=== PATIENT | female | born 1940 | race African-American/Black ===

== ENCOUNTER 2016-09-10 17:15 | Emergency (ER) | payer MEDICARE ==
[2016-06-09 09:53] VITALS: BMI 23.2
[~2016-09-10 17:15] MED LIST: BAYER CHEWABLE81 MG PO; BETAPACE 80 MG80 MG PO; GLUCOPHAGE500 MG PO; NORVASC2.5 MG PO; NORVASC5 MG PO; PLAVIX75 MG PO; PRAVACHOL40 MG PO
[2016-09-10 17:56] LABS: BASOPHILS 0.9 % (0.0-2.0); HEMATOCRIT 39.4 % (36.0-48.0); HEMOGLOBIN 12.8 g/dL (12-16); IMMATURE GRANULOCYTES 0.4 % (0-5); LYMPHOCYTES 38.3 % (15-50); MCH 27.5 pg (26.0-34.0); MCHC 32.5 g/dL (31.0-37.0); MCV 84.5 fL (80.0-100.0); NEUTROPHILS 45.4 % (40-80); PLATELET COUNT 195 10x3/uL (130-400); RBC 4.66 10x6/uL (4.00-5.40); RDW 15.6 % (11.5-14.5); WBC 5.4 10x3/uL (4.8-10.8)
[2016-09-10 18:17] LABS: ALBUMIN 3.5 g/dL (3.4-5.0); ANION GAP 9.2 mmol/L (8-16); BILIRUBIN - TOTAL 0.43 mg/dL (0.2-1.3); CALCIUM 9.7 mg/dL (8.5-10.1); CARBON DIOXIDE 28.4 mmol/L (21.0-32.0); CREATININE - SERUM 0.8 mg/dL (0.6-1.3); POTASSIUM - SERUM 3.6 mmol/L (3.5-5.1); PROTEIN - SERUM 7.1 g/dL (6.4-8.2)
== END 2016-09-10 19:27 | disposition home or self-care (01) ==
LOC: D.ER 17:15
PROVIDERS: Emergency Medicine
DX: R00.0 Tachycardia, unspecified (principal); R94.31 Abnormal electrocardiogram [ECG] [EKG]

== ENCOUNTER 2016-12-12 08:29 | Outpatient (CLI) | payer MEDICARE ==
[~2016-12-12] VITALS: Ht 162.6 cm; Wt 61.4 kg
--- NOTE | ~2016-12-12 | HEMODYNAMI ---
PATIENT:HALLE OBANDO MEDICAL RECORD: [id number] : 36 LOCATION:[facility] ADMISSION DATE: 12/12/16 Generatedon:12/12/201611:22 Patient name: HALLE OBANDO Patient #: [id number] SSN: Marina OB: 1940 Date of study: 12/12/2016 Page: Of Hemodynamic Procedure Report Patient Data Patient Demographics Procedure consent was obtained First Name: HALLE Gender: Female Last Name: GISELLA : 1940 Patient #: [id number] Age: 76 year(s) Race: Black Additional ID: [id number] Contact details Address: [address] [place] [address] State: [place] City: [place] Zip code: [address] Past Medical History Allergies Allergen Reaction Date Comments Reported Other allergy 06/13/2015 Codeine, PCN, Hydrocodone, Ultram Other allergy 05/30/2016 penicillin, codeine Codeine Other 06/09/2016 Penicillins Skin ->Redness 06/09/2016 Penicillins 12/12/2016 Codeine 12/12/2016 Other allergy 12/12/2016 ibuprofen Admission Admission Data Admission Date: 12/12/2016 Admission Time: 8:29 Height (in.): 64 BSA: 1.66 (m2) Height (cm.): 162.56 BMI: 23.17 (kg/m2) Weight (lbs.): 135 Weight (kg.): 61.23 Lab Results Lab Result Date: 12/12/2016 Lab Result Time: 0:00 Biochemistry Name Units Result Min Max BUN mg/dl 11 --(-*--)-- 7 18 Creatinine mg/dl 0.7 --(*---)-- 0.6 1.3 CBC Name Units Result Min Max Hemoglobin g/dl 11.8 *-(----)-- 13.5 17.5 Procedure Procedure Types Cath Procedure Diagnostic Procedure LHC LHC w/Coronaries PCI Procedure PTCA Initial Miscellaneous Procedures Moderate Sedation up to 30 minutes Procedure Description Procedure Date Procedure Date: 12/12/2016 Procedure Start Time: 10:51 Procedure End Time: 11:11 Procedure Staff Name Function Joaquin Ndiaye MD Performing Physician Aletha Keene RN Nurse Americo Davidson RT Monitor Dick Faulkner RT Scrub Procedure Data Cath Procedure Fluoroscopy Diagnostic fluoroscopy Total fluoroscopy Time: 7.1 time: 7.1 min min Diagnostic fluoroscopy Total fluoroscopy dose: 661 dose: 661 mGy mGy Contrast Material Contrast Material Type Amount (ml) Isovue 300 146 Entry Location Entry Primary Successful Side Size Upsize Upsize Entry Closure Succes sful Closure Location (Fr) 1 (Fr) 2 (Fr) Remarks Device Remarks Femoral Right 5 Fr 6 Fr Exoseal artery Short Diagnostic catheters Device Type Used For End Catheter Placement Cordis 5Fr Pigtail LV Angiography Catheter (MP) Cordis 5Fr JL 4.0 Left Coronary Catheter (MP) Angiography Diagnostic Infinity 5Fr Left Coronary JL 3.5 catheter Angiography Cordis 5Fr 3DRC Catheter Right Coronary (MP) Angiography Procedure Complications No complications Procedure Medications Medication Administration Route Dosage Oxygen NC 2 l/min Heparin Flush Bag added to field 2 bags (1000units/500ml NS) Lidocaine 2% added to field 20 Versed I.V. 1 mg Fentanyl I.V. 50 mcg Versed I.V. 1 mg Fentanyl I.V. 50 mcg Fentanyl I.V. 50 mcg Heparin Bolus I.V. 4000 units Hemodynamics Rest BSA: 1.66 (m2) HGB: 11.8 (g/dl) O2 Consumption: Estimated: 144.25 (ml/min) O2 Co nsumption indexed: Estimated:86.9 (ml/min/m) Heart Rate: 61 (bpm) Snapshots Pre Cath Intra NCS Post Cath Vital Signs Time Heart Resp SPO2 etCO2 [id number] NIBP (mmHg) Rhythm Pain Sedation Rate (ipm) (%) (mmHg) (mmHg) Status Level (bpm) 10:31:56 67 16 97 0 0 154/89(107) NSR 0 (11) 10(A) , No pain 10:36:12 65 16 98 0 0 138/86(117) NSR 0 (11) 10(A) , No pain 10:40:28 57 12 100 0 0 132/73(106) NSR 0 (11) 10(A) , No pain 10:44:32 63 16 100 0 0 132/83(114) NSR 0 (11) 10(A) , No pain 10:48:48 54 16 100 0 0 115/66(76) NSR 0 (11) 10(A) , No pain 10:52:58 60 16 95 0 0 91/64(74) NSR 0 (11) 9(A) , No pain 10:57:00 76 16 96 0 0 106/63(78) NSR 0 (11) 9(A) , No pain 11:00:59 76 16 96 0 0 127/86(112) NSR 0 (11) 9(A) , No pain 11:05:11 68 16 99 0 0 115/73(83) NSR 0 (11) 9(A) , No pain 11:09:58 83 17 100 0 0 138/93(114) NSR 0 (11) 10(A) , No pain Medications Time Medication Route Dose Verified Delivered Reason Notes Effectiveness by by 10:33:07 Oxygen NC 2 Joaquin Aletha Per physician l/min Senthil Keene RN 10:33:14 Heparin Flush added 2 Joaquin Joaquin used for Bag to bags Senthil Ndiaye MD procedure (1000units/500ml field NS) 10:33:22 Lidocaine 2% added 20ml Joaquin Joaquin used for to vial Senthil Ndiaye MD procedure field 10:44:08 Versed I.V. 1 mg Joaquin Aletha for sedation Senthil Keene RN 10:44:38 Fentanyl I.V. 50 Joaquin Aletha for sedation mcg Senthil Keene RN 10:46:48 Versed I.V. 1 mg Joaquin Aletha for sedation Senthil Keene RN 10:46:51 Fentanyl I.V. 50 Joaquin Aletha for sedation mcg Senthil Keene RN 10:51:28 Fentanyl I.V. 50 Joaquin Aletha for sedation mcg Senthil Keene RN 11:00:55 Heparin Bolus I.V. 4000 Joaquin Aletha for dose units Senthil Keene RN anticoagulation verified with dr ndiaye Procedure Log Time Note 10:10:05 Americo Davidson RT(R) sent for patient. Start room use. 10:23:37 Time tracking: Regular hours 10:23:43 Plan of Care:Hemodynamics will remain stable., Cardiac rhythm will remain stable., Comfort level will be maintained., Respiratory function will remain adequate., Patient/ family verbilizes understanding of procedure., Procedure tolerated without complication., Recovers from procedure without complications.. 10:23:50 Patient received from Pre/Post Procedure Room to CCL 1 Alert and oriented. Tansferred to table in Supine position. 10:23:52 Warm blankets applied, and milagro hugger turned on for patient comfort. 10:23:53 Correct patient and procedure confirmed by team. 10:23:54 Signed procedure consent form obtained from patient. 10:23:54 ECG and BP/O2 sat monitors applied to patient. 10:30:51 Vital chart was started 10:33:07 Oxygen 2 l/min NC was administered by Aletha Keene RN; Per physician; 10:33:14 Heparin Flush Bag (1000units/500ml NS) 2 bags added to field was administered by Joaquin Ndiaye MD; used for procedure; 10:33:22 Lidocaine 2% 20ml vial added to field was administered by Joaquin Ndiaye MD; used for procedure; 10:37:17 Baseline sample Acquired. 10:37:20 Rhythm: sinus rhythm 10:37:21 Full Disclosure recording started 10:37:32 H&P Date Dictated: 11/28/2016 Within 30 days and on chart., H&P Addendum completed by physician on day of procedure. (MUST COMPLETE FOR ALL OUTPATIENTS). 10:37:33 Pre-procedure instructions explained to patient. 10:37:34 Pre-op teaching completed and patient verbalized understanding. 10:37:39 Family unavailable. 10:37:40 Patient NPO since Midnight. 10:37:46 Patient allergic to Penicillins 10:37:52 Patient allergic to Codeine 10:38:05 Patient allergic to Other allergyibuprofen 10:38:08 Is the patient allergic to Iodine/contrast media? No. 10:38:11 Was the patient premedicated? No 10:38:13 Is patient on blood thinner?Yes 10:38:17 ACC The patient was administered the following blood thiners within the last 24 hours: ACCPlavix 10:38:20 Patient diabetic? Yes. 10:38:22 If diabetic: On Metformin? Yes 10:38:25 If on Metformin: Last Dose? 12/10/2016 10:38:26 ----Pre-sedation anethsthesia assessment.---- 10:38:29 Previous problem with sedation/anesthesia? No ? 10:38:30 Snore? Yes 10:38:32 Sleep apnea? No 10:38:33 Deviated septum? No 10:38:36 Opens mouth fully? Yes 10:38:38 Sticks out tongue? Yes 10:38:40 Airway obstruction? No ? 10:38:53 Dentures? Yes in tight 10:38:57 Pre procedure: right dorsailis pedis pulse 1+ Palpable, but thready & weak; easily obliterated 10:39:00 Patient pain scale 0/10 ?. 10:39:06 IV patent on arrival in left forearm with 0.9% NaCl at 10ml/hr. 10:39:26 Lab Result : Creatinine 0.7 mg/dl 10:39:26 Lab Result : BUN 11 mg/dl 10:39:26 Lab Result : Hemoglobin 11.8 g/dl 10:39:29 Lab results completed and on chart. 10:39:35 Right groin area was prepped with chlora-prep and draped in sterile fashion 10:39:37 Alarms reviewed by R. N. 10:39:37 Sharps counted by scrub and verified by R.N. 10:42:51 Patient Weight : 135 kg 10:42:59 Patient Height : 64 cm 10:43:13 --------ALL STOP TIME OUT------ 10:43:13 Final Timeout: patient, procedure, and site verified with staff and physician. All members of the team are in agreement. 10:43:15 Right groin site verified by team. 10:43:18 Physical assessment completed. ASA score P 2 - A patient with mild systemic disease as per Joaquin Ndiaye MD. 10:43:22 Sedation plan: IV Moderate Sedation Versed, Fentanyl 10:44:08 Versed 1 mg I.V. was administered by Aletha Kenee RN; for sedation; 10:44:38 Fentanyl 50 mcg I.V. was administered by Aletha Keene RN; for sedation; 10:46:42 Use device set Femoral Dx 10:46:43 Acist Syringe opened to sterile field. 10:46:43 Bag Decanter opened to sterile field. 10:46:44 Medline Cath Pack opened to sterile field. 10:46:44 Terumo 5Fr Grayling Sheath opened to sterile field. 10:46:44 [place] 260cm J .035 wire opened to sterile field. 10:46:46 Acist Hand Control opened to sterile field. 10:46:46 Acist Manifold opened to sterile field. 10:46:47 Diagnostic Infinity 5Fr Multipack catheter opened to sterile field. 10:46:47 Tegaderm 4 x 4 opened to sterile field. 10:46:48 Versed 1 mg I.V. was administered by Aletha Keene RN; for sedation; 10:46:51 Fentanyl 50 mcg I.V. was administered by Aletha Keene RN; for sedation; 10:51:10 Zero performed for pressure channel P1 10:51:13 Zero performed for pressure channel P1 10:51:23 Procedure started. 10:51:28 Fentanyl 50 mcg I.V. was administered by Aletha Keene RN; for sedation; 10:51:33 Local anesthetic to right femoral artery with Lidocaine 2% by Joaquin Ndiaye MD.INITIAL ACCESS ONLY 10:51:39 A 5 Fr sheath was inserted into the Right Femoral artery 10:52:23 A Cordis 5Fr Pigtail Catheter (MP) was advanced over the wire and used for LV Angiography. 10:52:45 LV angiography performed. 10:52:55 EF : 60 % 10:52:57 LV gram done using NAIK 10:53:01 Injector settings: Ml/sec: 10, Volume: 20, 10:53:03 Catheter removed. 10:53:08 A Cordis 5Fr JL 4.0 Catheter (MP) was advanced over the wire and used for Left Coronary Angiography. 10:54:12 Catheter removed. 10:54:43 A Diagnostic Infinity 5Fr JL 3.5 catheter was advanced over the wire and used for Left Coronary Angiography. 10:54:48 LCA angiography performed. 10:56:00 Catheter removed. 10:56:18 A Cordis 5Fr 3DRC Catheter (MP) was advanced over the wire and used for Right Coronary Angiography. 10:56:23 RCA angiography performed. 10:56:24 Catheter removed. 10:56:26 MedEd4U Launcher 5Fr EBU 3.5 guide catheter opened to sterile field. 10:56:37 6 Fr ? guide catheter was inserted over the wire 10:56:41 5 Fr ebu 3.5 guide catheter was inserted over the wire 10:56:44 LCA angiography performed. 10:58:53 Catheter removed. 10:59:22 Terumo 6Fr Gray[place] Sheath opened to sterile field. 10:59:23 [place] Sci Choice PT Extra Support J 300cm .014 gu opened to sterile field. 10:59:23 Merit BasixCompak Inflation Kit opened to sterile field. 10:59:24 Medtronic Launcher 6Fr EBU 3.5 guide catheter opened to sterile field. 10:59:35 Sheath upsized to a 6 Fr Short. 10:59:47 6 Fr EBU 3.5 guide catheter was inserted over the wire 11:00:49 ACC PCI Site: Diag1 has 90% stenosis. 11:00:51 ACC Pre-intervention CRYSTAL Flow is 3. 11:00:55 Heparin Bolus 4000 units I.V. was administered by Aletha Keene RN; for anticoagulation; dose verified with dr ndiaye 11:00:57 CPTES wire advanced. 11:04:18 Cordis 6Fr Exoseal opened to sterile field. 11:06:43 Inflation number: 1 A [place] Sci [place] 1.5 X 15 balloon was prepped and advanced across the 1st Diag, then inflated to 11 LIZBETH for 0:10 (min:sec). 11:06:53 Inflation number: 2 The [place] Sci [place] 1.5 X 15 balloon was reinflated across the 1st Diag, to 13 LIZBETH for 0:08 (min:sec). 11:07:07 Inflation number: 3 The [place] Sci [place] 1.5 X 15 balloon was reinflated across the 1st Diag, to 21 LIZBETH for 0:13 (min:sec). 11:08:32 Inflation number: 4 The [place] Sci [place] 1.5 X 15 balloon was reinflated across the 1st Diag, to 15 LIZBETH for 0:20 (min:sec). 11:08:41 Balloon removed over the wire. 11:08:49 Sheath removed intact; hemostasis achieved with Exoseal to the Right Femoral artery. 11:08:53 Contrast amount:Isovue 300 146ml. 11:08:54 Procedure ended.(Physican Out) 11:09:07 Fluoroscopy time 07.10 minutes. 11:09:12 Flurop Dose total: 661 11:09:12 Fluoroscopy dose: 661 mGy 11:09:14 Sharps counted by scrub and verified by R.N. 11:09:15 Insertion/operative site no bleeding no hematoma. 11:09:19 Post-op/insertion site Right Femoral artery dressed using a 4 x 4 and Tegaderm. 11:09:22 Post right femoral artery:stable 11:10:15 Procedure type changed to Cath procedure, Diagnostic procedure, LHC, LHC w/Coronaries, PCI procedure, PTCA Initial, Miscellaneous Procedures, Moderate Sedation up to 30 minutes 11:10:19 Post Procedure Pulses reassessed and unchanged 11:10:21 Post procedure rhythm: sinus rhythm 11:10:23 Post procedure instruction explained to patient.Patient verbalizes understanding. 11:10:48 Procedure and supply charges have been captured, reviewed, submitted and are correct. 11:10:52 Procedure Complication : No complications 11:10:58 Vital chart was stopped 11:10:59 See physician's report for complete and final results. 11:11:06 Report given to Pre/Post Procedure Room. 11:11:09 Patient transfered to Pre/Post Procedure Room with Stretcher. 11:11:11 Procedure ended. 11:11:11 Full Disclosure recording stopped 11:11:13 End room use (Document Last) Intervention Summary Intervention Notes Time ActionType Lesion and Equipment Action# Pressure Duration Attributes Used 11:06:43 Inflate 1st Diag [place] 1 11 00:10 balloon Sci [place] 1.5 X 15 balloon 11:06:53 Reinflate 1st Diag [place] 2 13 00:08 balloon [place] 1.5 X 15 balloon 11:07:07 Reinflate 1st Diag [place] 3 21 00:14 balloon [place] 1.5 X 15 balloon 11:08:32 Reinflate 1st Diag [place] 4 15 00:20 balloon [place] 1.5 X 15 balloon Device Usage Item Name Manufacture Quantity Catalog Number Hospital Part Current Mini mal Lot# / Charge Number Stock Stock Serial# Code Acist Acist 1 31574 [id number] [id number] 20 epacube Inc Bag Microtek 1 2002S 248374 62310 975437 5 [employer] Medline Cardinal 1 [id number] 048909 55521 780421 5 Cath Pack Health Terumo 5Fr Terumo 1 [id number] 989772 118491 679904 [address] [place] 1 130336 879002 194950 517935 30 260cm J .035 wire Acist Hand Acist 1 85535 387635 530431 411425 5 Control Medical Systems Inc Acist Acist 1 18809 179810 635220 729620 5 Manifold Medical Systems Inc Diagnostic Cardinal 1 [id number] 735150 85206 945104 30 Infinity Health 5Fr Multipack catheter Tegaderm 4 3M 1 [id number] 926576 484429 967132 5 x 4 Cordis 5Fr Cardinal 1 538376 5 Pigtail Health Catheter (MP) Cordis 5Fr Cardinal 1 220651 5 JL 4.0 Health Catheter (MP) Diagnostic Cardinal 1 [id number] 023910 153551 779011 5 Infinity Health 5Fr JL 3.5 catheter Cordis 5Fr Cardinal 1 218962 5 3DRC Health Catheter (MP) Medtronic Medtronic 1 [id number] 926353 987937 326255 1 Launcher 5Fr EBU 3.5 guide catheter Terumo 6Fr Terumo 1 [id number] 054954 720786 176689 40 Grayling Sheath [place] Sci [place] 1 [id number] 543388 625226 825500 5 Choice PT Scientific Extra Support J 300cm .014 gu Merit Merit 1 [id number] 581086 456396 146561 15 BasixCompak Medical Inflation Kit Medtronic Medtronic 1 [id number] 866104 28117 886024 3 Launcher 6Fr EBU 3.5 guide catheter Cordis 6Fr Cardinal 1 [id number] 945309 270407 007469 10 Exoseal Health [place] Sci [place] 1 [id number] 254200 347883 775015 1 [id number] [email or web address] 1.5 X 15 balloon Signature Audit [place] Stage Time Signature Unsigned Intra-Procedure 12/12/2016 Americo Davidson 11:22:13 AM RT(R) Signatures Monitor : Americo Davidson RT Signature : Date : Time : [facility] [address] [place] [address]
--- NOTE | ~2016-12-12 | OP ---
PATIENT NAME: HALLE OBANDO MEDICAL RECORD: [id number] :36 LOCATION:D.[facility] ADMISSION DATE: SURGEON: CHRISTOPHER SUAREZ MD DATE OF OPERATION: 12/12/2016 PROCEDURES: 1. PTCA, LAD diagonal. 2. Left heart catheterization. 3. Selective coronary angiography. 4. Left ventriculogram. INDICATIONS: Angina and coronary artery disease. PROCEDURE IN DETAIL: After informed consent was obtained and after detailed explanation of risks, benefits as well as alternative therapies, the patient elected to proceed with angiogram and angioplasty. The right femoral area was prepped and draped in normal sterile fashion. The right femoral artery was cannulated via modified Seldinger technique with placement of 6-[place] sheath. All catheters exchanged through this sheath. FINDINGS: The left ventriculogram was performed in standard 30-degree NAIK view, reveals good cardiac wall motion throughout all segments. Overall ejection fraction is 60%. SELECTIVE CORONARY ANGIOGRAPHY: 1. Left main showed no significant angiographic disease. 2. Left anterior descending has previously placed stent in the LAD, this is widely patent with no significant restenosis. The diagonal, however, is relatively long, but small-caliber vessel, it has a 90% stenosis. This correlates with perfusion defect on nuclear stress test. 3. The left circumflex shows moderate irregularities, but no flow-limiting stenosis. 4. The right coronary has previously placed stents. These are widely patent with no significant restenosis. No disease elsewise throughout the RCA or its branches. PTCA OF THE LAD DIAGONAL: The balloon used was a long 5.0 balloon taken to 17 atmospheres. Multiple inflations were made. Result was 0% residual stenosis. No angiographic evidence of dissection or thrombus. OVERALL IMPRESSION: Successful percutaneous transluminal coronary angioplasty of the left anterior descending diagonal going from 90% initial stenosis to 0% residual. TRANSINT:[id number] Voice Confirmation ID: [id number] DOCUMENT ID: [id number] CHRISTOPHER SUAREZ MD CC: [id number] DICTATION DATE: 12/12/16 1122 LAUNDRY HELPER: 12/12/162013 DEP CLI 12/12/16 [facility] [address] [place] [address]
[2016-12-12] MEDS ORDERED: LISINOPRIL2.5 MG PO (09:08)
[2016-12-12] MEDS ORDERED: TAPAZOLE 5 MG TA5 MG PO (09:08)
[2016-12-12] MEDS ORDERED: TENORMIN25 MG PO (09:09)
[2016-12-12] MEDS ORDERED: ZETIA10 MG PO (09:09)
[2016-12-12] MEDS ORDERED: ISOSORBIDE MONO20 MG PO (09:10)
[2016-12-12 09:14] VITALS: BP 137/78; Ht 162.6 cm; Wt 61.4 kg
[2016-12-12 09:54] LABS: CALC OSMOLALITY 290 mosm/kg (275-300); CALCIUM 9.3 mg/dL (8.5-10.1); CARBON DIOXIDE 26.2 mmol/L (21.0-32.0); CHLORIDE - SERUM 111 mmol/L (98-107); CREATININE - SERUM 0.7 mg/dL (0.6-1.3); POTASSIUM - SERUM 3.9 mmol/L (3.5-5.1); SODIUM 146 mmol/L (136-145); UREA NITROGEN 11 mg/dL (7-18); eGFR NON AFRICAN AMERICAN 86 mL/min (90-120)
[2016-12-12 10:03] LABS: GLUCOSE 114 mg/dL (74-106)
[2016-12-12 10:10] LABS: BASOPHILS 1.4 % (0.0-2.0); EOSINOPHILS 4.9 % (0-7); HEMATOCRIT 36.9 % (36.0-48.0); HEMOGLOBIN 11.8 g/dL (12-16); IMMATURE GRANULOCYTES 0.2 % (0-5); LYMPHOCYTES 27.4 % (15-50); MCH 27.8 pg (26.0-34.0); MEAN PLATELET VOLUME 10.4 fL (7.4-10.4); MONOCYTES 16.5 % (2-11); NEUTROPHILS 49.6 % (40-80); PLATELET COUNT 212 10x3/uL (130-400); RBC 4.24 10x6/uL (4.00-5.40); RDW 14.7 % (11.5-14.5); WBC 4.9 10x3/uL (4.8-10.8)
--- NOTE | 2016-12-12 12:53 | NUR ---
1235 PT SLEEPING, AWAKENS EASILY TO VERBAL STIMULI. EXOSEAL DRESSING TO RIGHT GROIN IS CDI, NO BLEEDING OR HEMATOMA NOTED. PEDAL PULSES PALPABLE. RR EVEN AND UNLABORED. PT DENIES ANY C/O.
--- NOTE | 2016-12-12 15:52 | NUR ---
1500-SITTING UP IN BED- RIGHT GROIN CDI, NO HEMATOMA OR BLEEDING, SOFT TO TOUCH, IV D'C WITH CATH TIP INTACT, WRITTEN AND VERBAL INSTRUCTIONS GIVEN TO PT AND DAUGHTER, UNDERSTOOD.
== END 2016-12-12 15:30 | disposition home or self-care (01) ==
LOC: D.CATH 08:29
PROVIDERS: Internal Medicine Interventional Cardiology
DX: I25.10 Atherosclerotic heart disease of native coronary artery without angina pectoris (principal); I10 Essential (primary) hypertension; R53.83 Other fatigue; R94.30 Abnormal result of cardiovascular function study, unspecified

== ENCOUNTER 2017-03-30 16:04 | Emergency (ER) | payer MEDICARE, MEDICAID ==
[2016-12-12 09:14] VITALS: BMI 23.2
[~2017-03-30 16:04] MED LIST changes: +ISOSORBIDE MONO20 MG PO; +LISINOPRIL2.5 MG PO; +TAPAZOLE 5 MG TA5 MG PO; +TENORMIN25 MG PO; +ZETIA10 MG PO
[2017-03-30 17:09] LABS: BASOPHILS 1.4 % (0-2); EOSINOPHILS 2.5 % (0-7); HEMATOCRIT 40.7 % (36.0-48.0); HEMOGLOBIN 13.3 g/dL (12-16); IMMATURE GRANULOCYTES 0.2 % (0-5); MCH 27.2 pg (26.0-34.0); MCHC 32.7 g/dL (31.0-37.0); MCV 83.2 fL (80.0-100.0); MEAN PLATELET VOLUME 9.9 fL (7.4-10.4); MONOCYTES 15.2 % (2-11); NEUTROPHILS 42.7 % (40-80); PLATELET COUNT 208 10x3/uL (130-400); RBC 4.89 10x6/uL (4.00-5.40); RDW 14.6 % (11.5-14.5); WBC 5.1 10x3/uL (4.8-10.8)
[2017-03-30 17:18] LABS: ALBUMIN 3.6 g/dL (3.4-5.0); ALKALINE PHOSPHATASE 85 U/L (46-116); ALT (SGPT) 13 U/L (10-68); CALC OSMOLALITY 286 mosm/kg (275-300); CALCIUM 9.7 mg/dL (8.5-10.1); CARBON DIOXIDE 26.8 mmol/L (21.0-32.0); CHLORIDE - SERUM 107 mmol/L (98-107); CREATININE - SERUM 0.7 mg/dL (0.6-1.3); GLUCOSE 116 mg/dL (74-106); POTASSIUM - SERUM 3.7 mmol/L (3.5-5.1); PROTEIN - SERUM 7.7 g/dL (6.4-8.2); SODIUM 144 mmol/L (136-145); UREA NITROGEN 10 mg/dL (7-18); eGFR NON AFRICAN AMERICAN 86 mL/min (90-120)
[2017-03-30 17:27] LABS: MAGNESIUM - SERUM 2.1 mg/dL (1.8-2.4); THYROID STIMULATING HORMONE 1.24 uIU/mL (0.36-3.74)
[2017-03-30 17:28] LABS: TROPONIN-I < 0.017 ng/mL (0.000-0.060)
== END 2017-03-30 20:17 | disposition home or self-care (01) ==
LOC: D.ER 16:04
PROVIDERS: Physician Assistant
DX: I48.91 Unspecified atrial fibrillation (principal); E11.9 Type 2 diabetes mellitus without complications; I25.10 Atherosclerotic heart disease of native coronary artery without angina pectoris; I10 Essential (primary) hypertension

== ENCOUNTER 2017-06-03 00:47 | Emergency (ER) | payer MEDICARE, MEDICAID ==
[2016-12-12 09:14] VITALS: BMI 23.2
[2017-06-03 01:35] LABS: APPEARANCE CLOUDY (CLEAR); BILIRUBIN NEGATIVE (NEGATIVE); COLOR YELLOW (YELLOW); GLUCOSE 100 mg/dL (NEGATIVE); KETONE NEGATIVE (NEGATIVE); NITRITE NEGATIVE (NEGATIVE); PROTEIN NEGATIVE (NEGATIVE); SPECIFIC GRAVITY 1.005 (1.005-1.020); UROBILINOGEN NORMAL (NORMAL)
[2017-06-03 01:36] LABS: AMORPHOUS SEDIMENT <1+ /lpf (NONE SEEN); BACTERIA MODERATE /hpf (NONE SEEN); EPITHELIAL CELLS 0-5 /hpf (0-5); RED CELLS - URINE NONE SEEN /hpf (0-5); WHITE CELLS - URINE NSEEN /hpf (0-5)
[2017-06-03 02:08] LABS: BASOPHILS 0.4 % (0-2); EOSINOPHILS 0.3 % (0-7); HEMATOCRIT 39.2 % (36.0-48.0); HEMOGLOBIN 12.7 g/dL (12-16); IMMATURE GRANULOCYTES 0.3 % (0-5); LYMPHOCYTES 11.6 % (15-50); MCH 26.9 pg (26.0-34.0); MCHC 32.4 g/dL (31.0-37.0); MCV 83.1 fL (80.0-100.0); MEAN PLATELET VOLUME 10.2 fL (7.4-10.4); MONOCYTES 14.1 % (2-11); NEUTROPHILS 73.3 % (40-80); RBC 4.72 10x6/uL (4.00-5.40); RDW 15.4 % (11.5-14.5); WBC 11.8 10x3/uL (4.8-10.8)
[2017-06-03 02:09] LABS: PLATELET COUNT 165 10x3/uL (130-400)
[2017-06-03 02:20] LABS: ALBUMIN 3.4 g/dL (3.4-5.0); ANION GAP 9.3 mmol/L (8-16); BILIRUBIN - TOTAL 0.4 mg/dL (0.2-1.3); CALCIUM 8.9 mg/dL (8.5-10.1); CARBON DIOXIDE 27.3 mmol/L (21.0-32.0); CREATININE - SERUM 0.9 mg/dL (0.6-1.3); POTASSIUM - SERUM 3.6 mmol/L (3.5-5.1); PROTEIN - SERUM 7.2 g/dL (6.4-8.2)
== END 2017-06-03 02:42 | disposition home or self-care (01) ==
LOC: D.ER 00:47
PROVIDERS: Family Medicine
DX: J02.0 Streptococcal pharyngitis (principal); I10 Essential (primary) hypertension; E11.9 Type 2 diabetes mellitus without complications

== ENCOUNTER 2017-09-11 08:42 | Outpatient (CLI) | payer MEDICARE, MEDICAID ==
[~2017-09-11] VITALS: Ht 162.6 cm; Wt 61.4 kg
--- NOTE | ~2017-09-11 | HEMODYNAMI ---
PATIENT:HALLE OBANDO MEDICAL RECORD: [id number] : 36 LOCATION:[facility] ADMISSION DATE: 09/11/17 Generatedon:09/11/201712:47 Patient name: HALLE OBANDO Patient #: [id number] SSN: [id number] : 1940 Date of study: 09/11/2017 Page: Of Hemodynamic Procedure Report Patient Data Patient Demographics Procedure consent was obtained First Name: HALLE Gender: Female Last Name: GISELLA : 1940 Patient #: [id number] Age: 77 year(s) Race: Black SSN: [id number] Additional ID: [id number] Contact details [address]: [address] [place] [address] State: [place] City: [place] Zip code: [address] Past Medical History Allergies Allergen Reaction Date Comments Reported Other allergy 06/13/2015 Codeine, PCN, Hydrocodone, Ultram Other allergy 05/30/2016 penicillin, codeine Codeine Other 06/09/2016 Penicillins Skin ->Redness 06/09/2016 Penicillins 12/12/2016 Codeine 12/12/2016 Other allergy 12/12/2016 ibuprofen Other allergy 09/11/2017 codeine, hydrocone, ibuprofen, tramadol Admission Admission Data Admission Date: 09/11/2017 Admission Time: 8:42 Height (in.): 65 BSA: 1.67 (m2) Height (cm.): 165.1 BMI: 22.46 (kg/m2) Weight (lbs.): 135 Weight (kg.): 61.23 Procedure Procedure Types Cath Procedure Diagnostic Procedure LHC LHC w/Coronaries PCI Procedure Coronary Stent Miscellaneous Procedures Moderate Sedation up to 15 minutes Procedure Description Procedure Date Procedure Date: 09/11/2017 Procedure Start Time: 12:30 Procedure End Time: 12:46 Procedure Staff Name Function Melissa Marley RT Scrub Dinesh Maharaj RN Nurse Joaquin dNiaye MD Performing Physician Gabrielle Daly RT Monitor Flor Morgan RN Nurse Procedure Data Cath Procedure Fluoroscopy Diagnostic fluoroscopy Total fluoroscopy Time: 3.5 time: 3.5 min min Diagnostic fluoroscopy Total fluoroscopy dose: 536 dose: 536 mGy mGy Contrast Material Contrast Material Type Amount (ml) Isovue 300 79 Entry Location Entry Primary Successful Side Size Upsize Upsize Entry Closure Succes sful Closure Location (Fr) 1 (Fr) 2 (Fr) Remarks Device Remarks Femoral Right 5 Fr 6 Fr Exoseal artery Short Estimated blood loss: 10 ml Diagnostic catheters Device Type Used For End Catheter Placement MULTIPACK Pigtail 5 Fr Procedure catheter MULTIPACK JL 4.0 5Fr Procedure catheter MULTIPACK 3DRC 5Fr Procedure catheter Procedure Complications No complications Procedure Medications Medication Administration Route Dosage 0.9% NaCl I.V. 100 ml/hr Oxygen NC 2 l/min Lidocaine 2% added to field 20 Heparin Flush Bag added to field 2 bags (1000units/500ml NS) Fentanyl I.V. 50 mcg Versed I.V. 1 mg Fentanyl I.V. 50 mcg Versed I.V. 1 mg Heparin Bolus I.V. 4000 units Fentanyl I.V. 50 mcg Hemodynamics Rest BSA: 1.67 (m2) O2 Consumption: Estimated: 149.51 (ml/min) O2 Consumption indexed : Estimated:89.53 (ml/min/m) Heart Rate: 68 (bpm) Snapshots Pre Cath Intra NCS Post Cath Vital Signs Time Heart Resp SPO2 etCO2 NIBP (mmHg) Rhythm Pain Sedation Rate (ipm) (%) (mmHg) Status Level (bpm) 12:03:59 65 18 99 0 140/87(127) NSR 0 (11) 10(A) , No pain 12:08:16 72 18 97 0 148/73(105) NSR 0 (11) 10(A) , No pain 12:12:29 75 18 96 29.2 120/86(104) NSR 0 (11) 10(A) , No pain 12:16:39 57 16 100 30 137/67(104) NSR 0 (11) 10(A) , No pain 12:20:55 63 16 100 31.5 125/71(101) NSR 0 (11) 10(A) , No pain 12:25:05 61 17 100 30.8 120/75(97) NSR 0 (11) 10(A) , No pain 12:29:17 60 17 98 0 101/61(80) NSR 0 (11) 10(A) , No pain 12:33:19 62 19 99 0 108/66(83) NSR 0 (11) 9(A) , No pain 12:37:27 67 18 90 0 93/63(79) NSR 0 (11) 9(A) , No pain 12:41:30 71 19 92 0 112/58(79) NSR 0 (11) 9(A) , No pain 12:43:50 79 11 99 15 120/65(98) NSR 0 (11) 9(A) , No pain Medications Time Medication Route Dose Verified Delivered Reason Notes Effectiveness by by 12:03:09 0.9% NaCl I.V. 100 Joaquin Flor used for ml/hr Senthil Morgan RN procedure 12:03:19 Oxygen NC 2 Joaquin Flor Per physician l/min Senthil Morgan RN 12:03:27 Lidocaine 2% added 20ml Joaquin Joaquin for local to vial Senthil Ndiaye MD anesthetic field 12:03:34 Heparin Flush added 2 Joaquin Joaquin used for Bag to bags Senthil Ndiaye MD procedure (1000units/500ml field NS) 12:28:37 Fentanyl I.V. 50 Joaquin Dinesh for sedation mcg Senthil Maharaj RN 12:28:51 Versed I.V. 1 mg Joaquin Brighty for sedation Senthil Maharaj RN 12:30:47 Fentanyl I.V. 50 Joaquin Brighty for sedation mcg Senthil Maharaj RN 12:30:51 Versed I.V. 1 mg Joaquin Montiel for sedation Senthil Maharaj RN 12:33:16 Fentanyl I.V. 50 Joaquin Dinesh for sedation [facility] Senthil Maharaj RN 12:38:05 Heparin Bolus I.V. 4000 Joaquinfelipe Brighty for units Senthil Maharaj RN anticoagulation Procedure Log Time Note 11:43:32 Gabrielle Daly RT(R) sent for patient. Start room use. 11:52:48 Diagnostic Cath Status : Elective 11:53:33 Time tracking: Regular hours 11:53:38 Plan of Care:Hemodynamics will remain stable., Cardiac rhythm will remain stable., Comfort level will be maintained., Respiratory function will remain adequate., Patient/ family verbilizes understanding of procedure., Procedure tolerated without complication., Recovers from procedure without complications.. 11:58:16 Patient received from Pre/Post Procedure Room to CCL 2 Alert and oriented. Tansferred to table in Supine position. 11:58:17 Warm blankets applied, and milagro hugger turned on for patient comfort. 11:58:18 Correct patient and procedure confirmed by team. 11:58:20 Signed procedure consent form obtained from patient. 11:58:21 ECG and BP/O2 sat monitors applied to patient. 12:02:50 Vital chart was started 12:02:52 Baseline sample Acquired. 12:02:57 Rhythm: sinus rhythm 12:02:59 Full Disclosure recording started 12:03:09 0.9% NaCl 100 ml/hr I.V. was administered by Flor Morgan RN; used for procedure; 12:03:19 Oxygen 2 l/min NC was administered by Flor Morgan RN; Per physician; 12:03:27 Lidocaine 2% 20ml vial added to field was administered by Joaquin Ndiaye MD; for local anesthetic; 12:03:34 Heparin Flush Bag (1000units/500ml NS) 2 bags added to field was administered by Joaquin Ndiaye MD; used for procedure; 12:08:29 Pre-procedure instructions explained to patient. 12:08:31 Pre-op teaching completed and patient verbalized understanding. 12:08:34 Family in patients room. 12:08:36 Patient NPO since Midnight. 12:09:04 Patient allergic to Other allergycodeine, hydrocone, ibuprofen, tramadol 12:09:18 Is the patient allergic to Iodine/contrast media? No. 12:09:21 Was the patient premedicated? Yes 12:09:29 Is patient on blood thinner?Yes 12:09:32 ACC The patient was administered the following blood thiners within the last 24 hours: ACCPlavix 12:09:35 Patient diabetic? Yes. 12:09:37 If diabetic: On Metformin? Yes 12:09:44 If on Metformin: Last Dose? 09/08/2017 12:09:49 Snore? No 12:09:51 Sleep apnea? No 12:09:57 Dentures? Yes in tight 12:10:04 Patient pain scale 0/10 ?. 12:10:16 IV patent on arrival in left forearm with 0.9% NaCl at [facility]. 12:: Lab results completed and on chart. 12:: Right groin area was prepped with chlora-prep and draped in sterile fashion 12:: Sharps counted by scrub and verified by R.N. Alarms reviewed by R. N. 12::30 Physician paged 12:16:13 Baseline sample Acquired. 12::14 Patient Height : 65 inches 12::20 Patient Weight : 135 lbs 12::14 Physician arrived 12::15 Final Timeout: patient, procedure, and site verified with staff and physician. All members of the team are in agreement. 12:: --------ALL STOP TIME OUT------ : Right groin site verified by team. :: Physical assessment completed. ASA score P 2 - A patient with mild systemic disease as per Joaquin Ndiaye MD. 12::29 Sedation plan: IV Moderate Sedation Medication:Versed, Fentanyl 12:28:37 Use device set Femoral Dx 12:28:37 Fentanyl 50 mcg I.V. was administered by Dinesh Maharaj RN; for sedation; 12:28:38 Bag Decanter (2002S) opened to sterile field. 12:28:38 ACIST Syringe (16001) opened to sterile field. 12:28:39 SHEATH 5FR Sycamore (ESR770) opened to sterile field. 12:28:39 Medline Cath Pack (BNLL30025) opened to sterile field. 12:28:40 DIAGNOSTIC WIRE .035 260cm J wire (807005) opened to sterile field. 12:28:41 ACIST Manifold (01596) opened to sterile field. 12:28:41 ACIST Hand Control (42976) opened to sterile field. 12:28:42 Tegaderm 4 x 4 (1626W) opened to sterile field. 12:28:42 DIAGNOSTIC Multipack 5Fr catheter set (UD5841) opened to sterile field. 12:28:43 PERCUTANEOUS ENTRY 19GA needle opened to sterile field. 12:28:51 Versed 1 mg I.V. was administered by Dinesh Maharaj RN; for sedation; 12:30:20 Procedure started. 12:30:40 Local anesthetic to right femoral artery with Lidocaine 2% by Joaquin Ndiaye MD.INITIAL ACCESS ONLY 12:30:47 Fentanyl 50 mcg I.V. was administered by Dinesh Maharaj RN; for sedation; 12:30:50 A 5 Fr sheath was inserted into the Right Femoral artery 12:30:51 Versed 1 mg I.V. was administered by Dinesh Maharaj RN; for sedation; 12:31:16 A MULTIPACK Pigtail 5 Fr catheter was advanced over the wire and used for Procedure. 12:32:12 LV gram done using NAIK 12:32:18 EF : 50 % 12:32:20 Catheter removed. 12:32:47 A MULTIPACK JL 4.0 5Fr catheter was advanced over the wire and used for Procedure. 12:33:16 Fentanyl 50 mcg I.V. was administered by Dinesh Maharaj RN; for sedation; 12:33:42 LCA angiography performed. 12:33:45 Catheter removed. 12:33:53 A MULTIPACK 3DRC 5Fr catheter was advanced over the wire and used for Procedure. 12:33:59 RCA angiography performed. 12:34:51 Catheter removed. 12:35:22 INFLATOR Merit BasixCompak (NG7277) opened to sterile field. 12:35:25 SHEATH 6FR Sycamore (ARE996) opened to sterile field. 12:36:16 GUIDE 6FR XBLAD 3.5 catheter ([id number]) opened to sterile field. 12:36:24 Proceeding to intervention. 12:36:39 Sheath upsized to a 6 Fr Short. 12:36:58 6 Fr XBLAD 3.5 guide catheter was inserted over the wire 12:37:14 Guide Catheter removed. unable to cannulate vessel. 12:37:40 GUIDE 6FR EBU 3.0 catheter (BS1ZBI20) opened to sterile field. 12:37:50 6 Fr EBU guide catheter was inserted over the wire 12:38:05 Heparin Bolus 4000 units I.V. was administered by Dinesh Maharaj RN; for anticoagulation; 12:39:52 whisper wire advanced. 12:40:03 WHISPER 300cm guide wire (0055234PQ) opened to sterile field. 12:40:53 Inflation Number: 1 A CUAUHTEMOC OTW 2.25 x 18 stent ([id number]) was prepped and advanced across the Dist LAD. The stent was deployed at 19 LIZBETH for 0:08 (min:sec). 12:41:07 EXOSEAL 6Fr (EX600) opened to sterile field. 12:43:19 Guide catheter removed. 12:43:19 Wire removed. 12:43:30 Sheath removed intact; hemostasis achieved with Exoseal to the Right Femoral artery. 12:43:33 Procedure ended.(Physican Out) 12:43:44 Fluoroscopy time 03.50 minutes. 12:43:47 Fluoroscopy dose: 536 mGy 12:43:47 Flurop Dose total: 536 12:43:51 Contrast amount:Isovue 300 79ml. 12:43:52 Sharps counted by scrub and verified by R.N. 12:43:54 Insertion/operative site no bleeding no hematoma. 12:43:58 Post right femoral artery:stable 12:44:01 Post Procedure Pulses reassessed and unchanged 12:44:05 Post-procedure physical assessment completed. ASA score P 2 - A patient with mild systemic disease as per Joaquin Ndiaye MD. 12:44:08 Post procedure rhythm: unchanged. 12:44:11 Estimated blood loss: 10 ml 12:44:14 Post procedure instruction explained to patient.Patient verbalizes understanding. 12:45:55 Procedure type changed to Cath procedure, Diagnostic procedure, LHC, LHC w/Coronaries, PCI procedure, Coronary Stent, Miscellaneous Procedures, Moderate Sedation up to 15 minutes 12:45:57 Procedure and supply charges have been captured, reviewed, submitted and are correct. 12:46:05 Procedure Complication : No complications 12:46:07 Vital chart was stopped 12:46:08 See physician's report for complete and final results. 12:46:10 Report given to Pre/Post Procedure Room. 12:46:13 Patient transfered to Pre/Post Procedure Room with Stretcher. 12:46:15 Full Disclosure recording stopped 12:46:15 Procedure ended. 12:46:18 End room use (Document Last) Intervention Summary Intervention Notes Time ActionType Lesion and Equipment Action# Pressure Duration Attributes Used 12:40:53 Place stent Dist LAD CUAUHTEMOC OTW 2.25 1 19 00:08 x 18 stent ([id number]) Device Usage Item Name Manufacture Quantity Catalog Hospital Part Current Minim al Lot# / Number Charge Number Stock Stock Serial# Code ACIST Syringe Acist 1 70985 488580 744650 062233 20 (53924) Medical Systems Inc Bag Decanter Microtek 1 2001S 621297 16211 899125 5 () Medical Inc. Medline Cath Cardinal 1 [id number] 764784 76888 703978 5 [facility] ([id number]) SHEATH 5FR Terumo 1 YQF036 903335 984218 398336 40 Sycamore (WAX423) DIAGNOSTIC [facility] [place] 1 153982 352730 160136 726264 30 WIRE .035 260cm J wire (064968) ACIST Hand Acist 1 42234 434529 287036 412806 5 Control Medical (22042) Systems Inc ACIST Acist 1 22517 995172 355071 389736 5 Manifold Medical (31109) Systems Inc DIAGNOSTIC Cardinal 1 UQ1957 771194 47056 685053 30 Multipack 5Fr Health catheter set (KS2499) Tegaderm 4 x 3M 1 1626W 942045 512690 424856 5 4 (1626W) PERCUTANEOUS Artsicle [facility] 1 S87655 238587 483226 5 ENTRY 19GA needle MULTIPACK Cardinal 1 686874 5 Pigtail 5 Fr Health catheter MULTIPACK JL Cardinal 1 652578 5 4.0 5Fr Health catheter MULTIPACK Cardinal 1 700730 5 3DRC 5Fr Health catheter INFLATOR [facility] 1 JO2589 236536 615567 413536 [address] [facility] BasixCompak (QA3596) SHEATH 6FR Terumo 1 UZR334 938626 893472 788793 40 Sycamore (TGG364) GUIDE 6FR Cardinal 1 25929125 909917 626751 591821 10 XBLAD 3.5 Health catheter (85650039) GUIDE 6FR EBU Medtronic 1 BP3GNP40 309127 96053 012890 0 3.0 catheter (WF1STP73) WHISPER 300cm Rick 1 [id number] 776147 851843 722527 5 guide wire Vascular ([id number]) CUAUHTEMOC OTW 2.25 Medtronic 1 [id number] 607548 81730 551347 5 [id number] x 18 stent ([id number]) EXOSEAL 6Fr Cardinal 1 EX600 897102 969130 681031 10 (EX600) Health Signature Audit [place] Stage Time Signature Unsigned Intra-Procedure 09/11/2017 Gabrielle Daly 12:47:30 PM RT(R) Signatures Monitor : Gabrielle Daly Signature : RT Date : Time : [place] [id number] [facility] [address]
--- NOTE | ~2017-09-11 | OP ---
PATIENT NAME: HALLE OBANDO MEDICAL RECORD: [id number] :36 LOCATION:D.CAT ADMISSION DATE: SURGEON: CHRISTOPHER SUAREZ MD DATE OF OPERATION: 09/11/2017 PROCEDURES: 1. PTCA stent to LAD. 2. Left heart catheterization. 3. Selective coronary angiography. 4. Left ventriculogram. INDICATION: Angina and coronary artery disease. PROCEDURE IN DETAIL: After informed consent was obtained and after detailed explanation of risks, benefits as well as alternative therapies, the patient elected to proceed with angiogram and angioplasty. The right femoral area was prepped and draped in normal sterile fashion. The right femoral artery was cannulated via modified Seldinger technique with placement of 6-Niuean sheath. All catheters exchanged through this sheath. FINDINGS: Left ventriculogram was performed in standard 30-degree NAIK view, reveals preserved ejection fraction at 50%. SELECTIVE CORONARY ANGIOGRAPHY: 1. Left main showed no significant angiographic disease. 2. Left anterior descending has previously placed stents. There is 80+ percent in-stent restenosis in the distal stent. 3. Left circumflex has an area of 50% to 70% stenosis in the mid vessel, otherwise only mild irregularities. 4. Right coronary has mild irregularities throughout. PTCA STENT OF THE LAD: The stent used was a 2.25 x 18 mm Berthoud taken to 19 atmospheres. Result was 0% residual stenosis. OVERALL IMPRESSION: Successful percutaneous transluminal coronary angioplasty stent of the left anterior descending going from 80+ percent initial stenosis to 0% residual stenosis. TRANSINT:[id number] Voice Confirmation ID: [id number] DOCUMENT ID: [id number] CHRISTOPHER SUAREZ MD at 1324 CC: [id number] DICTATION DATE: 09/11/17 1248 DRILLING FIELD SPECIALIST: 09/11/17 1336 DEP CLI 09/11/17 [place] [id number]
[2017-09-11] MEDS ORDERED: SOMA350 MG PO (09:09)
[2017-09-11] MEDS ORDERED: PLAVIX75 MG PO (09:10)
[2017-09-11] MEDS ORDERED: EFFEXOR37.5 MG PO (09:12)
[2017-09-11 09:20] VITALS: BP 128/78; Ht 162.6 cm; Wt 61.4 kg
[2017-09-11 09:33] LABS: BASOPHILS 1.2 % (0-2); EOSINOPHILS 3.1 % (0-7); HEMATOCRIT 39.7 % (36.0-48.0); HEMOGLOBIN 12.7 g/dL (12-16); IMMATURE GRANULOCYTES 0.2 % (0-5); LYMPHOCYTES 28.8 % (15-50); MCV 84.3 fL (80.0-100.0); MEAN PLATELET VOLUME 9.6 fL (7.4-10.4); MONOCYTES 15.9 % (2-11); NEUTROPHILS 50.8 % (40-80); PLATELET COUNT 171 10x3/uL (130-400); RBC 4.71 10x6/uL (4.00-5.40); RDW 15.8 % (11.5-14.5); WBC 5.2 10x3/uL (4.8-10.8)
[2017-09-11 09:58] LABS: CALC OSMOLALITY 279 mosm/kg (275-300); CALCIUM 9.6 mg/dL (8.5-10.1); CARBON DIOXIDE 23.2 mmol/L (21.0-32.0); CHLORIDE - SERUM 107 mmol/L (98-107); CREATININE - SERUM 0.5 mg/dL (0.6-1.3); GLUCOSE 126 mg/dL (74-106); POTASSIUM - SERUM 4.5 mmol/L (3.5-5.1); SODIUM 140 mmol/L (136-145); UREA NITROGEN 10 mg/dL (7-18); eGFR NON AFRICAN AMERICAN > 90 mL/min (90-120)
== END 2017-09-11 16:50 | disposition home or self-care (01) ==
LOC: D.CATH 08:42
PROVIDERS: Internal Medicine Interventional Cardiology
DX: I25.119 Atherosclerotic heart disease of native coronary artery with unspecified angina pectoris (principal); T82.855A Stenosis of coronary artery stent, initial encounter; Z01.812 Encounter for preprocedural laboratory examination
CPT/HCPCS: 93458; C9600

== ENCOUNTER 2018-01-04 21:41 | Emergency (ER) | payer MEDICARE, MEDICAID ==
[2017-09-11 09:20] VITALS: BMI 23.2
[~2018-01-04 21:41] MED LIST changes: +EFFEXOR37.5 MG PO; +SOMA350 MG PO
[2018-01-04 22:37] LABS: EOSINOPHILS 4.2 % (0-7); HEMATOCRIT 35.2 % (36.0-48.0); HEMOGLOBIN 11.6 g/dL (12-16); IMMATURE GRANULOCYTES 0.6 % (0-5); LYMPHOCYTES 36.8 % (15-50); MCH 27.6 pg (26.0-34.0); MCV 83.6 fL (80.0-100.0); MEAN PLATELET VOLUME 9.7 fL (7.4-10.4); NEUTROPHILS 44.4 % (40-80); PLATELET COUNT 193 10x3/uL (130-400); RBC 4.21 10x6/uL (4.00-5.40); RDW 15.4 % (11.5-14.5); WBC 6.2 10x3/uL (4.8-10.8)
[2018-01-04 22:49] LABS: ALKALINE PHOSPHATASE 75 U/L (46-116); ALT (SGPT) 15 U/L (10-68); CALC OSMOLALITY 285 mosm/kg (275-300); CALCIUM 9.8 mg/dL (8.5-10.1); CARBON DIOXIDE 27.2 mmol/L (21.0-32.0); CHLORIDE - SERUM 108 mmol/L (98-107); CREATININE - SERUM 0.8 mg/dL (0.6-1.3); GLUCOSE 126 mg/dL (74-106); PROTEIN - SERUM 7.1 g/dL (6.4-8.2); SODIUM 143 mmol/L (136-145); UREA NITROGEN 11 mg/dL (7-18); eGFR NON AFRICAN AMERICAN 73 mL/min (90-120)
[2018-01-04 22:59] LABS: CKMB 0.5 U/L (0.0-3.6); CREATINE KINASE 40 UL (21-215); TROPONIN-I < 0.017 ng/mL (0.000-0.060)
== END 2018-01-04 23:46 | disposition home or self-care (01) ==
LOC: D.ER 21:41
PROVIDERS: Family Medicine
DX: M25.512 Pain in left shoulder (principal); M25.511 Pain in right shoulder; Z86.79 Personal history of other diseases of the circulatory system; I10 Essential (primary) hypertension; E11.9 Type 2 diabetes mellitus without complications; Z79.4 Long term (current) use of insulin

== ENCOUNTER 2018-01-12 19:04 | Emergency (ER) | payer MEDICARE, MEDICAID ==
[2017-09-11 09:20] VITALS: BMI 23.2
== END 2018-01-12 21:08 | disposition home or self-care (01) ==
LOC: D.ER 19:04
DX: L02.415 Cutaneous abscess of right lower limb (principal); E11.9 Type 2 diabetes mellitus without complications; I25.10 Atherosclerotic heart disease of native coronary artery without angina pectoris; I10 Essential (primary) hypertension

== ENCOUNTER 2018-07-05 08:26 | Outpatient (CLI) | payer MEDICARE, MEDICAID ==
[~2018-07-05] VITALS: Ht 162.6 cm; Wt 51.3 kg
--- NOTE | ~2018-07-05 | DS ---
PATIENT:HALLE OBANDO :36 MEDICAL RECORD: [id number] DISCHARGE SUMMARY ADMISSION DATE: 07/05/18 DISCHARGE DATE: 07/06/18 DATE OF DISCHARGE: 07/06/2018 DIAGNOSES: 1. PTCA and stent, LAD. 2. PTCA and laser atherectomy, RCA. 3. Unstable angina. 4. Coronary artery disease. Mrs. Obando presents with unstable anginal symptomatology, found to have significant disease of LAD and RCA. She underwent transcatheter revascularization of both territories with the addition of aspirin and Plavix to her medical regimen. She will follow up with [facility] in one month. TRANSINT:[id number] Voice Confirmation ID: [id number] DOCUMENT ID: [id number] CHRISTOPHER SUAREZ MD at 1059 CC: [id number] DICTATION DATE: 07/06/18 1124 MANAGER MEETING: 07/07/18 0000 DEP CLI 07/06/[address] [address]
--- NOTE | ~2018-07-05 | HEMODYNAMI ---
PATIENT:HALLE OBANDO MEDICAL RECORD: [id number] : 36 LOCATION:[facility] ADMISSION DATE: 07/05/18 Generatedon:07/05/201810:50 Patient name: HALLE OBANDO Patient #: [id number] SSN: [id number] : 1940 Date of study: 07/05/2018 Page: Of Hemodynamic Procedure Report Patient Data Patient Demographics Procedure consent was obtained First Name: HALLE Gender: Female Last Name: GISELLA : 1940 Patient #: [id number] Age: 77 year(s) Race: Black SSN: [id number] Additional ID: [id number] Contact details [address]: [address] [place] [address] State: [place] City: [place] Zip code: [address] Past Medical History Allergies Allergen Reaction Date Comments Reported Other allergy 06/13/2015 Codeine, PCN, Hydrocodone, Ultram Other allergy 05/30/2016 penicillin, codeine Codeine Other 06/09/2016 Penicillins Skin ->Redness 06/09/2016 Penicillins 12/12/2016 Codeine 12/12/2016 Other allergy 12/12/2016 ibuprofen Other allergy 09/11/2017 codeine, hydrocone, ibuprofen, tramadol Other allergy 07/05/2018 CODEINE, IBUPROFEN, PCN Admission Admission Data Admission Date: 07/05/2018 Admission Time: 8:26 Height (in.): 64 BSA: 1.67 (m2) Height (cm.): 162.56 BMI: 23.69 (kg/m2) Weight (lbs.): 138 Weight (kg.): 62.6 Procedure Procedure Types Cath Procedure Diagnostic Procedure [facility] w/Coronaries FFR/IVUS Intra-Coronary IVUS Initial PCI Procedure Coronary Stent Coronary Stent Initial Procedure Description Procedure Date Procedure Date: 07/05/2018 Procedure Start Time: 10:16 Procedure End Time: 10:49 Procedure Staff Name Function Joaquin Ndiaye MD Performing Physician Dick Faulkner RT Monitor Trisha Colón RT Scrub Michael Ngo RN Nurse Procedure Data Cath Procedure Fluoroscopy Diagnostic fluoroscopy Total fluoroscopy Time: 7.1 time: 7.1 min min Diagnostic fluoroscopy Total fluoroscopy dose: 551 dose: 551 mGy mGy Contrast Material Contrast Material Type Amount (ml) Isovue 300 133 Entry Location Entry Primary Successful Side Size Upsize Upsize Entry Closure Succes sful Closure Location (Fr) 1 (Fr) 2 (Fr) Remarks Device Remarks Femoral Right 5 Fr 6 Fr Exoseal artery Short Estimated blood loss: 10 ml Diagnostic catheters Device Type Used For End Catheter Placement MULTIPACK Pigtail 5 Fr Procedure catheter MULTIPACK JL 4.0 5Fr Procedure catheter MULTIPACK 3DRC 5Fr Procedure catheter Procedure Complications No complications Procedure Medications Medication Administration Route Dosage 0.9% NaCl I.V. 100 ml/hr Oxygen etCO2 Nasal cannula 2 l/min Heparin Flush Bag added to field 2 bags (1000units/500ml NS) Lidocaine 2% added to field 20 Versed I.V. 1 mg Fentanyl I.V. 50 mcg Versed I.V. 1 mg Fentanyl I.V. 50 mcg Heparin Bolus I.V. 4000 units Plavix P.O. 75 mg Hemodynamics Rest BSA: 1.67 (m2) O2 Consumption: Estimated: 143.71 (ml/min) O2 Consumption indexed : Estimated:86.05 (ml/min/m) Heart Rate: 59 (bpm) Pressure Samples Time Site Value (mmHg) Purpose Heart Use Rate(bpm) 10:25 AO 113/52(74) Snapshot 57 10:32 AO 110/53(75) Snapshot 61 10:42 AO 135/61(89) Snapshot 57 Snapshots Pre Cath Intra NCS Post Cath Vital Signs Time Heart Resp SPO2 etCO2 NIBP (mmHg) Rhythm Pain Sedation Rate (ipm) (%) (mmHg) Status Level (bpm) 9:42:02 56 18 100 25.3 133/86(122) NSR 0 (11) 10(A) , No pain 9:46:14 54 14 100 9.6 121/79(92) NSR 0 (11) 10(A) , No pain 9:51:13 55 29 100 14.9 130/75(98) NSR 0 (11) 10(A) , No pain 9:55:31 58 15 100 25.3 127/74(92) NSR 0 (11) 10(A) , No pain 10:00:30 54 23 100 26 132/72(111) NSR 0 (11) 10(A) , No pain 10:04:46 55 16 100 25.3 135/77(110) NSR 0 (11) 10(A) , No pain 10:09:02 48 17 100 27.5 132/75(86) NSR 0 (11) 10(A) , No pain 10:13:21 48 15 100 0 129/70(104) NSR 0 (11) 10(A) , No pain 10:17:37 52 13 100 19.3 121/73(87) NSR 0 (11) 9(A) , No pain 10:21:57 56 11 95 0 105/56(83) NSR 0 (11) 9(A) , No pain 10:26:07 57 11 94 0 106/62(79) NSR 0 (11) 9(A) , No pain 10:30:21 59 11 94 0 102/57(78) NSR 0 (11) 10(A) , No pain 10:34:30 59 13 96 0 107/63(89) NSR 0 (11) 10(A) , No pain 10:38:40 52 14 95 0 113/63(88) NSR 0 (11) 10(A) , No pain 10:42:46 62 13 100 0 128/82(98) NSR 0 (11) 10(A) , No pain 10:47:00 65 14 100 14.1 126/76(104) NSR 0 (11) 10(A) , No pain Medications Time Medication Route Dose Verified Delivered Reason Notes Effectiveness by by 9:40:21 0.9% NaCl I.V. 100 Michael Michael Per physician ml/hr Huber Ngo RN RN 9:40:31 Oxygen etCO2 2 Michael Michael Per physician Nasal l/min Huber Ngo cannula RN RN 9:40:43 Heparin Flush added 2 Michael Michael used for Bag to bags Huber Ngo procedure (1000units/500ml field CUETO RN NS) 9:40:54 Lidocaine 2% added 20ml Michael Michael for local to vial Huber Ngo anesthetic field ROM CUETO 10:11:03 Versed I.V. 1 mg Michael Michael for sedation Huber Ngo RN RN 10:11:32 Fentanyl I.V. 50 Michael Michael for sedation mcg Huber Ngo RN RN 10:16:41 Versed I.V. 1 mg Michael Michael for sedation Huber Ngo RN RN 10:16:49 Fentanyl I.V. 50 Michael Michael for sedation mcg Huber Ngo RN RN 10:27:53 Heparin Bolus I.V. 4000 Michael Michael for units Huber Ngo anticoagulation RN RN 10:46:55 Plavix P.O. 75 mg Michael Michael for Huber Ngo antiplatelet RN RN therapy Procedure Log Time Note 9:01:02 Signed procedure consent form obtained from patient. 9:01:03 Diagnostic Cath status Elective 9:01:05 Time tracking: Regular hours (M-F 7:00 - 5:00) 9:01:20 Plan of Care:Hemodynamics will remain stable., Cardiac rhythm will remain stable., Comfort level will be maintained., Respiratory function will remain adequate., Patient/ family verbilizes understanding of procedure., Procedure tolerated without complication., Recovers from procedure without complications.. 9:01:55 Patient allergic to Other allergyCODEINE, IBUPROFEN, PCN 9:02:18 H&P Date Dictated: 06/28/2018 Within 30 days and on chart., H&P Addendum completed by physician on day of procedure. (MUST COMPLETE FOR ALL OUTPATIENTS). 9:02:28 Patient Height : 64 inches 9:02:32 Patient Weight : 138 lbs 9:21:21 Michael Ngo RN sent for patient. Start room use. 9:27:18 Patient received from Pre/Post Procedure Room to CCL 3 Alert and oriented. Tansferred to table in Supine position. 9:27:19 Warm blankets applied, and milagro hugger turned on for patient comfort. 9:27:19 Correct patient and procedure confirmed by team. 9:27:20 ECG and BP/O2 sat monitors applied to patient. 9:40:21 0.9% NaCl 100 ml/hr I.V. was administered by Michael Ngo RN; Per physician; 9:40:31 Oxygen 2 l/min etCO2 Nasal cannula was administered by Michael Ngo RN; Per physician; 9:40:43 Heparin Flush Bag (1000units/500ml NS) 2 bags added to field was administered by Michael Ngo RN; used for procedure; 9:40:54 Lidocaine 2% 20ml vial added to field was administered by Michael Ngo RN; for local anesthetic; 9:40:56 Vital chart was started 9:41:00 Baseline sample Acquired. 9:46:26 Baseline sample Acquired. 9:46:30 Rhythm: sinus rhythm 9:46:34 Full Disclosure recording started 9:46:35 Pre-procedure instructions explained to patient. 9:46:35 Pre-op teaching completed and patient verbalized understanding. 9:46:38 Family in patients room. 9:46:43 Patient NPO since Midnight. 9:46:53 Is the patient allergic to Iodine/contrast media? No. 9:47:01 Is patient on blood thinner?Yes 9:47:04 ACC The patient was administered the following blood thiners within the last 24 hours: ACCPlavix 9:47:05 Last dose of Xarelto 07/01/18 9:47:09 Patient diabetic? Yes. 9:47:10 If diabetic: On Metformin? Yes 9:47:12 If on Metformin: Last Dose? 07/04/2018 9:47:16 Previous problem with sedation/anesthesia? No ? 9:47:17 Snore? No 9:48:35 Sleep apnea? No 9:48:36 Deviated septum? No 9:48:37 Opens mouth fully? Yes 9:48:37 Sticks out tongue? Yes 9:48:41 Airway obstruction? No ? 9:48:43 Dentures? Yes IN 9:48:48 Pre procedure: right dorsailis pedis pulse 1+ Palpable, but thready & weak; easily obliterated 9:48:57 Patient pain scale 0/10 ?. 9:50:24 IV patent on arrival in left forearm with 0.9% NaCl at O. 9:50:26 Lab results completed and on chart. 9:53:22 Right groin area was prepped with chlora-prep and draped in sterile fashion 9:53:23 Alarms reviewed by R. N. 9:53:24 Sharps counted by scrub and verified by R.N. 10:08:23 --------ALL STOP TIME OUT------ 10:08:23 Final Timeout: patient, procedure, and site verified with staff and physician. All members of the team are in agreement. 10:08:27 Right groin site verified by team. 10:08:30 Physical assessment completed. ASA score P 2 - A patient with mild systemic disease as per Joaquin Ndiaye MD. 10:08:33 Sedation plan: IV Moderate Sedation Medication:Versed, Fentanyl 10:11:03 Versed 1 mg I.V. was administered by Michael Ngo RN; for sedation; 10::32 Fentanyl 50 mcg I.V. was administered by Michael Ngo RN; for sedation; 10:15:56 Use device set Femoral Dx 10:15:58 Tegaderm 4 x 4 (1626W) opened to sterile field. 10:15:59 ACIST Manifold (66201) opened to sterile field. 10:15:59 ACIST Hand Control (96072) opened to sterile field. 10:16:01 ACIST Syringe (99049) opened to sterile field. 10:16:01 Bag Decanter (2002S) opened to sterile field. 10:16:02 Medline Cath Pack ([id number]) opened to sterile field. 10:16:06 SHEATH Prelude 5Fr 0.035 (VAP-3R-36-035) opened to sterile field. 10:16:07 DIAGNOSTIC Multipack 5Fr catheter set (NU5507) opened to sterile field. 10:16:08 DIAGNOSTIC WIRE .035 260cm J wire (365042) opened to sterile field. 10:16:13 Procedure started. 10:16:16 Local anesthetic to right femoral artery with Lidocaine 2% by Joaquin Ndiaye MD.INITIAL ACCESS ONLY 10:16:41 Versed 1 mg I.V. was administered by Michael Ngo RN; for sedation; 10:16:49 Fentanyl 50 mcg I.V. was administered by Michael Ngo RN; for sedation; 10:16:59 A 5 Fr sheath was inserted into the Right Femoral artery 10:17:51 A MULTIPACK Pigtail 5 Fr catheter was advanced over the wire and used for Procedure. 10:18:12 LV angiography performed. 10:18:13 LV gram done using NAIK 10:18:32 EF : 50 % 10:18:36 Injector settings: Ml/sec: 10, Volume: 20, 10:18:38 Catheter removed. 10:18:43 A MULTIPACK JL 4.0 5Fr catheter was advanced over the wire and used for Procedure. 10:21:22 Catheter removed. unable to cannulate vessel. 10:21:28 A MULTIPACK 3DRC 5Fr catheter was advanced over the wire and used for Procedure. 10:22:06 RCA angiography performed. 10:22:07 Catheter removed. 10:22:14 Use device set TAU PCI 10:22:17 SHEATH Prelude 6Fr 0.035 (HKP-1W-39-035) opened to sterile field. 10:22:19 GUIDE 6FR EBU 3.5 catheter ([id number]) opened to sterile field. 10::43 Sheath upsized to a 6 Fr Short. 10:22:48 6 Fr EBU 3.5 guide catheter was inserted over the wire 10:24:06 INFLATOR Merit BasixCompak (OY6397) opened to sterile field. 10:24:10 CHOICE PT Extra Support 182cm wire ([id number]) opened to sterile field. 10:24:30 Guide Catheter removed. unable to cannulate vessel. 10:24:33 GUIDE 6FR EBU 3.0 catheter ([id number]) opened to sterile field. 10:24:48 6 Fr EBU 3.0 guide catheter was inserted over the wire 10:25:18 LCA angiography performed. 10:26:28 [place] IVUS Catheter (63978E) opened to sterile field. 10:27:39 CPTXS wire advanced. 10:27:44 Wire advanced across lesion. 10:27:53 Heparin Bolus 4000 units I.V. was administered by Michael Ngo RN; for anticoagulation; 10:30:36 Inflate balloon Inflation number: 1 A EUPHORA 2.0 x 15 Balloon ([id number]) was prepped and advanced across the Dist LAD, then inflated to 9 LIZBETH for 0:10 (min:sec). 10:35:28 Timer 1 started at 10:30 AM, stopped at 10:35 AM, duration 00:05:10 sec. 10:36:00 Inflation number: 2 The EUPHORA 2.0 x 15 Balloon ([id number]) was reinflated across the Dist LAD, to 9 LIZBETH for 0:10 (min:sec). 10:39:06 Timer 1 started at 10:35 AM, stopped at 10:39 AM, duration 00:03:14 sec. 10:39:21 Balloon removed over the wire. 10:39:51 IVUS catheter advanced over wire. 10:40:42 IVUS pass to LAD lesion performed. 10:42:27 IVUS catheter removed over wire. 10:43:12 Place stent Inflation Number: 1 A CUAUHTEMOC RX 2.5 x 22 stent ([id number]) was prepped and advanced across the Prox LAD. The stent was deployed at 7 LIZBETH for 0:10 (min:sec). 10:43:57 Stent catheter was removed intact over wire. 10:43:57 Wire removed. 10:43:58 Guide catheter removed. 10:44:01 EXOSEAL 6Fr (EX600) opened to sterile field. 10:44:11 Sheath removed intact; hemostasis achieved with Exoseal to the Right Femoral artery. 10:44:13 Procedure ended.(Physican Out) 10:46:13 Fluoroscopy time 07.10 minutes. 10:46:17 Fluoroscopy dose: 551 mGy 10:46:17 Flurop Dose total: 551 10:46:29 Contrast amount:Isovue 300 133ml. 10:46:31 Sharps counted by scrub and verified by R.N. 10:46:34 Insertion/operative site no bleeding no hematoma. 10:46:37 Post-op/insertion site Right Femoral artery dressed using a 4 x 4 and Tegaderm. 10:46:39 Post Procedure Pulses reassessed and unchanged 10:46:43 Post-procedure physical assessment completed. ASA score P 2 - A patient with mild systemic disease as per Joaquin Ndiaye MD. 10:46:49 Post procedure rhythm: unchanged. 10:46:53 Estimated blood loss: 10 ml 10:46:55 Plavix 75 mg P.O. was administered by Michael Ngo RN; for antiplatelet therapy; 10:46:55 Post procedure instruction explained to patient.Patient verbalizes understanding. 10:46:56 Patient needs reinforcement of post procedure teaching. 10:47:10 Procedure type changed to Cath procedure, Diagnostic procedure, LHC, LHC w/Coronaries, FFR/IVUS, Intra-Coronary IVUS Initial, PCI procedure, Coronary Stent, Coronary Stent Initial 10:48:05 Procedure and supply charges have been captured, reviewed, submitted and are correct. 10:48:07 Procedure Complication : No complications 10:49:46 Vital chart was stopped 10:49:47 See physician's report for complete and final results. 10:49:49 Report given to PCU. 10:49:54 Patient transfered to PCU with Bed. 10:49:56 Procedure ended. 10:49:56 Full Disclosure recording stopped 10:50:19 End room use (Document Last) Intervention Summary Intervention Notes Time ActionType Lesion and Equipment Used Action# Pressure Duration Attributes 10:30:36 Inflate Dist LAD EUPHORA 2.0 x 1 9 00:10 balloon 15 Balloon ([id number]) 10:36:00 Reinflate Dist LAD EUPHORA 2.0 x 2 9 00:10 balloon 15 Balloon ([id number]) 10:43:12 Place stent Prox LAD CUAUHTEMOC RX 2.5 x 1 7 00:10 22 stent ([id number]) Device Usage Item Name Manufacture Quantity Catalog Number Hospital Part Current Minimal Lot# / Charge Number Stock Stock Serial# Code Tegaderm 4 x 4 3M 1 [id number] [id number] 5 (1626W) ACIST Manifold Acist 1 61751 212324 933388 932386 5 (34977) [employer] Inc ACIST Hand Acist 1 21747 409742 131850 203287 5 Control (23406) [employer] ACIST Syringe Acist 1 60492 376599 389229 613349 20 (88457) [employer] Bag Decanter Microtek 1 2002S 373451 83157 866964 5 (2001S) Medical Inc. Medline Cath Medline 1 [id number] 756452 73785 403863 5 Pack ([id number]) SHEATH Prelude Merit 1 RAZ-3J-87-035 144445 330636 553554 5 5Fr 0.035 Medical (BCW-7S-57-035) DIAGNOSTIC Cardinal 1 RU6132 732291 46117 749961 30 Multipack 5Fr Health catheter set (DW5518) DIAGNOSTIC WIRE [place] 1 055147 495191 134547 462032 30 .035 260cm J wire (128887) MULTIPACK Cardinal 1 673621 5 Pigtail 5 Fr Health catheter MULTIPACK JL Cardinal 1 613674 5 4.0 5Fr Health catheter MULTIPACK 3DRC Cardinal 1 256114 5 5Fr catheter Health SHEATH Prelude Merit 1 DBW-1N-10-35 120178 8566280 254661 5 6Fr 0.035 Medical (XRX-7D-42-035) GUIDE 6FR EBU Medtronic 1 [id number] 541980 23681 569069 3 3.5 catheter ([id number]) INFLATOR Merit Merit 1 WA9538 723082 681109 737988 15 BasixSprookiscContents First Medical (YM7706) CHOICE PT Extra [place] 1 [id number] 150789 114239 816866 5 Support 182cm Scientific wire ([id number]) GUIDE 6FR EBU Medtronic 1 WA1QJP75 142044 31792 287366 0 3.0 catheter (VH8WJK57) [place] 1 71079A 260171 109382 758333 8 [place] IVUS Catheter (29042G) EUPHORA 2.0 x Medtronic 1 [id number] 252438 448379 453484 5 [id number] 15 Balloon ([id number]) CUAUHTEMOC RX 2.5 x Medtronic 1 [id number] 534397 0878768 830610 5 [id number] 22 stent ([id number]) EXOSEAL 6Fr Cardinal 1 EX600 390110 749319 523363 10 (EX600) Health Signature Audit [place] Time Signature Unsigned Intra-Procedure 07/05/2018 Dick Faulkner 10:50:45 AM RT(R) Signatures Monitor : Dick Faulkner RT Signature : Date : Time : [facility] [address], [place] [address]
--- NOTE | ~2018-07-05 | OP ---
PATIENT NAME: HALLE OBANDO MEDICAL RECORD: [id number] :38 LOCATION:D.CAT ADMISSION DATE: SURGEON: CHRISTOPHER SUAREZ MD DATE OF OPERATION: 07/05/2018 PROCEDURES: 1. PTCA stent LAD. 2. Intravascular ultrasound of the LAD. 3. Left heart catheterization. 4. Selective coronary angiography. 5. Left ventriculogram. INDICATION: Angina and coronary artery disease. PROCEDURE IN DETAIL: After informed consent was obtained and after a detailed description of the risks, benefits as well as alternative therapies, the patient elected to proceed with angiogram and angioplasty. The right femoral area was prepped and draped in normal sterile fashion. Right femoral artery was cannulated via modified Seldinger technique with placement of 6-[place] sheath. All catheters exchanged through this sheath. FINDINGS: The left ventriculogram was performed in standard 30-degree NAIK view, reveals good cardiac wall motion throughout all segments. Overall ejection fraction estimated 60%. SELECTIVE CORONARY ANGIOGRAPHY: 1. Left main is with no significant angiographic disease. 2. Left anterior descending has previously placed stents. There is 78% in-stent restenosis confirmed by intravascular ultrasound in the mid vessel. 3. The left circumflex has moderate irregularities, but no flow-limiting stenosis. 4. The right coronary artery has previously placed stents. There is greater than 80% in-stent restenosis of the RCA in the mid vessel. PTCA STENT OF THE LEFT ANTERIOR DESCENDING: The stent used is a 2.5 x 22 mm [place]. Result was 0% residual stenosis. OVERALL IMPRESSION: Successful percutaneous transluminal coronary angioplasty stent of the left anterior descending for in-stent restenosis going from 78% initial stenosis confirmed by intravascular ultrasound to 0% residual stenosis. TRANSINT:[id number] Voice Confirmation ID: [id number] DOCUMENT ID: [id number] CHRISTOPHER SUAREZ MD at 1059 CC: [id number] DICTATION DATE: 07/05/18 1047 JUMP IRON MACHINE PRESSER: 07/05/18 1104 DEP CLI 07/06/[address] [address]
--- NOTE | ~2018-07-05 | HEMODYNAMI ---
PATIENT:HALLE OBANDO MEDICAL RECORD: [id number] : 36 LOCATION:[facility] D.9 ADMISSION DATE: 07/05/18 Generatedon:07/06/201811:27 Patient name: HALLE OBANDO Patient #: [id number] SSN: [id number] : 1940 Date of study: 07/06/2018 Page: Of Hemodynamic Procedure Report Patient Data Patient Demographics Procedure consent was obtained First Name: HALLE Gender: Female Last Name: GISELLA : 1940 Patient #: [id number] Age: 77 year(s) Race: Black SSN: [id number] Additional ID: [id number] Contact details [address]: [address] [place] [address] State: [place] City: [place] Zip code: [address] Past Medical History Allergies Allergen Reaction Date Comments Reported Other allergy 06/13/2015 Codeine, PCN, Hydrocodone, Ultram Other allergy 05/30/2016 penicillin, codeine Codeine Other 06/09/2016 Penicillins Skin ->Redness 06/09/2016 Penicillins 12/12/2016 Codeine 12/12/2016 Other allergy 12/12/2016 ibuprofen Other allergy 09/11/2017 codeine, hydrocone, ibuprofen, tramadol Other allergy 07/05/2018 CODEINE, IBUPROFEN, PCN Admission Admission Data Admission Date: 07/05/2018 Admission Time: 8:26 Room #: D.2119 Height (in.): 64 BSA: 1.67 (m2) Height (cm.): 162.56 BMI: 23.69 (kg/m2) Weight (lbs.): 138 Weight (kg.): 62.6 Procedure Procedure Types Cath Procedure Diagnostic Procedure Sedation Charges Moderate Sedation up to 15 minutes PCI Procedure Coronary Atherectomy Atherectomy Coronary Initial Peripheral Cath Diagnostic Procedure Specialist Physician Peripheral Procedures Aehnq-Nagnbab-Bew-Off Procedure Description Procedure Date Procedure Date: 07/06/2018 Procedure Start Time: 11:06 Procedure End Time: 11:26 Procedure Staff Name Function Joaquin Ndiaye MD Performing Physician Eva Wen RT Monitor Tanesha Marvin RN Nurse Ricky Machado RT Scrub Dinesh Maharaj RN Research Environmental Scientist Procedure Data Cath Procedure Fluoroscopy Diagnostic fluoroscopy Total fluoroscopy Time: 5 time: 5 min min Diagnostic fluoroscopy Total fluoroscopy dose: 366 dose: 366 mGy mGy Contrast Material Contrast Material Type Amount (ml) Isovue 300 75 Entry Location Entry Primary Successful Side Size Upsize Upsize Entry Closure Succes sful Closure Location (Fr) 1 (Fr) 2 (Fr) Remarks Device Remarks Femoral Left 6 Fr Exoseal artery Short Estimated blood loss: 10 ml Diagnostic catheters Device Type Used For End Catheter Pl[facility] [place] Dexterity 5Fr Abdominal Pigtail catheter(NO COST aortogram with SUPPLY) runoff Procedure Complications No complications Procedure Medications Medication Administration Route Dosage 0.9% NaCl I.V. 100 ml/hr Oxygen etCO2 Nasal cannula 2 l/min Lidocaine 2% added to field 20 Heparin Flush Bag added to field 2 bags (1000units/500ml NS) Plavix P.O. 75 mg Versed I.V. 2 mg Fentanyl I.V. 50 mcg Heparin Bolus I.V. 4000 units Versed I.V. 1 mg Fentanyl I.V. 25 mcg Hemodynamics Rest BSA: 1.67 (m2) O2 Consumption: Estimated: 151.16 (ml/min) O2 Consumption indexed : Estimated:90.51 (ml/min/m) Heart Rate: 71 (bpm) Snapshots Pre Cath Intra NCS Post Cath Vital Signs Time Heart Resp SPO2 etCO2 NIBP (mmHg) Rhythm Pain Sedation Rate (ipm) (%) (mmHg) Status Level (bpm) 10:38:18 89 19 99 26 151/96(117) NSR 0 (11) 10(A) , No pain 10:42:34 79 20 99 25.5 165/112(125) NSR 0 (11) 10(A) , No pain 10:47:33 83 22 97 25.5 143/89(106) NSR 0 (11) 10(A) , No pain 10:51:47 77 19 95 27.7 131/81(97) NSR 0 (11) 10(A) , No pain 10:56:03 66 17 97 22.5 121/72(86) NSR 0 (11) 10(A) , No pain 11:00:13 66 17 99 19.5 127/75(101) NSR 0 (11) 10(A) , No pain 11:04:25 68 17 99 30.7 146/80(96) NSR 0 (11) 10(A) , No pain 11:08:39 68 16 99 31.5 129/75(98) NSR 0 (11) 10(A) , No pain 11:12:57 64 14 98 30 124/65(86) NSR 0 (11) 10(A) , No pain 11:17:04 71 17 99 32 138/85(113) NSR 0 (11) 10(A) , No pain 11:21:17 76 17 100 32.2 145/89(117) NSR 0 (11) 10(A) , No pain 11:25:32 74 18 100 30 153/84(119) NSR 0 (11) 10(A) , No pain Medications Time Medication Route Dose Verified Delivered Reason Notes Effectiveness by by 10:37:29 0.9% NaCl I.V. 100 Joaquin Tanesha used for ml/hr Senthil Marvin survey research teacher 10:37:37 Oxygen etCO2 2 Joaquin Tanesha used for Nasal l/min Senthil Marvin procedure cannula RN 10:37:43 Lidocaine 2% added 20ml Joaquin Joaquin for local to vial Senthil Ndiaye MD anesthetic field 10:37:48 Heparin Flush added 2 Joaquin Joaquin used for Bag to bags Senthil Ndiaye MD procedure (1000units/500ml field NS) 10:38:00 Plavix P.O. 75 mg Joaquin Tanesha for Senthil Marvin antiplatelet RN therapy 11:02:25 Versed I.V. 2 mg Joaquin Tanesha for sedation Senthil Marvin RN 11:02:32 Fentanyl I.V. 50 Joaquin Tanesha for sedation mcg Senthil Marvin RN 11:11:27 Heparin Bolus I.V. 4000 Joaquin Tanesha for verif ied units Senthil Marvin anticoagulation with Dr. ROM Ndiaye 11:15:03 Versed I.V. 1 mg Joaquin Tanesha for sedation Senthil Marvin RN 11:15:07 Fentanyl I.V. 25 Joaquin Tanesha for sedation mcg Senthil Marvin sound assistant Log Time Note 10:26:37 Dinesh Maharaj RN sent for patient. Start room use. 10::38 Patient Height : 64 inches 10::38 Patient Weight : 138 lbs 10::38 Time tracking: Regular hours (M-F 7:00 - 5:00) 10:26:43 Plan of Care:Hemodynamics will remain stable., Cardiac rhythm will remain stable., Comfort level will be maintained., Respiratory function will remain adequate., Patient/ family verbilizes understanding of procedure., Procedure tolerated without complication., Recovers from procedure without complications.. 10:31:53 Patient received from PCU to CCL 1 Alert and oriented. Tansferred to table in Supine position. 10:31:57 Warm blankets applied, and milagro hugger turned on for patient comfort. 10:31:59 Correct patient and procedure confirmed by team. 10:32:01 Signed procedure consent form obtained from patient. 10:32:02 ECG and BP/O2 sat monitors applied to patient. 10:32:03 Full Disclosure recording started 10:37:14 Vital chart was started 10:37:29 0.9% NaCl 100 ml/hr I.V. was administered by Tanesha Marvin RN; used for procedure; 10:37:37 Oxygen 2 l/min etCO2 Nasal cannula was administered by Tanesha Marvin RN; used for procedure; 10:37:43 Lidocaine 2% 20ml vial added to field was administered by Joaquin Ndiaye MD; for local anesthetic; 10:37:48 Heparin Flush Bag (1000units/500ml NS) 2 bags added to field was administered by Joaquin Ndiaye MD; used for procedure; 10:38:00 Plavix 75 mg P.O. was administered by Tanesha Marvin RN; for antiplatelet therapy; 10:48:27 Rhythm: sinus rhythm 10:48:53 H&P Date Dictated: 06/28/2018 Within 30 days and on chart.. 10:48:54 Pre-procedure instructions explained to patient. 10:48:54 Pre-op teaching completed and patient verbalized understanding. 10:48:56 Family in patients room. 10:48:58 Patient NPO since Midnight. 10:49:05 Is the patient allergic to Iodine/contrast media? No. 10:49:07 Is patient on blood thinner?Yes 10:49:09 ACC The patient was administered the following blood thiners within the last 24 hours: ACCPlavix 10:49:25 Patient diabetic? Yes. 10:49:26 If diabetic: On Metformin? Yes 10:49:29 If on Metformin: Last Dose? 07/04/2018 10:49:32 Previous problem with sedation/anesthesia? No ? 10:49:33 Snore? No 10:49:34 Sleep apnea? No 10:49:36 Deviated septum? No 10:49:37 Opens mouth fully? Yes 10:49:37 Sticks out tongue? Yes 10:49:39 Airway obstruction? No ? 10:49:41 Dentures? Yes IN 10:49:52 Pre procedure: left dorsailis pedis pulse 2+ Normal; easily identifiable; not easily obliterated 10:49:54 Patient pain scale 0/10 ?. 10:50:04 IV patent on arrival in left forearm with 0.9% NaCl at KVO. 10:50:06 Lab results completed and on chart. 10:50:09 Left groin area was prepped with chlora-prep and draped in sterile fashion 10:50:10 Alarms reviewed by R. N. 10:50:10 Sharps counted by scrub and verified by R.N. 10:50:16 Use device set CATH PACK 10:50:19 Use device set TAUTH PCI 10:50:28 SHEATH 6FR [place] (HPX077) opened to sterile field. 10:50:34 Tegaderm 4 x 4 (1626W) opened to sterile field. 10:50:37 ACIST Syringe (68214) opened to sterile field. 10:50:37 ACIST Hand Control (35470) opened to sterile field. 10:50:38 ACIST Manifold (80794) opened to sterile field. 10:50:39 Medline Cath Pack ([id number]) opened to sterile field. 10:50:39 Bag Decanter (2002S) opened to sterile field. 10:50:40 DIAGNOSTIC WIRE .035 260cm J wire (393543) opened to sterile field. 10:50:40 INFLATOR Merit BasixCompak (YM3654) opened to sterile field. 10:50:42 CHOICE PT Extra Support 182cm wire ([id number]) opened to sterile field. 10:51:[address] NDIAYE NOTIFIED. WILL REDRAW WHEN WE GET ACCESS. 10:55:16 GUIDE 6FR HS I SH catheter ([id number]) opened to sterile field. 10:55:36 Baseline sample Acquired. 10:58:11 Quick combo pads placed on patients chest and back. 11:01:57 Final Timeout: patient, procedure, and site verified with staff and physician. All members of the team are in agreement. 11:01:59 Left groin site verified by team. 11:02:01 Physical assessment completed. ASA score P 2 - A patient with mild systemic disease as per Joaquin Ndiaye MD. 11:02:04 Sedation plan: IV Moderate Sedation Medication:Versed, Fentanyl 11:02:25 Versed 2 mg I.V. was administered by Tanesha Marvin RN; for sedation; 11:02:32 Fentanyl 50 mcg I.V. was administered by Tanesha Marvin RN; for sedation; 11:06:35 Procedure started. 11:06:38 Local anesthetic to left femerol artery with Lidocaine 2% by Joaquin Ndiaye MD.INITIAL ACCESS ONLY 11:06:50 Zero performed for pressure channel P1 11:07:19 A 6 Fr Short sheath was inserted into the Left Femoral artery 11:09:05 6 Fr MB1 SH guide catheter was inserted over the wire 11:09:58 CHOICE PT ES wire advanced. 11:11:27 Heparin Bolus 4000 units I.V. was administered by Tanesha Marvin RN; for anticoagulation; verified with Dr. Ndiaye 11:11:28 LASER ELCA 0.9 Rx atherectomy catheter (053125) opened to sterile field. 11:12:47 Laser pass to mRCA with Fluence of 80 and Rate of 40. 11:14:17 Laser catheter removed. 11:15:03 Versed 1 mg I.V. was administered by Tanesha Marvin RN; for sedation; 11:15:07 Fentanyl 25 mcg I.V. was administered by Tanesha Marvin RN; for sedation; 11:15:38 Inflate balloon Inflation number: 1 A EUPHORA 4.0 x 20 Balloon ([id number]) was prepped and advanced across the Mid RCA, then inflated to 17 LIZBETH for 0:12 (min:sec). 11:16:33 Inflation number: 2 The EUPHORA 4.0 x 20 Balloon ([id number]) was reinflated across the Mid RCA, to 17 LIZBETH for 0:10 (min:sec). 11:16:55 Inflation number: 3 The EUPHORA 4.0 x 20 Balloon ([id number]) was reinflated across the Mid RCA, to 11 LIZBETH for 0:13 (min:sec). 11:17:19 Balloon removed over the wire. 11:17:20 Wire removed. 11:17:20 Guide catheter removed. 11:18:09 A Buzzilla Dexterity 5Fr Pigtail catheter(NO COST SUPPLY) was advanced over the wire and used for Abdominal aortogram with runoff. 11:20:30 LASER ACCIDNTALLY UNPLUGGED, UNABLE TO OBTAIN PULSES AND TX TIME 11:20:42 Catheter removed. 11:20:51 Sheath removed intact; hemostasis achieved with Exoseal to the Left Femoral artery. 11:20:54 Procedure ended.(Physican Out) 11:21:13 Fluoroscopy time 05.00 minutes. 11:21:17 Flurop Dose total: 366 11:21:17 Fluoroscopy dose: 366 mGy 11:21:47 Contrast amount:Isovue 300 75ml. 11:21:52 Sharps counted by scrub and verified by R.N. 11:21:54 Insertion/operative site no bleeding no hematoma. 11:22:11 Post-op/insertion site Left Femoral artery dressed using a 4 x 4 and Tegaderm. 11:22:16 Post left femerol artery:stable, clean and dry 11:22:17 Post Procedure Pulses reassessed and unchanged 11:22:19 Post-procedure physical assessment completed. ASA score P 2 - A patient with mild systemic disease as per Joaquin Ndiaye MD. 11:22:22 Post procedure rhythm: unchanged. 11:22:27 Estimated blood loss: 10 ml 11:22:29 Post procedure instruction explained to patient.Patient verbalizes understanding. 11:22:29 Patient needs reinforcement of post procedure teaching. 11:22:45 Procedure type changed to Cath procedure, Diagnostic procedure, Sedation Charges, Moderate Sedation up to 15 minutes, PCI procedure, Coronary Atherectomy, Atherectomy Coronary Initial, Peripheral Cath Diagnostic Procedure, Specialist Physician Peripheral Procedures, Wksya-Ygrgcdg-Yfj-Off 11:23:05 Procedure Complication : No complications 11:23:40 Quick Combo opened to sterile field. 11:23:54 EXOSEAL 6Fr (EX600) opened to sterile field. 11:24:16 See physician's report for complete and final results. 11:25:02 Procedure and supply charges have been captured, reviewed, submitted and are correct. 11:25:22 Vital chart was stopped 11:25:26 Report given to Pre/Post Procedure Room. 11:25:54 Patient transfered to Pre/Post Procedure Room with Stretcher. 11:26:56 Procedure ended. 11:26:56 Full Disclosure recording stopped 11:26:59 End room use (Document Last) Intervention Summary Intervention Notes Time ActionType Lesion and Equipment Action# Pressure Duration Attributes Used 11:15:38 Inflate Mid RCA EUPHORA 1 17 00:12 balloon 4.0 x 20 Balloon ([id number]) 11:16:33 Reinflate Mid RCA EUPHORA 2 17 00:10 balloon 4.0 x 20 Balloon ([id number]) 11:16:55 Reinflate Mid RCA EUPHORA 3 11 00:13 balloon 4.0 x 20 Balloon ([id number]) Device Usage Item Name Manufacture Quantity Catalog Number Hospital Part Current Minim al Lot# / Charge Number Stock Stock Serial# Code SHEATH 6FR Terumo 1 [id number] 376730 942981 350630 40 [place] (JEE614) Tegaderm 4 3M 1 1626W 454249 519853 713503 5 x 4 (1626W) ACIST Acist 1 49480 592348 493110 901459 20 Syringe Medical (80927) Systems Inc ACIST Hand Acist 1 66663 848797 932847 632683 5 Control Medical (07157) Systems Inc ACIST Acist 1 75140 934949 975233 584599 5 Manifold Medical (63577) Systems Inc Medline Medline 1 [id number] 567830 37367 829459 5 Cath Pack ([id number]) Bag Microtek 1 2001S 727383 69395 486486 5 Decanter Medical Inc. () DIAGNOSTIC [place] 1 586855 747934 268908 271244 30 WIRE .035 260cm J wire (295665) INFLATOR Merit 1 YP5366 710039 374068 958642 15 AutoVirt Medical BasixCompak (OR4984) CHOICE PT [place] 1 [id number] 941043 831159 123114 5 Extra Scientific Support 182cm wire ([id number]) GUIDE 6FR Medtronic 1 [id number] 256729 75709 047113 1 HS I SH catheter ([id number]) LASER ELCA Silva 1 110-004 410182 365500 215953 5 0.9 Rx Healthcare atherectomy (537820) catheter (410177) EUPHORA 4.0 Medtronic 1 [id number] 963800 535440 327361 5 [id number] x 20 Balloon ([id number]) Medtronic Medtronic 1 [id number] 344427 790657 5 Dexterity 5Fr Pigtail catheter(NO COST SUPPLY) SamEnrico 1 [id number] 067578 257517 486717 5 EXOSEAL 6Fr Cardinal 1 EX600 134313 279802 875801 10 (EX600) Health Signature Audit [place] Stage Time Signature Unsigned Intra-Procedure 07/06/2018 Eva 11:27:10 AM Counts RT(R) Signatures Monitor : Eva Signature : Counts RT Date : Time : [address] [address]
--- NOTE | ~2018-07-05 | OP ---
PATIENT NAME: HALLE OBANDO MEDICAL RECORD: [id number] :36 LOCATION:D.CAT ADMISSION DATE: SURGEON: CHRISTOPHER SUAREZ MD DATE OF OPERATION: 07/06/2018 PROCEDURE: 1. Aortofemoral runoff. 2. Abdominal aortography. INDICATION: Claudication and peripheral vascular disease. PROCEDURE IN DETAIL: After informed consent was obtained and after a detailed description of the risks, benefits as well as alternative therapies, the patient elected to proceed with angiogram and aortofemoral runoff. The left femoral area had a preexisting sheath. All catheters exchanged through this sheath. FINDINGS: Catheter was advanced to the abdominal aorta, pulled down for aortofemoral runoff. Abdominal aortography reveals heavily calcified aorta, tortuous, but no flow-limiting stenosis. No dissection or aneurysm formation. RIGHT LEG: A. Iliac: The common internal and external iliacs have moderate irregularities, but no flow-limiting stenosis. No stenosis greater than 20%. B. Femoral system: The common superficial and deep femoral have uncv-re-zansfgfr irregularities, but no flow-limiting stenosis. No stenosis greater than 50%. C. Popliteal and infrapopliteal vessels are patent with good 3-vessel runoff to the foot, although moderately diffusely diseased. LEFT LEG: A. Iliac: The common internal and external iliacs have moderate irregularities, but no flow-limiting stenosis. No stenosis greater than 20%. B. Femoral system: The common superficial and deep femoral have zvex-bq-pyiqlxzp irregularities, but no flow-limiting stenosis. No stenosis greater than 50%. C. Popliteal and infrapopliteal vessels are patent with good 3-vessel runoff to the foot, although moderately diffusely diseased. OVERALL IMPRESSION: Mild to moderate peripheral vascular disease is present. No flow-limiting stenosis. Continue medical management of the peripheral vascular disease and peripheral risk factors. TRANSINT:[id number] Voice Confirmation ID: [id number] DOCUMENT ID: [id number] CHRISTOPHER SUAREZ MD at 1059 CC: [id number] DICTATION DATE: 07/06/18 1126 MANUFACTURING ASSOCIATE: 07/06/18 1138 DEP CLI 07/06/18 [place] [address]
--- NOTE | ~2018-07-05 | OP ---
PATIENT NAME: HALLE OBANDO MEDICAL RECORD: [id number] :36 LOCATION:D.CAT ADMISSION DATE: SURGEON: CHRISTOPHER SUAREZ MD DATE OF OPERATION: 07/06/2018 PROCEDURES: 1. Laser atherectomy RCA. 2. PTCA RCA. 3. Selective coronary angiography. INDICATION: Angina and coronary artery disease. PROCEDURE IN DETAIL: After informed consent was obtained and after a detailed description of the risks, benefits as well as alternative therapies, the patient elected to proceed with angiogram and angioplasty. The left femoral area was prepped and draped in normal sterile fashion. Left femoral artery was cannulated via modified Seldinger technique with placement of 6-Sudanese sheath. All catheters exchanged through this sheath. FINDINGS: The right coronary artery has previously placed stents with up to 75% in-stent restenosis. Laser atherectomy was made with a 0.9 laser catheter, multiple passes were made at 80/40. It was ballooned with a 4.0 balloon. Result was 0% to 10% residual stenosis. OVERALL IMPRESSION: Successful PTCA laser atherectomy of the RCA for in-stent restenosis going from 75% initial stenosis to 0% to 10% residual stenosis. TRANSINT:[id number] Voice Confirmation ID: [id number] DOCUMENT ID: [id number] CHRISTOPHER SUAREZ MD at 1059 CC: [id number] DICTATION DATE: 07/06/18 1126 LOW EMISSION AUTOMOBILE DESIGNER: 07/06/18 1138 DEP CLI 07/06/18 [place] [id number]
[2018-07-05] MEDS ORDERED: VITAMIN D31000 UNI2 PO (08:51)
[2018-07-05] MEDS ORDERED: LISINOPRIL5 MG PO (08:52)
[2018-07-05 08:53] VITALS: BP 146/92; BMI 23.2
[2018-07-05 09:10] LABS: BASOPHILS 2.3 % (0-2); EOSINOPHILS 2.3 % (0-7); HEMATOCRIT 42.2 % (36.0-48.0); HEMOGLOBIN 13.8 g/dL (12-16); IMMATURE GRANULOCYTES 0.2 % (0-5); LYMPHOCYTES 33.2 % (15-50); MCHC 32.7 g/dL (31.0-37.0); MCV 85.8 fL (80.0-100.0); MEAN PLATELET VOLUME 10.9 fL (7.4-10.4); PLATELET COUNT 216 10x3/uL (130-400); RBC 4.92 10x6/uL (4.00-5.40); RDW 15.7 % (11.5-14.5); WBC 5.6 10x3/uL (4.8-10.8)
[2018-07-05 11:27] VITALS: BP 126/73; Ht 162.6 cm; Wt 51.3 kg
[2018-07-05 12:44] LABS: CALC OSMOLALITY 281 mosm/kg (275-300); CALCIUM 9.4 mg/dL (8.5-10.1); CARBON DIOXIDE 22.7 mmol/L (21.0-32.0); CHLORIDE - SERUM 108 mmol/L (98-107); CREATININE - SERUM 0.7 mg/dL (0.6-1.3); GLUCOSE 124 mg/dL (74-106); SODIUM 142 mmol/L (136-145); UREA NITROGEN 8 mg/dL (7-18); eGFR NON AFRICAN AMERICAN 85 mL/min (90-120)
[2018-07-05 16:54] VITALS: BP 127/56
[2018-07-05 21:01] VITALS: BP 118/73
[2018-07-06 01:29] VITALS: BP 119/75
[2018-07-06 05:44] VITALS: BP 135/81
== END 2018-07-06 15:40 | disposition home or self-care (01) ==
LOC: D.CLR 08:26 → D.CATH 08:26 → D.M2 10:58 → D.CLR 07-06 11:43 → D.CATH 07-06 15:40
PROVIDERS: Internal Medicine Interventional Cardiology
DX: I25.110 Atherosclerotic heart disease of native coronary artery with unstable angina pectoris (principal); T82.855A Stenosis of coronary artery stent, initial encounter; I70.213 Atherosclerosis of native arteries of extremities with intermittent claudication, bilateral legs; Z01.812 Encounter for preprocedural laboratory examination
CPT/HCPCS: 92978; 93458; 92924; C9600

== ENCOUNTER 2018-08-18 02:39 | Inpatient (IN) | payer MEDICARE, MEDICAID ==
[2018-08-18] VITALS (21 sets, daily range): BP systolic 98–184; BP diastolic 49–97; BMI 21.5
[~2018-08-18] VITALS: Ht 162.6 cm; Wt 60.5 kg
--- NOTE | ~2018-08-18 | MORECARE ---
CASE MANAGEMENT DISCHARGE SUMMARY PATIENT: HALLE OBANDO UNIT: [id number] ADM DATE: 08/18/18 AGE: 77 : 38 SEX: F ROOM/BED: D.2444 AUTHOR: RIKADOC PHYSICIAN: REFERRING PHYSICIAN: CE NINO MD DATE OF SERVICE: 08/21/18 Discharge Plan Patient Name: HALLE OBANDO Facility[facility]:[place] : 1940 Planned Disposition: Home Anticipated Discharge Date: 08/21/18 Discharge Date: Expected LOS: 3 Initial Reviewer: [email or web address] Initial Review Date: 08/21/2018 Generated: 08/21/18 3:03 pm Comments DCP- Discharge Planning Updated by [email or web address]: Miranda Truong on 08/21/18 1:[address] Patient Name: HALLE OBANDO Admission Status: ER Accout number: [id number] Admission Date: 08-18-2018 : 1940 Admission Diagnosis:UNSPECIFIED ATRIAL FIBRILLATION Attending: CE NINO Current LOS: 3 Anticipated DC Date: 08-21-2018 Planned Disposition: Home Primary Insurance: [employer] ADV Discharge Planning Comments: CM MET WITH PATIENT ABOUT DC PLANNING/NEEDS. DENIES NEEDS AND STATES TO BE DISCHARGED TO HOME TODAY. STATES LIVES WITH FAMILY AND HER DAUGHTER WILL SURGERY MANAGER. STATES HOME ENVIRONMENT IS SAFE. IMM SERVED. CM WILL FOLLOW AND ASSIST NEEDED WITH DC PLANNING/NEEDS. Corporate Aircraft Mechanic: Miranda Truong DCPIA - Discharge Planning Initial Assessment Updated by [email or web address]: Miranda Truong on 08/21/18 2:00 pm * Is the patient Alert and Oriented? Yes * PCP [facility] * Pharmacy [facility] * Preadmission Environment Home with Family * ADLs Independent * Equipment None * List name and contact numbers for known caregivers / representatives who currently or will assist patient after discharge: LONDON, DAUGHTER, * Community resources currently utilized None * Additional services required to return to the preadmission environment? No * Can the patient safely return to the preadmission environment? Yes * Has this patient been hospitalized within the prior 30 days at any hospital? No Coverage Notice Reviewer: [email or web address] - Miranda Truong Notice Issued Date-Time: 08/21/2018 13:57 Notice Type: IM Discharge Notice Notice Delivered To: Patient Relationship to Patient: Self Drywall Metal Stud Worker Name: Delivery Method: HAND - Hand Delivered Alina Days: Prior Verbal Notification: Recipient Understood Notice: Yes Recipient Signature: Yes Med Rec Note Co-signed by Attending: Coverage Notice Comment: IMM SERVED Patient Name: HALLE OBANDO Page [phone] at 1403 All edits/amendments must be made on the electronic document DICTATION DATE: 08/21/181401 MARKET RESEARCHER: KATIE 08/21/181401 RPT#: [id number] DC DATE: STATUS: ADM IN [facility] [address] [place] [address] END OF REPORT
--- NOTE | ~2018-08-18 | EC ---
PATIENT:HALLE OBANDO DATE OF SERVICE: 08/18/18 SEX: F MEDICAL RECORD: [id number] DATE OF : 36 [facility] AGE OF PATIENT: 77 ADMISSION DATE: 08/18/18 REFERRING PHYSICIAN: INTERPRETING PHYSICIAN: CHRISTOPHER NDIAYE MD ECHOCARDIOGRAM REPORT ECHO CHARGES 4 ECHO COMPLETE Date: 08/16/18 CLINICAL DIAGNOSIS: A-FIB ECHOCARDIOGRAPHIC MEASUREMENTS (adult normal given) AC root (d.<3.7cm) 2.6 cm LV Septum d (<1.2 cm> 1.1 cm Valve Excursion 1.7 cm LV Septum (systole) 1.6 cm Left Atria (s.<4.0cm> 4.5 cm LVPW d(<1.2cm) 1.2 cm RV (d.<2.3cm) 2.5 cm LVPW (sytole) 1.7 cm LV diastole(<5.6CM) 6.2 cm MV E-F(>70mm/sec) cm LV systole 4.9 cm LVOT Diameter 1.6 cm MV exc.(>10mm) cm Est.ejection fraction (50-75%) % DOPPLER: LVIT cm/sec A cm/sec E 144 cm/sec LA cm/sec RVSP 64.1 mmHg LVOT 82.0 cm/sec AOP1/2T m/s Asc. Ao 150 cm/sec RVOT 68.0 cm/sec RA cm/sec PA 76.0 cm/sec AV Gradient Peak 9.0 mmHg AV Mean 4.4 mmHg AV Area 1.1 cm MV Gradient Peak 8.6 mmHg MV Mean 2.9 mmHg MV Area cm COMMENTS: Computer Analyst Supervisor: Raz CHILELOE Dyslexia Teacher: 1 Dr. Ndiaye TAPE# PACS Pericardial Effusion N DATE OF SERVICE: 08/18/2018 FINDINGS: 1. Left ventricular chamber size is within normal limits. Left ventricular systolic function is moderately depressed. Overall ejection fraction in the 35% range. 2. Left atrium is enlarged at 4.5 cm. Right atrium and right ventricle chamber sizes are as well moderately dilated. 3. Valvular structures have normal structure and motion. 4. Doppler interrogation reveals severe mitral regurgitation and severe ECHOCARDIOGRAM REPORT [id number] HALLE OBANDO tricuspid regurgitation. No other valvular insufficiency or stenosis. Pulmonary systolic pressure is elevated, estimated at 64 mmHg. 5. No evidence of pericardial effusion or left ventricular thrombus. TRANSINT:[id number] Voice Confirmation ID: [id number] DOCUMENT ID: [id number] CHRISTOPHER NDIAYE MD CC: [id number] DICTATION DATE: 08/18/181123 CHARGING CRANE OPERATOR: 08/18/18 1212 ADM IN [facility] [address] [place] [address]
--- NOTE | ~2018-08-18 | MORECARE ---
CASE MANAGEMENT DISCHARGE SUMMARY PATIENT: HALLE OBANDO UNIT: [id number] ADM DATE: 08/18/18 AGE: 78 : 38 SEX: F ROOM/BED: D.0682 AUTHOR: RIKADOC PHYSICIAN: REFERRING PHYSICIAN: CE NINO MD DATE OF SERVICE: 08/23/18 Discharge Plan Patient Name: HALLE OBANDO Facility: [facility]:[place] : 1940 Planned Disposition: Home Anticipated Discharge Date: 08/21/18 Discharge Date: 08/21/2018 Expected LOS: 3 Initial Reviewer: [email or web address] Initial Review Date: 08/21/2018 Generated: 08/23/18 11:48 am Comments DCP- Discharge Planning Updated by [email or web address]: Miranda Truogn on 08/21/18 1:[address] Patient Name: HALLE OBANDO Admission Status: ER Accout number: [id number] Admission Date: 08-18-2018 : 1940 Admission Diagnosis:UNSPECIFIED ATRIAL FIBRILLATION Attending: CE NINO Current LOS: 3 Anticipated DC Date: 08-21-2018 Planned Disposition: Home Primary Insurance: [employer] ADV Discharge Planning Comments: CM MET WITH PATIENT ABOUT DC PLANNING/NEEDS. DENIES NEEDS AND STATES TO BE DISCHARGED TO HOME TODAY. STATES LIVES WITH FAMILY AND HER DAUGHTER WILL PIE BOTTOMER. STATES HOME ENVIRONMENT IS SAFE. IMM SERVED. CM WILL FOLLOW AND ASSIST NEEDED WITH DC PLANNING/NEEDS. Intensive Care Specialist: Miranda Truong DCPIA - Discharge Planning Initial Assessment Updated by [email or web address]: Miranda Truong on 08/21/18 2:00 pm * Is the patient Alert and Oriented? Yes * PCP [facility] * Pharmacy [facility] [address] * Preadmission Environment Home with Family * ADLs Independent * Equipment None * List name and contact numbers for known caregivers / representatives who currently or will assist patient after discharge: NICCI CALLAHAN, * Community resources currently utilized None * Additional services required to return to the preadmission environment? No * Can the patient safely return to the preadmission environment? Yes * Has this patient been hospitalized within the prior 30 days at any hospital? No Coverage Notice Reviewer: [email or web address] - Miranda Truong Notice Issued Date-Time: 08/21/2018 13:57 Notice Type: IM Discharge Notice Notice Delivered To: Patient Relationship to Patient: Self Physician Aide Name: Delivery Method: HAND - Hand Delivered Alina Days: Prior Verbal Notification: Recipient Understood Notice: Yes Recipient Signature: Yes Med Rec Note Co-signed by Attending: Coverage Notice Comment: IMM SERVED Last DP export: 08/21/18 1:03 Patient Name: HALLE OBANDO Page [id number] at 1048 All edits/amendments must be made on the electronic document DICTATION DATE: 08/23/18 1048 TRUCK TRAILER MECHANIC: KATIE 08/23/18 1048 RPT#: [id number] DC DATE:08/21/18 STATUS: DIS IN [facility] [address] [place] [address] END OF REPORT
[~2018-08-18 02:39] MED LIST changes: +LISINOPRIL5 MG PO; +VITAMIN D31000 UNI2 PO
[2018-08-18 03:25] LABS: APPEARANCE HAZY (CLEAR); BILIRUBIN NEGATIVE (NEGATIVE); COLOR TAN (YELLOW); GLUCOSE 50 mg/dL (NEGATIVE); KETONE NEGATIVE (NEGATIVE); NITRITE NEGATIVE (NEGATIVE); PROTEIN 2+ mg/dL (NEGATIVE); SPECIFIC GRAVITY 1.025 (1.005-1.020); UROBILINOGEN NORMAL (NORMAL)
[2018-08-18 03:26] LABS: BACTERIA FEW /hpf (NONE SEEN); EPITHELIAL CELLS 0-5 /hpf (0-5); RED CELLS - URINE 0-5 /hpf (0-5); WHITE CELLS - URINE 0-5 /hpf (0-5)
[2018-08-18 03:30] LABS: BASOPHILS 1.2 % (0-2); EOSINOPHILS 2.8 % (0-7); HEMATOCRIT 37.9 % (36.0-48.0); HEMOGLOBIN 12.3 g/dL (12-16); IMMATURE GRANULOCYTES 0.3 % (0-5); LYMPHOCYTES 17.8 % (15-50); MCH 27.4 pg (26.0-34.0); MCHC 32.5 g/dL (31.0-37.0); MCV 84.4 fL (80.0-100.0); MEAN PLATELET VOLUME 10.4 fL (7.4-10.4); MONOCYTES 13.3 % (2-11); NEUTROPHILS 64.6 % (40-80); PLATELET COUNT 221 10x3/uL (130-400); RBC 4.49 10x6/uL (4.00-5.40); RDW 15.1 % (11.5-14.5); WBC 5.8 10x3/uL (4.8-10.8)
[2018-08-18 03:36] LABS: APTT 28.7 SECONDS (22.8-39.4); INR 1.11 (0.85-1.17); PROTIME 13.8 SECONDS (11.6-15.0)
[2018-08-18 03:41] LABS: ALBUMIN 3.1 g/dL (3.4-5.0); ALKALINE PHOSPHATASE 71 U/L (46-116); ALT (SGPT) 40 U/L (10-68); BILIRUBIN - TOTAL 0.41 mg/dL (0.2-1.3); CALC OSMOLALITY 294 mosm/kg (275-300); CALCIUM 9.4 mg/dL (8.5-10.1); CARBON DIOXIDE 24.5 mmol/L (21.0-32.0); CHLORIDE - SERUM 109 mmol/L (98-107); CREATININE - SERUM 0.9 mg/dL (0.6-1.3); GLUCOSE 172 mg/dL (74-106); POTASSIUM - SERUM 3.6 mmol/L (3.5-5.1); PROTEIN - SERUM 6.8 g/dL (6.4-8.2); SODIUM 145 mmol/L (136-145); UREA NITROGEN 17 mg/dL (7-18); eGFR NON AFRICAN AMERICAN 64 mL/min (90-120)
[2018-08-18 03:51] LABS: CKMB 0.2 U/L (0.0-3.6); CREATINE KINASE 27 UL (21-215); MAGNESIUM - SERUM 1.6 mg/dL (1.8-2.4); TROPONIN-I < 0.017 ng/mL (0.000-0.060)
[2018-08-19 00:29] VITALS: BP 105/66
[2018-08-19 04:00] VITALS: BP 92/54
[2018-08-19 07:37] VITALS: BP 108/66
[2018-08-19 12:12] VITALS: BP 133/89
[2018-08-19 12:48] VITALS: Ht 162.6 cm; Wt 60.5 kg
[2018-08-19 16:04] VITALS: BP 127/80
[2018-08-19 20:45] VITALS: BP 102/60
[2018-08-20 00:17] VITALS: BP 94/59
[2018-08-20 05:04] VITALS: BP 103/64
[2018-08-20 06:14] LABS: ALPHA FETOPROTEIN -(TUMOR MRK) 2.8 ng/mL (0.0-8.3); CEA 0.8 ng/mL (0.0-4.7)
[2018-08-20 09:26] VITALS: BP 106/66
[2018-08-20 12:14] VITALS: BP 103/60
[2018-08-20 16:18] VITALS: BP 113/60
[2018-08-20 20:00] VITALS: BP 120/51
[2018-08-21] VITALS: BP 110/71
[2018-08-21 04:00] VITALS: BP 116/76
[2018-08-21 05:12] LABS: ANION GAP 12.8 mmol/L (8-16); CALCIUM 9.6 mg/dL (8.5-10.1); CARBON DIOXIDE 28.2 mmol/L (21.0-32.0); CREATININE - SERUM 0.9 mg/dL (0.6-1.3)
[2018-08-21 05:16] LABS: BASOPHILS 0.2 % (0-2); EOSINOPHILS 3.5 % (0-7); HEMATOCRIT 37.8 % (36.0-48.0); HEMOGLOBIN 12.5 g/dL (12-16); IMMATURE GRANULOCYTES 0.7 % (0-5); MCH 27.5 pg (26.0-34.0); MCHC 33.1 g/dL (31.0-37.0); MCV 83.3 fL (80.0-100.0); MEAN PLATELET VOLUME 10.3 fL (7.4-10.4); MONOCYTES 21.3 % (2-11); NEUTROPHILS 49.3 % (40-80); PLATELET COUNT 187 10x3/uL (130-400); RBC 4.54 10x6/uL (4.00-5.40); WBC 5.4 10x3/uL (4.8-10.8)
[2018-08-21 08:07] VITALS: BP 111/77
[2018-08-21] MEDS ORDERED: LEVAQUIN750 MG PO (11:08)
[2018-08-21 11:32] VITALS: BP 119/66
[2018-08-21 15:39] VITALS: BP 113/75
== END 2018-08-21 19:00 | disposition home or self-care (01) | DRG 308 ==
LOC: D.ER 02:39 → D.EDHOLD 04:18 → D.M2 04:18
PROVIDERS: Family Medicine; Internal Medicine Hematology & Oncology; Internal Medicine Nephrology
DX: I48.91 Unspecified atrial fibrillation (principal); J18.9 Pneumonia, unspecified organism; J98.11 Atelectasis; R16.0 Hepatomegaly, not elsewhere classified; E11.9 Type 2 diabetes mellitus without complications; I10 Essential (primary) hypertension; I25.10 Atherosclerotic heart disease of native coronary artery without angina pectoris; E78.5 Hyperlipidemia, unspecified; E05.00 Thyrotoxicosis with diffuse goiter without thyrotoxic crisis or storm; R91.1 Solitary pulmonary nodule; R59.1 Generalized enlarged lymph nodes

== ENCOUNTER → 2018-11-05 09:52 | Outpatient (CLI) | payer MEDICARE, MEDICAID ==
[2018-08-19 12:48] VITALS: BMI 21.4
[~2018-11-05 09:52] MED LIST changes: +LEVAQUIN750 MG PO
--- NOTE | 2018-11-08 10:55 | EC ---
PATIENT:HALLE OBANDO DATE OF SERVICE: 11/05/18 SEX: F MEDICAL RECORD: [id number] DATE OF : [birth year] LOCATION:[facility], [facility] AGE OF PATIENT: 78 ADMISSION DATE: 11/05/18 REFERRING PHYSICIAN: INTERPRETING PHYSICIAN: CHRISTOPHER NDIAYE MD ECHOCARDIOGRAM REPORT ECHO CHARGES 4 ECHO COMPLETE Date: 11/05/18 CLINICAL DIAGNOSIS: CHF ECHOCARDIOGRAPHIC MEASUREMENTS (adult normal given) AC root (d.<3.7cm) 3.3 cm LV Septum d (<1.2 cm> 1.4 cm Valve Excursion 1.7 cm LV Septum (systole) 1.6 cm Left Atria (s.<4.0cm> 4.7 cm LVPW d(<1.2cm) 1.4 cm RV (d.<2.3cm) 3.5 cm LVPW (sytole) 1.7 cm LV diastole(<5.6CM) 5.7 cm MV E-F(>70mm/sec) cm LV systole 4.3 cm LVOT Diameter 1.7 cm MV exc.(>10mm) 1.3 cm Est.ejection fraction (50-75%) % DOPPLER: LVIT cm/sec A 26.0 cm/sec E 101 cm/sec LA cm/sec RVSP 68 mmHg LVOT 100 cm/sec AOP1/2T m/s Asc. Ao 149 cm/sec RVOT 71 cm/sec RA cm/sec PA 99 cm/sec AV Gradient Peak 8.90 mmHg AV Mean 4.95 mmHg AV Area 1.5 cm MV Gradient Peak 7.82 mmHg MV Mean 1.91 mmHg MV Area cm COMMENTS: Food Editor: Celena MARIE Dampproofer: 1 Dr. Ndiaye TAPE# PACS Pericardial Effusion N DATE OF SERVICE: 11/05/2018 ECHOCARDIOGRAM DATE OF SERVICE: 11/05/2018 FINDINGS: 1. Left ventricular chamber size is within normal limits. Left ventricular systolic function is normal. Overall ejection fraction estimated at 55%. 2. Left atrium is enlarged at 4.7 cm. Right atrium and right ventricular ECHOCARDIOGRAM REPORT [id number] HALLE OBANDO chamber sizes are as well mildly dilated. 3. Valvular structures have normal structure and motion. 4. Doppler interrogation reveals severe mitral regurgitation, severe tricuspid regurgitation, no other valvular insufficiency or stenosis. Pulmonary systolic pressure is elevated, estimated at 68 mmHg. 5. No evidence of pericardial effusion or left ventricular thrombus. TRANSINT:[id number] Voice Confirmation ID: [id number] DOCUMENT ID: [id number] CHRISTOPHER NDIAYE MD at 1055 CC: [id number] DICTATION DATE: 11/06/18 1012 BUILDING ILLUMINATING ENGINEER: 11/06/18 1053 DEP CLI 11/05/18 [place] [id number] [place] [id number]
== END | disposition home or self-care (01) ==
LOC: D.HCCARDIO 09:30
PROVIDERS: ATTEND Internal Medicine Interventional Cardiology
DX: I50.9 Heart failure, unspecified (principal)

== ENCOUNTER 2018-11-22 03:08 | Observation (INO) | payer MEDICARE, MEDICAID ==
[~2018-11-22] VITALS: Ht 162.6 cm; Wt 59.4 kg
[2018-11-22] VITALS (8 sets, daily range): BP systolic 122–145; BP diastolic 68–116; Ht 162.6 cm; Wt 59.4 kg
[2018-11-22 03:44] LABS: BASOPHILS 0.6 % (0-2); EOSINOPHILS 0.4 % (0-7); HEMATOCRIT 38.2 % (36.0-48.0); HEMOGLOBIN 12.4 g/dL (12-16); IMMATURE GRANULOCYTES 0.4 % (0-5); LYMPHOCYTES 22.6 % (15-50); MCH 26.8 pg (26.0-34.0); MCHC 32.5 g/dL (31.0-37.0); MCV 82.7 fL (80.0-100.0); MEAN PLATELET VOLUME 10.2 fL (7.4-10.4); MONOCYTES 17.1 % (2-11); NEUTROPHILS 58.9 % (40-80); RBC 4.62 10x6/uL (4.00-5.40); RDW 16.2 % (11.5-14.5)
[2018-11-22 03:47] LABS: PLATELET COUNT 226 10x3/uL (130-400)
[2018-11-22 03:56] LABS: ALBUMIN 3.5 g/dL (3.4-5.0); ALKALINE PHOSPHATASE 98 U/L (46-116); ALT (SGPT) 31 U/L (10-68); BILIRUBIN - TOTAL 0.38 mg/dL (0.2-1.3); CALC OSMOLALITY 287 mosm/kg (275-300); CALCIUM 9.3 mg/dL (8.5-10.1); CHLORIDE - SERUM 105 mmol/L (98-107); CREATININE - SERUM 0.6 mg/dL (0.6-1.3); GLUCOSE 173 mg/dL (74-106); POTASSIUM - SERUM 3.1 mmol/L (3.5-5.1); PROTEIN - SERUM 7.8 g/dL (6.4-8.2); SODIUM 143 mmol/L (136-145); UREA NITROGEN 11 mg/dL (7-18); eGFR NON AFRICAN AMERICAN > 90 mL/min (90-120)
[2018-11-22 04:05] LABS: INR 1.07 (0.85-1.17); PROTIME 13.4 SECONDS (11.6-15.0)
[2018-11-22 04:07] LABS: CKMB 0.5 U/L (0.0-3.6); CREATINE KINASE 37 UL (21-215); MAGNESIUM - SERUM 1.7 mg/dL (1.8-2.4); TROPONIN-I 0.027 ng/mL (0.000-0.060)
[2018-11-22 04:14] LABS: APTT 26.9 SECONDS (22.8-39.4)
[2018-11-22 16:51] LABS: APPEARANCE CLEAR (CLEAR); BILIRUBIN NEGATIVE (NEGATIVE); COLOR YELLOW (YELLOW); GLUCOSE NEGATIVE (NEGATIVE); KETONE NEGATIVE (NEGATIVE); NITRITE NEGATIVE (NEGATIVE); PROTEIN 1+ mg/dL (NEGATIVE); UROBILINOGEN NORMAL (NORMAL)
[2018-11-23 03:50] VITALS: BP 124/76
[2018-11-23 06:02] LABS: BASOPHILS 0.8 % (0-2); EOSINOPHILS 0.5 % (0-7); HEMATOCRIT 42.7 % (36.0-48.0); HEMOGLOBIN 14.1 g/dL (12-16); IMMATURE GRANULOCYTES 0.5 % (0-5); LYMPHOCYTES 24.3 % (15-50); MCH 27.3 pg (26.0-34.0); MCV 82.8 fL (80.0-100.0); MEAN PLATELET VOLUME 10.4 fL (7.4-10.4); MONOCYTES 16.4 % (2-11); NEUTROPHILS 57.5 % (40-80); PLATELET COUNT 222 10x3/uL (130-400); RBC 5.16 10x6/uL (4.00-5.40); RDW 16.3 % (11.5-14.5); WBC 7.5 10x3/uL (4.8-10.8)
[2018-11-23 06:31] LABS: ANION GAP 15.4 mmol/L (8-16); CARBON DIOXIDE 24.3 mmol/L (21.0-32.0); MAGNESIUM - SERUM 2.1 mg/dL (1.8-2.4)
[2018-11-23 06:33] LABS: CREATININE - SERUM 0.9 mg/dL (0.6-1.3); POTASSIUM - SERUM 3.7 mmol/L (3.5-5.1)
[2018-11-23 10:04] VITALS: BP 113/68
[2018-11-23] MEDS ORDERED: BETAPACE 120 M120 MG PO (10:14)
--- NOTE | 2018-11-23 11:00 | MORECARE ---
CASE MANAGEMENT DISCHARGE SUMMARY PATIENT: HALLE OBANDO UNIT: [id number] ADM DATE: 11/22/18 AGE: 78 : 38 SEX: F ROOM/BED: D.3108 AUTHOR: SAUL MELÉNDEZ PHYSICIAN: REFERRING PHYSICIAN: CE NINO MD DATE OF SERVICE: 11/23/18 Discharge Plan Patient Name: HALLE OBANDO Facility: [facility]:[place] : 1940 Planned Disposition: Home Anticipated Discharge Date: 11/23/18 Discharge Date: Expected LOS: 1 Initial Reviewer: [email or web address] Initial Review Date: 11/23/2018 Generated: 11/23/18 12:00 pm Patient Name: HALLE OBANDO Page [id number] at 1100 All edits/amendments must be made on the electronic document DICTATION DATE: 11/23/18 1100 SAFETY PATROL OFFICER: KATIE 11/23/18 1100 RPT#: [id number] DC DATE: STATUS: ADM IN [facility] [address] [place] [address] END OF REPORT
== END 2018-11-23 14:42 | disposition home or self-care (01) ==
LOC: D.ER 03:08 → D.M2 05:39 → D.EDHOLD 05:39 → OBSVTIME 05:39 → D.M2 05:58
PROVIDERS: Emergency Medicine; ADMIT Internal Medicine Nephrology; ATTEND Internal Medicine Nephrology
DX: I48.91 Unspecified atrial fibrillation (principal); R79.89 Other specified abnormal findings of blood chemistry; I25.10 Atherosclerotic heart disease of native coronary artery without angina pectoris; I08.1 Rheumatic disorders of both mitral and tricuspid valves; I10 Essential (primary) hypertension; E87.6 Hypokalemia; E83.42 Hypomagnesemia; E11.51 Type 2 diabetes mellitus with diabetic peripheral angiopathy without gangrene; E03.9 Hypothyroidism, unspecified; E78.5 Hyperlipidemia, unspecified

== ENCOUNTER 2019-02-26 13:35 | Inpatient (IN) | payer MEDICARE, MEDICAID ==
[~2019-02-26] VITALS: Ht 162.6 cm; Wt 59.1 kg
[~2019-02-26 13:35] MED LIST changes: +BETAPACE 120 M120 MG PO
[2019-02-26 14:24] LABS: BASOPHILS 1.8 % (0-2); EOSINOPHILS 2.8 % (0-7); HEMATOCRIT 33.6 % (36.0-48.0); IMMATURE GRANULOCYTES 0.4 % (0-5); LYMPHOCYTES 37.8 % (15-50); MCH 27.4 pg (26.0-34.0); MCHC 32.7 g/dL (31.0-37.0); MCV 83.8 fL (80.0-100.0); MEAN PLATELET VOLUME 9.8 fL (7.4-10.4); MONOCYTES 12.2 % (2-11); PLATELET COUNT 192 10x3/uL (130-400); RBC 4.01 10x6/uL (4.00-5.40); RDW 16.2 % (11.5-14.5)
[2019-02-26 14:32] LABS: APPEARANCE CLEAR (CLEAR); BILIRUBIN NEGATIVE (NEGATIVE); COLOR YELLOW (YELLOW); GLUCOSE NEGATIVE (NEGATIVE); KETONE NEGATIVE (NEGATIVE); NITRITE NEGATIVE (NEGATIVE); PROTEIN NEGATIVE (NEGATIVE); UROBILINOGEN NORMAL (NORMAL)
[2019-02-26 14:48] LABS: ALBUMIN 3.1 g/dL (3.4-5.0); ALKALINE PHOSPHATASE 76 U/L (46-116); ALT (SGPT) 51 U/L (10-68); CALC OSMOLALITY 290 mosm/kg (275-300); CALCIUM 9.5 mg/dL (8.5-10.1); CARBON DIOXIDE 26.6 mmol/L (21.0-32.0); CHLORIDE - SERUM 109 mmol/L (98-107); CREATININE - SERUM 0.8 mg/dL (0.6-1.3); GLUCOSE 108 mg/dL (74-106); POTASSIUM - SERUM 3.7 mmol/L (3.5-5.1); PROTEIN - SERUM 6.5 g/dL (6.4-8.2); SODIUM 145 mmol/L (136-145); UREA NITROGEN 15 mg/dL (7-18); eGFR NON AFRICAN AMERICAN 73 mL/min (90-120)
[2019-02-26 14:55] LABS: INR 1.17 (0.85-1.17); PROTIME 14.4 SECONDS (11.6-15.0)
[2019-02-26 15:00] LABS: CKMB 0.2 U/L (0.0-3.6); CREATINE KINASE 29 UL (21-215)
[2019-02-26 15:03] LABS: TROPONIN-I < 0.017 ng/mL (0.000-0.060)
[2019-02-26 16:19] LABS: THYROID STIMULATING HORMONE 4.07 uIU/mL (0.36-3.74)
--- NOTE | 2019-02-26 19:10 | NUR ---
RECEIVED FROM ER VIA WHEELCHAIR, A&O,MEDS REVIEW AND HISTORY COMPLETE, PROVIDED A SANDWICH AND DIET DRINK, BED IS LOW, SRX 2, CALL LIGHT IN REACH, WILL CONTINUE PLAN OF CARE
[2019-02-27] VITALS: BP 109/67
[2019-02-27 03:00] VITALS: BP 115/75; Ht 162.6 cm; Wt 59.1 kg
[2019-02-27 04:00] VITALS: BP 114/75
--- NOTE | 2019-02-27 04:34 | NUR ---
PT IS SLEEPING, BED IS LOW, FAMILY AT BED SIDE, CALL LIGHT IN REACH, WILL CONTINUE PLAN OF CARE
--- NOTE | 2019-02-27 05:10 | NUR ---
ADMISSION ASSESSMENT COMPLETED. PT RESTING IN BED. FAMILY X 2 AT BEDSIDE.
[2019-02-27 05:20] LABS: BASOPHILS 1.4 % (0-2); HEMATOCRIT 33.6 % (36.0-48.0); HEMOGLOBIN 10.9 g/dL (12-16); IMMATURE GRANULOCYTES 0.4 % (0-5); LYMPHOCYTES 32.2 % (15-50); MCHC 32.4 g/dL (31.0-37.0); MCV 83.4 fL (80.0-100.0); MEAN PLATELET VOLUME 9.9 fL (7.4-10.4); MONOCYTES 17.2 % (2-11); NEUTROPHILS 46.8 % (40-80); PLATELET COUNT 183 10x3/uL (130-400); RBC 4.03 10x6/uL (4.00-5.40); RDW 16.2 % (11.5-14.5); WBC 4.9 10x3/uL (4.8-10.8)
[2019-02-27 05:42] LABS: ALBUMIN 2.9 g/dL (3.4-5.0); ALKALINE PHOSPHATASE 63 U/L (46-116); ALT (SGPT) 50 U/L (10-68); BILIRUBIN - TOTAL 0.52 mg/dL (0.2-1.3); CALCIUM 8.7 mg/dL (8.5-10.1); CARBON DIOXIDE 25.6 mmol/L (21.0-32.0); CHLORIDE - SERUM 109 mmol/L (98-107); CREATININE - SERUM 0.7 mg/dL (0.6-1.3); GLUCOSE 106 mg/dL (74-106); POTASSIUM - SERUM 3.3 mmol/L (3.5-5.1); PROTEIN - SERUM 6.1 g/dL (6.4-8.2); SODIUM 143 mmol/L (136-145); eGFR NON AFRICAN AMERICAN 85 mL/min (90-120)
[2019-02-27 05:45] LABS: CALC OSMOLALITY 283 mosm/kg (275-300); UREA NITROGEN 10 mg/dL (7-18)
--- NOTE | 2019-02-27 07:41 | NUR ---
ALERT AND ORIENTED. TELEMERTY SHOWS CAF. CARDIZEM AT 5MG/MIN INFUSING INTO LEFT WRIST. UP AB ARTHUR. DENIES ANY NEEDS. CALL LIGHT IN REACH WITH SR UP
[2019-02-27 08:51] VITALS: BP 130/70
--- NOTE | 2019-02-27 09:00 | NUR ---
I have reviewed this patient and I concur with the Shift Assessment completed by the Licensed Practical Nurse today this shift.
[2019-02-27] MEDS ORDERED: CARDIZEM CD180 MG PO (10:12)
--- NOTE | 2019-02-27 11:23 | NUR ---
PT DISCHARGED. IV DCD WITH TIP INTACT. INSTRUCTIONS GIVEN TO PT AND GRANDAUGHTER. TO PRIVATE CAR PER WHEELCHAIR
--- NOTE | 2019-02-28 08:52 | MORECARE ---
CASE MANAGEMENT DISCHARGE SUMMARY PATIENT: HALLE OBANDO UNIT: [id number] ADM DATE: 02/26/19 AGE: 78 : 38 SEX: F ROOM/BED: D.2119 AUTHOR: SAUL MELÉNDEZ PHYSICIAN: REFERRING PHYSICIAN: CHRISTOPHER SUAREZ MD DATE OF SERVICE: 02/28/19 Discharge Plan Patient Name: HALLE OBANDO Facility: [facility]:[place] : 1940 Planned Disposition: Home Anticipated Discharge Date: 02/27/19 Discharge Date: 02/27/2019 Expected LOS: 1 Initial Reviewer: [email or web address] Initial Review Date: 02/28/2019 Generated: 02/28/19 9:52 am Patient Name: HALLE OBANDO Page [id number] at 0852 All edits/amendments must be made on the electronic document DICTATION DATE: 02/28/19 0851 PRIMARY PRODUCTS INSPECTORS: KATIE 02/28/19 0851 RPT#: [id number] DC DATE:02/27/19 STATUS: DIS IN [facility] [address] [place] [address] END OF REPORT
--- NOTE | 2019-02-28 09:50 | HP ---
PATIENT: HALLE OBANDO MEDICAL RECORD: [id number] ACCOUNT: [id number] LOCATION:[address] : [birth year] ADMISSION DATE: 02/26/19 PCP: GREGORIO MOREJON MD HISTORY AND PHYSICAL EXAMINATION DATE OF ADMISSION: 02/26/2019 DIAGNOSES: 1. Angina. 2. Coronary artery disease. 3. Previous multivessel PTCA and stent. 4. Atrial fibrillation. 5. Tachycardia. 6. Palpitations. 7. Peripheral vascular disease. 8. Valvular heart disease and mitral regurgitation. 9. Pulmonary hypertension. 10. Systemic hypertension. 11. Hyperlipidemia. HISTORY OF PRESENT ILLNESS: Mrs. Obando presents with tachycardia, palpitations, and some chest discomfort. She was noted to be with atrial fibrillation and rapid ventricular response. Her atrial fibrillation is chronic. She is on sotalol 120 mg b.i.d. She had the addition of a Cardizem drip. Her heart rate is now in the 70s. Her symptomatology has resolved. Her troponin is normal. Her EKG had no ST-T abnormalities. PHYSICAL EXAMINATION: GENERAL APPEARANCE: Well-nourished, well-developed, appears stated age. Level of distress, comfortable. PSYCHIATRIC: Mental status, alert, normal affect. Orientation, oriented to time, place and person. EYES: Lids and conjunctiva, noninjected. No discharge, no pallor. ENT: Lips, teeth, gums, normal dentition. Oropharynx, no cyanosis, no pallor. NECK: Carotid arteries, bilateral normal upstroke, no bruits, no thrills. JUGULAR VEINS: No jugular venous pressure or distention. CERVICAL LYMPH NODES: Nontender, nonenlarged. THYROID: Not enlarged. Nontender. No nodules. LUNGS: Respiratory effort, unlabored. CHEST: Normal curvature. No thoracic deformity. No chest wall tenderness. Percussion, resonant. Auscultation, clear. No wheezes, no rales, no rhonchi. CARDIOVASCULAR: Precordial exam, nondisplaced. No heaves or pericardial thrills. Rate and rhythm, regular. Heart sounds, normal S1, normal S2. No S3, no gallop, no rub. Systolic murmur, not heard. Diastolic murmur, not heard. EXTREMITIES: No cyanosis, no edema. Peripheral pulses, full and equal in all extremities, except as noted. No bruits appreciated. ABDOMEN: Soft, nondistended. Normal aorta. No bruit. Nontender. No masses. Liver, nontender, no hepatomegaly. Spleen, nontender, no splenomegaly. MUSCULOSKELETAL: No joint tenderness. No joint swelling. No erythema. NEUROLOGICAL: Normal gait, normal strength, normal tone. SKIN: Warm and dry. OVERALL IMPRESSION: Chest pain associated with tachycardia from the atrial fibrillation. At this time, she is on Norvasc for blood pressure in addition of lisinopril. We will discontinue the Norvasc and change this to Cardizem 180 mg HISTORY AND PHYSICAL [id number] HALLE OBANDO daily. Keep her cardiac followup. If her chest pain continues to resolve with this medical therapy, no other cardiac workup or treatment is necessary. TRANSINT:[id number] Voice Confirmation ID: [id number] DOCUMENT ID: [id number] CHRISTOPHER SUAREZ MD at 0950 CC: [id number] DICTATION DATE: 02/27/19 1207 COORDINATE MEASURING MACHINE TECHNICIAN: 02/27/19 1552 DIS IN 02/27/19 [facility] [address] [place] [address]
--- NOTE | 2019-02-28 09:50 | DS ---
PATIENT:HALLE OBANDO :36 MEDICAL RECORD: [id number] DISCHARGE SUMMARY ADMISSION DATE: 02/26/19 DISCHARGE DATE: 02/27/19 DATE OF DISCHARGE: 02/27/2019 DATE OF SERVICE: 02/27/2019 DIAGNOSES: 1. Tachycardia. 2. Atrial fibrillation, chronic. 3. Hypertension. 4. Hyperlipidemia. 5. Coronary artery disease. 6. Previous percutaneous transluminal coronary angioplasty and stent. 7. Angina. 8. Valvular heart disease. 9. Mitral regurgitation. 10. Pulmonary hypertension. HOSPITAL COURSE: Ms. Obando presents with anginal symptomatology and tachycardia. Her atrial fibrillation was extremely fast. She was placed on a Cardizem drip. Her heart rate lowered, her symptomatology resolved. Her troponin was normal. She had no ST-T changes on her EKG. She was switched from IV Cardizem to p.o. Cardizem 180 mg every day, discontinuing her Norvasc. Will follow up with [facility] as previously scheduled. TRANSINT:[id number] Voice Confirmation ID: [id number] DOCUMENT ID: [id number] CHRISTOPHER SUAREZ MD at 0950 CC: [id number] DICTATION DATE: 02/27/19 1208 GROUP UNDERWRITER: 02/28/19 0411 DIS IN 02/27/19 [place] [id number] [place] [address]
== END 2019-02-27 11:55 | disposition home or self-care (01) | DRG 310 ==
LOC: D.ER 13:35 → D.M2 18:24
PROVIDERS: Family Medicine; ADMIT Internal Medicine Interventional Cardiology; ATTEND Internal Medicine Interventional Cardiology
DX: I48.91 Unspecified atrial fibrillation (principal); I25.119 Atherosclerotic heart disease of native coronary artery with unspecified angina pectoris; R00.0 Tachycardia, unspecified; I73.9 Peripheral vascular disease, unspecified; I34.0 Nonrheumatic mitral (valve) insufficiency; I27.20 Pulmonary hypertension, unspecified; I10 Essential (primary) hypertension; E78.5 Hyperlipidemia, unspecified

== ENCOUNTER 2019-03-03 12:54 | Inpatient (IN) | payer MEDICARE, MEDICAID ==
[~2019-03-03] VITALS: Ht 162.6 cm; Wt 70.7 kg
[2019-03-03] VITALS (7 sets, daily range): BP systolic 102–123; BP diastolic 68–76; BMI 23.2
--- NOTE | ~2019-03-03 | HEMODYNAMI ---
PATIENT:HALLE OBANDO MEDICAL RECORD: [id number] : 36 LOCATION:[facility] D2126 ADMISSION DATE: 03/03/19 Generatedon:03/06/20199:37 Patient name: HALLE OBANDO Patient #: [id number] SSN: [id number] : 1940 Date of study: 03/06/2019 Page: Of Hemodynamic Procedure Report Patient Data Patient Demographics Procedure consent was obtained First Name: HALLE Gender: Female Last Name: GISELLA : 1940 Patient #: [id number] Age: 78 year(s) Race: Black SSN: [id number] Additional ID: [id number] Contact details [address]: [address] [place] [address] State: [place] City: [place] Zip code: [address] Past Medical History Allergies Allergen Reaction Date Comments Reported Other allergy 06/13/2015 Codeine, PCN, Hydrocodone, Ultram Other allergy 05/30/2016 penicillin, codeine Codeine Other 06/09/2016 Penicillins Skin ->Redness 06/09/2016 Penicillins 12/12/2016 Codeine 12/12/2016 Other allergy 12/12/2016 ibuprofen Other allergy 09/11/2017 codeine, hydrocone, ibuprofen, tramadol Other allergy 07/05/2018 CODEINE, IBUPROFEN, PCN Admission Admission Data Admission Date: 03/03/2019 Admission Time: 16:34 Room #: D.2126 Weight (lbs.): 134.48 Weight (kg.): 61 Lab Results Lab Result Date: 03/06/2019 Lab Result Time: 0:00 Biochemistry Name Units Result Min Max BUN mg/dl 11 --(-*--)-- 7 18 Creatinine mg/dl 0.8 --(-*--)-- 0.6 1.3 eGFR ml/min 88.00238 -*(----)-- 90 120 AM CBC Name Units Result Min Max Hematocrit % 35.2 *-(----)-- 42 54 Hemoglobin g/dl 11.9 *-(----)-- 13.5 17.5 Procedure Procedure Types Cath Procedure Diagnostic Procedure [facility] w/Coronaries PCI Procedure PTCA PTCA Initial Procedure Description Procedure Date Procedure Date: 03/06/2019 Procedure Start Time: 9:12 Procedure End Time: 9:36 Procedure Staff Name Function Simon Cantu MD Performing Physician Dick Faulkner RT Monitor Trisha Colón RT Scrub Trena Garcia RN Nurse Procedure Data Cath Procedure Fluoroscopy Diagnostic fluoroscopy Total fluoroscopy Time: 6.8 time: 6.8 min min Diagnostic fluoroscopy Total fluoroscopy dose: 653 dose: 653 mGy mGy Contrast Material Contrast Material Type Amount (ml) Isovue 370 74 Entry Location Entry Primary Successful Side Size Upsize Upsize Entry Closure Succes sful Closure Location (Fr) 1 (Fr) 2 (Fr) Remarks Device Remarks Femoral Right 5 Fr 6 Fr Exoseal artery Short Estimated blood loss: 10 ml Diagnostic catheters Device Type Used For End Catheter Placement MULTIPACK JL 4.0 5Fr Procedure catheter DIAGNOSTIC JL 3.5 5Fr Procedure catheter ([id number]) MULTIPACK 3DRC 5Fr Procedure catheter MULTIPACK Pigtail 5 Fr Procedure catheter Procedure Complications No complications Procedure Medications Medication Administration Route Dosage Oxygen etCO2 Nasal cannula 2 l/min Lidocaine 2% added to field 20 Heparin Flush Bag added to field 2 bags (1000units/500ml NS) 0.9% NaCl I.V. 100 ml/hr Versed I.V. 1 mg Fentanyl I.V. 50 mcg Versed I.V. 1 mg Fentanyl I.V. 50 mcg Heparin Bolus I.V. 4000 units Dobutamine I.V. drip 5 mcg/kg/min (500mg/250ml D5W) Hemodynamics Rest Heart Rate: 61 (bpm) Pressure Samples Time Site Value (mmHg) Purpose Heart Use Rate(bpm) 9:21 LV 113/11,12 Snapshot 66 9:21 AO 103/70(87) Pullback 65 9:21 LV 103/19,23 Pullback 65 Gradients Valve Time Site 1 Site 2 Mean SEP/DFP Peak To Heart Use (mmHg) (sec/min) Peak Rate (mmHg) (bpm) Aortic 9:21 LV AO 0 65 103/19,23 103/70(87) Calculations Valve P-P Mean Valve Index Valve Source Name Gradient Area Flow (cm2) Aortic 0 0 Snapshots Pre Cath Intra NCS Post Cath Vital Signs Time Heart Resp SPO2 etCO2 NIBP (mmHg) Rhythm Pain Sedation Rate (ipm) (%) (mmHg) Status Level (bpm) 9:07:10 64 17 95 25.5 137/83(103) NSR 0 (11) 10(A) , No pain 9:11:24 60 16 98 0 102/67(80) NSR 0 (11) 10(A) , No pain 9:16:42 60 16 100 0 103/56(77) NSR 0 (11) 9(A) , No pain 9:20:45 66 16 100 0 102/67(88) NSR 0 (11) 9(A) , No pain 9:24:53 60 14 99 0 112/55(77) NSR 0 (11) 9(A) , No pain 9:29:03 59 14 98 0 95/58(76) NSR 0 (11) 9(A) , No pain 9:34:12 63 17 99 0 113/63(86) NSR 0 (11) 10(A) , No pain Medications Time Medication Route Dose Verified Delivered Reason N otes Effectiveness by by 9:05:32 Oxygen etCO2 2 l/min Simon Albrecht used for Nasal St Wayne Garcia RN procedure cannula 9:07:02 Heparin Flush added 2 bags Simon Montes used for Bag to [facility] procedure (1000units/500ml field MD MABRY NS) 9:07:10 0.9% NaCl I.V. 100 ml/hr Simon Albrecht Per physician St Wayne Garcia RN, MD 9:07:42 Lidocaine 2% added 20ml vial Simon Montes for local to [facility] anesthetic field MD MABRY 9:10:33 Versed I.V. 1 mg Simon Albrecht for sedation St Wayne Garcia RN, MD 9:10:39 Fentanyl I.V. 50 mcg Simon Albrecht for sedation St Wayne Garcia RN, MD 9:17:17 Versed I.V. 1 mg Simon Albrecht for sedation St Wayne Garcia RN, MD 9:17:22 Fentanyl I.V. 50 mcg Simon Albrecht for sedation St Wayne Garcia RN, MD 9:24:40 Heparin Bolus I.V. 4000 units Simon Albrecht for v erified Isidro Garcia RN anticoagulation with dr MD mahoney 9:28:26 Dobutamine I.V. 5 Simon Albrecht Per physician (500mg/250ml drip mcg/kg/min St Wayne Garcia RN D5W) Procedure Log Time Note 8:32:04 Signed procedure consent form obtained from patient. 8:32:06 Diagnostic Cath status Urgent 8:32:06 Time tracking: Call back (After hours or weekends) 8:32:16 Plan of Care:Hemodynamics will remain stable., Cardiac rhythm will remain stable., Comfort level will be maintained., Respiratory function will remain adequate., Patient/ family verbilizes understanding of procedure., Procedure tolerated without complication., Recovers from procedure without complications.. 8:39:53 Dick Faulkner RT(R) sent for patient. Start room use. 8:40:59 Lab Result : Creatinine 0.8 mg/dl 8:40:59 Lab Result : BUN 11 mg/dl 8:40:59 Lab Result : eGFR AM 88.56744 ml/min 8:40:59 Lab Result : Hematocrit 35.2 % 8:40:59 Lab Result : Hemoglobin 11.9 g/dl 8:51:47 Patient received from Med II to CCL 1 Alert and oriented. Tansferred to table in Supine position. 8:51:48 Warm blankets applied, and milagro hugger turned on for patient comfort. 8:51:48 Correct patient and procedure confirmed by team. 8:51:49 ECG and BP/O2 sat monitors applied to patient. 9:05:32 Oxygen 2 l/min etCO2 Nasal cannula was administered by Trena Garcia RN; used for procedure; 9:06:00 Vital chart was started 9:06:01 Baseline sample Acquired. 9:06:05 Rhythm: sinus rhythm 9:06:06 Full Disclosure recording started 9:06:12 H&P Date Dictated: 03/06/2019 Within 30 days and on chart.. 9:06:12 Pre-procedure instructions explained to patient. 9:06:13 Pre-op teaching completed and patient verbalized understanding. 9:06:19 Family in patients room. 9:06:20 Patient NPO since Midnight. 9:06:22 Is the patient allergic to Iodine/contrast media? No. 9:06:25 Is patient on blood thinner?Yes 9:06:28 ACC The patient was administered the following blood thiners within the last 24 hours: ACCPlavix 9:06:34 Patient diabetic? Yes. 9:06:43 If diabetic: On Metformin? Yes 9:06:45 If on Metformin: Last Dose? 03/05/2019 9:06:47 Previous problem with sedation/anesthesia? No ? 9:06:48 Snore? No 9:06:49 Sleep apnea? No 9:06:50 Deviated septum? No 9:06:51 Opens mouth fully? Yes 9:06:52 Sticks out tongue? Yes 9:06:55 Airway obstruction? No ? 9:07:02 Heparin Flush Bag (1000units/500ml NS) 2 bags added to field was administered by Simon Cantu MD; used for procedure; 9:07:07 Dentures? Yes OUT 9:07:10 0.9% NaCl 100 ml/hr I.V. was administered by Trena Garcia RN; Per physician; 9:07:31 Pre procedure: right dorsailis pedis pulse 1+ Palpable, but thready & weak; easily obliterated 9:07:33 Patient pain scale 0/10 ?. 9:07:39 IV patent on arrival in right hand with 0.9% NaCl at KVO. 9:07:41 Lab results completed and on chart. 9:07:42 Lidocaine 2% 20ml vial added to field was administered by Simon Cantu MD; for local anesthetic; 9:07:44 Right groin area was prepped with chlora-prep and draped in sterile fashion 9:07:45 Alarms reviewed by R. N. 9:07:46 Sharps counted by scrub and verified by R.N. 9:07:47 --------ALL STOP TIME OUT------ 9:07:47 Final Timeout: patient, procedure, and site verified with staff and physician. All members of the team are in agreement. 9:07:49 Right groin site verified by team. 9:07:52 Fire Safety Assessment: A--An alcohol-based skin anteseptic being used preoperatively., C--Open oxygen or nitrous oxide is being used., D--An ESU, laser, or fiber-optic light is being used. 9:07:55 Physical assessment completed. ASA score P 2 - A patient with mild systemic disease as per Simon Cantu MD. 9:08:04 2) 60-89 Mildly reduced kidney function, and other findings (as for stage 1) point to kidney disease. 9:08:20 Maximum allowable contrast does (3.7 X eGFR X 0.75)244 ml. 9:08:25 Sedation plan: IV Moderate Sedation Medication:Versed, Fentanyl 9:08:42 Use device set Femoral Dx 9:08:43 Tegaderm 4 x 4 (1626W) opened to sterile field. 9:08:44 ACIST Manifold (74743) opened to sterile field. 9:08:45 ACIST Hand Control (10336) opened to sterile field. 9:08:46 Medline Cath Pack ([id number]) opened to sterile field. 9:08:47 Bag Decanter (2002S) opened to sterile field. 9:08:47 ACIST Syringe (90624) opened to sterile field. 9:08:50 EMERALD Guide Wire (502-502) opened to sterile field. 9:08:54 SHEATH 5FR Webster (DAH885) opened to sterile field. 9:08:55 DIAGNOSTIC Multipack 5Fr catheter set (RJ8015) opened to sterile field. 9:10:33 Versed 1 mg I.V. was administered by Trena Garcia RN; for sedation; 9:10:39 Fentanyl 50 mcg I.V. was administered by Trena Garcia RN; for sedation; 9:12:10 Procedure started. 9:12:19 Local anesthetic to right femoral artery with Lidocaine 2% by Simon Cantu MD.INITIAL ACCESS ONLY 9:12:58 Patient Weight : 134.48 lbs 9:13:15 A 5 Fr sheath was inserted into the Right Femoral artery 9:14:34 A MULTIPACK JL 4.0 5Fr catheter was advanced over the wire and used for Procedure. 9:14:59 Catheter removed. unable to cannulate vessel. 9:15:10 A DIAGNOSTIC JL 3.5 5Fr catheter ([id number]) was advanced over the wire and used for Procedure. 9:16:12 IV Extension Set opened to sterile field. 9:17:17 Versed 1 mg I.V. was administered by Trena Garcia RN; for sedation; 9:17:22 Fentanyl 50 mcg I.V. was administered by Trena Garcia RN; for sedation; 9:17:38 LCA angiography performed. 9:18:23 Catheter removed. 9:18:30 A MULTIPACK 3DRC 5Fr catheter was advanced over the wire and used for Procedure. 9:19:35 RCA angiography performed. 9:19:54 Catheter removed. 9:20:48 A MULTIPACK Pigtail 5 Fr catheter was advanced over the wire and used for Procedure. 9:21:31 LV angiography performed. 9:21:32 LV gram done using NAIK 9:22:36 EF : 20 % 9:22:39 LV hemodynamics recorded. 9::44 Injector settings: Ml/sec: 10, Volume: 20, 9:22:46 Catheter removed. 9:22:52 Use device set ISIDRO PCI 9:23:42 SHEATH 6FR Webster (UIY438) opened to sterile field. 9:23:44 GUIDE 6FR HS I catheter (LA6HSI) opened to sterile field. 9:23:47 WHISPER 300cm guide wire ([id number]) opened to sterile field. 9:23:48 INFLATOR Merit BasixCompak (WQ0060) opened to sterile field. 9:23:56 Sheath upsized to a 6 Fr Short. 9:24:08 6 Fr HS 1 guide catheter was inserted over the wire 9:24:39 Pre PCI Site: [place] mRCA has 70% stenosis. 9:24:40 Heparin Bolus 4000 units I.V. was administered by Trena Garcia RN; for anticoagulation; verified with dr mahoney 9:25:16 Guide Catheter removed. pressure damping. 9:25:24 GUIDE 6FR HS I SH catheter ([id number]) opened to sterile field. 9:25:32 6 Fr HS 1 SH guide catheter was inserted over the wire 9:26:30 Whisper wire advanced. 9:28:07 Wire advanced across lesion. 9:28:26 Dobutamine (500mg/250ml D5W) 5 mcg/kg/min I.V. drip was administered by Trena Garcia RN; Per physician; 9:29:55 Inflate balloon Inflation number: 1 A NC EUPHORA 3.0 x 15 balloon ([id number]) was prepped and advanced across the Mid RCA 70, then inflated to 12 LIZBETH for 0:30 (min:sec) . 9:31:06 Multiple inflations made at 16 Atms. 9:32:39 Balloon removed over the wire. 9:32:39 Wire removed. 9:32:40 Guide catheter removed. 9:32:42 EXOSEAL 6Fr (EX600) opened to sterile field. 9:32:59 Sheath removed intact; hemostasis achieved with Exoseal to the Right Femoral artery. 9:33:01 Procedure ended.(Physican Out) 9:33:43 Fluoroscopy time 06.80 minutes. 9:33:48 Fluoroscopy dose: 653 mGy 9:33:48 Flurop Dose total: 653 9:33:59 Contrast amount:Isovue 370 74ml. 9:34:00 Sharps counted by scrub and verified by R.N. 9:34:03 Insertion/operative site no bleeding no hematoma. 9:34:05 Post-op/insertion site Right Femoral artery dressed using a 4 x 4 and Tegaderm. 9:34:07 Post Procedure Pulses reassessed and unchanged 9:34:09 Post-procedure physical assessment completed. ASA score P 2 - A patient with mild systemic disease as per Simon Cantu MD. 9:34:11 Post procedure rhythm: unchanged. 9:34:14 Estimated blood loss: 10 ml 9:34:16 Post procedure instruction explained to patient.Patient verbalizes understanding. 9:34:16 Patient needs reinforcement of post procedure teaching. 9:35:52 Procedure type changed to Cath procedure, Diagnostic procedure, LHC, LHC w/Coronaries, PCI procedure, PTCA, PTCA Initial 9:35:54 Procedure and supply charges have been captured, reviewed, submitted and are correct. 9:35:57 Procedure Complication : No complications 9:36:12 Vital chart was stopped 9:36:15 See physician's report for complete and final results. 9:36:39 Report given to PCU. 9:36:45 Patient transfered to PCU with Bed. 9:36:49 Procedure ended. 9:36:49 Full Disclosure recording stopped 9:36:54 End room use (Document Last) Intervention Summary Intervention Notes Time ActionType Lesion and Equipment Action# Pressure Duration Attributes Used 9:29:55 Inflate Mid RCA NC EUPHORA 1 12 00:30 balloon 3.0 x 15 balloon ([id number]) Device Usage Item Name Manufacture Quantity Catalog Hospital Part Current Minimal Lot# / Number Charge Number Stock Stock Serial# Code Tegaderm 4 x 3M 1 1626W 480341 191153 953909 5 4 (1626W) ACIST Acist 1 34679 279654 792633 302502 5 Manifold Medical (12570) Systems Inc ACIST Hand Acist 1 62944 849752 435662 053850 5 Control Medical (26142) Systems Inc Medline Cath Medline 1 [id number] 328561 10423 246016 5 Pack ([id number]) Bag Decanter Microtek 1 2001S 814058 95881 618140 5 (2001S) Medical Inc. ACIST Acist 1 38508 185000 011502 718874 20 Syringe Medical (49503) Systems Inc EMERALD Cardinal 1 502-455 533961 864802 734298 5 Guide Wire Health (502-455) SHEATH 5FR Terumo 1 TMN829 827654 426825 606909 5 Webster (YCI033) DIAGNOSTIC Cardinal 1 KC4503 923262 74409 730032 30 Multipack Health 5Fr catheter set (AS4894) MULTIPACK JL Cardinal 1 672537 5 4.0 5Fr Health catheter DIAGNOSTIC Cardinal 1 [id number] 072799 736713 240021 5 JL 3.5 5Fr Health catheter (377819Q) IV Extension Hospira 1 11557-82 907682 48092 310449 5 Set MULTIPACK Cardinal 1 948681 5 3DRC 5Fr Health catheter MULTIPACK Cardinal 1 489669 5 Pigtail 5 Fr Health catheter SHEATH 6FR Terumo 1 RLS044 425700 434455 145245 40 Webster (BNS849) GUIDE 6FR HS Medtronic 1 LA6HSI 962565 01767 633670 1 I catheter (LA6HSI) WHISPER Rick 1 [id number] 025095 489734 252027 5 300cm guide Vascular wire (3193515HS) INFLATOR Merit 1 ZH4722 458226 477931 653193 15 [facility] Medical BasixCompak (RM6086) GUIDE 6FR HS Medtronic 1 SB7GRCOH 074034 31060 558851 1 I SH catheter (TM0XDPML) NC EUPHORA Medtronic 1 [id number] 715441 459842 207207 1 [id number] 3.0 x 15 balloon ([id number]) EXOSEAL 6Fr Cardinal 1 EX600 810286 327144 400097 10 (EX600) Health Signature Audit Dewitt Stage Time Signature Unsigned Intra-Procedure 03/06/2019 Dick Faulkner 9:37:05 AM RT(R) Signatures Monitor : Dick Faulkner RT Signature : Date : Time : [address] [place] [address]
[~2019-03-03 12:54] MED LIST changes: +CARDIZEM CD180 MG PO
[2019-03-03 13:41] LABS: BASOPHILS 1.8 % (0-2); EOSINOPHILS 1.6 % (0-7); HEMATOCRIT 33.3 % (36.0-48.0); HEMOGLOBIN 10.8 g/dL (12-16); IMMATURE GRANULOCYTES 0.4 % (0-5); LYMPHOCYTES 20.3 % (15-50); MCH 26.9 pg (26.0-34.0); MCHC 32.4 g/dL (31.0-37.0); MCV 82.8 fL (80.0-100.0); MEAN PLATELET VOLUME 9.8 fL (7.4-10.4); MONOCYTES 15.6 % (2-11); NEUTROPHILS 60.3 % (40-80); PLATELET COUNT 197 10x3/uL (130-400); RBC 4.02 10x6/uL (4.00-5.40); RDW 16.4 % (11.5-14.5); WBC 5.1 10x3/uL (4.8-10.8)
[2019-03-03 13:53] LABS: ALKALINE PHOSPHATASE 97 U/L (46-116); ALT (SGPT) 148 U/L (10-68); BILIRUBIN - TOTAL 0.45 mg/dL (0.2-1.3); CALC OSMOLALITY 289 mosm/kg (275-300); CALCIUM 9.2 mg/dL (8.5-10.1); CARBON DIOXIDE 25.3 mmol/L (21.0-32.0); CHLORIDE - SERUM 109 mmol/L (98-107); CREATININE - SERUM 0.8 mg/dL (0.6-1.3); POTASSIUM - SERUM 3.6 mmol/L (3.5-5.1); PROTEIN - SERUM 6.2 g/dL (6.4-8.2); SODIUM 143 mmol/L (136-145); UREA NITROGEN 15 mg/dL (7-18); eGFR NON AFRICAN AMERICAN 73 mL/min (90-120)
[2019-03-03 13:56] LABS: GLUCOSE 169 mg/dL (74-106)
[2019-03-03 13:57] LABS: AMYLASE - SERUM 41 U/L (25-115); LIPASE 99 U/L (73-393); TROPONIN-I < 0.017 ng/mL (0.000-0.060)
--- NOTE | 2019-03-03 17:02 | NUR ---
FLAGYL STOP TIME 1707
--- NOTE | 2019-03-03 17:17 | NUR ---
REPORT CALLED TO ROM ROSADO BY SBAR FORMAT
--- NOTE | 2019-03-03 17:20 | NUR ---
TRANSPORTED TO ROOM #126, CONDITION STABLE.
[2019-03-03] MEDS ORDERED: BETAPACE 80 MG80 MG PO (17:47)
[2019-03-03] MEDS ORDERED: GLUCOPHAGE XR750 MG PO (17:50)
[2019-03-03] MEDS ORDERED: CELEBREX 100 M100 MG PO (17:53)
[2019-03-03] MEDS ORDERED: PROTONIX20 MG PO (17:53)
[2019-03-03] MEDS ORDERED: EFFEXOR XR37.5 MG PO (17:54)
[2019-03-03] MEDS ORDERED: VIGAMOX3 ML (17:55)
[2019-03-03] MEDS ORDERED: VITAMIN D31000 UNI2 PO (17:57)
[2019-03-03] MEDS ORDERED: MAXITROL EYE DRO5 ML (17:57)
--- NOTE | 2019-03-03 18:47 | NUR ---
NEW PATIENT ADMIT FROM ER. PATIENT IS ACCOMPANIED BY FAMILY AND HOSPITAL STAFF. PATIENT LAYING IN BED ON BACK AWAKE, ALERT AND ORIENTED X 4. PATIENT IS STABLE AND VSS. PATIENT DENIES ANY NEEDS OR PAIN. WILL CONTINUE WITH PLAN OF CARE. SR UP X 2 BED IN LOW POSITION AND CALL LIGHT IN REACH.
--- NOTE | 2019-03-03 19:33 | NUR ---
PT CALLED STATING SHE IS COLD. TURNED OFF AIR AND GAVE PT A BLANKET. PT IS AAO. DENIES ANY OTHER NEEDS. NAME AND DATE PLACED ON BOARD. BED LOW AND CALL LIGHT IN REACH. WILL CPOC
--- NOTE | 2019-03-03 21:01 | NUR ---
PT ASSISTED TO RESTROOM. MINIMAL ASSIST. PT ASSISTED BACK TO BED. DENIES ANY NEEDS, CALL LIGHT IN REACH. WILL CPOC
[2019-03-03] MEDS ORDERED: TAPAZOLE 5 MG TA5 MG PO (21:23)
[2019-03-03] MEDS ORDERED: K-DUR20 MEQ PO (21:24)
--- NOTE | 2019-03-03 21:28 | NUR ---
WENT OVER MED REC AND RECHECKED ALL MEDICATIONS. PT MED REC NOW CORRECT PER PATIENT. PT FSBS IS 111 NO INSULIN NEEDED PER SLIDING SCALE. FAMILY IN ROOM. PT HAS NO S/S OF DISTRESS. NS INFUSING ORDERED. BED LOW AND CALL LIGHT IN REACH. WILL CPOC
--- NOTE | 2019-03-03 22:12 | NUR ---
VERBAL ORDER OF 650MG TYLENOL Q6H PRN FROM LUISA WATERS
[2019-03-03 22:40] LABS: T4 THYROXIN - FREE 0.95 ng/dL (0.76-1.46); THYROID STIMULATING HORMONE 3.73 uIU/mL (0.36-3.74)
--- NOTE | 2019-03-03 23:02 | NUR ---
TYLENOL GIVEN FOR PAIN. PT DENIES ANY OTHER NEEDS. WILL CPOC
[2019-03-04] VITALS: BP 133/86
[2019-03-04 03:00] LABS: APPEARANCE CLEAR (CLEAR); BILIRUBIN NEGATIVE (NEGATIVE); COLOR YELLOW (YELLOW); GLUCOSE 50 mg/dL (NEGATIVE); KETONE SMALL mg/dL (NEGATIVE); NITRITE NEGATIVE (NEGATIVE); PROTEIN NEGATIVE (NEGATIVE); SPECIFIC GRAVITY 1.015 (1.005-1.020); UROBILINOGEN NORMAL (NORMAL)
[2019-03-04 04:00] VITALS: BP 139/75
[2019-03-04 05:40] LABS: BASOPHILS 0.5 % (0-2); EOSINOPHILS 4.3 % (0-7); HEMATOCRIT 31.7 % (36.0-48.0); HEMOGLOBIN 10.5 g/dL (12-16); IMMATURE GRANULOCYTES 0.3 % (0-5); LYMPHOCYTES 10.8 % (15-50); MCH 27.3 pg (26.0-34.0); MCHC 33.1 g/dL (31.0-37.0); MCV 82.3 fL (80.0-100.0); MEAN PLATELET VOLUME 10.5 fL (7.4-10.4); NEUTROPHILS 71.1 % (40-80); PLATELET COUNT 179 10x3/uL (130-400); RBC 3.85 10x6/uL (4.00-5.40); RDW 16.2 % (11.5-14.5); WBC 6.1 10x3/uL (4.8-10.8)
[2019-03-04 06:11] LABS: ALBUMIN 2.8 g/dL (3.4-5.0); ANION GAP 14.8 mmol/L (8-16); BILIRUBIN - TOTAL 0.7 mg/dL (0.2-1.3); CALCIUM 8.4 mg/dL (8.5-10.1); CARBON DIOXIDE 21.3 mmol/L (21.0-32.0); CREATININE - SERUM 0.8 mg/dL (0.6-1.3); MAGNESIUM - SERUM 1.7 mg/dL (1.8-2.4); POTASSIUM - SERUM 3.1 mmol/L (3.5-5.1); PROTEIN - SERUM 5.9 g/dL (6.4-8.2)
--- NOTE | 2019-03-04 06:28 | NUR ---
FSBS IS 120 NO INSULIN NEEDED. POTASSIUM IS 3.1 40 MEQ GIVEN ORDERED. PT COMPLAINS THAT IS FEELS THAT HER MOUTH HAS BEEN SWELLING THROUGH OUT NIGHT. NURSE DOESNT OBSERVE A DIFFERANCE. PT VERBALIZED UNDERSTANDING TO CALL IF FEELS WORSE OR ANY CHANGES. WILL CPOC
--- NOTE | 2019-03-04 07:10 | NUR ---
REPORT RECEIVED FROM BIODIESEL TECHNOLOGY MANAGER AND PATIENT CARE ASSUMED. BIODIESEL TECHNOLOGY MANAGER REPORTED THAT AFTER FLAGYL GIVEN PATIENT LIPS BECAME SWOLLEN. PATIENT LAYING IN BED AWAKE, ALERT AND ORIENTED X 4. UPPER AND LOWER LIP MILDLY EDEMATOUS. PATIENT DENIES ANY DIFFICULTY BREATHING OR SWALLOWING. PATIENT IS STABLE AND VSS. WILL WITH HOLD NEXT FLAYGYL DOSE AND REPORT TO PHYSICIAN . WILL CONTINUE WITH PLAN OF CARE. SR UP X 2 BED IN LOW POSITION AND CALL LIGHT IN REACH.
[2019-03-04 07:52] VITALS: BP 138/95
--- NOTE | 2019-03-04 10:30 | NUR ---
PATIENT SITTING UP IN BED VISITNG WITH RELATIVE. LIPS HAVE NOT ENLARGED ANY FURTHER. PATIENT DENIES ANY NEEDS OR PAIN.WILL CONTINUE TO MONITOR.
[2019-03-04 11:21] LABS: % SATURATION 22 % (15-55); IRON 60 ug/dl (35-150); TOTAL IRON BIND CAPACITY 265 ug/dl (260-445); UNSAT IRON BIND CAPACITY 205 ug/dl (150-375)
[2019-03-04 12:01] VITALS: BP 95/83
--- NOTE | 2019-03-04 14:33 | CN ---
PATIENT NAME:HALLE OBANDO MEDICAL RECORD: [id number] : 36 LOCATION:[facility] D.2126 ADMIT DATE: 03/03/19 ACCOUNT: [id number] CONSULTING PHYSICIAN: SANTOS FELIX MD REFERRING PHYSICIAN: CE NINO MD DATE OF CONSULTATION: 03/03/2019 HISTORY OF PRESENT ILLNESS: An 78-year-old female with a history of atrial fibrillation as well as coronary artery disease, admitted with GI distress, found to be in sinus rhythm with a slow ventricular response. Recently, was admitted with atrial fibrillation, rapid ventricular response. At that point in time was switched to calcium channel blockers, was switched from Norvasc to Cardizem. She has noted slower heart rates since that time as well as more fatigued, malaise. No syncope or near syncope. PAST MEDICAL HISTORY: 1. History of coronary artery disease. 2. Hypertension. 3. Hyperlipidemia. 4. Atrial fibrillation. 5. Diabetes mellitus. ALLERGIES: CODEINE, HYDROCODONE, IBUPROFEN, TRAMADOL, AND PENICILLIN. MEDICATIONS: Include Plavix 75 every day, diltiazem 180 every day, Zetia 10 every day, isosorbide 20 every day, lisinopril 5 every day, sotalol 80 b.i.d., Celebrex 100 daily, and metformin 750 b.i.d. SOCIAL HISTORY: Nonsmoker, nondrinker. Easily able to take care of her ADLs. Good family support. REVIEW OF SYSTEMS: The patient reports easy bruising but reports no swollen glands. The patient reports no fever, no night sweats, no significant weight gain, no significant weight loss. No significant exercise tolerance. The patient reports no dry eyes, no irritation, no vision change. Patient reports no difficulty hearing and no ear pain. Patient reports no frequent nose bleeds or nose and sinus problems. Patient reports on arm pain on exertion. No shortness of breath while lying down. No history of heart murmur. Patient reports no cough, no wheezing or coughing up blood. Patient reports no abdominal pain, no vomiting. Normal appetite. No diarrhea and not vomiting blood. No nausea and no constipation. Patient reports no incontinence. No difficulty urinating. No hematuria. No increased frequency. Patient reports no muscle aches. No weakness, no arthralgias, no back pain. No swelling of the extremities. Patient reports no abnormal mole, no jaundice, no rashes. Reports no loss of consciousness. No weakness and no numbness. No seizures, dizziness, or headaches. The patient reports no depression, no sleep disturbance, feeling safe in a relationship and no alcohol abuse. Patient reports on fatigue. Reports no runny nose or sinus pressure. No itching, no hives, and no frequent sneezing. PHYSICAL EXAMINATION: GENERAL: This is a pleasant female, in no acute distress, appears stated age. VITAL SIGNS: 118/68, pulse 46 and regular. HEENT: Normocephalic, atraumatic. NECK: No JVD or bruit. CONSULT REPORT [id number] HALLE OBANDO HEART: Regular, bradycardic, II/ systolic ejection murmur. LUNGS: Good air excursion. ABDOMEN: Mild tenderness. No guarding or rebound. EXTREMITIES: Pulses are well preserved, 2+. There is no edema. IMPRESSION: Bradycardia, suspect medication induced. We will back off on sotalol to 40 b.i.d. Continue current Cardizem. Further recommendations based on clinical course. TRANSINT:[id number] Voice Confirmation ID: [id number] DOCUMENT ID: [id number] SANTOS FELIX MD at 1433 CC: [id number] DICTATION DATE: 03/03/19 184 COWLMAN: 03/03/192211 ADM IN [address] [place] [address]
[2019-03-04 14:51] VITALS: BMI 23.1
[2019-03-04 15:38] VITALS: BP 135/82
--- NOTE | 2019-03-04 16:30 | NUR ---
PATIENT LAYING IN BED ON LEFT SIDE WITH EYES CLOSED AND BREATHING EVENLY. PATIENT IS STABLE AND UNCHAGED. WILL CONTINUE TO MONITOR.
--- NOTE | 2019-03-04 19:05 | NUR ---
AWAKE AND ALERT WITH FAMILY PRESENT DENIES NEEDS AT THIS TIME. LCTA AND SKIN WARM AND DRY BED IS LOW AND LOCKED CALL LIGHT IS IN REACH BOWEL SOUNDS X4
[2019-03-04 20:00] VITALS: BP 136/92
[2019-03-05] VITALS: BP 147/84
--- NOTE | 2019-03-05 02:13 | NUR ---
I have reviewed this patient and I concur with the Shift Assessment completed by the Licensed Practical Nurse today this shift.
[2019-03-05 04:00] VITALS: BP 122/82
--- NOTE | 2019-03-05 05:32 | NUR ---
PT HAS BEGIN TO CO OF RESTLESSNESS THIS AM SHE IS HYPERVENTILATING AND WILL NOT LIE STILL IN BED SKIN IS COOL AND A LITTLE DIAPHORETIC GLUCOSE CHECKED AND FOUND TO BE 149 BP CHECKED MANUALLY 122/82 HR IS 77 TO 90 WITH PVCS AWAITING LAB WORK TO SEE H&h....O2 APPLIED LIZBETH 3L NC FOR PT COMFORT AND EDUCATED ON HOW TO SLOW DOWN RESP
[2019-03-05 05:43] LABS: BASOPHILS 0.3 % (0-2); EOSINOPHILS 4.2 % (0-7); HEMATOCRIT 33.9 % (36.0-48.0); HEMOGLOBIN 11.2 g/dL (12-16); IMMATURE GRANULOCYTES 0.5 % (0-5); LYMPHOCYTES 28.4 % (15-50); MCH 27.2 pg (26.0-34.0); MCV 82.3 fL (80.0-100.0); MEAN PLATELET VOLUME 9.8 fL (7.4-10.4); MONOCYTES 16.1 % (2-11); NEUTROPHILS 50.5 % (40-80); PLATELET COUNT 175 10x3/uL (130-400); RBC 4.12 10x6/uL (4.00-5.40); RDW 16.2 % (11.5-14.5); WBC 5.7 10x3/uL (4.8-10.8)
--- NOTE | 2019-03-05 06:03 | NUR ---
LUNGS CONTINUE TO BE CLEAR I ALSO INFORMED CHARGE NURSE AND SHE EXAMINED PT ...PT CONT TO DENY CHEST PAIN AND CONTINUES TO HYPERVENTALATE
[2019-03-05 06:05] LABS: ALBUMIN 2.8 g/dL (3.4-5.0); ALKALINE PHOSPHATASE 76 U/L (46-116); ALT (SGPT) 99 U/L (10-68); BILIRUBIN - TOTAL 0.52 mg/dL (0.2-1.3); CALC OSMOLALITY 285 mosm/kg (275-300); CALCIUM 8.2 mg/dL (8.5-10.1); CARBON DIOXIDE 22.3 mmol/L (21.0-32.0); CHLORIDE - SERUM 110 mmol/L (98-107); CREATININE - SERUM 0.7 mg/dL (0.6-1.3); GLUCOSE 139 mg/dL (74-106); POTASSIUM - SERUM 3.4 mmol/L (3.5-5.1); PROTEIN - SERUM 6.1 g/dL (6.4-8.2); SODIUM 144 mmol/L (136-145); eGFR NON AFRICAN AMERICAN 85 mL/min (90-120)
[2019-03-05 06:13] LABS: MAGNESIUM - SERUM 2.3 mg/dL (1.8-2.4); UREA NITROGEN 5 mg/dL (7-18)
--- NOTE | 2019-03-05 06:36 | NUR ---
RECHECKED O2 SAT 94% WITH [address] LUNGS REMAIN CLEAR HR 90 ON MONITOR WITH SOME PVCs
--- NOTE | 2019-03-05 06:43 | NUR ---
PTs RESP HAVE SLOWED TO 26 LCTA SKIN COOL AND DIAPHORETIC PULSES INTACT TELE SHOWS 90 WITH PVC BP NOW IS 176/80 MANUALLY. 94% WITH 2L FOR PT COMFORT... DENIES CP BUT CO SOME ABD PAIN. LAB SHOWS GLUCOSE WNL WELL
--- NOTE | 2019-03-05 07:10 | NUR ---
REPORT RECEIVED FORM DRIER ATTENDANT AND PATIENT CARE ASSUMED. PATIENT LAYING IN BED WITH RESP 29 BP 95/68 O2 SAT 95 NC @2L. PATIENT IS PALE, COOL, CLAMMY, AND COMPLAINS OF ABD PAIN. DAUGHTER AT BS. PATIENT DENIES CHEST PAIN, NAUSEA , JAW OR BACK PAIN. CALLED [facility] FOR DR NINO. NEW ORDER RECEIEVED FOR STAT ABG'S AND EKG. RESP THERAPY IN ROOM FOR ABG AND EKG. NEW ORDER RECIEVED FOR DILAUDED 0.5 MG IV AND CTA CHEST. PATIENT RESTING COMFORTABLY. VSS. WILL CONTINUE TO [facility]. UP X 2 BED IN LOW POSITION AND CALL LIGHT IN REACH.
[2019-03-05 08:27] LABS: CKMB 0.4 U/L (0.0-3.6); CREATINE KINASE 29 UL (21-215); TROPONIN-I 0.017 ng/mL (0.000-0.060)
--- NOTE | 2019-03-05 08:45 | NUR ---
[facility]T VAUGHAN BACK IN ROOM. PATIENT IS RESTING COMFORTABLY. NEW ORDER RECEIVED FOR SERIAL TROPONIN AND CTA CHEST PE PROTOCOL. WILL CONTINUE TO MONITOR.
[2019-03-05 09:33] VITALS: BP 94/73
--- NOTE | 2019-03-05 10:30 | NUR ---
NEW ORDER RECEIVED TO CONSULT GEN SURGERY. DR SINCLAIR CALLED. NEW ORDER RECIEVED FOR CTA ABD AND PELVIS. PATIENT IS STABLE AND VSS. PATIENT DENIES ANY NEEDS OR PAIN. WILL CONTINUE TO MONITOR. SR UP X 2 BED IN LOW POSITION AND CALL LIGHT IN REACH.
--- NOTE | 2019-03-05 10:45 | NUR ---
PATIENT IS STABLE AND VSS. PATIIENT TO CT VIA HOPSITAL BED AND MANUFACTURING DESIGN ENGINEER.
--- NOTE | 2019-03-05 11:20 | NUR ---
PATIENT RETURNED FROM CT. PATIENT IS STABLE AND VSS. PATIENT DENIES ANY NEEDS OR PAIN. WILL CONTINUE TO MONITOR.
[2019-03-05 14:30] LABS: CKMB 40.3 U/L (0.0-3.6)
[2019-03-05 14:44] LABS: CREATINE KINASE 302 UL (21-215)
--- NOTE | 2019-03-05 14:45 | NUR ---
PHONE CALL RECIEVED FROM LAB WITH CRITICAL LEVEL TROPONIN 25.106. NOTIFIED DR NINO WHO STATES THAT PATIENT HAS HAD AN ND. NEW ORDER RECEIVED TO CONSULT CARDIOLOGY AND GIVE ASPIRIN 325. DR FELIX CONSULTED AND CALL ED UNIT. NEW ORDER RECEIVED TO OBTAIN CONSENT FOR LEFT HEART CATH TO BE DONE TOMORROW. CONSENTS OBTAINED AND SIGNED. WILL CONTINUE TO MONITOR.
[2019-03-05 14:47] LABS: TROPONIN-I 25.209 ng/mL (0.000-0.060)
[2019-03-05 16:10] VITALS: BP 111/73
--- NOTE | 2019-03-05 17:00 | NUR ---
PATIENT RESTING COMFORTABLY. VSS. PT GRANDDTR AND BABY (8MONTHS OLD) IN ROOM ALL NIGHT AND ALL DAY. BABY HAS BEEN CRYING , CRAWLING AROUND ON FLOOR BAREFOOTED, PUTTING FINGERS IN MOUTH . PATIENT IN ROOM NEXT COMPLAINED ABOUT NOISE AND BEING DISTURBED. PATIENT AND GRANDTR INFORMED BY NEW CAR INSPECTOR ROM TORREZ THAT SMALL BABY CANNOT SLEEP IN ROOM OVERNIGHT OR KEPT IN ROOM ALL DAY. DANGER TO BABY EXPLAINED TO PT AND KAI MOTHER. KAI MOTHER RESISTANT BUTR DID RELENT TO LEAVE WITH BABY. PATIENT DENIES ANY NEEDS OR PAIN. WILL CONTINUE TO MONITOR.
[2019-03-05 17:50] VITALS: Ht 162.6 cm; Wt 70.7 kg
[2019-03-05 19:10] VITALS: BP 106/69
--- NOTE | 2019-03-05 19:57 | NUR ---
EVENING ROUNDS COMPLETED. REPORT RECEIVED. PT SITTING UP IN BED WITH EYES OPEN, RR EVEN AND UNLABORED. BED IN LOW POSITION. NO S/S OF DISTRESS NOTED. INTRODUCED SELF TO PT. PT DENIES FURTHER NEEDS AT THIS TIME. ANSWERING QUESTIONS APPROPRIATELY. CALL LIGHT IN REACH. WILL CTM.
[2019-03-05 20:15] LABS: CKMB 38.6 U/L (0.0-3.6); CREATINE KINASE 343 UL (21-215)
--- NOTE | 2019-03-05 23:38 | NUR ---
22 G SITED IN RIGHT HAND BY SREEKANTH YIN RN.
[2019-03-06] VITALS: BP 130/71
[2019-03-06 01:53] LABS: BASOPHILS 0.7 % (0-2); EOSINOPHILS 1.2 % (0-7); HEMATOCRIT 35.2 % (36.0-48.0); HEMOGLOBIN 11.9 g/dL (12-16); IMMATURE GRANULOCYTES 0.7 % (0-5); LYMPHOCYTES 17.6 % (15-50); MCH 27.7 pg (26.0-34.0); MCHC 33.8 g/dL (31.0-37.0); MCV 82.1 fL (80.0-100.0); MEAN PLATELET VOLUME 10.1 fL (7.4-10.4); MONOCYTES 19.5 % (2-11); NEUTROPHILS 60.3 % (40-80); PLATELET COUNT 181 10x3/uL (130-400); RBC 4.29 10x6/uL (4.00-5.40); RDW 16.4 % (11.5-14.5)
[2019-03-06 01:54] LABS: WBC 8.5 10x3/uL (4.8-10.8)
[2019-03-06 02:19] LABS: ALBUMIN 2.8 g/dL (3.4-5.0); ALKALINE PHOSPHATASE 88 U/L (46-116); BILIRUBIN - TOTAL 0.39 mg/dL (0.2-1.3); CALCIUM 8.2 mg/dL (8.5-10.1); CARBON DIOXIDE 21.3 mmol/L (21.0-32.0); CHLORIDE - SERUM 111 mmol/L (98-107); CKMB 26.5 U/L (0.0-3.6); CREATINE KINASE 303 UL (21-215); CREATININE - SERUM 0.8 mg/dL (0.6-1.3); GLUCOSE 111 mg/dL (74-106); MAGNESIUM - SERUM 2.1 mg/dL (1.8-2.4); POTASSIUM - SERUM 3.4 mmol/L (3.5-5.1); SODIUM 143 mmol/L (136-145); eGFR NON AFRICAN AMERICAN 73 mL/min (90-120)
[2019-03-06 02:21] LABS: ALT (SGPT) 127 U/L (10-68); CALC OSMOLALITY 284 mosm/kg (275-300); TROPONIN-I 22.076 ng/mL (0.000-0.060); UREA NITROGEN 11 mg/dL (7-18)
[2019-03-06 04:00] VITALS: BP 106/68
--- NOTE | 2019-03-06 05:18 | NUR ---
PT RECEIVING BED CHANGE BY KACEY BARNEY. NO S/S OF DISTRESS NOTED. BED IN LOW POSITION. CALL LIGHT IN REACH. UNABLE TO COLLECT ORDERED URINE CULTURE, UNABLE TO CATCH SAMPLE DUE TO PT INCONTINENCE. WILL CTM.
--- NOTE | 2019-03-06 05:26 | NUR ---
I have reviewed this patient and I concur with the Shift Assessment completed by the Licensed Practical Nurse today this shift.
--- NOTE | 2019-03-06 06:03 | NUR ---
3.4 SERUM POTASSIUM TREATED ORDERED.
[2019-03-06 07:41] VITALS: BP 120/75
[2019-03-06 11:38] VITALS: BP 126/78
[2019-03-06 16:12] VITALS: BP 129/81
[2019-03-06 20:00] VITALS: BP 125/71
--- NOTE | 2019-03-06 20:02 | NUR ---
EVENING ROUNDS COMPLETED. REPORT RECEIVED. PT SITTING UP IN BED WITH EYES OPEN, RR EVEN AND UNLABORED. BED IN LOW POSITION. NO S/S OF DISTRESS NOTED. INTRODUCED SELF TO PT. ADMINISTERED ORDERED ANALGESIC FOR COMPLAINTS OF PAIN IN BACK. PT DENIES FURTHER NEEDS AT THIS TIME. 78 SINUS ON TELEMETRY. CALL LIGHT IN REACH. WILL CTM.
[2019-03-07] VITALS: BP 108/72
--- NOTE | 2019-03-07 01:11 | NUR ---
SITTING UP IN BED WITH EYES OPEN, RR EVEN AND UNLABORED. 69 SINUS ON TELEMETRY. DOBUTAMINE INFUSING ORDERED. CALL LIGHT IN REACH. WILL CTM.
--- NOTE | 2019-03-07 01:31 | NUR ---
CALLED DR FELIX TO CONFIRM ORDER FOR DOBUTAMINE DRIP. DRIP IS TO RUN UNTIL [id number].
[2019-03-07 05:26] LABS: BASOPHILS 1.1 % (0-2); EOSINOPHILS 4.3 % (0-7); HEMATOCRIT 32.1 % (36.0-48.0); HEMOGLOBIN 10.4 g/dL (12-16); IMMATURE GRANULOCYTES 0.3 % (0-5); LYMPHOCYTES 19.6 % (15-50); MCH 26.8 pg (26.0-34.0); MCHC 32.4 g/dL (31.0-37.0); MCV 82.7 fL (80.0-100.0); MEAN PLATELET VOLUME 9.7 fL (7.4-10.4); MONOCYTES 18.4 % (2-11); NEUTROPHILS 56.3 % (40-80); PLATELET COUNT 170 10x3/uL (130-400); RBC 3.88 10x6/uL (4.00-5.40); RDW 16.5 % (11.5-14.5); WBC 6.5 10x3/uL (4.8-10.8)
[2019-03-07 05:30] LABS: ALBUMIN 2.5 g/dL (3.4-5.0); ANION GAP 14.1 mmol/L (8-16); BILIRUBIN - TOTAL 0.41 mg/dL (0.2-1.3); CALCIUM 8.3 mg/dL (8.5-10.1); CARBON DIOXIDE 22.5 mmol/L (21.0-32.0); CREATININE - SERUM 0.8 mg/dL (0.6-1.3); MAGNESIUM - SERUM 1.7 mg/dL (1.8-2.4); POTASSIUM - SERUM 3.6 mmol/L (3.5-5.1); PROTEIN - SERUM 5.1 g/dL (6.4-8.2)
--- NOTE | 2019-03-07 05:34 | NUR ---
I have reviewed this patient and I concur with the Shift Assessment completed by the Licensed Practical Nurse today this shift.
--- NOTE | 2019-03-07 06:03 | NUR ---
1.7 SERUM MAGNESIUM TREATED ORDERED
--- NOTE | 2019-03-07 06:09 | NUR ---
DOBUTAMINE DRIP ADJUSTED ORDERED TO PT WEIGHT OF 63.5 KG BY MCKENNA NO RN
--- NOTE | 2019-03-07 08:40 | NUR ---
PT SITTING UP IN BED EATING BREAKFAST. ROUTINE MEDICATIONS GIVEN. NO COMPLAINT OF PAIN AT THIS TIME. SHIFT ASSESSMENT COMPLETED.
[2019-03-07 08:52] VITALS: BP 118/72
--- NOTE | 2019-03-07 12:10 | NUR ---
PT SITTING IN CHAIR EATING LUNCH. DENIES ANY NEEDS AT THIS TIME. WILL CONT TO FOLLOW POC
[2019-03-07 12:55] VITALS: BP 129/65
[2019-03-07 14:54] VITALS: BP 123/72
--- NOTE | 2019-03-07 16:05 | MORECARE ---
CASE MANAGEMENT DISCHARGE SUMMARY PATIENT: HALLE OBANDO UNIT: [id number] ADM DATE: 03/03/19 AGE: 78 : 38 SEX: F ROOM/BED: D.7876 AUTHOR: RIKA,DOC PHYSICIAN: REFERRING PHYSICIAN: CE NINO MD DATE OF SERVICE: 03/07/19 Discharge Plan Patient Name: HALLE OBANDO Facility: [facility]:[place] : 1940 Planned Disposition: Home Anticipated Discharge Date: Discharge Date: Expected LOS: Initial Reviewer: [id number] Initial Review Date: 03/07/2019 Generated: 03/07/19 5:05 pm Comments DCP- Discharge Planning Updated by [email or web address]: Jesus Cardona on 03/07/19 2:[address] Patient Name: HALLE OBANDO Admission Status: ER Accout number: [id number] Admission Date: 03-03-2019 : 1940 Admission Diagnosis:NAUSEA WITH VOMITING, UNSPECIFIED Attending: CE NINO Current LOS: 4 Anticipated DC Date: Planned Disposition: Home Primary Insurance: [employer] ADV Discharge Planning Comments: CM MET WITH PT IN ROOM TO DISCUSS DISCHARGE PLANNING AND NEEDS. PT REPORTS LIVING AT HOME INDEPENDENTLY WITH HER DAUGHTER. PT HAS NO MEDICAL EQUIPMENT AND NO OUTSIDE SERVICES ASSISTING IN THE HOME. CM DISCUSSED AVAILABILITY OF HOME HEALTH, REHAB SERVICES AND MEDICAL EQUIPMENT. PT DENIES DISCHARGE NEEDS, REPORTS HER FAMILY WILL PICK HER UP FOR DISCHARGE HOME. IMPORTANT MESSAGE FROM MEDICARE PROVIDED AND EXPLAINED. PT PLANS TO DISCHARGE HOME WITH FAMILY, HAS NO ANTICIPATED DISCHARGE NEEDS AT THIS TIME. CM TO FOLLOW AND ASSIST NEEDED. [employer] Of Care Manager: Jesus Cardona DCPIA - Discharge Planning Initial Assessment Updated by [id number]: Jesus Cardona on 03/07/19 3:57 pm * Is the patient Alert and Oriented? Yes * How many steps to enter\exit or inside your home? NONE * PCP DR. GREGORIO MOREJON * Pharmacy [facility]. * Preadmission Environment Home with Family * ADLs Independent * Equipment None * Other Equipment NO MEDICAL EQUIPMENT PROVIDER PREFERENCE * List name and contact numbers for known caregivers / representatives who currently or will assist patient after discharge: LONDON OBANDO DTR, * Verbal permission to speak to the caregivers and representatives has been obtained from the patient. N/A * Community resources currently utilized None * Please name any agencies selected above. NONE * Additional services required to return to the preadmission environment? No * Can the patient safely return to the preadmission environment? Yes * Has this patient been hospitalized within the prior 30 days at any hospital? No Coverage Notice Reviewer: [id number] Chastity Cardona Notice Issued Date-Time: 03/07/2019 14:00 Notice Type: IM Discharge Notice Notice Delivered To: Patient Relationship to Patient: Coating Mixer Tender Name: Delivery Method: HAND - Hand Delivered Alina Days: Prior Verbal Notification: Recipient Understood Notice: Yes Recipient Signature: Yes Med Rec Note Co-signed by Attending: Coverage Notice Comment: Patient Name: HALLE OBANDO Page [phone] at 1605 All edits/amendments must be made on the electronic document DICTATION DATE: 03/07/19 1605 HUMAN RESOURCES FILE CLERK: KATIE 03/07/19 1605 RPT#: [id number] DC DATE: STATUS: ADM IN [facility] [address] [place] [address] END OF REPORT
--- NOTE | 2019-03-07 17:32 | NUR ---
PT SITTING UP IN BED EATING SUPPER, FAMILY AT BEDSIDE, DENIES ANY OTHER NEEDS AT THIS TIME. WILL CONT TO FOLLOW POC
--- NOTE | 2019-03-07 19:20 | NUR ---
AWAKE AND ALERT BED LOW AND LOCKED CALL LIGHT IN REACH AND FAMILY IS PRESENT PT DENIES ANY PAIN OR NEEDS AT THIS TIME DRSG FROM CATH INSERTION IS DRY AND INTACT. SKIN WARM AND DRY AND LCTA
[2019-03-07 20:00] VITALS: BP 120/78
[2019-03-08] VITALS: BP 127/65
--- NOTE | 2019-03-08 01:46 | NUR ---
I have reviewed this patient and I concur with the Shift Assessment completed by the Licensed Practical Nurse today this shift.
[2019-03-08 04:00] VITALS: BP 108/73
[2019-03-08 06:09] LABS: BASOPHILS 0.5 % (0-2); EOSINOPHILS 1.7 % (0-7); HEMATOCRIT 33.3 % (36.0-48.0); HEMOGLOBIN 10.9 g/dL (12-16); IMMATURE GRANULOCYTES 0.3 % (0-5); LYMPHOCYTES 18.9 % (15-50); MCH 27.1 pg (26.0-34.0); MCHC 32.7 g/dL (31.0-37.0); MCV 82.8 fL (80.0-100.0); MEAN PLATELET VOLUME 10.5 fL (7.4-10.4); MONOCYTES 27.2 % (2-11); NEUTROPHILS 51.4 % (40-80); PLATELET COUNT 178 10x3/uL (130-400); RBC 4.02 10x6/uL (4.00-5.40); RDW 16.4 % (11.5-14.5); WBC 6.3 10x3/uL (4.8-10.8)
[2019-03-08 06:33] LABS: ALBUMIN 2.6 g/dL (3.4-5.0); ALKALINE PHOSPHATASE 72 U/L (46-116); ALT (SGPT) 117 U/L (10-68); BILIRUBIN - TOTAL 0.47 mg/dL (0.2-1.3); CALCIUM 8.5 mg/dL (8.5-10.1); CARBON DIOXIDE 22.6 mmol/L (21.0-32.0); CHLORIDE - SERUM 111 mmol/L (98-107); CREATININE - SERUM 0.7 mg/dL (0.6-1.3); GLUCOSE 151 mg/dL (74-106); MAGNESIUM - SERUM 1.4 mg/dL (1.8-2.4); POTASSIUM - SERUM 3.1 mmol/L (3.5-5.1); PROTEIN - SERUM 5.5 g/dL (6.4-8.2); SODIUM 144 mmol/L (136-145); eGFR NON AFRICAN AMERICAN 85 mL/min (90-120)
[2019-03-08 06:40] LABS: CALC OSMOLALITY 287 mosm/kg (275-300); UREA NITROGEN 7 mg/dL (7-18)
--- NOTE | 2019-03-08 08:28 | MORECARE ---
CASE MANAGEMENT DISCHARGE SUMMARY PATIENT: HALLE OBANDO UNIT: [id number] ADM DATE: 03/03/19 AGE: 78 : 38 SEX: F ROOM/BED: D.7226 AUTHOR: RIKA,DOC PHYSICIAN: REFERRING PHYSICIAN: CE NINO MD DATE OF SERVICE: 03/08/19 Discharge Plan Patient Name: HALLE OBANDO Facility: [facility]:[place] : 1940 Planned Disposition: Home Anticipated Discharge Date: Discharge Date: Expected LOS: Initial Reviewer: [email or web address] Initial Review Date: 03/07/2019 Generated: 03/08/19 9:27 am Comments DCP- Discharge Planning Updated by [email or web address]: Jesus Cardona on 03/07/19 2:[address] Patient Name: HALLE OBANDO Admission Status: ER Accout number: [id number] Admission Date: 03-03-2019 : 1940 Admission Diagnosis:NAUSEA WITH VOMITING, UNSPECIFIED Attending: CE NINO Current LOS: 4 Anticipated DC Date: Planned Disposition: Home Primary Insurance: [employer]ICARE ADV Discharge Planning Comments: CM MET WITH PT IN ROOM TO DISCUSS DISCHARGE PLANNING AND NEEDS. PT REPORTS LIVING AT HOME INDEPENDENTLY WITH HER DAUGHTER. PT HAS NO MEDICAL EQUIPMENT AND NO OUTSIDE SERVICES ASSISTING IN THE HOME. CM DISCUSSED AVAILABILITY OF HOME HEALTH, REHAB SERVICES AND MEDICAL EQUIPMENT. PT DENIES DISCHARGE NEEDS, REPORTS HER FAMILY WILL PICK HER UP FOR DISCHARGE HOME. IMPORTANT MESSAGE FROM MEDICARE PROVIDED AND EXPLAINED. PT PLANS TO DISCHARGE HOME WITH FAMILY, HAS NO ANTICIPATED DISCHARGE NEEDS AT THIS TIME. CM TO FOLLOW AND ASSIST NEEDED. Coal Screener: Jesus Cardona DCPIA - Discharge Planning Initial Assessment Updated by [id number]: Jesus Cardnoa on 03/07/19 3:57 pm * Is the patient Alert and Oriented? Yes * How many steps to enter\exit or inside your home? NONE * PCP DR. GREGORIO MOREJON * Pharmacy [facility]. * Preadmission Environment Home with Family * ADLs Independent * Equipment None * Other Equipment NO MEDICAL EQUIPMENT PROVIDER PREFERENCE * List name and contact numbers for known caregivers / representatives who currently or will assist patient after discharge: LONDON OBANDO DTR, * Verbal permission to speak to the caregivers and representatives has been obtained from the patient. N/A * Community resources currently utilized None * Please name any agencies selected above. NONE * Additional services required to return to the preadmission environment? No * Can the patient safely return to the preadmission environment? Yes * Has this patient been hospitalized within the prior 30 days at any hospital? No Coverage Notice Reviewer: [id number] Chastity Cardona Notice Issued Date-Time: 03/07/2019 14:00 Notice Type: IM Discharge Notice Notice Delivered To: Patient Relationship to Patient: Bell Cleaner Name: Delivery Method: HAND - Hand Delivered Alina Days: Prior Verbal Notification: Recipient Understood Notice: Yes Recipient Signature: Yes Med Rec Note Co-signed by Attending: Coverage Notice Comment: Last DP export: 03/07/19 3:05 pm Patient Name: HALLE OBANDO Page [phone] at 0828 All edits/amendments must be made on the electronic document DICTATION DATE: 03/08/19826 ACCOUNT UNDERWRITER: KATIE 03/08/19826 RPT#: [id number] DC DATE: STATUS: ADM IN [facility] [address] [place] [address] END OF REPORT
[2019-03-08 08:55] VITALS: BP 136/78
--- NOTE | 2019-03-08 09:00 | OP ---
PATIENT NAME: HALLE OBANDO MEDICAL RECORD: [id number] :[birth year] LOCATION:D.M2 D.2126 ADMISSION DATE:03/03/19 SURGEON: SANTOS FELIX MD DATE OF OPERATION: 03/06/2019 PROCEDURES: Left heart catheterization, selective coronary angiography, right femoral artery approach. CATHETERS: A 5-Israeli sheath, 5/4 left and right Jeancarlos, 5/4 pig. The procedure was well tolerated. The patient was returned to wall. Sheath was removed. ADMINISTRATIVE SERVICES DIRECTOR was performed. FINDINGS: Left ventriculography in 30-degree NAIK view shows severe global hypokinesis. Overall LV function is reduced at 20% to 25%. LVEDP is elevated at 25 mmHg and there is at least moderate MR. CORONARY ANATOMY: LEFT MAIN: Left main is free of disease. LAD: Area of previous stenting is widely patent. CIRCUMFLEX: Area of stenting is widely patent. 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 PLAN: Intervention momentarily. DESCRIPTION OF PROCEDURE: A 5-Israeli sheath was exchanged for a 6-Israeli sheath. Hockey stick with sideholes provided excellent guide catheter support followed by 300 cm Whisper wire down to the 80% restenosed right. Balloon used was a 3.0 x 15 mm Euphora noncompliant balloon up to 16 atmospheres up and down the vessel, which showed excellent resolution of 80% stenosis with no significant residual. CRYTSAL flow was 3 throughout the procedure. During the case, the patient was started on Dobutrex for inotropic support as well. I would continue this for 24-48 hours. The patient was previously on Plavix. Sheath was closed with ExoSeal device. TRANSINT:[id number] Voice Confirmation ID: [id number] DOCUMENT ID: [id number] SANTOS FELIX MD at 0900 CC: [id number] DICTATION DATE: 03/06/19941 ADJUDICATION SPECIALIST: 03/06/19 1238 [place] [address]
--- NOTE | 2019-03-08 09:00 | EC ---
PATIENT:HALLE OBANDO DATE OF SERVICE: 03/03/19 SEX: F MEDICAL RECORD: [id number] DATE OF : [birth year] LOCATION:D.M2 D.212 AGE OF PATIENT: 78 ADMISSION DATE: 03/03/19 REFERRING PHYSICIAN: INTERPRETING PHYSICIAN: SANTOS FELIX MD ECHOCARDIOGRAM REPORT ECHO CHARGES 4 ECHO COMPLETE Date: 03/05/19 CLINICAL DIAGNOSIS: CHF ECHOCARDIOGRAPHIC MEASUREMENTS (adult normal given) AC root (d.<3.7cm) 2.3 cm LV Septum d (<1.2 cm> 1.4 cm Valve Excursion 1.3 cm LV Septum (systole) 1.6 cm Left Atria (s.<4.0cm> 5.0 cm LVPW d(<1.2cm) 1.0 cm RV (d.<2.3cm) 2.6 cm LVPW (sytole) 1.5 cm LV diastole(<5.6CM) 5.1 cm MV E-F(>70mm/sec) cm LV systole 4.2 cm LVOT Diameter 1.3 cm MV exc.(>10mm) cm Est.ejection fraction (50-75%) % DOPPLER: LVIT cm/sec A 36 cm/sec E 82 cm/sec LA cm/sec RVSP 58.7 mmHg LVOT 55 cm/sec AOP1/2T m/s Asc. Ao 81 cm/sec RVOT 46 cm/sec RA cm/sec PA 48 cm/sec AV Gradient Peak 2.7 mmHg AV Mean 1.9 mmHg AV Area 0.8 cm MV Gradient Peak 4.9 mmHg MV Mean 1.7 mmHg MV Area cm COMMENTS: Batch Mixing Truck Driver: Elan [facility] Medical Office Professional Instructor: 3 Dr. Rivas TAPE# PACS Pericardial Effusion N DATE OF SERVICE: Adequate 2-D echo, color-flow and spectral Doppler, and M-mode. LVH is present. LV internal dimensions are normal. LV is severely globally hypokinetic with reduced EF. Estimated EF is 20% to 25%. Aortic valve sclerosis without stenosis by Doppler interrogation. Left atrium is dilated at 5.0 cm. Mitral valve shows no prolapse. Dpfjpdps-ir-wzbsst MR. Right-sided chambers are grossly normal. Severe TR by color-flow imaging. ECHOCARDIOGRAM REPORT [id number] HALLE OBANDO TRANSINT:[id number] Voice Confirmation ID: [id number] DOCUMENT ID: [id number] SANTOS FELIX MD at 0900 CC: [id number] DICTATION DATE: 03/06/19 1005 PSYCH NP: 03/06/19 1311 ADM IN [facility] [address] [place] [id number]
--- NOTE | 2019-03-08 12:26 | NUR ---
Nutrition follow-up: Diet: low sodium PO intake ~25-50% of meals Pt reports appetite is slowly improving; pt reports still weak labs reviewed WT: 135# RDN following.
[2019-03-08 12:35] VITALS: BP 121/93
[2019-03-08 15:11] VITALS: BP 118/86
--- NOTE | 2019-03-08 19:00 | NUR ---
AWAKE AND ALERT AND DENIES NEEDS AT THIS TIME BED IS LOW AND LOCKED CALL LIGHT IS IN REACH
[2019-03-08 20:00] VITALS: BP 114/87
[2019-03-09 04:57] LABS: BASOPHILS 0.9 % (0-2); EOSINOPHILS 0.7 % (0-7); HEMATOCRIT 33.8 % (36.0-48.0); HEMOGLOBIN 11.1 g/dL (12-16); IMMATURE GRANULOCYTES 0.9 % (0-5); LYMPHOCYTES 26.5 % (15-50); MCH 27.3 pg (26.0-34.0); MCHC 32.8 g/dL (31.0-37.0); MEAN PLATELET VOLUME 10.1 fL (7.4-10.4); MONOCYTES 23.7 % (2-11); NEUTROPHILS 47.3 % (40-80); PLATELET COUNT 169 10x3/uL (130-400); RBC 4.07 10x6/uL (4.00-5.40); RDW 16.3 % (11.5-14.5); WBC 5.8 10x3/uL (4.8-10.8)
[2019-03-09 05:43] LABS: ALBUMIN 2.4 g/dL (3.4-5.0); BILIRUBIN - TOTAL 0.49 mg/dL (0.2-1.3); CALCIUM 8.4 mg/dL (8.5-10.1); CARBON DIOXIDE 24.6 mmol/L (21.0-32.0); CREATININE - SERUM 0.8 mg/dL (0.6-1.3); POTASSIUM - SERUM 3.6 mmol/L (3.5-5.1); PROTEIN - SERUM 5.4 g/dL (6.4-8.2)
[2019-03-09 06:49] VITALS: BP 108/84
--- NOTE | 2019-03-09 07:57 | NUR ---
REPORT RECEIVED. WILL CONTINUE WITH POC. PT CURRENTLY RESTING LYING SEMI FOWLERS. CALL LIGHT W/I REACH. FAMILY AT BEDSIDE. RR EVEN AND UNLABORED ON RA. NS INFUSING @KVO VIA R.FOR PIV. NO S/S OF DISTRESS NOTED. PT DENIES ANY NEEDS AT THIS TIME. WILL CTM.
[2019-03-09 08:41] VITALS: BP 130/94
[2019-03-09 12:42] VITALS: BP 124/80
--- NOTE | 2019-03-09 15:20 | NUR ---
I have reviewed this patient and I concur with the Shift Assessment completed by the Licensed Practical Nurse today this shift.
--- NOTE | 2019-03-09 16:10 | NUR ---
PT CURRENTLY LYING SEMI FOWLERS. CALL LIGHT W/I REACH. FAMILY AT BEDSIDE. L.FOR PIV IS SALINE LOCKED. RR EVEN AND UNLABORED ON RA. NO S/S OF DISTRESS NOTED. PT DENIES ANY NEEDS. WILL CTM.
--- NOTE | 2019-03-09 18:27 | NUR ---
PT SEMI FOWLERS. RR UNLABORED AND EVEN. PIV SLOCK. CALL LIGHT WITHIN REACH. NO S/S OF DISTRESS NOTED. PT JESSICA ANY NEEDS AT THIS TIME. WILL CONT WITH POC.
--- NOTE | 2019-03-09 19:10 | NUR ---
BEDSIDE REPORT RECEIVED. PT IS AAO, DENIES ANY NEEDS. NAME AND DATE PLACED ON BOARD. PT HAS NO S/S OF DISTRESS. BED LOW AND CALL LIGHT IN REACH. WILL CPOC
--- NOTE | 2019-03-09 19:38 | NUR ---
PT RESTING IN BED. COMPLAINS OF NECK DISCOMFORT. HEAT PACK GIVEN
[2019-03-09 20:00] VITALS: BP 120/91
--- NOTE | 2019-03-09 20:40 | NUR ---
fsbs is 179 2 units given as ordered
[2019-03-10] VITALS: BP 124/88
--- NOTE | 2019-03-10 03:33 | NUR ---
PT ASLEEP. NO S/S OF DISTRESS. WILL CPOC
--- NOTE | 2019-03-10 04:41 | NUR ---
RIGHT IV INDURATION, NOT PATENT. IV REMOVED WITH CATH INTACT. LEFT WRIST 22G PIV STARTED ONE ATTEMPT. PT HAS NO S/S OF DISTRESS. FAMILY AT BED SIDE. WILL CPOC
--- NOTE | 2019-03-10 06:07 | NUR ---
MORNING MEDS GIVEN. PT VERBALIZED UNDERSTANDING IN MEDICATIONS. FSBS IS 140 NO INSULIN NEEDED. PT DENIES ANY NEEDS. NO S/S OF DISTRESS. WILL CPOC
--- NOTE | 2019-03-10 07:44 | NUR ---
INITIAL ROUNDING, PATIENT IS AWAKE AND RESTING IN BED, SEMI FOWLERS. DAUGHTER AT THE BEDSIDE. PATIENT ALERT AND REQUESTING "SHOT SO I CAN RELAX". CALL LIGHT IN REACH. WHITE BOARD UPDATED
[2019-03-10 08:03] VITALS: BP 139/101
[2019-03-10 12:06] VITALS: BP 122/90
[2019-03-10 13:13] LABS: BASOPHILS 1.6 % (0-2); EOSINOPHILS 1.4 % (0-7); HEMATOCRIT 33.4 % (36.0-48.0); HEMOGLOBIN 10.8 g/dL (12-16); IMMATURE GRANULOCYTES 1.1 % (0-5); MCH 26.8 pg (26.0-34.0); MCHC 32.3 g/dL (31.0-37.0); MCV 82.9 fL (80.0-100.0); MEAN PLATELET VOLUME 10.3 fL (7.4-10.4); MONOCYTES 18.8 % (2-11); NEUTROPHILS 53.1 % (40-80); PLATELET COUNT 197 10x3/uL (130-400); RBC 4.03 10x6/uL (4.00-5.40); RDW 16.5 % (11.5-14.5)
[2019-03-10 13:19] LABS: WBC 7.3 10x3/uL (4.8-10.8)
[2019-03-10 13:25] LABS: CALCIUM 8.7 mg/dL (8.5-10.1); CARBON DIOXIDE 24.8 mmol/L (21.0-32.0); CREATININE - SERUM 0.9 mg/dL (0.6-1.3); POTASSIUM - SERUM 3.8 mmol/L (3.5-5.1)
[2019-03-10 19:13] VITALS: BP 141/89
--- NOTE | 2019-03-10 19:20 | NUR ---
BED SIDE REPORT RECEIVED. PT LAYING IN BED WITH EYES CLOSED. NO S/S OF DISTRESS. RESP EVEN AND UNLABORED. NAME AND DATE PLACED ON BOARD. BED LOW AND CALL LIGHT IN REACH. WILL CPOC
[2019-03-10 20:00] VITALS: BP 130/93
--- NOTE | 2019-03-10 22:45 | NUR ---
PT FSBS IS 148 NO INSULIN NEEDED PER SLIDING SCALE.
[2019-03-11 04:00] VITALS: BP 144/97
[2019-03-11 06:14] LABS: BASOPHILS 1.5 % (0-2); EOSINOPHILS 2.1 % (0-7); HEMATOCRIT 33.2 % (36.0-48.0); HEMOGLOBIN 10.8 g/dL (12-16); IMMATURE GRANULOCYTES 0.5 % (0-5); LYMPHOCYTES 29.2 % (15-50); MCHC 32.5 g/dL (31.0-37.0); MEAN PLATELET VOLUME 10.8 fL (7.4-10.4); MONOCYTES 19.9 % (2-11); NEUTROPHILS 46.8 % (40-80); PLATELET COUNT 208 10x3/uL (130-400); RDW 16.6 % (11.5-14.5); WBC 7.3 10x3/uL (4.8-10.8)
[2019-03-11 06:37] LABS: ALBUMIN 2.4 g/dL (3.4-5.0); ANION GAP 11.9 mmol/L (8-16); BILIRUBIN - TOTAL 0.38 mg/dL (0.2-1.3); CALCIUM 8.8 mg/dL (8.5-10.1); CARBON DIOXIDE 25.7 mmol/L (21.0-32.0); MAGNESIUM - SERUM 1.7 mg/dL (1.8-2.4); POTASSIUM - SERUM 3.6 mmol/L (3.5-5.1); PROTEIN - SERUM 5.6 g/dL (6.4-8.2)
[2019-03-11 08:12] VITALS: BP 135/95
[2019-03-11 09:14] LABS: APTT 29.9 SECONDS (22.8-39.4); INR 1.28 (0.85-1.17); PROTIME 15.5 SECONDS (11.6-15.0)
--- NOTE | 2019-03-11 09:53 | NUR ---
I have reviewed this patient and I concur with the Shift Assessment completed by the Licensed Practical Nurse today this shift.
[2019-03-11 12:35] VITALS: BP 168/113
[2019-03-11 16:30] VITALS: BP 142/98
--- NOTE | 2019-03-11 17:27 | NUR ---
WITHOUT CHANGES OR DISTRESS NOTED AT THIS TIME. DENIES NEED
[2019-03-11 20:00] VITALS: BP 122/75
--- NOTE | 2019-03-11 20:12 | NUR ---
RECIEVED UP IN BED WITH DTR AT BEDSIDE. ALERT AND ORIENTED X4. UP AD ARTHUR TO B/R. IV TO LEFT WRIST SL.. TELEMETRY IN PLACE. LUNG SOUNDS CLEAR SOLOMON.. ABSX4. NO EDEMA OBSERVED. DENIES ANY NEEDS AT THIS TIME.
[2019-03-12] VITALS: BP 122/73
[2019-03-12 04:00] VITALS: BP 128/94
[2019-03-12 05:45] LABS: BASOPHILS 0.6 % (0-2); EOSINOPHILS 0.5 % (0-7); HEMATOCRIT 34.4 % (36.0-48.0); HEMOGLOBIN 11.2 g/dL (12-16); IMMATURE GRANULOCYTES 0.5 % (0-5); LYMPHOCYTES 20.5 % (15-50); MCH 26.8 pg (26.0-34.0); MCHC 32.6 g/dL (31.0-37.0); MCV 82.3 fL (80.0-100.0); MEAN PLATELET VOLUME 10.7 fL (7.4-10.4); MONOCYTES 19.9 % (2-11); PLATELET COUNT 222 10x3/uL (130-400); RBC 4.18 10x6/uL (4.00-5.40); RDW 16.5 % (11.5-14.5)
[2019-03-12 05:53] LABS: WBC 9.9 10x3/uL (4.8-10.8)
[2019-03-12 06:13] LABS: ALBUMIN 2.4 g/dL (3.4-5.0); ANION GAP 12.2 mmol/L (8-16); BILIRUBIN - TOTAL 0.37 mg/dL (0.2-1.3); CALCIUM 9.3 mg/dL (8.5-10.1); CARBON DIOXIDE 24.5 mmol/L (21.0-32.0); CREATININE - SERUM 0.9 mg/dL (0.6-1.3); MAGNESIUM - SERUM 1.8 mg/dL (1.8-2.4); POTASSIUM - SERUM 3.7 mmol/L (3.5-5.1); PROTEIN - SERUM 5.8 g/dL (6.4-8.2)
[2019-03-12 09:45] VITALS: BP 154/109
--- NOTE | 2019-03-12 10:11 | NUR ---
CALLED LUISA ORTIZ AND INFORMED HER THAT PT IS C/O PAIN, HAD DILAUDID ORDERED YESTERDAY BUT IT WAS DISCONTINUE BY PHARMACY. NEW ORDER TO START DILAUDID AGAIN.
--- NOTE | 2019-03-12 10:20 | NUR ---
0.5MG OF DILAUDID FOR PAIN LEVEL OF 4/10. PT DENIES ANY OTHER NEEDS AT THIS TIME. CALL LIGHT IN REACH, FAMILY AT BEDSIDE, NAD NOTED, WILL CONTINUE TO MONITOR.
--- NOTE | 2019-03-12 11:45 | NUR ---
BLOOD SUGAR OF 181, 2UNITS OF HUMULIN PER S/S. PT RESTING COMFORTALBY DENIES ANY PAIN AT THIS TIME. NO FAMILY AT BEDSIDE, BEDSIDE RAILS X2, CALL LIGHT IN REACH, NAD NOTED,W ILL CONTNUE TO MONITOR.
[2019-03-12 13:12] LABS: T4 THYROXIN - FREE 1.28 ng/dL (0.76-1.46); THYROID STIMULATING HORMONE 0.88 uIU/mL (0.36-3.74)
--- NOTE | 2019-03-12 13:33 | NUR ---
PER DR. VALADEZ, START PT ON CARDIZEM AT 5MG/HR.
--- NOTE | 2019-03-12 15:05 | NUR ---
CARDIZEM DRIP STARTED AT THIS TIME. PT RESTING COMFORTABLY IN BED, DENIES ANY NEEDS AT THIS TIME. FAMILY AT BEDSIDE, DAY CARE SUPERVISOR AT BEDSIDE CLEANING ROOM. CALL LIGHT IN REACH, NAD NOTED,W ILL CONTINUE TO MONITOR.
--- NOTE | 2019-03-12 16:29 | NUR ---
LT WRIST IV NOT WOKRING, D/C IV WITH CATHETER TIP INTACT. ATTEMTED TO START NEW IV WAS UNSUCCESSFUL, CALLED ER, AMAURI WILL COME TO SEE IF SHE CAN START IV.
[2019-03-12 16:40] VITALS: BP 135/96
--- NOTE | 2019-03-12 17:30 | NUR ---
INFORMED HOUSESUPERVISOR LORE THAT PT NEEDS IV, LORE STATED THAT PT HAS ALREADY BEEN STUCK 5 TIMES, MIGHT NEED TO PUT IN A VASCULAR NURSE CONSULT.
[2019-03-12 20:00] VITALS: BP 125/98
--- NOTE | 2019-03-12 20:01 | NUR ---
INITIAL ROUNDS COMPLETEDA T 1910 HRS. PT DENIED ANY DISCOMFORT. ATTEMPTED IV A1 AT 1930 HRS WITHOUT SUCCESS. PT HAS 2+ PITTING EDEMA TO BILAT ARMS. FAMILY AT BEDSIDE.
--- NOTE | 2019-03-12 20:44 | NUR ---
SPOKE WITH UNRULY IN ER REGARDING IV ACCESS. SHE STATED WILL BE THERE SOON POSSIBLE.
--- NOTE | 2019-03-12 23:53 | NUR ---
ASSESSMENT COMPLETED AT 1950 HRS. VSS EXCEPT HR 128 UCAF. PT ALERT AND ORIENTED TO PERSON, PLACE AND TIME. BOWERS. 2+ GENERALIZED EDEMA NOTED OT UPPER ARMS. LUNGS DIMINISHED IN BASES BILAT. ACTIVE BS. PALPABLE PERIPHERAL PULSES. PM FSBS 175. 2 UNITS REGU INSULIN GIVEN SUB-Q TO UPPER R ARM. PM MED GIVEN. PT REQUESTING ANXIETY MED. [facility] PAGED AT 2215 HRS. RETURNS PAGE AT 2220 HRS. INFORMED OF PT'S C/O ANXIETY. NEW ORDER RECEIVED AND NOTED. SPOKE WITH DR VALADEZ AT 2235 HRS. INFORMED UNABLE TO GET IV, AWAITING VASCULAR NURSE FROM ER TO GET ACCESS, PT'S HR 130'S UCAF. NEW ORDER RECEIVED AND NOTED. PT INFORMED OF PENDING MEDS AND BEHAVIORAL SCIENCES INSTRUCTOR CALLED TO PULL MEDS. WILL CONTINUE TO MONITOR. FAMILY AT BEDSIDE.
[2019-03-13] VITALS: BP 127/95
--- NOTE | 2019-03-13 00:19 | NUR ---
PT RESTING WITH EYES CLOSED. RESP EVEN AND REGULAR. INFORMED FAMILY AWAITING MEDS FROM HS. SR UP X2, CALL LIGHT WITHIN REACH.
--- NOTE | 2019-03-13 01:10 | NUR ---
CARDIZEM 60MG, BUSPAR 10 MG PO GIVEN. LUPE RN FROM [facility] HERE TO ATTEMPT IV ACCESS.
--- NOTE | 2019-03-13 02:24 | NUR ---
MIDLINE PLACED BY A GILBERTO RN. SITE TO UPPER L ARM WITH 29CM CIRCUMFERENCE AT INSERTION SITE. PT TOLERATED ACTIVITY WELL. CARDIZEM DRIP RESTARTED AT 5MG/HR. SR UP X2, CALL LIGHT WITHIN REACH AND BED ALARM ON.
--- NOTE | 2019-03-13 03:31 | NUR ---
DILAUDID 0.5MG IV GIVEN FOR C/O BACK AND ABD PAIN. FAMILY AT BEDSIDE.
[2019-03-13 04:00] VITALS: BP 107/84
--- NOTE | 2019-03-13 04:48 | NUR ---
UCAF PER CM HR 109. PT AWAKE; DENIES ANY DISCOMFORT. SR UP X2, CALL LIGHT WITHIN REACH AND BED ALARM ON.
[2019-03-13 05:57] LABS: HEMATOCRIT 33.7 % (36.0-48.0); HEMOGLOBIN 10.8 g/dL (12-16); MCH 26.5 pg (26.0-34.0); MCV 82.8 fL (80.0-100.0); MEAN PLATELET VOLUME 10.2 fL (7.4-10.4); PLATELET COUNT 219 10x3/uL (130-400); RBC 4.07 10x6/uL (4.00-5.40); RDW 16.5 % (11.5-14.5)
--- NOTE | 2019-03-13 06:00 | NUR ---
PT DENIES ANY DISCOMFORT THIS AM. UCAF PER CM HR 112. AM FSBS 165. 2 UNITS REG INSULIN GIVEN SUB-Q TO UPPER R ARM. FAMILY AT BEDSIDE. NEEDS MET; WILL CONTINUE TO MONITOR.
[2019-03-13 06:18] LABS: WBC 6.9 10x3/uL (4.8-10.8)
[2019-03-13 06:29] LABS: ALBUMIN 2.3 g/dL (3.4-5.0); ANION GAP 11.4 mmol/L (8-16); BILIRUBIN - TOTAL 0.42 mg/dL (0.2-1.3); CALCIUM 8.9 mg/dL (8.5-10.1); CARBON DIOXIDE 26.1 mmol/L (21.0-32.0); CREATININE - SERUM 0.9 mg/dL (0.6-1.3); MAGNESIUM - SERUM 1.8 mg/dL (1.8-2.4); PROTEIN - SERUM 5.7 g/dL (6.4-8.2)
[2019-03-13 06:31] LABS: POTASSIUM - SERUM 4.5 mmol/L (3.5-5.1)
[2019-03-13 07:07] LABS: LYMPHOCYTES 33 % (15-50); MONOCYTES 6 % (2-11); NEUTROPHILS 56 % (40-80); PLATELET ESTIMATE NORMAL
--- NOTE | 2019-03-13 07:40 | NUR ---
ALERT AND ORIENTED. NO NEEDS VOICED. FAMILY AT BEDSIDE. TELEMERTY SHOWS A FIB. SR UP WITH CALL LIGHT IN REACH. LEFT UPPER ARM MIDLINE WITH CARDIZEM DRIP AT 5. WILL MONITOR
[2019-03-13 09:40] VITALS: BP 121/97
--- NOTE | 2019-03-13 15:44 | NUR ---
I have reviewed this patient and I concur with the Shift Assessment completed by the Licensed Practical Nurse today this shift.
[2019-03-13 17:00] VITALS: BP 152/105
--- NOTE | 2019-03-13 19:21 | NUR ---
RECIEVED LAYING IN BED WITH EYES OPEN AND TV ON. ALERT AND ORIENTED X4. UP TO B/R WITH ASSIST. LEFT ARM RESERVED D/T MIDLINE PAINFUL WHEN INFUSED. TELEMETRY IN PLACE. GENERALIZED EDEMA TO SOLOMON ARMS. BED ALARM ON, STAR ON DOOR AND YELLOW GOWN ON. DENIES ANY NEEDS AT THIS TIME.
[2019-03-13 20:00] VITALS: BP 117/79
[2019-03-14] VITALS: BP 110/66
[2019-03-14 04:00] VITALS: BP 141/86
[2019-03-14 05:54] LABS: BASOPHILS 0.4 % (0-2); EOSINOPHILS 0 % (0-7); HEMATOCRIT 33.5 % (36.0-48.0); HEMOGLOBIN 10.9 g/dL (12-16); IMMATURE GRANULOCYTES 0.5 % (0-5); LYMPHOCYTES 12.7 % (15-50); MCH 26.7 pg (26.0-34.0); MCHC 32.5 g/dL (31.0-37.0); MCV 81.9 fL (80.0-100.0); MEAN PLATELET VOLUME 10.1 fL (7.4-10.4); MONOCYTES 16.4 % (2-11); PLATELET COUNT 226 10x3/uL (130-400); RBC 4.09 10x6/uL (4.00-5.40); RDW 16.4 % (11.5-14.5)
[2019-03-14 06:10] LABS: ALBUMIN 2.4 g/dL (3.4-5.0); ANION GAP 10.9 mmol/L (8-16); BILIRUBIN - TOTAL 0.52 mg/dL (0.2-1.3); CALCIUM 8.9 mg/dL (8.5-10.1); CARBON DIOXIDE 27.5 mmol/L (21.0-32.0); MAGNESIUM - SERUM 1.9 mg/dL (1.8-2.4); POTASSIUM - SERUM 4.4 mmol/L (3.5-5.1); PROTEIN - SERUM 5.9 g/dL (6.4-8.2)
[2019-03-14 06:13] LABS: WBC 13.9 10x3/uL (4.8-10.8)
--- NOTE | 2019-03-14 07:36 | NUR ---
REPORT REVIEVED. WILL CTM. PT SEMI FOWLERS, PT FAMILY AT BEDSIDE. RESPIRATIONS EVEN AND UNLABORED ON RA. FALL PRECAUTIONS IN PLACE. PT CURRENTLY RESTING. NO S/S DISTRESS NOTED. WILL CTM.
[2019-03-14 09:12] VITALS: BP 125/83
--- NOTE | 2019-03-14 12:12 | NUR ---
I have reviewed this patient and I concur with the Shift Assessment completed by the Licensed Practical Nurse today this shift.
[2019-03-14 15:42] VITALS: BP 130/79
--- NOTE | 2019-03-14 20:11 | NUR ---
RECIEVED LAYING IN BED WITH HOB ELEVATED. ALERT AND ORIENTED X4. REQUIRES ASSIST TO AMBULATE TO B/R. LEFT ARM STILL RESERVED D/T POSSIBLE INFILTRATED MIDLINE. TELEMETRY IN PLACE. GENERALIZED EDEMA TO UPPER EXTREMITIES. NO EDEMA TO LOWER EXTREMITIES. DENIES ANY NEEDS AT THIS TIME.
[2019-03-14 21:12] VITALS: BP 122/68
[2019-03-15] VITALS: BP 116/80
[2019-03-15 04:00] VITALS: BP 133/89
[2019-03-15 05:15] LABS: BASOPHILS 0.6 % (0-2); EOSINOPHILS 0.3 % (0-7); HEMATOCRIT 32.4 % (36.0-48.0); HEMOGLOBIN 10.7 g/dL (12-16); IMMATURE GRANULOCYTES 0.3 % (0-5); LYMPHOCYTES 12.6 % (15-50); MCV 81.6 fL (80.0-100.0); MEAN PLATELET VOLUME 10.1 fL (7.4-10.4); MONOCYTES 19.3 % (2-11); NEUTROPHILS 66.9 % (40-80); PLATELET COUNT 250 10x3/uL (130-400); RBC 3.97 10x6/uL (4.00-5.40); RDW 16.3 % (11.5-14.5)
[2019-03-15 05:28] LABS: WBC 9.8 10x3/uL (4.8-10.8)
[2019-03-15 05:35] LABS: ALBUMIN 2.4 g/dL (3.4-5.0); ANION GAP 15.8 mmol/L (8-16); BILIRUBIN - TOTAL 0.56 mg/dL (0.2-1.3); CALCIUM 8.7 mg/dL (8.5-10.1); CARBON DIOXIDE 24.2 mmol/L (21.0-32.0); CREATININE - SERUM 1.2 mg/dL (0.6-1.3); MAGNESIUM - SERUM 1.8 mg/dL (1.8-2.4); PROTEIN - SERUM 5.9 g/dL (6.4-8.2)
--- NOTE | 2019-03-15 07:18 | NUR ---
RESTING, NO DISTRESS NOTED. RESP EVEN AND UNLABORED. CL IN REACH.
[2019-03-15 08:45] VITALS: BP 129/103
[2019-03-15 11:29] VITALS: BP 131/86
--- NOTE | 2019-03-15 12:59 | NUR ---
FAMILY AT BS. ALERT AND ORIENTED. NO C/O PAIN. CL IN REACH.
[2019-03-15 15:05] VITALS: BP 116/83
--- NOTE | 2019-03-15 16:53 | NUR ---
NO CHANGE IN ASSESSMENT. ALERT AND ORIENTED. REPS EVEN AND UNLABORED. CL IN REACH.
--- NOTE | 2019-03-15 19:30 | NUR ---
EVENING ROUNDS MADE. PT SITTING UP IN BED RESTING. DENIES PAIN AT THIS TIME. A/O X 4. BREATHING EVEN AND UNLABORED. DENIES FURTHER NEEDS AT THIS TIME. FALL PRECAUTIONS IN PLACE. YELLOW GOWN ON. BED LOWERED AND LOCKED. CL IN REACH. WILL CTM.
--- NOTE | 2019-03-15 21:55 | NUR ---
VITALS STABLE. PT TOOK MEDS WITHOUT DIFFICULTY. PT C/O NAUSEA AND UPSET STOMACH. ZOFRAN GIVEN TO MIDLINE IN L UPPER ARM. MIDLINE PATENT, DRSG C/D/I, NO REDNESS OR EDEMA NOTED. MELATONIN GIVEN FOR INSOMNIA. DAUGHTER AT BEDSIDE. ROOM AIR, BREATHING EVEN AND UNLABORED. NO FURTHER CONCERNS AT THIS TIME. FALL PRECAUTIONS IN PLACE. YELLOW GOWN ON. NON SKID SOCKS ON. BED LOWERED AND LOCKED. CL IN REACH. WILL CTM.
[2019-03-15 22:14] VITALS: BP 124/96
[2019-03-16 01:01] VITALS: BP 121/94
--- NOTE | 2019-03-16 02:54 | NUR ---
PT RESTLESS AND C/O PAIN AND NOT BEING ABLE TO SLEEP. DILAUDID GIVEN TO MIDLINE IN L UPPER ARM, PATENT, DRSG C/D/I. FAMILY AT BEDSIDE. NO FURTHER CONCERNS AT THIS TIME. WILL CTM.
[2019-03-16 05:16] VITALS: BP 128/92
--- NOTE | 2019-03-16 06:02 | NUR ---
PT LAYING IN BED RESTING AT THIS TIME. FAMILY AT BEDSIDE. DENIES PAIN AT THIS TIME. FALL PRECAUTIONS IN PLACE. BED LOWERED AND LOCKED. CL IN REACH. WILL CTM.
--- NOTE | 2019-03-16 08:28 | NUR ---
REPORT RECIEVED. PT LYING SEMI FOWLERS RR EVEN AND UNLABORED. NO DISTRESS. CALL LIGHT WITHIN REACH SIDE RAILS UP X2. DENIES ANY NEEDS AT THIS TIME. WILL CTM.
[2019-03-16 08:41] VITALS: BP 127/83
[2019-03-16 12:04] VITALS: BP 129/76
--- NOTE | 2019-03-16 13:36 | NUR ---
I have reviewed this patient and I concur with the Shift Assessment completed by the Licensed Practical Nurse today this shift.
--- NOTE | 2019-03-16 14:45 | NUR ---
Nutrition follow-up: Diet: AHA PO intake ~60% average of meals Labs reviewed Wt: 157# +BM RDN following.
[2019-03-16 15:46] VITALS: BP 132/81
[2019-03-16 20:00] VITALS: BP 127/76
[2019-03-17 04:00] VITALS: BP 102/71
[2019-03-17 06:16] LABS: ANION GAP 12.6 mmol/L (8-16); CALCIUM 9.2 mg/dL (8.5-10.1); CARBON DIOXIDE 26.7 mmol/L (21.0-32.0); CREATININE - SERUM 0.9 mg/dL (0.6-1.3); HEMATOCRIT 32.5 % (36.0-48.0); HEMOGLOBIN 10.6 g/dL (12-16); MCH 26.8 pg (26.0-34.0); MCHC 32.6 g/dL (31.0-37.0); MCV 82.3 fL (80.0-100.0); MEAN PLATELET VOLUME 10.2 fL (7.4-10.4); PLATELET COUNT 289 10x3/uL (130-400); POTASSIUM - SERUM 4.3 mmol/L (3.5-5.1); RBC 3.95 10x6/uL (4.00-5.40); RDW 16.3 % (11.5-14.5)
[2019-03-17 06:36] LABS: WBC 6.2 10x3/uL (4.8-10.8)
--- NOTE | 2019-03-17 07:40 | NUR ---
ASSESSMENT COMPLETED.ALERT AND ORIENTED. DENIES ANY NEEDS. TELEMERTY SHOWS UCAF 104. UP WITH ASSIST. RIGHT UPPER ARM MID LINE PATENT. FAMILY AT BEDSIDE. WILL MONITOR
[2019-03-17 08:49] VITALS: BP 103/80
[2019-03-17 08:52] LABS: LYMPHOCYTES 27 % (15-50); MONOCYTES 20 % (2-11); NEUTROPHILS 53 % (40-80); PLATELET ESTIMATE NORMAL
[2019-03-17 08:53] LABS: ACANTHOCYTES 1+
[2019-03-17] MEDS ORDERED: ALDACTONE25 MG PO (09:23)
[2019-03-17] MEDS ORDERED: PROTONIX40 MG PO (09:25)
[2019-03-17] MEDS ORDERED: CARDIZEM120 MG PO (09:25)
[2019-03-17] MEDS ORDERED: ELIQUIS2.5 MG PO (09:28)
[2019-03-17] MEDS ORDERED: ELIQUIS5 MG PO (09:28)
[2019-03-17 12:25] VITALS: BP 110/85
--- NOTE | 2019-03-17 15:29 | NUR ---
PT DISCHARGED. MIDLINE REMOVED WITH TIP INTACT. INSTRUCTIONS GIVEN TO PT AND FAMILY. TOPRIVATE CAR PER WHEELCHAIR.
--- NOTE | 2019-03-17 17:12 | MORECARE ---
CASE MANAGEMENT DISCHARGE SUMMARY PATIENT: HALLE OBANDO UNIT: [id number] ADM DATE: 03/03/19 AGE: 78 : 38 SEX: F ROOM/BED: D.2321 AUTHOR: RIKADOC PHYSICIAN: REFERRING PHYSICIAN: CE NINO MD DATE OF SERVICE: 03/17/19 Discharge Plan Patient Name: HALLE OBANDO Facility: [facility]:[place] : 1940 Planned Disposition: Home Anticipated Discharge Date: 03/17/19 Discharge Date: 03/17/2019 Expected LOS: 14 Initial Reviewer: [email or web address] Initial Review Date: 03/07/2019 Generated: 03/17/19 6:11 pm Comments DCP- Discharge Planning Updated by [email or web address]: Jesus Cardona on 03/17/19 4:[address] Patient Name: HALLE OBANDO Encounter No: [id number] : 1940 Primary Insurance: [employer] MEDICARE ADV Anticipated DC Date: 03-17-2019 Planned Disposition: Home DCP follow-up note: CM MET WITH PT IN ROOM TO DISCUSS DISCHARGE NEEDS AND PLANNING. CM DISCUSSED AVAILABILITY OF HOME HEALTH, REHAB SERVICES AND MEDICAL EQUIPMENT. PT DENIES DISCHARGE NEEDS. FAMILY TO TRANSPORT HOME AT DISCHARGE. IMPORTANT MESSAGE FROM MEDICARE PROVIDED AND EXPLAINED. NISHA Gu DCP- Discharge Planning Updated by [email or web address]: Jesus Cardona on 03/07/19 2:[address] Patient Name: HALLE OBANDO Admission Status: ER Accout number: [id number] Admission Date: 03-03-2019 : 1940 Admission Diagnosis:NAUSEA WITH VOMITING, UNSPECIFIED Attending: CE NNIO Current LOS: 4 Anticipated DC Date: Planned Disposition: Home Primary Insurance: WELL[employer] MEDICARE ADV Discharge Planning Comments: CM MET WITH PT IN ROOM TO DISCUSS DISCHARGE PLANNING AND NEEDS. PT REPORTS LIVING AT HOME INDEPENDENTLY WITH HER DAUGHTER. PT HAS NO MEDICAL EQUIPMENT AND NO OUTSIDE SERVICES ASSISTING IN THE HOME. CM DISCUSSED AVAILABILITY OF HOME HEALTH, REHAB SERVICES AND MEDICAL EQUIPMENT. PT DENIES DISCHARGE NEEDS, REPORTS HER FAMILY WILL PICK HER UP FOR DISCHARGE HOME. IMPORTANT MESSAGE FROM MEDICARE PROVIDED AND EXPLAINED. PT PLANS TO DISCHARGE HOME WITH FAMILY, HAS NO ANTICIPATED DISCHARGE NEEDS AT THIS TIME. CM TO FOLLOW AND ASSIST NEEDED. Drapery Operator: Jesus Cardona DCPIA - Discharge Planning Initial Assessment Updated by [email or web address]: Jesus Cardona on 03/07/19 3:57 pm * Is the patient Alert and Oriented? Yes * How many steps to enter\exit or inside your home? NONE * PCP DR. GREGORIO MOREJON * Pharmacy [facility]. * Preadmission Environment Home with Family * ADLs Independent * Equipment None * Other Equipment NO MEDICAL EQUIPMENT PROVIDER PREFERENCE * List name and contact numbers for known caregivers / representatives who currently or will assist patient after discharge: LONDON OBANDO DTR, * Verbal permission to speak to the caregivers and representatives has been obtained from the patient. N/A * Community resources currently utilized None * Please name any agencies selected above. NONE * Additional services required to return to the preadmission environment? No * Can the patient safely return to the preadmission environment? Yes * Has this patient been hospitalized within the prior 30 days at any hospital? No Coverage Notice Reviewer: ORCÍO Cardona Notice Issued Date-Time: 03/07/2019 14:00 Notice Type: IM Discharge Notice Notice Delivered To: Patient Relationship to Patient: Industrial Equipment Wirer Name: Delivery Method: HAND - Hand Delivered Alina Days: Prior Verbal Notification: Recipient Understood Notice: Yes Recipient Signature: Yes Med Rec Note Co-signed by Attending: Coverage Notice Comment: Reviewer: ROCÍO Cardona Notice Issued Date-Time: 03/17/2019 9:57 Notice Type: IM Discharge Notice Notice Delivered To: Patient Relationship to Patient: Industrial Equipment Wirer Name: Delivery Method: HAND - Hand Delivered Alina Days: Prior Verbal Notification: Recipient Understood Notice: Yes Recipient Signature: Yes Med Rec Note Co-signed by Attending: Coverage Notice Comment: Last DP export: 03/08/19 7:28 am Patient Name: HALLE OBANDO Page [phone] at 1712 All edits/amendments must be made on the electronic document DICTATION DATE: 03/17/191710 ARRANGER ASSEMBLER: KATIE 03/17/191710 RPT#: [id number] NC DATE:03/17/19 STATUS: DIS IN [address] [address] END OF REPORT
== END 2019-03-17 15:39 | disposition home or self-care (01) | DRG 250 ==
LOC: D.ER 12:54 → D.M2 16:34
PROVIDERS: Family Medicine; Family Medicine Adult Medicine; Internal Medicine Interventional Cardiology; Radiology Diagnostic Radiology; ADMIT Internal Medicine Nephrology; ATTEND Internal Medicine Nephrology
PROC: B2111ZZ Fluoroscopy of Multiple Coronary Arteries using Low Osmolar Contrast (ICD-10-PCS; 2019-03-06)
PROC: B2151ZZ Fluoroscopy of Left Heart using Low Osmolar Contrast (ICD-10-PCS; 2019-03-06)
PROC: 02703ZZ Dilation of Coronary Artery, One Artery, Percutaneous Approach (ICD-10-PCS; principal; 2019-03-06 08:39)
PROC: 4A023N7 Measurement of Cardiac Sampling and Pressure, Left Heart, Percutaneous Approach (ICD-10-PCS; 2019-03-06 08:39)
PROC: 05HC33Z Insertion of Infusion Device into Left Basilic Vein, Percutaneous Approach (ICD-10-PCS; 2019-03-13)
PROC: B54NZZA Ultrasonography of Left Upper Extremity Veins, Guidance (ICD-10-PCS; 2019-03-13)
DX: R00.1 Bradycardia, unspecified (principal); K55.059 Acute (reversible) ischemia of intestine, part and extent unspecified; K81.0 Acute cholecystitis; A09 Infectious gastroenteritis and colitis, unspecified; T82.855A Stenosis of coronary artery stent, initial encounter; I25.10 Atherosclerotic heart disease of native coronary artery without angina pectoris; E78.5 Hyperlipidemia, unspecified; D64.9 Anemia, unspecified; I27.20 Pulmonary hypertension, unspecified; I08.1 Rheumatic disorders of both mitral and tricuspid valves; T50.995A Adverse effect of other drugs, medicaments and biological substances, initial encounter; Y83.9 Surgical procedure, unspecified as the cause of abnormal reaction of the patient, or of later complication, without mention of misadventure at the time of the procedure; I11.0 Hypertensive heart disease with heart failure; I50.9 Heart failure, unspecified; I48.0 Paroxysmal atrial fibrillation

== ENCOUNTER 2019-03-18 16:21 | Inpatient (IN) | payer MEDICARE, MEDICAID ==
[2019-03-18] VITALS (12 sets, daily range): BP systolic 101–126; BP diastolic 72–86
[~2019-03-18] VITALS: Ht 162.6 cm; Wt 60.0 kg
[~2019-03-18 16:21] MED LIST changes: +ALDACTONE25 MG PO; +CARDIZEM120 MG PO; +CELEBREX 100 M100 MG PO; +EFFEXOR XR37.5 MG PO; +ELIQUIS2.5 MG PO; +ELIQUIS5 MG PO; +GLUCOPHAGE XR750 MG PO; +K-DUR20 MEQ PO; +MAXITROL EYE DRO5 ML; +PROTONIX20 MG PO; +PROTONIX40 MG PO; +VIGAMOX3 ML
[2019-03-18 17:09] LABS: BASOPHILS 0.6 % (0-2); EOSINOPHILS 0.6 % (0-7); HEMATOCRIT 33.3 % (36.0-48.0); HEMOGLOBIN 10.9 g/dL (12-16); IMMATURE GRANULOCYTES 0.5 % (0-5); MCH 26.8 pg (26.0-34.0); MCHC 32.7 g/dL (31.0-37.0); MCV 81.8 fL (80.0-100.0); MEAN PLATELET VOLUME 9.8 fL (7.4-10.4); MONOCYTES 18.8 % (2-11); NEUTROPHILS 61.5 % (40-80); RBC 4.07 10x6/uL (4.00-5.40); RDW 15.9 % (11.5-14.5)
[2019-03-18 17:10] LABS: PLATELET COUNT 347 10x3/uL (130-400); WBC 8.7 10x3/uL (4.8-10.8)
[2019-03-18 17:27] LABS: ALBUMIN 2.6 g/dL (3.4-5.0); ANION GAP 15.2 mmol/L (8-16); BILIRUBIN - TOTAL 0.56 mg/dL (0.2-1.3); CALCIUM 9.1 mg/dL (8.5-10.1); CARBON DIOXIDE 23.2 mmol/L (21.0-32.0); POTASSIUM - SERUM 4.4 mmol/L (3.5-5.1); PROTEIN - SERUM 6.5 g/dL (6.4-8.2)
[2019-03-18 17:29] LABS: CREATININE - SERUM 1.3 mg/dL (0.6-1.3)
[2019-03-18 17:45] LABS: TROPONIN-I 0.067 ng/mL (0.000-0.060)
[2019-03-18 19:05] LABS: APPEARANCE CLEAR (CLEAR); BILIRUBIN NEGATIVE (NEGATIVE); COLOR DK YELLOW (YELLOW); EPITHELIAL CELLS 0-5 /hpf (0-5); GLUCOSE NEGATIVE (NEGATIVE); KETONE NEGATIVE (NEGATIVE); NITRITE NEGATIVE (NEGATIVE); PROTEIN TRACE mg/dL (NEGATIVE); SPECIFIC GRAVITY 1.025 (1.005-1.020); UROBILINOGEN NORMAL (NORMAL); WHITE CELLS - URINE 0-5 /hpf (0-5)
[2019-03-18 19:06] LABS: BACTERIA MODERATE /hpf (NONE SEEN); MUCUS <1+ /lpf (NONE SEEN)
--- NOTE | 2019-03-18 19:16 | NUR ---
PT RETURNED FROM RADIOLOGY.
--- NOTE | 2019-03-18 20:40 | NUR ---
PT GIVEN SOCKS AND WARM BLANKET. DENIES ANY FURTHER NEEDS AT THIS TIME.
--- NOTE | 2019-03-18 21:50 | NUR ---
ATTEMPTED TO CALL REPORT TO FLOOR. INFORMED THAT NURSE IS NOT AVAILABLE AT THIS TIME. WILL CALL BACK WHEN SHE BECOMES AVAILABLE.
--- NOTE | 2019-03-18 22:35 | NUR ---
ATTEMPTED TO CALL REPORT TO FLOOR AGAIN. WAS INFORMED THAT THERE WAS NO NURSE FOR THAT ROOM AND ONE WAS BEING CALLED IN. NURSE WILL CALL TO GET REPORT WHEN SHE GETS HERE. CHARGE NURSE NOTIFIED.
--- NOTE | 2019-03-18 22:45 | NUR ---
PT AND PT'S FAMILY AT BEDSIDE INFORMED OF REASON FOR DELAY OF TRANSPORT TO PT'S ROOM ON THE FLOOR. PT AND PT'S FAMILY VERBALIZE UNDERSTANDING. DENIES ANY NEEDS AT THIS TIME. WILL CONTINUE TO MONITOR.
--- NOTE | 2019-03-19 00:05 | NUR ---
PT ARRIVED TO THE FLOOR. ALERT AND ORIENTED. NO SIGNS OF DISTRESS. BREATHING EVEN AND UNLABORED. IV SITE LT FA DRESSING CLEAN DRY AND INTACT. NO SIGNS OF INFECTION. TELE MONITOR ON 103 UNCONTROLLED A-FIB. BOWEL SOUNDS HYPOACTIVE. ABD DISTENDED PT STATES TENDERNESS TO PALPATION. SOME LOWER LEG SWELLING PRESENT. SKIN CLEAN DRY AND ITNACT. LT AND RT ARM BRUISES. WILL CONTINUE PLAN OF CARE. CALL LIGHT IN REACH. BED LOWERED AND LOCKED. FAMILY AT BEDSIDE.
[2019-03-19 00:34] VITALS: BP 114/72; BMI 23.2
--- NOTE | 2019-03-19 00:42 | NUR ---
ADMISSION ASSESSMENT COMPLETE.
[2019-03-19 04:00] VITALS: BP 134/74
[2019-03-19 06:03] LABS: HEMATOCRIT 30.9 % (36.0-48.0); HEMOGLOBIN 10.1 g/dL (12-16); MCH 26.6 pg (26.0-34.0); MCHC 32.7 g/dL (31.0-37.0); MCV 81.5 fL (80.0-100.0); MEAN PLATELET VOLUME 9.6 fL (7.4-10.4); PLATELET COUNT 304 10x3/uL (130-400); RBC 3.79 10x6/uL (4.00-5.40); RDW 15.9 % (11.5-14.5)
[2019-03-19 06:28] LABS: ALBUMIN 2.3 g/dL (3.4-5.0); ANION GAP 11.1 mmol/L (8-16); BILIRUBIN - TOTAL 0.59 mg/dL (0.2-1.3); CALCIUM 8.5 mg/dL (8.5-10.1); POTASSIUM - SERUM 4.1 mmol/L (3.5-5.1); PROTEIN - SERUM 5.8 g/dL (6.4-8.2)
[2019-03-19 08:16] LABS: LYMPHOCYTES 23 % (15-50); MONOCYTES 10 % (2-11); NEUTROPHILS 64 % (40-80); PLATELET ESTIMATE NORMAL
--- NOTE | 2019-03-19 09:00 | NUR ---
ALERT AND ORIENTEDX4 WITH BS NOTED X4 ABDOMEN SOFT. TELEMETRY INTACT AND DENIES ANY CHEST PAIN OR DISCOMFORT. RESPIRATIONS EVEN AND UNLABORED WITH LUNGS CTA AT THIS TIME. ASSISTED UP TO BR WITH INCONTINENCE OF BM NOTED WITH DIARRHEA NOTED. ENCOURAGED TO USE CALL LIGHT FOR ASSSIT.
[2019-03-19 09:16] VITALS: BP 133/74
[2019-03-19 09:48] VITALS: Ht 162.6 cm; Wt 60.0 kg
[2019-03-19 10:45] LABS: INR 1.7 (0.85-1.17); PROTIME 19.3 SECONDS (11.6-15.0)
[2019-03-19 10:47] LABS: D-DIMER-QUANTITATIVE 3.59 ug/mLFEU (0.20-0.54)
[2019-03-19 11:10] LABS: % SATURATION 8 % (15-55); IRON 21 ug/dl (35-150); TOTAL IRON BIND CAPACITY 254 ug/dl (260-445); UNSAT IRON BIND CAPACITY 233 ug/dl (150-375)
[2019-03-19 12:13] LABS: CKMB 0.3 U/L (0.0-3.6); CREATINE KINASE 14 UL (21-215); TROPONIN-I 0.042 ng/mL (0.000-0.060)
[2019-03-19 12:54] VITALS: BP 165/97
[2019-03-19 16:54] LABS: CKMB 0.5 U/L (0.0-3.6); CREATINE KINASE 14 UL (21-215); TROPONIN-I 0.052 ng/mL (0.000-0.060)
--- NOTE | 2019-03-19 17:08 | MORECARE ---
CASE MANAGEMENT DISCHARGE SUMMARY PATIENT: HALLE OBANDO UNIT: [id number] ADM DATE: 03/18/19 AGE: 78 : 38 SEX: F ROOM/BED: D.[facility]8 AUTHOR: SAUL MELÉNDEZ PHYSICIAN: REFERRING PHYSICIAN: CE NINO MD DATE OF SERVICE: 03/19/19 Discharge Plan Patient Name: HALLE OBANDO Facility: [facility]:[place] : 1940 Planned Disposition: Anticipated Discharge Date: Discharge Date: Expected LOS: Initial Reviewer: [email or web address] Initial Review Date: 03/18/2019 Generated: 03/19/19 6:08 pm Patient Name: HALLE OBANDO Page [phone] at 1708 All edits/amendments must be made on the electronic document DICTATION DATE: 03/19/191707 E COMMERCE MARKETING ANALYST: KATIE 03/19/191707 RPT#: [id number] DC DATE: STATUS: ADM IN [facility] [address] [place] [address] END OF REPORT
--- NOTE | 2019-03-19 17:15 | MORECARE ---
CASE MANAGEMENT DISCHARGE SUMMARY PATIENT: HALLE OBANDO UNIT: [id number] ADM DATE: 03/18/19 AGE: 78 : 38 SEX: F ROOM/BED: D.2238 AUTHOR: SAUL MELÉNDEZ PHYSICIAN: REFERRING PHYSICIAN: CE NINO MD DATE OF SERVICE: 03/19/19 Discharge Plan Patient Name: HALLE OBANDO Facility: [facility]:[place] : 1940 Planned Disposition: Anticipated Discharge Date: Discharge Date: Expected LOS: Initial Reviewer: [email or web address] Initial Review Date: 03/18/2019 Generated: 03/19/19 6:14 pm Comments DCP- Discharge Planning Updated by [id number]: Brea Neves on 03/19/19 4:[address] CM TO VISIT PATIENT SHE WAS READMITTED WITHIN 48 HOURS OF DISCHARGE. SHE WAS UP TO THE COMMODE. CM TO REVISIT. PATIENT IS ALERT AND ORIENTED. SHE DECLINED SERVICES HER PREVIOUS DISCHARGE. SHE LIVES AT HOME W/ HER DAUGHTER. DTR ASSISTING HER MOTHER AT THIS TIME. [facility] REPORTEDLY HAS BEEN INDEPENDENT IN HER CARE. REPORTEDLY NO DME. ADMITTED W/ ABD PAIN, CRAMPING AND DIARRHEA THRU THE ER. AXR- NONOBSTRUCTIVE BOWEL GAS PATTERN AND BIBASILAR AIRSPACE OPACITY / CONSOLIDATION ? RELATED TO ATELECTASIS AND / OR PNEUMONIA. EITHER CARDIOMEGALY AND / OR PERICARDIAL EFFUSION PLAN TRANSFER TO TELEMETRY UNIT FOR DOBUTAMINE DRIP DISCUSSED ACUTE REHAB OPTION AT DISCHARGE W/ PATIENT AND DAUGHTER. Last DP export: 03/19/19 4:08 p Patient Name: HALLE OBANDO Page 13501 at 1716 All edits/amendments must be made on the electronic document DICTATION DATE: 03/19/191713 SWINE NUTRITIONIST: KATIE 03/19/191713 RPT#: [id number] DC DATE: STATUS: ADM IN [facility] [address] [place] [address] END OF REPORT
--- NOTE | 2019-03-19 17:21 | NUR ---
PT. TRANSFERED WITH RM [address] [facility] REPORT CALLED. PT STABLE AT TIME OF TRANSFER.
--- NOTE | 2019-03-19 17:26 | NUR ---
RECEIVED 78 Y/O B/F TO ROOM 2113 VIA W/C FROM MED SURG TELEMETRY SHOW PT IN UCAF RATE 128 WITH NEW ORDERS TO START DOBUTAMINE GTT AAOX4 RESP UNLABORED DENIES ANY NEEDS OR DISCOMFORT AT THIS TIME
--- NOTE | 2019-03-19 19:57 | NUR ---
INITIAL ROUNDS AND ASSESSMENT COMPLETED. PT ALERT/ORIENTED, UCAF/114 PER TELEMETRY. DOBUTAMINE @ 10MCG/KG/MIN INFUSING TO LFA. NONLABORED RESPIRATONS ON ROOM AIR. FAMILY X 1 AT BEDSIDE. PT PULLED UP AND REPOSITIONED AT THIS TIME. CPOC.
[2019-03-19 20:00] VITALS: BP 148/81
[2019-03-20] VITALS: BP 122/90
[2019-03-20 00:02] LABS: CKMB 0.4 U/L (0.0-3.6); CREATINE KINASE 21 UL (21-215); TROPONIN-I 0.059 ng/mL (0.000-0.060)
--- NOTE | 2019-03-20 01:43 | NUR ---
AFTER MUCH EARLIER CONFUSION, PT AND FAMILY HAS SETTLED DOWN AND PT IS NOW RESTING. FAMILY WAS DEMANDING PT BE GIVEN THE "D MEDICINE, THAT KNOCKS GRANDMA OUT". EXPLAINED TO FAMILY, THAT WHEN PT WAS DISCHARGED HOME, THAT ENTIRE PLAN OF CARE ENDED. PT IS NOW A NEW ADMISSION, WITH NEW ORDERS AND SHE WILL NOT BE GETTING THE SAME MEDS LAST TIME. PT WAS GIVEN ORDERED MELATONIN. MONITOR AND CPOC. PT IS CURRENTLY RESTING WITH NO DISTRESS. FAMILY X 3 IN ROOM WITH HER.
--- NOTE | 2019-03-20 03:44 | NUR ---
PT C/O STOMACH PAIN/CRAMPS. MEDICATED WITH ZOFRAN 4MG SIVP. CARE PROVIDED BY FINISHING MANAGER FOR EPISODE OF INCONTINENCE.
[2019-03-20 04:30] VITALS: BP 148/85
--- NOTE | 2019-03-20 04:50 | NUR ---
I have reviewed this patient and I concur with the Shift Assessment completed by the Licensed Practical Nurse today this shift.
[2019-03-20 06:06] LABS: EOSINOPHILS 1.2 % (0-7); HEMATOCRIT 29.6 % (36.0-48.0); HEMOGLOBIN 9.8 g/dL (12-16); IMMATURE GRANULOCYTES 0.8 % (0-5); LYMPHOCYTES 22.5 % (15-50); MCH 26.8 pg (26.0-34.0); MCHC 33.1 g/dL (31.0-37.0); MCV 80.9 fL (80.0-100.0); MEAN PLATELET VOLUME 9.9 fL (7.4-10.4); MONOCYTES 24.5 % (2-11); PLATELET COUNT 274 10x3/uL (130-400); RBC 3.66 10x6/uL (4.00-5.40); RDW 15.7 % (11.5-14.5); WBC 5.1 10x3/uL (4.8-10.8)
[2019-03-20 06:12] LABS: ANION GAP 10.4 mmol/L (8-16); CALCIUM 8.5 mg/dL (8.5-10.1); CREATININE - SERUM 0.9 mg/dL (0.6-1.3)
[2019-03-20 06:14] LABS: POTASSIUM - SERUM 3.4 mmol/L (3.5-5.1)
[2019-03-20 07:47] VITALS: BP 115/83
--- NOTE | 2019-03-20 10:40 | NUR ---
DR SUAREZ NOTIFIED OF [facility]. NEW ORDERS GIVEN.
[2019-03-20 10:55] VITALS: BP 99/69
--- NOTE | 2019-03-20 13:05 | NUR ---
TYLENOL 650 MG GIVEN FOR C/O BACK PAIN. WILL MONITOR.
[2019-03-20 14:42] VITALS: BP 113/62
--- NOTE | 2019-03-20 17:56 | NUR ---
URINE SPECIMEN COLLECTED AND TAKEN TO LAB. WILL MONITOR.
[2019-03-20 20:00] VITALS: BP 108/74
--- NOTE | 2019-03-20 20:11 | NUR ---
INITIAL ROUNDS AND ASSESSMENT COMPLETED. PT RESTING IN BED. ALERT/ORIENTED. IV DOBUTAMINE INFUSING. 117/UCAF PER TELEMETRY. CALL LIGHT IN REACH. CPOC.
[2019-03-21] VITALS: BP 135/79
--- NOTE | 2019-03-21 01:03 | NUR ---
RESTING IN BED WITH NO DISTRESS. IV DOBUTAMINE INFUSING. GRANDDAUGHTER AT BEDSIDE. UCAF/112 PER TELEMETRY. CPOC.
[2019-03-21 04:30] VITALS: BP 122/90
[2019-03-21 06:45] LABS: HEMATOCRIT 29.5 % (36.0-48.0); HEMOGLOBIN 9.7 g/dL (12-16); MCH 26.3 pg (26.0-34.0); MCHC 32.9 g/dL (31.0-37.0); MCV 79.9 fL (80.0-100.0); MEAN PLATELET VOLUME 9.5 fL (7.4-10.4); PLATELET COUNT 274 10x3/uL (130-400); RBC 3.69 10x6/uL (4.00-5.40); RDW 15.5 % (11.5-14.5); WBC 4.5 10x3/uL (4.8-10.8)
[2019-03-21 06:51] LABS: ANION GAP 12.7 mmol/L (8-16); CALCIUM 8.6 mg/dL (8.5-10.1); CARBON DIOXIDE 28.7 mmol/L (21.0-32.0); POTASSIUM - SERUM 3.4 mmol/L (3.5-5.1)
--- NOTE | 2019-03-21 07:15 | NUR ---
RECEIVED PT IN BED EYES CLOSED RESP UNLABORED SKIN W/D COLOR WNL NAD NOTED WILL CONTINUE TO MONITOR
[2019-03-21 08:34] LABS: MAGNESIUM - SERUM 1.4 mg/dL (1.8-2.4)
[2019-03-21 08:55] VITALS: BP 120/87
[2019-03-21 09:07] LABS: EOSINOPHILS 1 % (0-7); LYMPHOCYTES 33 % (15-50); MONOCYTES 20 % (2-11); NEUTROPHILS 46 % (40-80); PLATELET ESTIMATE NORMAL; ROULEAUX OCC
--- NOTE | 2019-03-21 12:37 | NUR ---
Nutrition follow-up: Diet: ADA consistent CHO PO intake ~50% of meals Labs reviewed Wt: 135# RDN following.
[2019-03-21 18:15] VITALS: BP 122/86
--- NOTE | 2019-03-21 19:28 | NUR ---
RESUMING PATIENT CARE. PATIENT IS ALERT AND ORIENTED, RESTING COMFORTABLY IN BED. RESPIRATIONS ARE EVEN AND UNLABORED. NO S/S OF DISTRESS. NO C/O PAIN. CALL LIGHT WITHIN REACH. WILL CPOC.
[2019-03-21 20:00] VITALS: BP 117/85
--- NOTE | 2019-03-21 21:34 | NUR ---
NOTIFIED BY RECRUITING MANAGER THAT PATIENT TEMP WAS 102.1. TYLENOL 650 MG AND PITER LATHAM NOTIFIED ORDERS GIVEN FOR REPEAT BLOOD CULTURES AND LEVAQUIN 500 MG IV Q 24.
--- NOTE | 2019-03-21 22:47 | NUR ---
TEMPERTURE RECHECKED 100.8
--- NOTE | 2019-03-21 23:38 | NUR ---
LAB CALLED FOR BLOOD CULTURE ORDER.
[2019-03-22] VITALS: BP 102/67
--- NOTE | 2019-03-22 03:37 | NUR ---
IV IN LEFT FOREARM LEAKING. NEW IV INITIATED ABOVE OLD SITE OF THE LEFT FOREARM.
[2019-03-22 04:00] VITALS: BP 125/60
[2019-03-22 06:20] LABS: BASOPHILS 0.1 % (0-2); EOSINOPHILS 3.8 % (0-7); HEMATOCRIT 29.7 % (36.0-48.0); HEMOGLOBIN 9.7 g/dL (12-16); IMMATURE GRANULOCYTES 0.4 % (0-5); LYMPHOCYTES 5.1 % (15-50); MCH 26.2 pg (26.0-34.0); MCHC 32.7 g/dL (31.0-37.0); MCV 80.3 fL (80.0-100.0); MEAN PLATELET VOLUME 9.2 fL (7.4-10.4); MONOCYTES 5.6 % (2-11); PLATELET COUNT 257 10x3/uL (130-400); RDW 15.6 % (11.5-14.5)
[2019-03-22 06:35] LABS: WBC 8.2 10x3/uL (4.8-10.8)
[2019-03-22 06:39] LABS: ANION GAP 12.2 mmol/L (8-16); CALCIUM 8.3 mg/dL (8.5-10.1); CARBON DIOXIDE 28.5 mmol/L (21.0-32.0); MAGNESIUM - SERUM 1.5 mg/dL (1.8-2.4); PHOSPHOROUS 3.2 mg/dL (2.5-4.9); POTASSIUM - SERUM 3.7 mmol/L (3.5-5.1)
[2019-03-22 08:07] VITALS: BP 100/73
--- NOTE | 2019-03-22 09:00 | NUR ---
STOOL SPECIMEN COLLECTED AND TAKEN TO LAB. WILL MONITOR.
--- NOTE | 2019-03-22 14:59 | NUR ---
DR. GAMA NURSE CALLED AND SAID TO DC DOBUTREX GTT. NOTIED OF UCAF HR 116. NO NEW ORDERS GIVEN. WILL MONITOR.
[2019-03-22 16:19] VITALS: BP 100/80
--- NOTE | 2019-03-22 19:28 | NUR ---
RESUMING PATIENT CARE. PATIENT IS ALERT AND ORIENTED. RESPIRATIONS ARE EVEN AND UNLABORED. NO S/S OF DISTRESS. NO C/O PAIN. NEEDS MET. CALL IGHT WITHIN REACH. WILL CPOC.
[2019-03-22 20:00] VITALS: BP 120/67
[2019-03-23] VITALS: BP 124/80
[2019-03-23 04:00] VITALS: BP 116/68
[2019-03-23 05:17] LABS: BASOPHILS 0.5 % (0-2); EOSINOPHILS 4.5 % (0-7); HEMATOCRIT 29.8 % (36.0-48.0); HEMOGLOBIN 9.9 g/dL (12-16); IMMATURE GRANULOCYTES 0.5 % (0-5); LYMPHOCYTES 18.2 % (15-50); MCH 26.4 pg (26.0-34.0); MCHC 33.2 g/dL (31.0-37.0); MCV 79.5 fL (80.0-100.0); MEAN PLATELET VOLUME 9.3 fL (7.4-10.4); MONOCYTES 18.9 % (2-11); NEUTROPHILS 57.4 % (40-80); PLATELET COUNT 239 10x3/uL (130-400); RBC 3.75 10x6/uL (4.00-5.40); RDW 15.8 % (11.5-14.5)
[2019-03-23 05:26] LABS: WBC 5.8 10x3/uL (4.8-10.8)
[2019-03-23 05:43] LABS: ANION GAP 12.1 mmol/L (8-16); CALCIUM 8.7 mg/dL (8.5-10.1); CARBON DIOXIDE 28.4 mmol/L (21.0-32.0); CREATININE - SERUM 0.9 mg/dL (0.6-1.3); MAGNESIUM - SERUM 1.5 mg/dL (1.8-2.4); PHOSPHOROUS 3.2 mg/dL (2.5-4.9); POTASSIUM - SERUM 3.5 mmol/L (3.5-5.1)
[2019-03-23 08:40] VITALS: BP 111/81
--- NOTE | 2019-03-23 11:06 | MORECARE ---
CASE MANAGEMENT DISCHARGE SUMMARY PATIENT: HALLE OBANDO UNIT: [id number] ADM DATE: 03/18/19 AGE: 78 : 38 SEX: F ROOM/BED: D.2114 AUTHOR: SAUL MELÉNDEZ PHYSICIAN: REFERRING PHYSICIAN: CE NINO MD DATE OF SERVICE: 03/23/19 Discharge Plan Patient Name: HALLE OBANDO Facility: [facility]:[place] : 1940 Planned Disposition: Home Anticipated Discharge Date: Discharge Date: Expected LOS: Initial Reviewer: [id number] Initial Review Date: 03/18/2019 Generated: 03/23/19 12:06 pm DCP- Discharge Planning Updated by [email or web address]: Brea Neves on 03/19/19 4:[address] CM TO VISIT PATIENT SHE WAS READMITTED WITHIN 48 HOURS OF DISCHARGE. SHE WAS UP TO THE COMMODE. CM TO REVISIT. PATIENT IS ALERT AND ORIENTED. SHE DECLINED SERVICES HER PREVIOUS DISCHARGE. SHE LIVES AT HOME W/ HER DAUGHTER. DTR ASSISTING HER MOTHER AT THIS TIME. PCP- [facility] REPORTEDLY HAS BEEN INDEPENDENT IN HER CARE. REPORTEDLY NO DME. ADMITTED W/ ABD PAIN, CRAMPING AND DIARRHEA THRU THE ER. AXR- NONOBSTRUCTIVE BOWEL GAS PATTERN AND BIBASILAR AIRSPACE OPACITY / CONSOLIDATION ? RELATED TO ATELECTASIS AND / OR PNEUMONIA. EITHER CARDIOMEGALY AND / OR PERICARDIAL EFFUSION PLAN TRANSFER TO TELEMETRY UNIT FOR DOBUTAMINE DRIP DISCUSSED ACUTE REHAB OPTION AT DISCHARGE W/ PATIENT AND DAUGHTER. Last DP export: 03/19/19 4:15 p Patient Name: HALLE OBANDO Page [phone] at 1106 All edits/amendments must be made on the electronic document DICTATION DATE: 03/23/19 110 DOOR CLAMPER: KATIE 03/23/191105 RPT#: [id number] DC DATE: STATUS: ADM IN [facility] [address] [place] [address] END OF REPORT
--- NOTE | 2019-03-23 11:59 | MORECARE ---
CASE MANAGEMENT DISCHARGE SUMMARY PATIENT: HALLE OBANDO UNIT: [id number] ADM DATE: 03/18/19 AGE: 78 : 38 SEX: F ROOM/BED: D.8764 AUTHOR: RIKA,DOC PHYSICIAN: REFERRING PHYSICIAN: CE NINO MD DATE OF SERVICE: 03/23/19 Discharge Plan Patient Name: HALLE OBANDO Facility: [facility]:[place] : 1940 Planned Disposition: Home Anticipated Discharge Date: Discharge Date: Expected LOS: Initial Reviewer: [email or web address] Initial Review Date: 03/18/2019 Generated: 03/23/19 12:59 pm DCP- Discharge Planning Updated by [id number]: Brea Neves on 03/19/19 4:[address] CM TO VISIT PATIENT SHE WAS READMITTED WITHIN 48 HOURS OF DISCHARGE. SHE WAS UP TO THE COMMODE. CM TO REVISIT. PATIENT IS ALERT AND ORIENTED. SHE DECLINED SERVICES HER PREVIOUS DISCHARGE. SHE LIVES AT HOME W/ HER DAUGHTER. DTR ASSISTING HER MOTHER AT THIS TIME. PCP- [facility] REPORTEDLY HAS BEEN INDEPENDENT IN HER CARE. REPORTEDLY NO DME. ADMITTED W/ ABD PAIN, CRAMPING AND DIARRHEA THRU THE ER. AXR- NONOBSTRUCTIVE BOWEL GAS PATTERN AND BIBASILAR AIRSPACE OPACITY / CONSOLIDATION ? RELATED TO ATELECTASIS AND / OR PNEUMONIA. EITHER CARDIOMEGALY AND / OR PERICARDIAL EFFUSION PLAN TRANSFER TO TELEMETRY UNIT FOR DOBUTAMINE DRIP DISCUSSED ACUTE REHAB OPTION AT DISCHARGE W/ PATIENT AND DAUGHTER. DCPIA - Discharge Planning Initial Assessment Updated by [email or web address]: Jesus Cardona on 03/23/19 11:56 am * Is the patient Alert and Oriented? Yes * How many steps to enter\exit or inside your home? NONE * PCP DR. GREGORIO MOREJON * Pharmacy [facility]. * Preadmission Environment Home with Family * ADLs Independent * Equipment None * Other Equipment NO MEDICAL EQUIPMENT PROVIDER PREFERENCE * List name and contact numbers for known caregivers / representatives who currently or will assist patient after discharge: LONDON OBANDO DTR, E * Verbal permission to speak to the caregivers and representatives has been obtained from the patient. Yes * Community resources currently utilized None * Please name any agencies selected above. NONE * Additional services required to return to the preadmission environment? No * Can the patient safely return to the preadmission environment? Yes * Has this patient been hospitalized within the prior 30 days at any hospital? Yes Last DP export: 03/23/19 10:06 a Patient Name: HALLE OBANDO Page 28432 at 1159 All edits/amendments must be made on the electronic document DICTATION DATE: 03/23/19 1159 FLYING TEACHER: KATIE 03/23/19 1159 RPT#: [id number] CO DATE: STATUS: ADM IN [facility] [address] [place] [address] END OF REPORT
--- NOTE | 2019-03-23 12:12 | MORECARE ---
CASE MANAGEMENT DISCHARGE SUMMARY PATIENT: HALLE OBANDO UNIT: [id number] ADM DATE: 03/18/19 AGE: 78 : 38 SEX: F ROOM/BED: D.0084 AUTHOR: RIKA,DOC PHYSICIAN: REFERRING PHYSICIAN: CE NINO MD DATE OF SERVICE: 03/23/19 Discharge Plan Patient Name: HALLE OBANDO Facility: [facility]:[place] : 1940 Planned Disposition: Home Anticipated Discharge Date: Discharge Date: Expected LOS: Initial Reviewer: [email or web address] Initial Review Date: 03/18/2019 Generated: 03/23/19 1:12 pm Comments DCP- Discharge Planning Updated by [email or web address]: Jesus Cardona on 03/23/19 11:[address] Patient Name: HALLE OBANDO Admission Status: ER Accout number: [id number] Admission Date: 03-18-2019 : 1940 Admission Diagnosis: Attending: CE NNIO Current LOS: 5 Anticipated DC Date: Planned Disposition: Home Primary Insurance: WE[employer] MEDICARE ADV Discharge Planning Comments: PATIENT SEEN 03-22-19 AT APPROXIMATELY 1645 HOURS. CM MET WITH PT IN ROOM TO DISCUSS DISCHARGE PLANNING AND NEEDS. PT REPORTS LIVING AT HOME INDEPENDENTLY WITH HER DAUGHTER. PT HAS NO MEDICAL EQUIPMENT AND NO OUTSIDE SERVICES ASSISTING IN THE HOME. CM DISCUSSED AVAILABILITY OF HOME HEALTH, REHAB SERVICES AND MEDICAL EQUIPMENT. PT REPORTS SHE WILL CONSIDER HOME HEALTH AND DOES WANT A WALKER FOR DISCHARGE HOME; PT DOES NOT WANT ANY MEDICAL EQUIPMENT NOT COVERED 100% BY INSURANCE. PT REPORTS HER DAUGHTER WILL PICK HER UP FOR DISCHARGE HOME. PT SIGNED CONSENT FOR NO PREFERENCE ON MEDICAL EQUIPMENT PROVIDER. CM TO ARRANGE WALKER FOR DISCHARGE HOME IF RECOMMENDED BY THERAPY. CM TO CONTINUE TO FOLLOW AND ASSIST NEEDED. Coal Drier Operator: Jesus Cardona DCP- Discharge Planning Updated by [email or web address]: Brea Neves on 03/19/19 4:[address] CM TO VISIT PATIENT SHE WAS READMITTED WITHIN 48 HOURS OF DISCHARGE. SHE WAS UP TO THE COMMODE. CM TO REVISIT. PATIENT IS ALERT AND ORIENTED. SHE DECLINED SERVICES HER PREVIOUS DISCHARGE. SHE LIVES AT HOME W/ HER DAUGHTER. DTR ASSISTING HER MOTHER AT THIS TIME. [facility] REPORTEDLY HAS BEEN INDEPENDENT IN HER CARE. REPORTEDLY NO DME. ADMITTED W/ ABD PAIN, CRAMPING AND DIARRHEA THRU THE ER. AXR- NONOBSTRUCTIVE BOWEL GAS PATTERN AND BIBASILAR AIRSPACE OPACITY / CONSOLIDATION ? RELATED TO ATELECTASIS AND / OR PNEUMONIA. EITHER CARDIOMEGALY AND / OR PERICARDIAL EFFUSION PLAN TRANSFER TO TELEMETRY UNIT FOR DOBUTAMINE DRIP DISCUSSED ACUTE REHAB OPTION AT DISCHARGE W/ PATIENT AND DAUGHTER. DCPIA - Discharge Planning Initial Assessment Updated by [email or web address]: Jesus Cardona on 03/23/19 11:56 am * Is the patient Alert and Oriented? Yes * How many steps to enter\exit or inside your home? NONE * PCP DR. GREGORIO MOREJON * Pharmacy [facility]. * Preadmission Environment Home with Family * ADLs Independent * Equipment None * Other Equipment NO MEDICAL EQUIPMENT PROVIDER PREFERENCE * List name and contact numbers for known caregivers / representatives who currently or will assist patient after discharge: LONDON OBANDO DTR, a * Verbal permission to speak to the caregivers and representatives has been obtained from the patient. Yes * Community resources currently utilized None * Please name any agencies selected above. NONE * Additional services required to return to the preadmission environment? No * Can the patient safely return to the preadmission environment? Yes * Has this patient been hospitalized within the prior 30 days at any hospital? Yes Last DP export: 03/23/19 10:59 a Patient Name: HALLE OBANDO Page [phone] at 1212 All edits/amendments must be made on the electronic document DICTATION DATE: 03/23/19 1212 FOOD OR BAGGAGE HANDLING RAMPMAN: KATIE 03/23/19 1212 RPT#: [id number] DC DATE: STATUS: ADM IN [facility] [address] [place] [address] END OF REPORT
[2019-03-23 12:27] VITALS: BP 100/81
--- NOTE | 2019-03-23 12:55 | NUR ---
Nutrition follow-up: Diet: ADA consistent CHO Pt with increased temp PO intake has decreasesd; ~25% of meals Labs reviewed Wt: 152# Will continue to provide food choices and honor food preferences. RDN following.
--- NOTE | 2019-03-23 12:59 | NUR ---
UP AMBULATING WITH PT AND DAUGHTER AT SIDE. GAIT STEADY.
[2019-03-23 16:00] VITALS: BP 101/74
--- NOTE | 2019-03-23 19:30 | NUR ---
RESUMING PATIENT CARE. PATIENT IS ALERT AND ORIENTED, RESTING IN BED. RESPIRATIONS ARE EVEN AND UNLABORED. NO S/S OF DISTRESS. NO C/O PAIN. DENIES NEEDS. FAMILY AT BEDSIDE. CALL LIGHT WITHIN REACH. WILL CPOC.
[2019-03-23 20:00] VITALS: BP 102/70
[2019-03-24] VITALS: BP 99/73
[2019-03-24 04:30] VITALS: BP 113/83
[2019-03-24 08:32] VITALS: BP 110/65
--- NOTE | 2019-03-24 08:32 | MORECARE ---
CASE MANAGEMENT DISCHARGE SUMMARY PATIENT: HALLE OBANDO UNIT: [id number] ADM DATE: 03/18/19 AGE: 78 : 38 SEX: F ROOM/BED: D.0534 AUTHOR: RIKA,DOC PHYSICIAN: REFERRING PHYSICIAN: CE NINO MD DATE OF SERVICE: 03/24/19 Discharge Plan Patient Name: HALLE OBANDO Facility: [facility]:[place] : 1940 Planned Disposition: Home Anticipated Discharge Date: Discharge Date: Expected LOS: Initial Reviewer: [email or web address] Initial Review Date: 03/18/2019 Generated: 03/24/19 9:32 am DCP- Discharge Planning Updated by [email or web address]: Jesus Cardona on 03/23/19 11:[address] Patient Name: HALLE OBANDO Admission Status: ER Accout number: [id number] Admission Date: 03-18-2019 : 1940 Admission Diagnosis: Attending: CE NINO Current LOS: 5 Anticipated DC Date: Planned Disposition: Home Primary Insurance: [employer] MEDICARE ADV Discharge Planning Comments: PATIENT SEEN 03-22-19 AT APPROXIMATELY 1645 HOURS. CM MET WITH PT IN ROOM TO DISCUSS DISCHARGE PLANNING AND NEEDS. PT REPORTS LIVING AT HOME INDEPENDENTLY WITH HER DAUGHTER. PT HAS NO MEDICAL EQUIPMENT AND NO OUTSIDE SERVICES ASSISTING IN THE HOME. CM DISCUSSED AVAILABILITY OF HOME HEALTH, REHAB SERVICES AND MEDICAL EQUIPMENT. PT REPORTS SHE WILL CONSIDER HOME HEALTH AND DOES WANT A WALKER FOR DISCHARGE HOME; PT DOES NOT WANT ANY MEDICAL EQUIPMENT NOT COVERED 100% BY INSURANCE. PT REPORTS HER DAUGHTER WILL PICK HER UP FOR DISCHARGE HOME. PT SIGNED CONSENT FOR NO PREFERENCE ON MEDICAL EQUIPMENT PROVIDER. CM TO ARRANGE WALKER FOR DISCHARGE HOME IF RECOMMENDED BY THERAPY. CM TO CONTINUE TO FOLLOW AND ASSIST NEEDED. Hook Puller: Jesus Cardona DCP- Discharge Planning Updated by [email or web address]: Brea Neves on 03/19/19 4:[address] CM TO VISIT PATIENT SHE WAS READMITTED WITHIN 48 HOURS OF DISCHARGE. SHE WAS UP TO THE COMMODE. CM TO REVISIT. PATIENT IS ALERT AND ORIENTED. SHE DECLINED SERVICES HER PREVIOUS DISCHARGE. SHE LIVES AT HOME W/ HER DAUGHTER. DTR ASSISTING HER MOTHER AT THIS TIME. PCP- DR GREGORIO MOREJON [facility] REPORTEDLY HAS BEEN INDEPENDENT IN HER CARE. REPORTEDLY NO DME. ADMITTED W/ ABD PAIN, CRAMPING AND DIARRHEA THRU THE ER. AXR- NONOBSTRUCTIVE BOWEL GAS PATTERN AND BIBASILAR AIRSPACE OPACITY / CONSOLIDATION ? RELATED TO ATELECTASIS AND / OR PNEUMONIA. EITHER CARDIOMEGALY AND / OR PERICARDIAL EFFUSION PLAN TRANSFER TO TELEMETRY UNIT FOR DOBUTAMINE DRIP DISCUSSED ACUTE REHAB OPTION AT DISCHARGE W/ PATIENT AND DAUGHTER. DCPIA - Discharge Planning Initial Assessment Updated by [id number]: Jesus Cardona on 03/23/19 11:56 am * Is the patient Alert and Oriented? Yes * How many steps to enter\exit or inside your home? NONE * PCP DR. GREGORIO MOREJON * [facility]. * Preadmission Environment Home with Family * ADLs Independent * Equipment None * Other Equipment NO MEDICAL EQUIPMENT PROVIDER PREFERENCE * List name and contact numbers for known caregivers / representatives who currently or will assist patient after discharge: LONDON OBANDO DTR, a * Verbal permission to speak to the caregivers and representatives has been obtained from the patient. Yes * Community resources currently utilized None * Please name any agencies selected above. NONE * Additional services required to return to the preadmission environment? No * Can the patient safely return to the preadmission environment? Yes * Has this patient been hospitalized within the prior 30 days at any hospital? Yes External Providers External Provider: Matias Cutler Next Contact Date: 03/24/2019 Service Request Date: Service Type: Resolution: Reviewer: Comments: Last DP export: 03/23/19 11:12 a Patient Name: HALLE OBANDO Page 37050 at 0832 All edits/amendments must be made on the electronic document DICTATION DATE: 03/24/19831 TILER: KATIE 03/24/19831 RPT#: [id number] DC DATE: STATUS: ADM IN [facility] [address] [place] [address] END OF REPORT
--- NOTE | 2019-03-24 08:45 | MORECARE ---
CASE MANAGEMENT DISCHARGE SUMMARY PATIENT: HALLE OBANDO UNIT: [id number] ADM DATE: 03/18/19 AGE: 78 : 38 SEX: F ROOM/BED: D.2114 AUTHOR: RKIA,DOC PHYSICIAN: REFERRING PHYSICIAN: CE NINO MD DATE OF SERVICE: 03/24/19 Discharge Plan Patient Name: HALLE OBANDO Facility: [facility]:[place] : 1940 Planned Disposition: Home Anticipated Discharge Date: Discharge Date: Expected LOS: Initial Reviewer: [id number] Initial Review Date: 03/18/2019 Generated: 03/24/19 9:45 am Comments DCP- Discharge Planning Updated by [email or web address]: Jesus Cardona on 03/24/19 7:[address] Patient Name: HALLE OBANDO Encounter No: [id number] : 1940 Primary Insurance: [employer] MEDICARE ADV Anticipated DC Date: Planned Disposition: Home DCP follow-up note: CM REVIEWED CHART WITH THERAPY RECOMMENDATION FOR WALKER TO USE AT HOME. CM FAXED ORDER AND SUPPORTING DOCUMENTS TO [facility], . CM CALLED AND SPOKE TO DAMARIS AT [facility], , INFORMED OF THE ORDER AND PT NOT WANTING TO PAY COPAY AND TO BRING A WALKER THAT IS COVERED BY INSURANCE. DAMARIS WILL PROCESS ORDER AND DELIVER WALKER TO HOSPITAL ROOM TODAY. [facility] TO DELIVER WALKER FOR HOME USE TO PT'S HOSPITAL ROOM TODAY. PT PLANS TO DISCHARGE HOME WITH DAUGHTER, FAMILY TO TRANSPORT HOME. CM TO FOLLOW AND ASSIST IF NEEDED. NISHA FINNEY DCP- Discharge Planning Updated by [id number]: Jesus Cardona on 03/23/19 11:[address] Patient Name: HALLE OBANDO Admission Status: ER Accout number: [id number] Admission Date: 03-18-2019 : 1940 Admission Diagnosis: Attending: CE NINO Current LOS: 5 Anticipated DC Date: Planned Disposition: Home Primary Insurance: [employer] MEDICARE ADV Discharge Planning Comments: PATIENT SEEN 03-22-19 AT APPROXIMATELY 1645 HOURS. CM MET WITH PT IN ROOM TO DISCUSS DISCHARGE PLANNING AND NEEDS. PT REPORTS LIVING AT HOME INDEPENDENTLY WITH HER DAUGHTER. PT HAS NO MEDICAL EQUIPMENT AND NO OUTSIDE SERVICES ASSISTING IN THE HOME. CM DISCUSSED AVAILABILITY OF HOME HEALTH, REHAB SERVICES AND MEDICAL EQUIPMENT. PT REPORTS SHE WILL CONSIDER HOME HEALTH AND DOES WANT A WALKER FOR DISCHARGE HOME; PT DOES NOT WANT ANY MEDICAL EQUIPMENT NOT COVERED 100% BY INSURANCE. PT REPORTS HER DAUGHTER WILL PICK HER UP FOR DISCHARGE HOME. PT SIGNED CONSENT FOR NO PREFERENCE ON MEDICAL EQUIPMENT PROVIDER. CM TO ARRANGE WALKER FOR DISCHARGE HOME IF RECOMMENDED BY THERAPY. CM TO CONTINUE TO FOLLOW AND ASSIST NEEDED. De Icer Element Winder: Jesus Cardona DCP- Discharge Planning Updated by [email or web address]: Brea Neves on 03/19/19 4:[address] CM TO VISIT PATIENT SHE WAS READMITTED WITHIN 48 HOURS OF DISCHARGE. SHE WAS UP TO THE COMMODE. CM TO REVISIT. PATIENT IS ALERT AND ORIENTED. SHE DECLINED SERVICES HER PREVIOUS DISCHARGE. SHE LIVES AT HOME W/ HER DAUGHTER. DTR ASSISTING HER MOTHER AT THIS TIME. PCP- DR GREGORIO MOREJON [facility] REPORTEDLY HAS BEEN INDEPENDENT IN HER CARE. REPORTEDLY NO DME. ADMITTED W/ ABD PAIN, CRAMPING AND DIARRHEA THRU THE ER. AXR- NONOBSTRUCTIVE BOWEL GAS PATTERN AND BIBASILAR AIRSPACE OPACITY / CONSOLIDATION ? RELATED TO ATELECTASIS AND / OR PNEUMONIA. EITHER CARDIOMEGALY AND / OR PERICARDIAL EFFUSION PLAN TRANSFER TO TELEMETRY UNIT FOR DOBUTAMINE DRIP DISCUSSED ACUTE REHAB OPTION AT DISCHARGE W/ PATIENT AND DAUGHTER. DCPIA - Discharge Planning Initial Assessment Updated by [email or web address]: Jesus Cardona on 03/23/19 11:56 am * Is the patient Alert and Oriented? Yes * How many steps to enter\exit or inside your home? NONE * PCP DR. GREGORIO MOREJON * Pharmacy [facility]. * Preadmission Environment Home with Family * ADLs Independent * Equipment None * Other Equipment NO MEDICAL EQUIPMENT PROVIDER PREFERENCE * List name and contact numbers for known caregivers / representatives who currently or will assist patient after discharge: LONDON OBANDO DTR, a * Verbal permission to speak to the caregivers and representatives has been obtained from the patient. Yes * Community resources currently utilized None * Please name any agencies selected above. NONE * Additional services required to return to the preadmission environment? No * Can the patient safely return to the preadmission environment? Yes * Has this patient been hospitalized within the prior 30 days at any hospital? Yes Last DP export: 03/24/19 7:32 a Patient Name: HALLE OBANDO Page 44054 at 0845 All edits/amendments must be made on the electronic document DICTATION DATE: 03/24/19843 TAX PROFESSIONAL: KATIE 03/24/1946 RPT#: [id number] DC DATE: STATUS: ADM IN [facility] [address] [place] [address] END OF REPORT
--- NOTE | 2019-03-24 09:44 | NUR ---
POSITIVE URINE CULTURE FOR VRE. PITER WATERS NOTIFIED. PLACED IN ISOLATION. WILL CONT. PLAN OF CARE.
[2019-03-24 10:02] LABS: BASOPHILS 0.4 % (0-2); EOSINOPHILS 3.2 % (0-7); HEMATOCRIT 30.3 % (36.0-48.0); HEMOGLOBIN 9.8 g/dL (12-16); IMMATURE GRANULOCYTES 0.4 % (0-5); LYMPHOCYTES 22.2 % (15-50); MCH 25.9 pg (26.0-34.0); MCHC 32.3 g/dL (31.0-37.0); MCV 80.2 fL (80.0-100.0); MEAN PLATELET VOLUME 9.7 fL (7.4-10.4); MONOCYTES 18.1 % (2-11); NEUTROPHILS 55.7 % (40-80); PLATELET COUNT 243 10x3/uL (130-400); RBC 3.78 10x6/uL (4.00-5.40); RDW 15.9 % (11.5-14.5); WBC 4.6 10x3/uL (4.8-10.8)
[2019-03-24 10:15] LABS: INR 2.49 (0.85-1.17); PROTIME 26.2 SECONDS (11.6-15.0)
[2019-03-24 10:30] LABS: ANION GAP 11.3 mmol/L (8-16); CALCIUM 8.7 mg/dL (8.5-10.1); CARBON DIOXIDE 28.8 mmol/L (21.0-32.0); CREATININE - SERUM 1.1 mg/dL (0.6-1.3); MAGNESIUM - SERUM 1.5 mg/dL (1.8-2.4); PHOSPHOROUS 2.8 mg/dL (2.5-4.9); POTASSIUM - SERUM 3.1 mmol/L (3.5-5.1)
[2019-03-24 11:50] VITALS: BP 138/69
--- NOTE | 2019-03-24 12:28 | MORECARE ---
CASE MANAGEMENT DISCHARGE SUMMARY PATIENT: HALLE OBANDO UNIT: [id number] ADM DATE: 03/18/19 AGE: 78 : 38 SEX: F ROOM/BED: D.2109 AUTHOR: RIKADOC PHYSICIAN: REFERRING PHYSICIAN: CE NINO MD DATE OF SERVICE: 03/24/19 Discharge Plan Patient Name: HALLE OBANDO Facility: [facility]:[place] : 1940 Planned Disposition: Home Anticipated Discharge Date: Discharge Date: Expected LOS: Initial Reviewer: [email or web address] Initial Review Date: 03/18/2019 Generated: 03/24/19 1:28 pm DCP- Discharge Planning Updated by [id number]: Jesus Cardona on 03/24/19 7:[address] Patient Name: HALLE OBANDO Encounter No: [id number] : 1940 Primary Insurance: [employer] MEDICARE ADV Anticipated DC Date: Planned Disposition: Home DCP follow-up note: CM REVIEWED CHART WITH THERAPY RECOMMENDATION FOR WALKER TO USE AT HOME. CM [facility], . CM CALLED AND SPOKE TO DAMARIS AT [facility], , INFORMED OF THE ORDER AND PT NOT WANTING TO PAY COPAY AND TO BRING A WALKER THAT IS COVERED BY INSURANCE. DAMARIS WILL PROCESS ORDER AND DELIVER WALKER TO HOSPITAL ROOM TODAY. [facility] TO DELIVER WALKER FOR HOME USE TO PT'S HOSPITAL ROOM TODAY. PT PLANS TO DISCHARGE HOME WITH DAUGHTER, FAMILY TO TRANSPORT HOME. CM TO FOLLOW AND ASSIST IF NEEDED. NISHA FINNEY DCP- Discharge Planning Updated by [email or web address]: Jesus Cardona on 03/23/19 11:[address] Patient Name: HALLE OBANDO Admission Status: ER Accout number: [id number] Admission Date: 03-18-2019 : 1940 Admission Diagnosis: Attending: CE NINO Current LOS: 5 Anticipated DC Date: Planned Disposition: Home Primary Insurance: [employer] MEDICARE ADV Discharge Planning Comments: PATIENT SEEN 03-22-19 AT APPROXIMATELY 1645 HOURS. CM MET WITH PT IN ROOM TO DISCUSS DISCHARGE PLANNING AND NEEDS. PT REPORTS LIVING AT HOME INDEPENDENTLY WITH HER DAUGHTER. PT HAS NO MEDICAL EQUIPMENT AND NO OUTSIDE SERVICES ASSISTING IN THE HOME. CM DISCUSSED AVAILABILITY OF HOME HEALTH, REHAB SERVICES AND MEDICAL EQUIPMENT. PT REPORTS SHE WILL CONSIDER HOME HEALTH AND DOES WANT A WALKER FOR DISCHARGE HOME; PT DOES NOT WANT ANY MEDICAL EQUIPMENT NOT COVERED 100% BY INSURANCE. PT REPORTS HER DAUGHTER WILL PICK HER UP FOR DISCHARGE HOME. PT SIGNED CONSENT FOR NO PREFERENCE ON MEDICAL EQUIPMENT PROVIDER. CM TO ARRANGE WALKER FOR DISCHARGE HOME IF RECOMMENDED BY THERAPY. CM TO CONTINUE TO FOLLOW AND ASSIST NEEDED. Cnc Service Engineer: Jesus Cardona DCP- Discharge Planning Updated by [email or web address]: Brea Neves on 03/19/19 4:[address] CM TO VISIT PATIENT SHE WAS READMITTED WITHIN 48 HOURS OF DISCHARGE. SHE WAS UP TO THE COMMODE. CM TO REVISIT. PATIENT IS ALERT AND ORIENTED. SHE DECLINED SERVICES HER PREVIOUS DISCHARGE. SHE LIVES AT HOME W/ HER DAUGHTER. DTR ASSISTING HER MOTHER AT THIS TIME. PCP- DR GREGORIO [facility]JON [facility] RE[facility] HAS BEEN INDEPENDENT IN HER CARE. REPORTEDLY NO DME. ADMITTED W/ ABD PAIN, CRAMPING AND DIARRHEA THRU THE ER. AXR- NONOBSTRUCTIVE BOWEL GAS PATTERN AND BIBASILAR AIRSPACE OPACITY / CONSOLIDATION ? RELATED TO ATELECTASIS AND / OR PNEUMONIA. EITHER CARDIOMEGALY AND / OR PERICARDIAL EFFUSION PLAN TRANSFER TO TELEMETRY UNIT FOR DOBUTAMINE DRIP DISCUSSED ACUTE REHAB OPTION AT DISCHARGE W/ PATIENT AND DAUGHTER. DCPIA - Discharge Planning Initial Assessment Updated by [id number]: Jesus Cardona on 03/23/19 11:56 am * Is the patient Alert and Oriented? Yes * How many steps to enter\exit or inside your home? NONE * PCP DR. GREGORIO MOREJON * Pharmacy [facility]. * Preadmission Environment Home with Family * ADLs Independent * Equipment None * Other Equipment NO MEDICAL EQUIPMENT PROVIDER PREFERENCE * List name and contact numbers for known caregivers / representatives who currently or will assist patient after discharge: LONDON OBANDO DTR, a * Verbal permission to speak to the caregivers and representatives has been obtained from the patient. Yes * Community resources currently utilized None * Please name any agencies selected above. NONE * Additional services required to return to the preadmission environment? No * Can the patient safely return to the preadmission environment? Yes * Has this patient been hospitalized within the prior 30 days at any hospital? Yes Last DP export: 03/24/19 7:45 a Patient Name: HALLE OBANDO Page 43798 at 1228 All edits/amendments must be made on the electronic document DICTATION DATE: 03/24/191227 ARMOR SENIOR SERGEANT: KATIE 03/24/198 RPT#: [id number] DC DATE: STATUS: ADM IN [facility] [address] [place] [address] END OF REPORT
--- NOTE | 2019-03-24 12:37 | MORECARE ---
CASE MANAGEMENT DISCHARGE SUMMARY PATIENT: HALLE OBANDO UNIT: [id number] ADM DATE: 03/18/19 AGE: 78 : 38 SEX: F ROOM/BED: D.2109 AUTHOR: RIKA,DOC PHYSICIAN: REFERRING PHYSICIAN: CE NINO MD DATE OF SERVICE: 03/24/19 Discharge Plan Patient Name: HALLE OBANDO Facility: [facility]:[place] : 1940 Planned Disposition: Home Anticipated Discharge Date: Discharge Date: Expected LOS: Initial Reviewer: [email or web address] Initial Review Date: 03/18/2019 Generated: 03/24/19 1:37 pm Comments DCP- Discharge Planning Updated by [email or web address]: Jesus Luther on 03/24/19 11:[address] Patient Name: HALLE OBANDO Encounter No: [id number] : 1940 Primary Insurance: [employer] MEDICARE ADV Anticipated DC Date: Planned Disposition: Home DCP follow-up note: AFTER ATTENDING MULTIDISCIPLINARY TEAM MEETING, CM SPOKE TO JT LATHAM REGARDING DISCHARGE AND WAS ADVISED THAT PT HAS VRE IN URINE, THEY ARE CHANGING ANTIBIOTICS TO ENSURE COVERAGE AND PT HAS A PE. PT IS NOT READY TO DISCHARGE TODAY. [facility] TO DELIVER WALKER FOR HOME USE TO PT'S HOSPITAL ROOM TODAY. PT PLANS TO DISCHARGE HOME WITH DAUGHTER, FAMILY TO TRANSPORT HOME. CM TO FOLLOW AND ASSIST IF NEEDED. NISHA FINNEY DCP- Discharge Planning Updated by [email or web address]: Jesus Luther on 03/24/19 7:[address] Patient Name: HALLE OBANDO Encounter No: [id number] : 1940 Primary Insurance: [employer] MEDICARE ADV Anticipated DC Date: Planned Disposition: Home DCP follow-up note: CM REVIEWED CHART WITH THERAPY RECOMMENDATION FOR WALKER TO USE AT HOME. CM FAXED ORDER AND SUPPORTING DOCUMENTS TO [facility], . MOY CALLED AND SPOKE TO DAMARIS AT [facility], , INFORMED OF THE ORDER AND PT NOT WANTING TO PAY COPAY AND TO BRING A WALKER THAT IS COVERED BY INSURANCE. DAMARIS WILL PROCESS ORDER AND DELIVER WALKER TO HOSPITAL ROOM TODAY. [facility] TO DELIVER WALKER FOR HOME USE TO PT'S HOSPITAL ROOM TODAY. PT PLANS TO DISCHARGE HOME WITH DAUGHTER, FAMILY TO TRANSPORT HOME. CM TO FOLLOW AND ASSIST IF NEEDED. JESUS LUTHER, CASE MANAGEMENT DCP- Discharge Planning Updated by [id number]: Jesus Luther on 03/23/19 11:[address] Patient Name: HALLE OBANDO Admission Status: ER Accout number: [id number] Admission Date: 03-18-2019 : 1940 Admission Diagnosis: Attending: CE NINO Current LOS: 5 Anticipated DC Date: Planned Disposition: Home Primary Insurance: [employer] MEDICARE ADV Discharge Planning Comments: PATIENT SEEN 03-22-19 AT APPROXIMATELY 1645 HOURS. CM MET WITH PT IN ROOM TO DISCUSS DISCHARGE PLANNING AND NEEDS. PT REPORTS LIVING AT HOME INDEPENDENTLY WITH HER DAUGHTER. PT HAS NO MEDICAL EQUIPMENT AND NO OUTSIDE SERVICES ASSISTING IN THE HOME. CM DISCUSSED AVAILABILITY OF HOME HEALTH, REHAB SERVICES AND MEDICAL EQUIPMENT. PT REPORTS SHE WILL CONSIDER HOME HEALTH AND DOES WANT A WALKER FOR DISCHARGE HOME; PT DOES NOT WANT ANY MEDICAL EQUIPMENT NOT COVERED 100% BY INSURANCE. PT REPORTS HER DAUGHTER WILL PICK HER UP FOR DISCHARGE HOME. PT SIGNED CONSENT FOR NO PREFERENCE ON MEDICAL EQUIPMENT PROVIDER. CM TO ARRANGE WALKER FOR DISCHARGE HOME IF RECOMMENDED BY THERAPY. CM TO CONTINUE TO FOLLOW AND ASSIST NEEDED. Equine Science Instructor: Jesus Luther DCP- Discharge Planning Updated by [id number]: Brea Neves on 03/19/19 4:[address] CM TO VISIT PATIENT SHE WAS READMITTED WITHIN 48 HOURS OF DISCHARGE. SHE WAS UP TO THE COMMODE. CM TO REVISIT. PATIENT IS ALERT AND ORIENTED. SHE DECLINED SERVICES HER PREVIOUS DISCHARGE. SHE LIVES AT HOME W/ HER DAUGHTER. DTR ASSISTING HER MOTHER AT THIS TIME. PCP- DR GREGORIO QUINONES [facility] REPORTEDLY HAS BEEN INDEPENDENT IN HER CARE. REPORTEDLY NO DME. ADMITTED W/ ABD PAIN, CRAMPING AND DIARRHEA THRU THE ER. AXR- NONOBSTRUCTIVE BOWEL GAS PATTERN AND BIBASILAR AIRSPACE OPACITY / CONSOLIDATION ? RELATED TO ATELECTASIS AND / OR PNEUMONIA. EITHER CARDIOMEGALY AND / OR PERICARDIAL EFFUSION PLAN TRANSFER TO TELEMETRY UNIT FOR DOBUTAMINE DRIP DISCUSSED ACUTE REHAB OPTION AT DISCHARGE W/ PATIENT AND DAUGHTER. DCPIA - Discharge Planning Initial Assessment Updated by [email or web address]: Jesus Luther on 03/23/19 11:56 am * Is the patient Alert and Oriented? Yes * How many steps to enter\exit or inside your home? NONE * PCP DR. GREGORIO MOREJON * Pharmacy [facility]. * Preadmission Environment Home with Family * ADLs Independent * Equipment None * Other Equipment NO MEDICAL EQUIPMENT PROVIDER PREFERENCE * List name and contact numbers for known caregivers / representatives who currently or will assist patient after discharge: LONDON OBANDO DTR, T * Verbal permission to speak to the caregivers and representatives has been obtained from the patient. Yes * Community resources currently utilized None * Please name any agencies selected above. NONE * Additional services required to return to the preadmission environment? No * Can the patient safely return to the preadmission environment? Yes * Has this patient been hospitalized within the prior 30 days at any hospital? Yes Last DP export: 03/24/19 11:28 a Patient Name: HALLE OBANDO Page 96040 at 1237 All edits/amendments must be made on the electronic document DICTATION DATE: 03/24/19 1236 DIE ATTACHER: KATIE 03/24/19 1236 RPT#: [id number] DC DATE: STATUS: ADM IN [facility] [address] [place] [address] END OF REPORT
[2019-03-24] MEDS ORDERED: LEVOFLOXACIN500 MG PO (13:28)
--- NOTE | 2019-03-24 14:28 | MORECARE ---
CASE MANAGEMENT DISCHARGE SUMMARY PATIENT: HLALE OBANDO UNIT: [id number] ADM DATE: 03/18/19 AGE: 78 : 38 SEX: F ROOM/BED: D.2102 AUTHOR: RIKA,DOC PHYSICIAN: REFERRING PHYSICIAN: CE NINO MD DATE OF SERVICE: 03/24/19 Discharge Plan Patient Name: HALLE OBANDO Facility: [facility]:[place] : 1940 Planned Disposition: Home Anticipated Discharge Date: 03/24/19 Discharge Date: Expected LOS: 6 Initial Reviewer: [email or web address] Initial Review Date: 03/18/2019 Generated: 03/24/19 3:27 pm Comments DCP- Discharge Planning Updated by [email or web address]: Denise Luther on 03/24/19 11:[address] Patient Name: HALLE OBANDO Encounter No: [id number] : 1940 Primary Insurance: [employer] MED[employer]ARE ADV Anticipated DC Date: Planned Disposition: Home DCP follow-up note: AFTER ATTENDING MULTIDISCIPLINARY TEAM MEETING, CM SPOKE TO JT LATHAM REGARDING DISCHARGE AND WAS ADVISED THAT PT HAS VRE IN URINE, THEY ARE CHANGING ANTIBIOTICS TO ENSURE COVERAGE AND PT HAS A PE. PT IS NOT READY TO DISCHARGE TODAY. [facility] TO DELIVER WALKER FOR HOME USE TO PT'S HOSPITAL ROOM TODAY. PT PLANS TO DISCHARGE HOME WITH DAUGHTER, FAMILY TO TRANSPORT HOME. CM TO FOLLOW AND ASSIST IF NEEDED. NISHA FINNEY DCP- Discharge Planning Updated by [email or web address]: Denise Luther on 03/24/19 7:[address] Patient Name: HALLE OBANDO Encounter No: [id number] : 1940 Primary Insurance: WELL[employer] MEDICARE ADV Anticipated DC Date: Planned Disposition: Home DCP follow-up note: CM REVIEWED CHART WITH THERAPY RECOMMENDATION FOR WALKER TO USE AT HOME. CM [facility] MOY CALLED AND SPOKE TO DAMARIS AT [facility], , INFORMED OF THE ORDER AND PT NOT WANTING TO PAY COPAY AND TO BRING A WALKER THAT IS COVERED BY INSURANCE. DAMARIS WILL PROCESS ORDER AND DELIVER WALKER TO HOSPITAL ROOM TODAY. [facility] TO DELIVER WALKER FOR HOME USE TO PT'S HOSPITAL ROOM TODAY. PT PLANS TO DISCHARGE HOME WITH DAUGHTER, FAMILY TO TRANSPORT HOME. CM TO FOLLOW AND ASSIST IF NEEDED. DENISE LUTHER, CASE MANAGEMENT DCP- Discharge Planning Updated by [id number]: Denise Luther on 03/23/19 11:[address] Patient Name: HALLE OBANDO Admission Status: ER Accout number: [id number] Admission Date: 03-18-2019 : 1940 Admission Diagnosis: Attending: CE NINO Current LOS: 5 Anticipated DC Date: Planned Disposition: Home Primary Insurance: WELL[employer] MEDICARE ADV Discharge Planning Comments: PATIENT SEEN 03-22-19 AT APPROXIMATELY 1645 HOURS. CM MET WITH PT IN ROOM TO DISCUSS DISCHARGE PLANNING AND NEEDS. PT REPORTS LIVING AT HOME INDEPENDENTLY WITH HER DAUGHTER. PT HAS NO MEDICAL EQUIPMENT AND NO OUTSIDE SERVICES ASSISTING IN THE HOME. CM DISCUSSED AVAILABILITY OF HOME HEALTH, REHAB SERVICES AND MEDICAL EQUIPMENT. PT REPORTS SHE WILL CONSIDER HOME HEALTH AND DOES WANT A WALKER FOR DISCHARGE HOME; PT DOES NOT WANT ANY MEDICAL EQUIPMENT NOT COVERED 100% BY INSURANCE. PT REPORTS HER DAUGHTER WILL PICK HER UP FOR DISCHARGE HOME. PT SIGNED CONSENT FOR NO PREFERENCE ON MEDICAL EQUIPMENT PROVIDER. CM TO ARRANGE WALKER FOR DISCHARGE HOME IF RECOMMENDED BY THERAPY. CM TO CONTINUE TO FOLLOW AND ASSIST NEEDED. Needlemaker: Denise Luther DCP- Discharge Planning Updated by [id number]: Brea Neves on 03/19/19 4:[address] CM TO VISIT PATIENT SHE WAS READMITTED WITHIN 48 HOURS OF DISCHARGE. SHE WAS UP TO THE COMMODE. CM TO REVISIT. PATIENT IS ALERT AND ORIENTED. SHE DECLINED SERVICES HER PREVIOUS DISCHARGE. SHE LIVES AT HOME W/ HER DAUGHTER. DTR ASSISTING HER MOTHER AT THIS TIME. PCP- DR GREGORIO QUINONES [facility] REPORTEDLY HAS BEEN INDEPENDENT IN HER CARE. REPORTEDLY NO DME. ADMITTED W/ ABD PAIN, CRAMPING AND DIARRHEA THRU THE ER. AXR- NONOBSTRUCTIVE BOWEL GAS PATTERN AND BIBASILAR AIRSPACE OPACITY / CONSOLIDATION ? RELATED TO ATELECTASIS AND / OR PNEUMONIA. EITHER CARDIOMEGALY AND / OR PERICARDIAL EFFUSION PLAN TRANSFER TO TELEMETRY UNIT FOR DOBUTAMINE DRIP DISCUSSED ACUTE REHAB OPTION AT DISCHARGE W/ PATIENT AND DAUGHTER. DCPIA - Discharge Planning Initial Assessment Updated by [id number]: Denise Luther on 03/23/19 11:56 am * Is the patient Alert and Oriented? Yes * How many steps to enter\exit or inside your home? NONE * PCP DR. GREGORIO MOREJON * Pharmacy [facility]. * Preadmission Environment Home with Family * ADLs Independent * Equipment None * Other Equipment NO MEDICAL EQUIPMENT PROVIDER PREFERENCE * List name and contact numbers for known caregivers / representatives who currently or will assist patient after discharge: LONDON OBANDO, ELIAR, S * Verbal permission to speak to the caregivers and representatives has been obtained from the patient. Yes * Community resources currently utilized None * Please name any agencies selected above. NONE * Additional services required to return to the preadmission environment? No * Can the patient safely return to the preadmission environment? Yes * Has this patient been hospitalized within the prior 30 days at any hospital? Yes Coverage Notice Reviewer: [id number] - Denise Luther Notice Issued Date-Time: 03/24/2019 14:10 Notice Type: IM Discharge Notice Notice Delivered To: Patient Relationship to Patient: Plant Assigner Name: Delivery Method: HAND - Hand Delivered Alina Days: Prior Verbal Notification: Recipient Understood Notice: Yes Recipient Signature: Yes Med Rec Note Co-signed by Attending: Coverage Notice Comment: Last DP export: 03/24/19 11:37 a Patient Name: HALLE OBANDO Page [phone] at 1428 All edits/amendments must be made on the electronic document DICTATION DATE: 03/24/191426 AUDIENCE DEVELOPMENT MANAGER: KATIE 03/24/191426 RPT#: [id number] DC DATE: STATUS: ADM IN [facility] [address] [place] [address] END OF REPORT
[2019-03-24 15:26] VITALS: BP 146/75
--- NOTE | 2019-03-24 15:47 | NUR ---
IV AND TELEMETRY DCD. DC PLANS GIVEN. UNDERSTANDING VOICED. ESCORTED TO CAR BY W/C.
--- NOTE | 2019-03-25 11:13 | CN ---
PATIENT NAME:HALLE OBANDO MEDICAL RECORD: [id number] : 36 LOCATION:D. D.2109 ADMIT DATE: 03/18/19 ACCOUNT: [id number] CONSULTING PHYSICIAN: CHRISTOPHER SUAREZ MD REFERRING PHYSICIAN: CE NINO MD DATE OF CONSULTATION: 03/19/2019 DIAGNOSES: 1. Elevated troponin. 2. Angina. 3. Shortness of breath, dyspnea on exertion. 4. Coronary artery disease. 5. Previous cardiac stenting. 6. Hypertension. 7. Hyperlipidemia. 8. Abnormal ECG. 9. Cardiomyopathy - congestive heart failure. 10. Diabetes. 11. Chronic cholecystitis. HISTORY OF PRESENT ILLNESS: Mrs. Obando is well known to us. She has a past history of coronary artery disease, multivessel PTCA stent, the last being last week by Dr. Adhikari, PTCA stent of the RCA. She has continued to have anginal symptomatology. Her EKG has T-wave inversions in the lateral leads. Her troponin is elevated. She as well has abdominal pain. She has chronic cholecystitis. She has a cardiomyopathy, ejection fraction in the 20% range. At this time, her heart rate is varying between 60s and 80s, systolic blood pressures is varying between 110 and 130s. PHYSICAL EXAMINATION: GENERAL APPEARANCE: Well-nourished, well-developed, appears stated age. Level of distress, comfortable. PSYCHIATRIC: Mental status, alert, normal affect. Orientation, oriented to time, place and person. EYES: Lids and conjunctiva, noninjected. No discharge, no pallor. ENT: Lips, teeth, gums, normal dentition. Oropharynx, no cyanosis, no pallor. NECK: Carotid arteries, bilateral normal upstroke, no bruits, no thrills. JUGULAR VEINS: No jugular venous pressure or distention. CERVICAL LYMPH NODES: Nontender, nonenlarged. THYROID: Not enlarged. Nontender. No nodules. LUNGS: Respiratory effort, unlabored. CHEST: Normal curvature. No thoracic deformity. No chest wall tenderness. Percussion, resonant. Auscultation, clear. No wheezes, no rales, no rhonchi. CARDIOVASCULAR: Precordial exam, nondisplaced. No heaves or pericardial thrills. Rate and rhythm, regular. Heart sounds, normal S1, normal S2. No S3, no gallop, no rub. Systolic murmur, not heard. Diastolic murmur, not heard. EXTREMITIES: No cyanosis, no edema. Peripheral pulses, full and equal in all extremities, except as noted. No bruits appreciated. ABDOMEN: Soft, nondistended. Normal aorta. No bruit. Nontender. No masses. Liver, nontender, no hepatomegaly. Spleen, nontender, no splenomegaly. MUSCULOSKELETAL: No joint tenderness. No joint swelling. No erythema. NEUROLOGICAL: Normal gait, normal strength, normal tone. SKIN: Warm and dry. OVERALL IMPRESSION: Continued anginal symptomatology with T-wave inversions in CONSULT REPORT [id number] HALLE OBANDO the lateral leads. I have reviewed her cath film, she has significant disease of an left anterior descending diagonal as well as the circumflex. This would explain the EKG changes, continued anginal symptomatology. We will see how she does from a GI standpoint and from an anginal standpoint, try to optimize her cardiac medications. If she continues to have the chest discomfort despite optimal medical therapy, we would proceed with transcatheter revascularization of these territories. TRANSINT:[id number] Voice Confirmation ID: [id number] DOCUMENT ID: [id number] CHRISTOPHER SUAREZ MD at 1113 CC: [id number] DICTATION DATE: 03/19/19 1131 PRESS TENDER INCENDIARY GRENADE: 03/19/19 1149 DIS IN 03/24/19 [facility] [address] [place] [address]
--- NOTE | 2019-03-25 11:13 | EC ---
PATIENT:HALLE OBANDO DATE OF SERVICE: 03/18/19 SEX: F MEDICAL RECORD: [id number] DATE OF : [birth year] LOCATION:D.M2 D.210 AGE OF PATIENT: 78 ADMISSION DATE: 03/18/19 REFERRING PHYSICIAN: INTERPRETING PHYSICIAN: CHRISTOPHER NDIAYE MD ECHOCARDIOGRAM REPORT ECHO CHARGES 5 ECHO LIMITED Date: 03/19/19 CLINICAL DIAGNOSIS: CHF/PERICARDIAL EFFUSION ?? ECHOCARDIOGRAPHIC MEASUREMENTS (adult normal given) AC root (d.<3.7cm) 0 cm LV Septum d (<1.2 cm> 0 cm Valve Excursion 0 cm LV Septum (systole) 0 cm Left Atria (s.<4.0cm> 0 cm LVPW d(<1.2cm) 0 cm RV (d.<2.3cm) 0 cm LVPW (sytole) 0 cm LV diastole(<5.6CM) 0 cm MV E-F(>70mm/sec) 0 cm LV systole 0 cm LVOT Diameter 0 cm MV exc.(>10mm) 0 cm Est.ejection fraction (50-75%) 0 % DOPPLER: LVIT 0 cm/sec A 0 cm/sec E 0 cm/sec LA 0 cm/sec RVSP 0 mmHg LVOT 0 cm/sec AOP1/2T 0 m/s Asc. Ao 0 cm/sec RVOT 0 cm/sec RA 0 cm/sec PA 0 cm/sec AV Gradient Peak 0 mmHg AV Mean 0 mmHg AV Area 0 cm MV Gradient Peak 0 mmHg MV Mean 0 mmHg MV Area cm COMMENTS: LIMITED STUDY (2-D ONLY ) COMPLETE ECHO DONE ON 03/05/19 Quill Winder: Raz HOYOS Assistant Financial Accountant: 1 Dr. Ndiaye TAPE# PACS Pericardial Effusion Y DATE OF SERVICE: PROCEDURE: Limited echocardiogram for evaluation of pericardial effusion and ejection fraction. FINDINGS: 1. Left ventricular chamber size is dilated. Left ventricular systolic function is markedly reduced at 20%. 2. Small pericardial effusion is present. This is not hemodynamically significant. ECHOCARDIOGRAM REPORT [id number] HALLE OBANDO TRANSINT:[id number] Voice Confirmation ID: [id number] DOCUMENT ID: [id number] CHRISTOPHER NDIAYE MD at 2303 CC: [id number] DICTATION DATE: 03/20/19 1026 PATROL MAN: 03/20/19 1236 DIS IN 03/24/19 [place] [id number] [id number]
== END 2019-03-24 15:47 | disposition home or self-care (01) | DRG 291 ==
LOC: D.ER 16:21 → D.M2 21:26 → D.MS 21:26 → D.M2 03-19 17:17
PROVIDERS: Family Medicine; ADMIT Internal Medicine Nephrology; ATTEND Internal Medicine Nephrology
DX: I11.0 Hypertensive heart disease with heart failure (principal); J96.01 Acute respiratory failure with hypoxia; J18.9 Pneumonia, unspecified organism; N39.0 Urinary tract infection, site not specified; I50.23 Acute on chronic systolic (congestive) heart failure; E11.51 Type 2 diabetes mellitus with diabetic peripheral angiopathy without gangrene; K81.1 Chronic cholecystitis; I48.2 Chronic atrial fibrillation; D64.9 Anemia, unspecified; E78.5 Hyperlipidemia, unspecified; I25.10 Atherosclerotic heart disease of native coronary artery without angina pectoris; I08.1 Rheumatic disorders of both mitral and tricuspid valves; E87.6 Hypokalemia

== ENCOUNTER 2019-03-25 12:36 | Emergency (ER) | payer MEDICARE, MEDICAID ==
[~2019-03-25] VITALS: Ht 162.6 cm; Wt 61.4 kg
[~2019-03-25 12:36] MED LIST changes: +LEVOFLOXACIN500 MG PO
[2019-03-25 12:40] VITALS: BP 107/81; Ht 162.6 cm; Wt 61.4 kg
[2019-03-25 13:23] LABS: ALBUMIN 2.7 g/dL (3.4-5.0); ANION GAP 11.5 mmol/L (8-16); BILIRUBIN - TOTAL 0.55 mg/dL (0.2-1.3); CARBON DIOXIDE 28.5 mmol/L (21.0-32.0); CREATININE - SERUM 1.1 mg/dL (0.6-1.3); PROTEIN - SERUM 6.4 g/dL (6.4-8.2)
[2019-03-25 13:27] LABS: HEMATOCRIT 31.7 % (36.0-48.0); HEMOGLOBIN 10.5 g/dL (12-16); MCH 26.4 pg (26.0-34.0); MCHC 33.1 g/dL (31.0-37.0); MCV 79.6 fL (80.0-100.0); MEAN PLATELET VOLUME 9.4 fL (7.4-10.4); PLATELET COUNT 266 10x3/uL (130-400); RBC 3.98 10x6/uL (4.00-5.40); RDW 15.9 % (11.5-14.5); WBC 5.9 10x3/uL (4.8-10.8)
[2019-03-25 14:25] LABS: ANISOCYTOSIS OCC; EOSINOPHILS 1 % (0-7); LYMPHOCYTES 24 % (15-50); MONOCYTES 23 % (2-11); NEUTROPHILS 52 % (40-80); PLATELET ESTIMATE NORMAL
== END 2019-03-25 15:30 | disposition left against medical advice (07) ==
LOC: D.ER 12:36
PROVIDERS: Family Medicine
DX: R11.2 Nausea with vomiting, unspecified (principal); I48.2 Chronic atrial fibrillation

== ENCOUNTER 2019-03-25 17:32 | Emergency (ER) | payer MEDICARE, MEDICAID ==
[~2019-03-25] VITALS: Ht 162.6 cm; Wt 60.9 kg
[2019-03-25 17:36] VITALS: Ht 162.6 cm; Wt 60.9 kg
[2019-03-25 19:01] LABS: EOSINOPHILS 0.5 % (0-7); HEMATOCRIT 32.2 % (36.0-48.0); HEMOGLOBIN 10.5 g/dL (12-16); IMMATURE GRANULOCYTES 0.7 % (0-5); LYMPHOCYTES 24.7 % (15-50); MCHC 32.6 g/dL (31.0-37.0); MCV 79.7 fL (80.0-100.0); MEAN PLATELET VOLUME 10.1 fL (7.4-10.4); MONOCYTES 20.7 % (2-11); NEUTROPHILS 52.4 % (40-80); PLATELET COUNT 274 10x3/uL (130-400); RBC 4.04 10x6/uL (4.00-5.40); WBC 5.8 10x3/uL (4.8-10.8)
[2019-03-25 19:04] LABS: ALBUMIN 2.7 g/dL (3.4-5.0); ALKALINE PHOSPHATASE 70 U/L (46-116); ALT (SGPT) 14 U/L (10-68); CALC OSMOLALITY 284 mosm/kg (275-300); CALCIUM 9.2 mg/dL (8.5-10.1); CARBON DIOXIDE 23.8 mmol/L (21.0-32.0); CHLORIDE - SERUM 105 mmol/L (98-107); CREATININE - SERUM 1.2 mg/dL (0.6-1.3); GLUCOSE 162 mg/dL (74-106); POTASSIUM - SERUM 3.8 mmol/L (3.5-5.1); PROTEIN - SERUM 6.4 g/dL (6.4-8.2); SODIUM 140 mmol/L (136-145); UREA NITROGEN 19 mg/dL (7-18); eGFR NON AFRICAN AMERICAN 46 mL/min (90-120)
[2019-03-25 19:15] LABS: CKMB 0.3 U/L (0.0-3.6); CREATINE KINASE 18 UL (21-215)
[2019-03-25 19:16] LABS: TROPONIN-I < 0.017 ng/mL (0.000-0.060)
[2019-03-25 20:44] LABS: APPEARANCE CLEAR (CLEAR); BILIRUBIN NEGATIVE (NEGATIVE); COLOR DK YELLOW (YELLOW); GLUCOSE NEGATIVE (NEGATIVE); KETONE NEGATIVE (NEGATIVE); NITRITE NEGATIVE (NEGATIVE); PROTEIN TRACE mg/dL (NEGATIVE); SPECIFIC GRAVITY 1.025 (1.005-1.020); UROBILINOGEN NORMAL (NORMAL)
[2019-03-25 20:46] LABS: BACTERIA FEW /hpf (NONE SEEN); RED CELLS - URINE OCC /hpf (0-5); WHITE CELLS - URINE 0-5 /hpf (0-5)
[2019-03-25 22:14] VITALS: BP 138/82
== END 2019-03-25 22:14 | disposition home or self-care (01) ==
LOC: D.ER 17:32
PROVIDERS: Family Medicine
DX: I48.2 Chronic atrial fibrillation (principal); E11.9 Type 2 diabetes mellitus without complications; I10 Essential (primary) hypertension

== ENCOUNTER 2019-03-27 08:47 | Inpatient (IN) | payer MEDICARE, MEDICAID ==
[~2019-03-27] VITALS: Ht 162.6 cm; Wt 63.0 kg
[2019-03-27] MEDS ORDERED: EFFEXOR37.5 MG PO (08:51)
[2019-03-27] MEDS ORDERED: PROTONIX40 MG PO (08:52)
[2019-03-27] MEDS ORDERED: BETAPACE 80 MG80 MG PO (08:52)
[2019-03-27 09:28] LABS: HEMATOCRIT 32.2 % (36.0-48.0); HEMOGLOBIN 10.6 g/dL (12-16); MCH 25.9 pg (26.0-34.0); MCHC 32.9 g/dL (31.0-37.0); MCV 78.7 fL (80.0-100.0); MEAN PLATELET VOLUME 9.7 fL (7.4-10.4); PLATELET COUNT 221 10x3/uL (130-400); RBC 4.09 10x6/uL (4.00-5.40); RDW 15.9 % (11.5-14.5); WBC 6.2 10x3/uL (4.8-10.8)
[2019-03-27 09:41] LABS: ALBUMIN 2.6 g/dL (3.4-5.0); ANION GAP 12.7 mmol/L (8-16); BILIRUBIN - TOTAL 0.73 mg/dL (0.2-1.3); CALCIUM 8.8 mg/dL (8.5-10.1); CARBON DIOXIDE 26.9 mmol/L (21.0-32.0); CREATININE - SERUM 1.5 mg/dL (0.6-1.3); POTASSIUM - SERUM 3.6 mmol/L (3.5-5.1); PROTEIN - SERUM 6.1 g/dL (6.4-8.2)
[2019-03-27 09:44] LABS: TROPONIN-I 0.019 ng/mL (0.000-0.060)
[2019-03-27 12:08] LABS: BASOPHILS 1 % (0-2); LYMPHOCYTES 17 % (15-50); MONOCYTES 19 % (2-11); NEUTROPHILS 63 % (40-80); PLATELET ESTIMATE NORMAL
[2019-03-27 12:40] VITALS: BP 101/67
[2019-03-27 14:47] VITALS: BP 126/80; BMI 22.7
[2019-03-27 16:22] VITALS: BP 124/60
[2019-03-27 20:00] VITALS: BP 109/85
[2019-03-28] VITALS: BP 129/72
[2019-03-28 04:00] VITALS: BP 108/76
[2019-03-28 04:55] LABS: BASOPHILS 1.5 % (0-2); EOSINOPHILS 0.2 % (0-7); HEMATOCRIT 32.4 % (36.0-48.0); HEMOGLOBIN 10.8 g/dL (12-16); IMMATURE GRANULOCYTES 1.1 % (0-5); LYMPHOCYTES 25.1 % (15-50); MCHC 33.3 g/dL (31.0-37.0); MCV 78.1 fL (80.0-100.0); MEAN PLATELET VOLUME 10.4 fL (7.4-10.4); NEUTROPHILS 51.1 % (40-80); PLATELET COUNT 225 10x3/uL (130-400); RBC 4.15 10x6/uL (4.00-5.40); RDW 16.1 % (11.5-14.5); WBC 6.1 10x3/uL (4.8-10.8)
[2019-03-28 05:04] LABS: ANION GAP 10.4 mmol/L (8-16); CALCIUM 8.5 mg/dL (8.5-10.1); CARBON DIOXIDE 22.2 mmol/L (21.0-32.0); CREATININE - SERUM 1.3 mg/dL (0.6-1.3); MAGNESIUM - SERUM 1.8 mg/dL (1.8-2.4); PHOSPHOROUS 3.6 mg/dL (2.5-4.9); POTASSIUM - SERUM 3.6 mmol/L (3.5-5.1)
--- NOTE | 2019-03-28 08:05 | NUR ---
AWAKE AND ALERT. ORIENTED X3. NO C/O AT THIS TIME. LUNGS ARE CLEAR BILATERALLY, NO COUGH NOTED. SKIN IS INTACT WITHOUT REDNESS. IV TO LEFT AC IS PATENT WITHOUT REDNESS AT INSERTION SITE. FAMILY AT BEDSIDE. DENIES NEEDS.
[2019-03-28 08:46] VITALS: BP 110/86
--- NOTE | 2019-03-28 09:00 | NUR ---
ATE ONLY A FEW BITES OF BREAKFAST. STATED IT MADE HER NAUSEOUS. WILL MONITOR.
--- NOTE | 2019-03-28 11:28 | NUR ---
STATED SHE THREW UP A LLITTLE. GIVEN 4 MG ZOFRAN SLOW IVP. WILL MONITOR.
--- NOTE | 2019-03-28 11:45 | NUR ---
FSBS 112. NO COVERAGE REQUIRED.
[2019-03-28 12:08] VITALS: BP 111/82
[2019-03-28 12:31] VITALS: BMI 22.6
--- NOTE | 2019-03-28 13:00 | NUR ---
ATE ONLY A FEW BITES OF LUNCH WITH FAMILY ASSISTANCE. WILL CONTINUE TO MONITOR.
--- NOTE | 2019-03-28 13:04 | MORECARE ---
CASE MANAGEMENT DISCHARGE SUMMARY PATIENT: HALLE OBANDO UNIT: [id number] ADM DATE: 03/27/19 AGE: 78 : 38 SEX: F ROOM/BED: D.2204 AUTHOR: SAUL MELÉNDEZ PHYSICIAN: REFERRING PHYSICIAN: CE NINO MD DATE OF SERVICE: 03/28/19 Discharge Plan Patient Name: HALLE OBANDO Facility: [facility]:[place] : 1940 Planned Disposition: Home or Self Care Anticipated Discharge Date: Discharge Date: Expected LOS: Initial Reviewer: [email or web address] Initial Review Date: 03/27/2019 Generated: 03/28/19 2:03 pm Comments DCP- Discharge Planning Updated by [id number]: Evelia Villagomez on 03/28/19 11:[address] OMALLEY DISCUSSED AND WENT OVER WITH PATIENT, COPY GIVEN TO HER. Coverage Notice Reviewer: [id number] - Evelia Villagomez Notice Issued Date-Time: 03/28/2019 12:57 Notice Type: Medicare Outpatient Observation Notice Notice Delivered To: Patient Relationship to Patient: Health Care Manager Name: Delivery Method: HAND - Hand Delivered Alina Days: Prior Verbal Notification: Recipient Understood Notice: Yes Recipient Signature: Yes Med Rec Note Co-signed by Attending: Coverage Notice Comment: HAND DELIVERD, PATIENT HAD GRANDDAUGHTER SIGN IT. SHE HAD TROUBLE RAISING HER ARM Patient Name: HALLE OBANDO Page [phone] at 1304 All edits/amendments must be made on the electronic document DICTATION DATE: 03/28/19 1303 SCRATCHER: KATIE 03/28/19 1303 RPT#: [id number] DC DATE: STATUS: ADM IN [facility] [address] [place] [address] END OF REPORT
--- NOTE | 2019-03-28 14:35 | NUR ---
REPORTS NO URINE TODAY. ENCOURAGED TO VOID OR WILL NEED CATHETER.
[2019-03-28 14:58] VITALS: Ht 162.6 cm; Wt 63.0 kg
[2019-03-28 16:41] VITALS: BP 111/76
--- NOTE | 2019-03-28 16:45 | NUR ---
OT NOTE: PT COMPLETED BED MOB SIDE ROLLING USING GRAB BAR WITH MIN A. PT COMPLETED SIMPLE GROOMING TASK WITH MIN A. PT COMPLETED BUE AROM AXS. THANK YOU, OMAIRA RIDLEY
--- NOTE | 2019-03-28 18:44 | NUR ---
PT LYING IN BED WITH DAUGHTER AT BEDSIDE, WENT OVER PT CONSENTS WITH PT AND DAUGHTER AND DAUGHTER SIGNED FOR PT, PT DID NOT HAVE MUCH OF AN APPETITE TODAY, ENTHUSED ABOUT HAVING PROCEDURE DONE, PT DAUGHTER CONCERNED ABOUT ANESTHESIA, INFORMED HER THAT A CONTENT PRODUCTION SPECIALIST WILL BE WITH HER THROUGH OUT PROCEDURE AND WILL COME SPEAK TO HER BEFORE, NO OTHER NEEDS VOICED, CONTINUE WITH PLAN OF CARE
[2019-03-28 20:00] VITALS: BP 111/78
--- NOTE | 2019-03-28 20:00 | NUR ---
PT RESTING IN BED WITH EYES CLOSED, EASILY AROUSED. DAUGHTER AT THE BEDSIDE. REQUESTING MEDS FOR RESTLESSNESS, SHE HAS NOTHING ORDERED, MAO RODRIGUEZ PAGED JT DUMAS. DENIES ANY FURTHER NEEDS AT THIS TIME. BED LOW, CALL LIGHT IN REACH, RAILS UP X 2. WILL CONTINUE TO MONITOR.
--- NOTE | 2019-03-28 20:45 | NUR ---
FSBS 131, NO TREATMENT NEEDED AT THIS TIME.
--- NOTE | 2019-03-29 00:23 | NUR ---
PT REPORTING ARM IS HURTING AT IV SITE, DC`D IV TO RESITE. AFTER ME LOOKING AND NOT BEING ABLE TO FIND ANYTHING RAINY RN ATTEMPTED 3 TIMES WITH NO SUCCESS. CALLED LEE FROM ER TO COME TRY, WAITING FOR HIM NOW. WILL CONTINUE TO MONITOR. BED LOW, CALL LIGHT IN REACH, RAILS UP X 2.
[2019-03-29 01:00] VITALS: BP 119/76
[2019-03-29 04:00] VITALS: BP 114/76
--- NOTE | 2019-03-29 04:10 | NUR ---
20G IV RESITED TO RIGHT AC BY MOON FROM ER.
--- NOTE | 2019-03-29 05:15 | NUR ---
FSBS 136, NO TREATMENT NEEDED AT THIS TIME. DENIES ANY FURTHER NEEDS.
[2019-03-29 06:39] LABS: HEMATOCRIT 33.3 % (36.0-48.0); HEMOGLOBIN 11.2 g/dL (12-16); MCH 26.3 pg (26.0-34.0); MCHC 33.6 g/dL (31.0-37.0); MCV 78.2 fL (80.0-100.0); MEAN PLATELET VOLUME 10.5 fL (7.4-10.4); PLATELET COUNT 216 10x3/uL (130-400); RBC 4.26 10x6/uL (4.00-5.40); RDW 16.2 % (11.5-14.5)
[2019-03-29 06:45] LABS: WBC 8.2 10x3/uL (4.8-10.8)
[2019-03-29 07:25] LABS: ALBUMIN 2.4 g/dL (3.4-5.0); BILIRUBIN - TOTAL 0.96 mg/dL (0.2-1.3); CALCIUM 8.4 mg/dL (8.5-10.1); CARBON DIOXIDE 21.5 mmol/L (21.0-32.0); PROTEIN - SERUM 5.6 g/dL (6.4-8.2)
[2019-03-29 07:27] LABS: CREATININE - SERUM 1.8 mg/dL (0.6-1.3)
--- NOTE | 2019-03-29 08:02 | NUR ---
AWAKE AND ALERT. ORIENTED X3. I/O CATH DONE USING STERILE TECHNIQUE. SPECIMEN SENT TO LAB. LUNGS ARE CLEAR BILATERALLY, NO COUGH NOTED.SKIN IS INTACT WITHOUT REDNESS EXCEPT SOME DISCOLORATION IN JAGDISH AREA. WILL MONITOR. IV TO RIGHT AC IS PATENT WITHOUT REDNESS AT INSERTION SITE. DENIES NEEDS.
--- NOTE | 2019-03-29 08:10 | NUR ---
REQUESTED AND GIVEN 4MG ZOFRAN SLOW IVP FOR C/O NAUSEA. WILL MONITOR.
[2019-03-29 08:17] LABS: ANION GAP 15.4 mmol/L (8-16); POTASSIUM - SERUM 3.9 mmol/L (3.5-5.1)
[2019-03-29 08:36] VITALS: BP 107/80
[2019-03-29 08:56] LABS: APPEARANCE CLEAR (CLEAR); BACTERIA MODERATE /hpf (NONE SEEN); BILIRUBIN NEGATIVE (NEGATIVE); COLOR DK YELLOW (YELLOW); EPITHELIAL CELLS 0-5 /hpf (0-5); GLUCOSE NEGATIVE (NEGATIVE); GRANULAR CAST OCC /lpf (NONE SEEN); HYALINE CAST 0-5 /lpf (NONE SEEN); KETONE SMALL mg/dL (NEGATIVE); MUCUS <1+ /lpf (NONE SEEN); NITRITE NEGATIVE (NEGATIVE); PROTEIN TRACE mg/dL (NEGATIVE); SPECIFIC GRAVITY 1.025 (1.005-1.020); UROBILINOGEN NORMAL (NORMAL)
[2019-03-29 08:59] LABS: ACANTHOCYTES OCC; CRENATED CELLS 1+; EOSINOPHILS 1 % (0-7); LYMPHOCYTES 27 % (15-50); MONOCYTES 18 % (2-11); NEUTROPHILS 54 % (40-80); PLATELET ESTIMATE NORMAL; ROULEAUX OCC
--- NOTE | 2019-03-29 12:00 | NUR ---
FSBS 202. GIVEN 4UNITS HUMALOG SUBQ PER SS. FAMILY AT BEDSIDE,
--- NOTE | 2019-03-29 12:24 | NUR ---
OT NOTE: PT WEAK AND LETHARGIC TODAY. PERFORMED BED MOB WITH SBA; MOD ASSIST TO SHWETA SOCKS; TRANSFER TO TOILET WITH WALKER AND MIN/MOD ASSIST. PT WITH DIARRHEA. MAX ASSIST FOR TOILET HYGIENE. ATTEMPTED TO AMB IN ROOM WITH WALKER, HOWEVER, PT STATED THAT HER LEGS WERE WEAK AND FELT LIKE SHE WAS GOING TO FALL. AMB BACK TO BED AND RETURNED TO BED WITH MIN ASSIST. MOD ASSIST FOR REPOSITIONING. EDUCATED PT ON IMPORTANCE OF PERFORMING BED MOB AND REPOSITIONING WITH USE OF BED RAILS AND LES. MALLORIE VAUGHN, OTR/L
[2019-03-29 12:56] VITALS: BP 123/61
--- NOTE | 2019-03-29 13:57 | NUR ---
WAS EATING LUNCH WITHOUT C/O NAUSEA. WILL CONTINUE TO MONITOR.
--- NOTE | 2019-03-29 15:03 | NUR ---
OT NOTE: PT COMPLETED BED MOB TASKS WITH MOD/MAX A. PT COMPLETED EOB SITTING BALANCE WITH MOD A. PT COMPLETED UE AROM EX. PT COMPLETED SIMPLE FACE WASH WITH SET UP. THANK YOU, KY GRIFFIN
--- NOTE | 2019-03-29 16:19 | NUR ---
BLADDER SCAN SHOW 310. 16F JOSEPH PLACED USING STERILE TECHNIQUE. ENTIRE CONTENTS OF KIT UTILIZED EXCEPT SPECIMEN CUP. IMMEDIATE RETURN OF 400 CC CLEAR YELLOW URINE.
--- NOTE | 2019-03-29 17:00 | NUR ---
FSBS 171. GIVEN 2 UNITS HUMULOG PER SS SUBQ. DENIES NEEDS.
[2019-03-29 17:36] VITALS: BP 106/81
--- NOTE | 2019-03-29 18:12 | NUR ---
ATE A FEW BITES OF SUPPER. DENIES NEEDS. NO CHANGES NOTED.
--- NOTE | 2019-03-29 19:30 | NUR ---
PT RESTING IN BED WITH EYES CLOSED, EASILY AROUSED. ALERT AND ORIENTED. BREATHING EVEN AND UNLABORED, DENIES PAIN, NO SIGNS OF DISTRESS. IV LOCATED TO RIGHT AC RUNNING NS @ 100 CLEAN, DRY AND INTACT. DENIES ANY NEEDS AT THIS TIME. BED LOW, CALL LIGHT IN REACH, RAILS UP X 2. WILL CONTINUE TO MONITOR.
[2019-03-29 20:00] VITALS: BP 130/70
--- NOTE | 2019-03-29 20:00 | NUR ---
FSBS 119, NO TREATMENT NEEDED AT THIS TIME.
[2019-03-30] VITALS (17 sets, daily range): BP systolic 92–126; BP diastolic 56–94
[2019-03-30 05:01] LABS: BASOPHILS 0.5 % (0-2); EOSINOPHILS 0.1 % (0-7); HEMATOCRIT 35.4 % (36.0-48.0); HEMOGLOBIN 11.7 g/dL (12-16); IMMATURE GRANULOCYTES 1.3 % (0-5); LYMPHOCYTES 16.7 % (15-50); MCH 26.2 pg (26.0-34.0); MCHC 33.1 g/dL (31.0-37.0); MCV 79.4 fL (80.0-100.0); MEAN PLATELET VOLUME 11.5 fL (7.4-10.4); MONOCYTES 15.8 % (2-11); NEUTROPHILS 65.6 % (40-80); PLATELET COUNT 135 10x3/uL (130-400); RBC 4.46 10x6/uL (4.00-5.40); RDW 16.4 % (11.5-14.5); WBC 10.2 10x3/uL (4.8-10.8)
[2019-03-30 05:06] LABS: ALBUMIN 2.5 g/dL (3.4-5.0); BILIRUBIN - TOTAL 1.21 mg/dL (0.2-1.3); CALCIUM 8.5 mg/dL (8.5-10.1); CREATININE - SERUM 1.7 mg/dL (0.6-1.3); POTASSIUM - SERUM 4.2 mmol/L (3.5-5.1); PROTEIN - SERUM 5.8 g/dL (6.4-8.2)
[2019-03-30 05:16] LABS: CARBON DIOXIDE 15.2 mmol/L (21.0-32.0)
--- NOTE | 2019-03-30 06:04 | NUR ---
FSBS 119, NO TREATMENT NEEDED.
--- NOTE | 2019-03-30 09:18 | NUR ---
(914)TELEMETRY CALLED STATED PATIENT HR WAS 145-160 WITH RVR, DR GEORGE TEXTED PAGED BY AARON & DR COPELAND PAGED, PATIENT WAS TO GO TO SURGERY TODAY 917- CALLED
--- NOTE | 2019-03-30 09:37 | NUR ---
[facility] CALLED OR AND SPOKE WITH LORRAINE TO LET HIM KNOW THAT THEY ARE TRANSFERING THE PATIENT TO ICU
--- NOTE | 2019-03-30 09:55 | NUR ---
RAPID RESPONSE CALLED TO FLOOR. PT SOB PLACED ON 4L NC O2 SAT 99% RUL RML WHEEZING HEARD DENISE LLL RLL CLEAR. RT NOTIFIED HR 160 BP 103/87 EKG OBTAINED A FIB RVR NURSE AT BEDSIDE STATED RAN 130-150 THROUGHOUT NIGHT. PT GIVEN PO BETAPACE THIS AM. SURGERY TEAM AT DOOR TO PREOP. DR GOMEZ PAGEMarina GIVEN UPDATE DR SUAREZ PAGEMarina GIVEN UPDATE. NO SURGERY AT THIS TIME PER DR PATRICIA SUAREZ MEDS ORDERED WITH ADM. ORDER TO TRANSFER TO ICU AT THIS TIME. WILL CONTINUE TO MONITOR
[2019-03-30 10:57] LABS: T4 THYROXIN - FREE 1.49 ng/dL (0.76-1.46); THYROID STIMULATING HORMONE 2.57 uIU/mL (0.36-3.74)
--- NOTE | 2019-03-30 11:15 | NUR ---
REASSESSMENT COMPLETE PER FLOW SHEET. VSS. NO NEW CHANGES WILL CONTINUE TO MONITOR
--- NOTE | 2019-03-30 12:18 | NUR ---
Nutrition follow-up: Pt now NPO; surgery has been cancelled duet to SOB, rapid HR Rapid response called and pt now in ICU PO intake of ADA diet has been very poor due to presistent nausea. Labs reviewed Wt: 131# RDN following.
--- NOTE | 2019-03-30 13:10 | NUR ---
PT ATE 50% LUNCH. DENIES NEEDS
--- NOTE | 2019-03-30 15:10 | NUR ---
REASSESSMENT COMPLETE PER FLOW SHEET VSS NO NEW CHANGES. WILL CONTINUE TO MONITOR
--- NOTE | 2019-03-30 15:57 | NUR ---
FAMILY CALLED GIVEN ROSAS
--- NOTE | 2019-03-30 17:40 | NUR ---
PT REFUSED DINNER TRAY AT THIS TIME. RESTING COMFORTABLY WILL CONTINUE TO MONITOR
--- NOTE | 2019-03-30 19:00 | NUR ---
BEDSIDE REPORT AND SHIFT ASSESSMENT COMPLETE, PT IN BED RESTING. C/O BEING COLD, TEMP 98.2, WARM BLAKNET GIVEN. VSS, NO SIGNS OF ACUTE DISTRESS NOTED. WILL CONTINUE TO MONITOR.
--- NOTE | 2019-03-30 21:00 | NUR ---
SPOKE WITH DR VALADEZ, NEW ORDERS RECEIVED. MEDS GIVEN PER MAR. WILL CONTINUE TO MONITOR.
--- NOTE | 2019-03-30 23:00 | NUR ---
REASESSMENT COMPLETE, VSS. PT SLEEPING, DENIES ANY NEEDS AT THIS TIME.
[2019-03-31] VITALS (24 sets, daily range): BP systolic 91–113; BP diastolic 40–97
--- NOTE | 2019-03-31 01:00 | NUR ---
O2 SAT 100% ON 3L NC, PT SLEEPING. VSS, WILL CONTINUE TO MONITOR.
--- NOTE | 2019-03-31 03:00 | NUR ---
PT IN BED ASLEEP. REASSESSMENT COMPLETE, VSS. NO SIGNS OF ACUTE DISTRESS. WILL CONTINUE TO MONITOR.
[2019-03-31 04:52] LABS: BASOPHILS 0.1 % (0-2); EOSINOPHILS 0.1 % (0-7); HEMATOCRIT 31.1 % (36.0-48.0); HEMOGLOBIN 10.4 g/dL (12-16); LYMPHOCYTES 9.9 % (15-50); MCH 26.1 pg (26.0-34.0); MCHC 33.4 g/dL (31.0-37.0); MCV 78.1 fL (80.0-100.0); MONOCYTES 11.3 % (2-11); NEUTROPHILS 77.6 % (40-80); PLATELET COUNT 138 10x3/uL (130-400); RBC 3.98 10x6/uL (4.00-5.40); RDW 16.1 % (11.5-14.5); WBC 11.4 10x3/uL (4.8-10.8)
--- NOTE | 2019-03-31 05:00 | NUR ---
PT SLEEPING. VSS, NO SIGNS OF ACUTE DISTRESS. WILL CONTINUE TO MONITOR.
[2019-03-31 05:40] LABS: ALBUMIN 2.2 g/dL (3.4-5.0); BILIRUBIN - TOTAL 0.96 mg/dL (0.2-1.3); CALCIUM 8.1 mg/dL (8.5-10.1); CREATININE - SERUM 1.6 mg/dL (0.6-1.3); PROTEIN - SERUM 5.3 g/dL (6.4-8.2)
--- NOTE | 2019-03-31 09:56 | NUR ---
DAUGHTER SAVANNA CALLED FOR UPDATE. DID NOT HAVE PASSWORD. PATIENT GRANTED PERMISSION TO UPDATE.
--- NOTE | 2019-03-31 13:31 | NUR ---
pt resting quietly. ate a few bites of lunch. son called for update.
--- NOTE | 2019-03-31 19:30 | NUR ---
REC'D TO CARE, QUALITY ASSURANCE PRACTICE MANAGER PER FLOWSHEET. VSS. CM - CAF. PT AROUSES TO NAME. ONLY DISORIENTED TO TIME. PT WEAK, BUT COOPERATIVE. PT DEMONSTRATES USE OF C/L. ALARMS ON.
--- NOTE | 2019-03-31 19:45 | MORECARE ---
CASE MANAGEMENT DISCHARGE SUMMARY PATIENT: HALLE OBANDO UNIT: [id number] ADM DATE: 03/29/19 AGE: 78 : 38 SEX: F ROOM/BED: D.2302 AUTHOR: RIKA,DOC PHYSICIAN: REFERRING PHYSICIAN: CE NINO MD DATE OF SERVICE: 03/31/19 Discharge Plan Patient Name: HALLE OBANDO Facility: [facility]:[place] : 1940 Planned Disposition: Home or Self Care Anticipated Discharge Date: Discharge Date: Expected LOS: Initial Reviewer: [email or web address] Initial Review Date: 03/31/2019 Generated: 03/31/19 8:45 pm DCP- Discharge Planning Updated by [id number]: Evelia Villagomez on 03/28/19 11:58 am OSKAR OMALLEY DISCUSSED AND WENT OVER WITH PATIENT, COPY GIVEN TO HER. DCPIA - Discharge Planning Initial Assessment Updated by [id number]: Maty Granados on 03/31/19 7:43 pm * Is the patient Alert and Oriented? Yes * How many steps to enter\exit or inside your home? * PCP LEAH * [facility] * Preadmission Environment Home with Family * ADLs Independent * Equipment None * List name and contact numbers for known caregivers / representatives who currently or will assist patient after discharge: LONDON OBANDO - DAUGHTER- [phone] * Verbal permission to speak to the caregivers and representatives has been obtained from the patient. Yes * Community resources currently utilized None * Additional services required to return to the preadmission environment? No * Can the patient safely return to the preadmission environment? Yes * Has this patient been hospitalized within the prior 30 days at any hospital? Yes Coverage Notice Reviewer: [id number] - Evelia Villagomez Notice Issued Date-Time: 03/28/2019 12:57 Notice Type: Medicare Outpatient Observation Notice Notice Delivered To: Patient Relationship to Patient: Occupational Therapist'S Assistant Name: Delivery Method: HAND - Hand Delivered Alina Days: Prior Verbal Notification: Recipient Understood Notice: Yes Recipient Signature: Yes Med Rec Note Co-signed by Attending: Coverage Notice Comment: HAND DELIVERD, PATIENT HAD GRANDDAUGHTER SIGN IT. SHE HAD TROUBLE RAISING HER ARM Last DP export: 03/28/19 12:04 p Patient Name: HALLE OBANDO Page [phone] at 1945 All edits/amendments must be made on the electronic document DICTATION DATE: 03/31/191944 VALIDATION ANALYST: KATIE 03/31/191944 RPT#: [id number] DC DATE: STATUS: ADM IN [facility] [address] [place] [address] END OF REPORT
--- NOTE | 2019-03-31 19:58 | MORECARE ---
CASE MANAGEMENT DISCHARGE SUMMARY PATIENT: HALLE OBANDO UNIT: [id number] ADM DATE: 03/29/19 AGE: 78 : 38 SEX: F ROOM/BED: D.2302 AUTHOR: RIKA,DOC PHYSICIAN: REFERRING PHYSICIAN: CE NINO MD DATE OF SERVICE: 03/31/19 Discharge Plan Patient Name: AHLLE OBANDO Facility: [facility]:[place] : 1940 Planned Disposition: Home or Self Care Anticipated Discharge Date: Discharge Date: Expected LOS: Initial Reviewer: [email or web address] Initial Review Date: 03/31/2019 Generated: 03/31/19 8:58 pm Comments DCP- Discharge Planning Updated by [id number]: Maty Granados on 03/31/19 6:[address] Patient Name: HALLE OBANDO Admission Status: ER Accout number: [id number] Admission Date: 03-29-2019 : 1940 Admission Diagnosis:CHRONIC CHOLECYSTITIS Attending: CE NINO Current LOS: 2 Anticipated DC Date: Planned Disposition: Home or Self Care Primary Insurance: [employer]ICARE ADV Discharge Planning Comments: CM met with patient at bedside after explaining CM role and obtaining verbal consent. Patient lives at home with her daughter Jodie and plans to return there upon discharge. Patient feels this would be a safe discharge. CM discussed availability / needs of home health and medical equipment. Patient denies any discharge needs at this time. Patient states she will have her daughter drive her home upon discharge. CM will continue to follow and assist as needed with discharge planning / needs. Bagging Salvager: Maty Granados DCP- Discharge Planning Updated by [id number]: Evelia Villagomez on 03/28/19 11:[address] OM[facility]LEY DISCUSSED AND WENT OVER WITH PATIENT, COPY GIVEN TO HER. DCPIA - Discharge Planning Initial Assessment Updated by [email or web address]: Maty Granados on 03/31/19 7:43 pm * Is the patient Alert and Oriented? Yes * How many steps to enter\exit or inside your home? * PCP LEAH * [facility] * Preadmission Environment Home with Family * ADLs Independent * Equipment None * List name and contact numbers for known caregivers / representatives who currently or will assist patient after discharge: LONDON OBANDO - DAUGHTER- [phone] * Verbal permission to speak to the caregivers and representatives has been obtained from the patient. Yes * Community resources currently utilized None * Additional services required to return to the preadmission environment? No * Can the patient safely return to the preadmission environment? Yes * Has this patient been hospitalized within the prior 30 days at any hospital? Yes Coverage Notice Reviewer: [id number] Chastity Villagmoez Notice Issued Date-Time: 03/28/2019 12:57 Notice Type: Medicare Outpatient Observation Notice Notice Delivered To: Patient Relationship to Patient: Senior Instrumentation Engineer Name: Delivery Method: HAND - Hand Delivered Alina Days: Prior Verbal Notification: Recipient Understood Notice: Yes Recipient Signature: Yes Med Rec Note Co-signed by Attending: Coverage Notice Comment: HAND DELIVERD, PATIENT HAD GRANDDAUGHTER SIGN IT. SHE HAD TROUBLE RAISING HER ARM Last DP export: 03/31/19 6:45 pm Patient Name: HALLE OBANDO Page [phone] at 1960 All edits/amendments must be made on the electronic document DICTATION DATE: 03/31/191956 RACKING MACHINE OPERATOR: KATIE 03/31/191956 RPT#: [id number] DC DATE: STATUS: ADM IN [facility] [address] [place] [address] END OF REPORT
--- NOTE | 2019-03-31 20:17 | NUR ---
INCONT ON LOOSE GREEN BM. PT CLEANED AND JAGDISH-CARE PROVIDED FOR EXCORIATED BUTTOCKS AND JOSEPH-CARE DONE. THEN PREOP HIBICLENS BATH COMPLETED. GOWN AND LINEN CHANGE DONE. PT REPOSITIONED UP IN BED TO R SIDE. 2 SILVER COLORED RINGS AND 1 GOLD COLORED RING REMOVED AND PLACED IN LOCKED MED BOX.
--- NOTE | 2019-03-31 21:15 | NUR ---
NO VISITORS, PT REPOSITIONED UP IN BED. ROM DONE AND HEELS BRIDGED. C/L IN REACH.
--- NOTE | 2019-03-31 23:30 | NUR ---
REASSESSMENT PER FLOWSHEET. NO ACUTE CHANGES. PT INCONT OF SMALL LOOSE GREEN STOOL. JAGDISH-CARE DONE, BARRIER CREAM APPLIED AND PAD CHANGED. PT REPOSITIONED UP IN BED. WATER PROVIDED. DENIES OTHER NEEDS.
[2019-04-01] VITALS (21 sets, daily range): BP systolic 92–133; BP diastolic 52–111
--- NOTE | 2019-04-01 01:30 | NUR ---
PT AWAKENS EASILY, NO SIGN OF DISTRESS. REPOSITIONED FOR COMFORT. DENIES NEEDS.
--- NOTE | 2019-04-01 03:15 | NUR ---
REASSESSMENT PER FLOWSHEET. NO ACUTE CHANGES. PT AWAKENS EASILY, COOPERATIVE. REPOSITIONED UP IN BED, HEELS BRIDGED, ROM DONE. ALARMS ON AND C/L IN REACH.
--- NOTE | 2019-04-01 05:15 | NUR ---
REPOSITIONED UP IN BED, ORAL CARE PROVIDED, PT DENIES NEEDS.
[2019-04-01 07:01] LABS: BASOPHILS 0.1 % (0-2); EOSINOPHILS 0.6 % (0-7); HEMATOCRIT 33.3 % (36.0-48.0); HEMOGLOBIN 10.9 g/dL (12-16); IMMATURE GRANULOCYTES 0.6 % (0-5); LYMPHOCYTES 9.9 % (15-50); MCH 26.1 pg (26.0-34.0); MCHC 32.7 g/dL (31.0-37.0); MCV 79.7 fL (80.0-100.0); MONOCYTES 18.2 % (2-11); NEUTROPHILS 70.6 % (40-80); PLATELET COUNT 125 10x3/uL (130-400); RBC 4.18 10x6/uL (4.00-5.40); RDW 16.8 % (11.5-14.5); WBC 9.9 10x3/uL (4.8-10.8)
[2019-04-01 07:26] LABS: ALBUMIN 2.1 g/dL (3.4-5.0); ANION GAP 11.8 mmol/L (8-16); BILIRUBIN - TOTAL 0.86 mg/dL (0.2-1.3); CALCIUM 8.2 mg/dL (8.5-10.1); CARBON DIOXIDE 22.9 mmol/L (21.0-32.0); POTASSIUM - SERUM 3.7 mmol/L (3.5-5.1); PROTEIN - SERUM 5.5 g/dL (6.4-8.2)
--- NOTE | 2019-04-01 09:49 | NUR ---
NUTRITION F/U PT CURRENTLY NPO FOR SURGERY TODAY. WILL PROVIDE DIET WHEN RESUMED, MONITOR PO INTAKE. ASSIST WITH NUTRITION SUPPORT IF NEEDED. RD FOLLOWING
--- NOTE | 2019-04-01 13:38 | NUR ---
PREOP MEDICATIONS GIVEN
--- NOTE | 2019-04-01 16:45 | NUR ---
NOTIFIED BY PAINT LINE OPERATOR THAT PT DOES HAVE CLOT IN RIGHT ARM, NOT TOTALLY OCCLUSIVE. IV FLUIDS DISCONTINUED.
--- NOTE | 2019-04-01 16:51 | NUR ---
pt off unit to veronica
--- NOTE | 2019-04-01 19:40 | NUR ---
RECIEVED PT FROM RECOVERY. PT SLEEPING BUT EASILY AROUSED. BREATHING EVEN AND UNLABORED. EXTREMITIES X4 COOL UPON TOUCH. FOUR INCISION SITES TO THE ABDOMEN WITH DRESSING INTACT. BOWEL SOUNDS HYPOACTIVE X4. CL IN REACH AND BED IN THE LOWEST POSITION. WILL CONTIUE TO MONITOR.
--- NOTE | 2019-04-01 21:37 | NUR ---
PATIENT WAS RUBBING ABDOMEN. MILD BLEEDING THROUGH STERISTRIP ABOVE NAVAL. REINFORCED WITH NEW STERISTRIPS. INFORMED PT NOT TO TOUCH INCISION SITES. PT MUMBLED UNDERSTANDING, ARMS PLACED ABOVE GOWN AND LINENS. WILL CONTINUE TO MONITOR.
[2019-04-02] VITALS (26 sets, daily range): BP systolic 91–155; BP diastolic 27–107
[2019-04-02 06:35] LABS: BILIRUBIN - TOTAL 1.11 mg/dL (0.2-1.3); CALCIUM 7.8 mg/dL (8.5-10.1); CARBON DIOXIDE 20.2 mmol/L (21.0-32.0); CREATININE - SERUM 0.9 mg/dL (0.6-1.3); PROTEIN - SERUM 5.2 g/dL (6.4-8.2)
[2019-04-02 06:36] LABS: ANION GAP 15.3 mmol/L (8-16); POTASSIUM - SERUM 4.5 mmol/L (3.5-5.1)
--- NOTE | 2019-04-02 07:27 | NUR ---
Awake and alert, responds to questions appropriately, oriented to person and situation, iv to left forearm, patent infusing ns at 15ml/hr, dressing c/d/i, slgith bruising around insertion site, rankin catheter present, darren colored urine in drainage bag, SCD's on and in operation, 4 lap barbara, post op day 1, denies any current needs or discomforts, bed lowered and locked, call light within reach. cpoc
--- NOTE | 2019-04-02 09:02 | NUR ---
Lethargic, on 2lpm via nc, continues to answers questions appropriately, irregular heart rate, rate fluctuating between 102-125. denies any shortness of breath, denies any current needs or discomforts, bed lowered and locked, call light within reach. cpoc
--- NOTE | 2019-04-02 11:30 | NUR ---
Awake, full CHG bath given, large loose, bowel movement, excoriation to buttocks, no open areas at this time, skin beneath SCD clean, dry and intact, perineal area, cleaned and dried, skin protectant applied to buttocks, iv site to left forearm remains patent, no redness,swelling, denies any tenderness, full linen change, denies any current needs or discomforts, bed lowered and locked, call light within reach. cpoc
--- NOTE | 2019-04-02 14:12 | NUR ---
OBSERVED DIFFICULTY WITH CHEWING FOODS, NO TROUBLE SWALLOWING, OFFERED PATIENT HER DENTURES, REFUSED, CHANGED HER MEAL TO A MECHANICAL SOFT RENAL ADA DIET. CONSUMED APPLESAUCE WITH NO TROUBLES, DENIES ANY CURRENT NEEDS OR DISCOMFORTS, BED LOWERED AND LOCKED, CALL LIGHT WITHIN REACH. CPOC
[2019-04-02 15:28] LABS: BASOPHILS 0.1 % (0-2); EOSINOPHILS 0.5 % (0-7); HEMATOCRIT 31.9 % (36.0-48.0); HEMOGLOBIN 10.4 g/dL (12-16); IMMATURE GRANULOCYTES 0.4 % (0-5); LYMPHOCYTES 9.4 % (15-50); MCH 25.7 pg (26.0-34.0); MCHC 32.6 g/dL (31.0-37.0); MEAN PLATELET VOLUME 10.5 fL (7.4-10.4); MONOCYTES 15.6 % (2-11); PLATELET COUNT 110 10x3/uL (130-400); RBC 4.04 10x6/uL (4.00-5.40); RDW 16.6 % (11.5-14.5)
--- NOTE | 2019-04-02 17:07 | NUR ---
Resting with eyes closed, on 2lpm via nc, rankin catheter present, bed clean and dry, bed lowered and locked, call light within reach, cpoc
--- NOTE | 2019-04-02 17:45 | NUR ---
REPORT RECEIVED FROM ROM AMAYA. DAUGHTER AT BEDSIDE. DVT TO RIGHT ARM. IV TO LEFT FOREARM. PT ALERT AND ORIENTED. POD 1 CHOLECYSTECTOMY. PT HAS JAKE.
--- NOTE | 2019-04-02 18:30 | NUR ---
3 RINGS FOR PT FOUND (2 SILVER AND 1 GOLD). GIVEN TO LONDON GRAJEDA.
--- NOTE | 2019-04-02 19:35 | NUR ---
RECEIVED PATIENT CARE - SHIFT ASSESSMENT COMPLETED SEE FLOWSHEET. PT EXPRESSES NEED TO HAVE A BOWEL MOVEMENT, UPON ASSESSMENT PATIENT INCONTINENT BOWEL X 1 - PARTIAL LINEN CHANGE COMPLETED. VSS AFIB RVR NOTED. CPOC
--- NOTE | 2019-04-02 22:10 | NUR ---
HS MEDICATIONS RECEIVED. VSS CPOC PATIENT DENIES NEEDS AT THIS TIME
--- NOTE | 2019-04-02 23:10 | NUR ---
PT RECEIVED HS MEDICATIONS - VSS CPOC
--- NOTE | 2019-04-02 23:10 | NUR ---
REASSESSMENT COMPLETED SEE FLOWSHEET
[2019-04-03] VITALS (18 sets, daily range): BP systolic 108–188; BP diastolic 37–117
--- NOTE | 2019-04-03 01:47 | NUR ---
PATIENT RESTING COMFORTABLY VSS EVEN RISE AND FALL OF CHEST BILAT. CPOC
--- NOTE | 2019-04-03 03:10 | NUR ---
REASSESSMENT COMPLETED SEE FLOWSHEET
--- NOTE | 2019-04-03 08:51 | NUR ---
0700 ASLEEP EASILY AWAKENS TO VOICE ASSESSMENT COMPLETE
--- NOTE | 2019-04-03 10:03 | NUR ---
0900 ASSISTED WITH BREAKFAST APPETITE FAIR
--- NOTE | 2019-04-03 12:32 | NUR ---
1100 REPOSITIONED IN BED VOICES NO COMPLAINTS OF PAIN
--- NOTE | 2019-04-03 12:33 | NUR ---
0332 DR SUAREZ PRESENT AND SPEAKING WITH EVELYN, FAMILY MEMBER, ON PHONE
--- NOTE | 2019-04-03 15:49 | OP ---
PATIENT NAME: HALLE OBANDO MEDICAL RECORD: [id number] :[birth year] LOCATION:D.[facility] D.2302 ADMISSION DATE:03/29/19 SURGEON: TRINITY SINCLAIR MD DATE OF OPERATION: 04/01/2019 PREOPERATIVE DIAGNOSES: 1. Symptomatic gallstones. 2. Elevated liver function test. POSTOPERATIVE DIAGNOSES: 1. Symptomatic gallstones. 2. Elevated liver function tests. 3. Hepatomegaly. 4. Intraabdominal adhesions. PROCEDURES: 1. Laparoscopic cholecystectomy. 2. Intraoperative cholangiography without immediate surgeon interpretation. 3. A 14-gauge core needle liver biopsies. SURGEON: Trinity Sinclair MD PRECISION MACHINE OPERATOR: None. BLOOD LOSS: 50 cc. ANESTHESIA: General. COMPLICATIONS: None. The indication for liver biopsy was hepatomegaly as well as elevated liver function test. OPERATIVE COURSE: The patient was conveyed to the operating room electively on 04/01/2019. General anesthesia was induced by the anesthesia staff. The abdomen was sterilely prepped and draped. A small skin incision was accomplished in the left upper quadrant. Veress needle was inserted through the skin incision into the peritoneal cavity. CO2 insufflation was begun. Once a sufficient pneumoperitoneum had been achieved, a 5-mm trocar was inserted through an incision in the left upper quadrant. Under direct internal vision utilizing a television camera, a 5-mm trocar was inserted in the right upper quadrant. Another 5-mm trocar was inserted far laterally in the right upper quadrant. A 12-mm trocar was inserted through an incision at the umbilicus. During insertion of the Veress needle and all trocars, there appeared to have been no injury to the bowels, any intraperitoneal or retroperitoneal structures. Intraabdominal adhesions were noted from the patient's prior operation. Some of these were in the midline. I stayed down a few of these with the electrocautery in order to allow enough space to perform the cholecystectomy. The gallbladder was grasped and retracted cephalad. There were adhesions to the gallbladder and these were stripped off with another blunt grasper. I then advanced a biopsy device. This was a core biopsy device. Under laparoscopic guidance, I performed core biopsies over the convexity of the OPERATIVE REPORT [id number] HALLE OBANDO liver. Biopsy sites were made hemostatic with electrocautery. I then advanced the cholangiogram trocar. I punctured the fundus of gallbladder. I aspirated bile. I then injected dye. Under real time fluoroscopy, static fluoroscopic images were obtained. These were cholangiographic images. These are sent to the radiologist for interpretation. I then aspirated bile. I removed the cholangiogram trocar. The gallbladder was grasped and retracted cephalad. The infundibulum was grasped and retracted laterally. Blunt dissection was begun in the triangle of Calot. One cystic artery and one cystic duct were identified. These were clipped multiply and divided between clips. The gallbladder was then excised from its bed in the liver. It was placed within a bag retrieval device and was withdrawn through the umbilical fascia defect. A 12-mm trocar was placed in the abdomen reinsufflated. I irrigated and aspirated the right upper quadrant. There was no bleeding even at low pressure of 8. The 12-mm trocar was then removed. The Memo-Srinivasan suture closure device and 0 Vicryl sutures were used to close the fascia at the umbilicus. All trocars were removed and the abdomen desufflated. Skin incision at the umbilicus was closed with interrupted 4-0 Vicryl Rapide sutures. The other skin incisions were closed with interrupted intracuticular 3-0 and 4-0 Vicryls. Benzoin and Steri-Strips were applied. The patient was then extubated and conveyed to post-anesthesia care unit. TRANSINT:[id number] Voice Confirmation ID: [id number] DOCUMENT ID: [id number] TRINITY SINCLAIR MD at 1549 CC: [id number] DICTATION DATE: 04/01/191855 CLIENT CARE MANAGER: 04/02/19 0036 ADM IN [place] [id number] [place] [id number]
--- NOTE | 2019-04-03 17:23 | NUR ---
1430 FAMILY AT BEDSIDE ANSWERED QUESTION ASKED
--- NOTE | 2019-04-03 17:24 | NUR ---
1515 REPORT GIVEN TO MARZENA SEYMOUR RN
--- NOTE | 2019-04-03 18:14 | NUR ---
PT TRANSPORTED TO FLOOR VIA BED FROM ICU. PT IS ALERT BUT SPEAKES QUIETLY.PIV TO RIGHT FOREARM IS INFUSING WITHOUT DIFFICULTY. PT TURNED AND EXCORIATION NOTED TO PT BUTTOCKS/COCCYX. JOSEPH CATHETER NOTED AND IS DRAINING WITHOUT DIFFICULTY. CARSON ALARM IS ON AND ALL FALL RPECAUTIONS ARE IN PLACE. PT DENIES PRESENCE OF PAIN/N/V AT THIS TIME. BED IS IN THE LOWEST POSITION. CALL LIGHT AND BEDSIDE TABLE ARE WITHIN REACH. SIDE RAILS X 2. WILL NOTIFY NURSE OF PT ARRIVAL AND ASSESSMENT.
[2019-04-04] VITALS: BP 137/106
[2019-04-04 04:00] VITALS: BP 134/110
[2019-04-04 08:52] VITALS: BP 159/119
[2019-04-04 10:27] LABS: BASOPHILS 0.2 % (0-2); HEMATOCRIT 34.8 % (36.0-48.0); HEMOGLOBIN 11.2 g/dL (12-16); IMMATURE GRANULOCYTES 0.5 % (0-5); LYMPHOCYTES 12.2 % (15-50); MCH 25.6 pg (26.0-34.0); MCHC 32.2 g/dL (31.0-37.0); MCV 79.5 fL (80.0-100.0); MEAN PLATELET VOLUME 10.9 fL (7.4-10.4); NEUTROPHILS 70.1 % (40-80); RBC 4.38 10x6/uL (4.00-5.40); RDW 17.1 % (11.5-14.5); WBC 10.5 10x3/uL (4.8-10.8)
[2019-04-04 10:31] LABS: PLATELET COUNT 160 10x3/uL (130-400)
[2019-04-04 10:51] LABS: ALBUMIN 1.9 g/dL (3.4-5.0); ALKALINE PHOSPHATASE 143 U/L (46-116); ALT (SGPT) 117 U/L (10-68); BILIRUBIN - TOTAL 0.89 mg/dL (0.2-1.3); CALC OSMOLALITY 282 mosm/kg (275-300); CALCIUM 8.5 mg/dL (8.5-10.1); CARBON DIOXIDE 23.2 mmol/L (21.0-32.0); CHLORIDE - SERUM 109 mmol/L (98-107); CREATININE - SERUM 0.7 mg/dL (0.6-1.3); GLUCOSE 164 mg/dL (74-106); POTASSIUM - SERUM 4.2 mmol/L (3.5-5.1); PROTEIN - SERUM 6.1 g/dL (6.4-8.2); SODIUM 140 mmol/L (136-145); UREA NITROGEN 13 mg/dL (7-18); eGFR NON AFRICAN AMERICAN 85 mL/min (90-120)
[2019-04-04 12:23] VITALS: BP 112/52
--- NOTE | 2019-04-04 15:59 | NUR ---
Rehab Prescreening Consult recieved and the chart has been reviewed. She is [employer] managed Medicare and will require a preauth for the ARU. She will need a new PT and OT eval ordered since she has moved back out to the floor from ICU. Discussed with the MOY Castellon. Enedelia Santos RN Clinical liaison, Rehab
[2019-04-04 16:35] VITALS: BP 120/95
[2019-04-04 20:00] VITALS: BP 129/93
--- NOTE | 2019-04-04 20:00 | NUR ---
ASSESSMENT PER FLOWSHEET. O2 ON 2L/M PER NC. HOB UP 35 DEGREES. SR UP X2 CALL LIGHT WITHIN REACH CARSON MAT TO BED. MONITOR SHOWS CAF WITH HR 90. IV PATENT TO LEFT ARM INFUSING AT 15CC'S/HR. LAP SITES TO ABDOMEN C/D/I.
--- NOTE | 2019-04-04 21:36 | NUR ---
REQUESTING PAIN MED FOR GENERALIZED DISCOMFORT. TYLENOL 650MG PO GIVEN FOR PAIN CONTROL. MEDS GIVEN PER OCT. FMGE=486. 2UNITS HUMALOG INSULIN GIVEN SUBC PER S/S.JOSEPH TO BEDSIDE DRAINAGE. RESERVING RT ARM. EDEMA TO ARMS AND LEGS.
[2019-04-05] VITALS: BP 125/98
--- NOTE | 2019-04-05 00:08 | NUR ---
EYES CLOSED RESPIRATIONS WITH EASE AND UNLABORED.
[2019-04-05 04:00] VITALS: BP 134/101
[2019-04-05 05:57] LABS: ALBUMIN 1.7 g/dL (3.4-5.0); ALKALINE PHOSPHATASE 125 U/L (46-116); BILIRUBIN - TOTAL 0.62 mg/dL (0.2-1.3); CALC OSMOLALITY 282 mosm/kg (275-300); CALCIUM 8.6 mg/dL (8.5-10.1); CARBON DIOXIDE 24.5 mmol/L (21.0-32.0); CHLORIDE - SERUM 110 mmol/L (98-107); CREATININE - SERUM 0.7 mg/dL (0.6-1.3); GLUCOSE 127 mg/dL (74-106); PROTEIN - SERUM 5.5 g/dL (6.4-8.2); SODIUM 141 mmol/L (136-145); UREA NITROGEN 13 mg/dL (7-18); eGFR NON AFRICAN AMERICAN 85 mL/min (90-120)
[2019-04-05 06:01] LABS: BASOPHILS 0.2 % (0-2); EOSINOPHILS 1.4 % (0-7); HEMATOCRIT 32.4 % (36.0-48.0); HEMOGLOBIN 10.5 g/dL (12-16); IMMATURE GRANULOCYTES 0.5 % (0-5); LYMPHOCYTES 14.9 % (15-50); MCH 25.5 pg (26.0-34.0); MCHC 32.4 g/dL (31.0-37.0); MCV 78.8 fL (80.0-100.0); MEAN PLATELET VOLUME 10.6 fL (7.4-10.4); MONOCYTES 17.9 % (2-11); NEUTROPHILS 65.1 % (40-80); PLATELET COUNT 161 10x3/uL (130-400); RBC 4.11 10x6/uL (4.00-5.40); RDW 17.2 % (11.5-14.5); WBC 9.1 10x3/uL (4.8-10.8)
[2019-04-05 06:16] LABS: ALT (SGPT) 81 U/L (10-68)
[2019-04-05 08:24] VITALS: BP 133/89
--- NOTE | 2019-04-05 09:52 | CN ---
PATIENT NAME:HALLE OBANDO MEDICAL RECORD: [id number] : [birth year] LOCATION:D.[facility] ADMIT DATE: 03/29/19 ACCOUNT: [id number] CONSULTING PHYSICIAN: CHRISTOPHER SUAREZ MD REFERRING PHYSICIAN: CE NINO MD DATE OF CONSULTATION: 03/28/2019 ADMITTING DIAGNOSES: 1. Preoperative evaluation. 2. Cholecystitis. 3. Coronary artery disease. 4. Previous multivessel percutaneous transluminal coronary angioplasty stent. 5. Congestive heart failure, chronic systolic dysfunction. 6. Dilated ischemic cardiomyopathy. 7. Hypertension. 8. Hyperlipidemia. 9. Chronic atrial fibrillation. HISTORY OF PRESENT ILLNESS: Mrs. Obando is well known to us. She has been admitted recently with episodes of nausea, vomiting, and cholecystitis. She does have a cardiac history, last cardiac stent was 2 weeks ago. She remains on aspirin, Plavix, Imdur, sotalol. She is stable from a cardiac standpoint with no anginal symptomatology, no symptomatology from the atrial fibrillation. Her heart rate has been controlled on her current medications in the 80s with the chronic atrial fibrillation. PHYSICAL EXAMINATION: GENERAL APPEARANCE: Well-nourished, well-developed, appears stated age. Level of distress, comfortable. PSYCHIATRIC: Mental status, alert, normal affect. Orientation, oriented to time, place and person. EYES: Lids and conjunctiva, noninjected. No discharge, no pallor. ENT: Lips, teeth, gums, normal dentition. Oropharynx, no cyanosis, no pallor. NECK: Carotid arteries, bilateral normal upstroke, no bruits, no thrills. JUGULAR VEINS: No jugular venous pressure or distention. CERVICAL LYMPH NODES: Nontender, nonenlarged. THYROID: Not enlarged. Nontender. No nodules. LUNGS: Respiratory effort, unlabored. CHEST: Normal curvature. No thoracic deformity. No chest wall tenderness. Percussion, resonant. Auscultation, clear. No wheezes, no rales, no rhonchi. CARDIOVASCULAR: Precordial exam, nondisplaced. No heaves or pericardial thrills. Rate and rhythm, regular. Heart sounds, normal S1, normal S2. No S3, no gallop, no rub. Systolic murmur, not heard. Diastolic murmur, not heard. EXTREMITIES: No cyanosis, no edema. Peripheral pulses, full and equal in all extremities, except as noted. No bruits appreciated. ABDOMEN: Soft, nondistended. Normal aorta. No bruit. Nontender. No masses. Liver, nontender, no hepatomegaly. Spleen, nontender, no splenomegaly. MUSCULOSKELETAL: No joint tenderness. No joint swelling. No erythema. NEUROLOGICAL: Normal gait, normal strength, normal tone. SKIN: Warm and dry. OVERALL IMPRESSION: 1. Atrial fibrillation, controlled on current medications. Continue these medications. 2. Ischemic heart disease, stable from the standpoint of ischemic heart CONSULT REPORT [id number] OBAND[place]ALLE disease, no ongoing anginal symptomatology. Continue her Imdur. 3. Congestive heart failure, chronic systolic dysfunction. At this time, she is not in overt congestive heart failure; however, if operation is needed, small amount of IV fluids as possible to keep her from going into congestive heart failure. 4. Antiplatelet medication status post recent PTCA stent. Clearly if the operation is needed, we can discontinue the Plavix, use Lovenox bridge, restarting the Plavix as soon as possible in the postop days. TRANSINT:[id number] Voice Confirmation ID: [id number] DOCUMENT ID: [id number] CHRISTOPHER SUAREZ MD at 0952 CC: [id number] DICTATION DATE: 03/28/19 1030 PRESS BUCKER: 03/28/19 1322 ADM IN [place] [id number] [place] [address]
[2019-04-05 11:54] VITALS: BP 148/90
--- NOTE | 2019-04-05 12:07 | MORECARE ---
CASE MANAGEMENT DISCHARGE SUMMARY PATIENT: HALLE OBANDO UNIT: [id number] ADM DATE: 03/29/19 AGE: 78 : 38 SEX: F ROOM/BED: D.2214 AUTHOR: RIKA,DOC PHYSICIAN: REFERRING PHYSICIAN: CE NINO MD DATE OF SERVICE: 04/05/19 Discharge Plan Patient Name: HALLE OBANDO Facility: [facility]:[place] : 1940 Planned Disposition: Home or Self Care Anticipated Discharge Date: Discharge Date: Expected LOS: Initial Reviewer: [email or web address] Initial Review Date: 03/31/2019 Generated: 04/05/19 1:07 pm DCP- Discharge Planning Updated by [email or web address]: Maty Granados on 03/31/19 6:[address] Patient Name: HALLE OBANDO Admission Status: ER Accout number: [id number] Admission Date: 03-29-2019 : 1940 Admission Diagnosis:CHRONIC CHOLECYSTITIS Attending: CE NINO Current LOS: 2 Anticipated DC Date: Planned Disposition: Home or Self Care Primary Insurance: [employer] MED[employer]ARE ADV Discharge Planning Comments: CM met with patient at bedside after explaining CM role and obtaining verbal consent. Patient lives at home with her daughter Jodie and plans to return there upon discharge. Patient feels this would be a safe discharge. CM discussed availability / needs of home health and medical equipment. Patient denies any discharge needs at this time. Patient states she will have her daughter drive her home upon discharge. CM will continue to follow and assist as needed with discharge planning / needs. Sample Hand: Maty Granados DCP- Discharge Planning Updated by [id number]: Evelia Villagomez on 03/28/19 11:[address] OMALLEY DISCUSSED AND WENT OVER WITH PATIENT, COPY GIVEN TO HER. DCPIA - Discharge Planning Initial Assessment Updated by [id number]: Maty Granados on 03/31/19 7:43 pm * Is the patient Alert and Oriented? Yes * How many steps to enter\exit or inside your home? * PCP LEAH * [facility] * Preadmission Environment Home with Family * ADLs Independent * Equipment None * List name and contact numbers for known caregivers / representatives who currently or will assist patient after discharge: LONDON OBANDO - DAUGHTER- [phone] * Verbal permission to speak to the caregivers and representatives has been obtained from the patient. Yes * Community resources currently utilized None * Additional services required to return to the preadmission environment? No * Can the patient safely return to the preadmission environment? Yes * Has this patient been hospitalized within the prior 30 days at any hospital? Yes Coverage Notice Reviewer: [id number] Chastity Villagomez Notice Issued Date-Time: 03/28/2019 12:57 Notice Type: Medicare Outpatient Observation Notice Notice Delivered To: Patient Relationship to Patient: Tin Pot Operator Name: Delivery Method: HAND - Hand Delivered Alina Days: Prior Verbal Notification: Recipient Understood Notice: Yes Recipient Signature: Yes Med Rec Note Co-signed by Attending: Coverage Notice Comment: HAND DELIVERD, PATIENT HAD GRANDDAUGHTER SIGN IT. SHE HAD TROUBLE RAISING HER ARM Last DP export: 03/31/19 6:58 pm Patient Name: HALLE OBANDO Page [phone] at 1207 All edits/amendments must be made on the electronic document DICTATION DATE: 04/05/19 1207 CIVIL ENGINEER'S AIDE: KATIE 04/05/19 1207 RPT#: [id number] DC DATE: STATUS: ADM IN [facility] [address] [place] [address] END OF REPORT
--- NOTE | 2019-04-05 13:06 | NUR ---
PT ALERT X 4. BREATH SOUNDS DIMINISHED TO LOWER LOBES, 1L O2 PER NC. TELEMETRY IN PLACE. PT +2 GENERALIZED EDEMA. 3 LAP SITES TO ABDOMEN, DRESSINGS CDI. IV TO LEFT FOREARM, INFILTRATED, WILL RESITE. SCD'S IN USE. BED LOW, CALL LIGHT IN REACH. NO OTHER NEEDS AT THIS TIME.
--- NOTE | 2019-04-05 14:24 | MORECARE ---
CASE MANAGEMENT DISCHARGE SUMMARY PATIENT: HALLE OBANDO UNIT: [id number] ADM DATE: 03/29/19 AGE: 78 : 38 SEX: F ROOM/BED: D.2214 AUTHOR: RIKA,DOC PHYSICIAN: REFERRING PHYSICIAN: CE NINO MD DATE OF SERVICE: 04/05/19 Discharge Plan Patient Name: HALLE OBANDO Facility: [facility]:[place] : 1940 Planned Disposition: Home or Self Care Anticipated Discharge Date: Discharge Date: Expected LOS: Initial Reviewer: [id number] Initial Review Date: 03/31/2019 Generated: 04/05/19 3:24 pm Comments DCP- Discharge Planning Updated by [id number]: Evelia Villagomez on 04/05/19 1:[address] spoke with CM with [facility] and Melissa at [facility] about patient and inpatient rehab, we are pending auth once evals are documented DCP- Discharge Planning Updated by [id number]: Maty Granados on 03/31/19 6:[address] Patient Name: HALLE OBANDO Admission Status: ER Accout number: [id number] Admission Date: 03-29-2019 : 1940 Admission Diagnosis:CHRONIC CHOLECYSTITIS Attending: CE NINO Current LOS: 2 Anticipated DC Date: Planned Disposition: Home or Self Care Primary Insurance: [employer] MEDICARE ADV Discharge Planning Comments: CM met with patient at bedside after explaining CM role and obtaining verbal consent. Patient lives at home with her daughter Jodie and plans to return there upon discharge. Patient feels this would be a safe discharge. CM discussed availability / needs of home health and medical equipment. Patient denies any discharge needs at this time. Patient states she will have her daughter drive her home upon discharge. CM will continue to follow and assist as needed with discharge planning / needs. Crown Ironer Operator: Maty Granados DCP- Discharge Planning Updated by [email or web address]: Evelia Villagomez on 03/28/19 11:[address] OMALLEY DISCUSSED AND WENT OVER WITH PATIENT, COPY GIVEN TO HER. DCPIA - Discharge Planning Initial Assessment Updated by [id number]: Maty Granados on 03/31/19 7:43 pm * Is the patient Alert and Oriented? Yes * How many steps to enter\exit or inside your home? * PCP LEAH * Pharmacy [facility] * Preadmission Environment Home with Family * ADLs Independent * Equipment None * List name and contact numbers for known caregivers / representatives who currently or will assist patient after discharge: LONDON OBANDO - DAUGHTER- [phone] * Verbal permission to speak to the caregivers and representatives has been obtained from the patient. Yes * Community resources currently utilized None * Additional services required to return to the preadmission environment? No * Can the patient safely return to the preadmission environment? Yes * Has this patient been hospitalized within the prior 30 days at any hospital? Yes Coverage Notice Reviewer: [id number] Chastity Villagomez Notice Issued Date-Time: 03/28/2019 12:57 Notice Type: Medicare Outpatient Observation Notice Notice Delivered To: Patient Relationship to Patient: Operator Prefinish Name: Delivery Method: HAND - Hand Delivered Alina Days: Prior Verbal Notification: Recipient Understood Notice: Yes Recipient Signature: Yes Med Rec Note Co-signed by Attending: Coverage Notice Comment: HAND DELIVERD, PATIENT HAD GRANDDAUGHTER SIGN IT. SHE HAD TROUBLE RAISING HER ARM Last DP export: 04/05/19 11:07 am Patient Name: HALLE OBANDO Page 38040 at 1424 All edits/amendments must be made on the electronic document DICTATION DATE: 04/05/191423 INSTRUMENT CHECKER: KATIE 04/05/194 RPT#: [id number] ID DATE: STATUS: ADM IN [facility] [address] [place] [address] END OF REPORT
--- NOTE | 2019-04-05 15:27 | NUR ---
OT NOTE: PT ATTEMPTED SUPINE TO SIT WITH TOTAL A. PT COMPLETED COMPLETED FACE WASH WITH MIN A. PT COMPLETED HYGIENE TASK WITH MAX/TOTAL A. PT EXTREMELY WEAK. THANK YOU, OMAIRA RIDLEY
--- NOTE | 2019-04-05 19:58 | NUR ---
PT RESTING IN BED WITH EYES CLOSED, EASILY AROUSED TO SPEECH. CURRENTLY ON 1L VIA NC. PLACED PILLOW UNDER RIGHT ARM AND WARM BLANKET ON FEET AT PTS REQUEST. DENIES ANY FURTHER NEEDS AT THIS TIME. BED LOW, CALL LIGHT IN REACH, RAILS UP X 2. WILL CONTINUE TO MONITOR.
[2019-04-05 20:00] VITALS: BP 94/67
--- NOTE | 2019-04-05 21:34 | NUR ---
FSBS 159, TREATED WITH 2 UNITS OF INSULIN.
[2019-04-06 04:00] VITALS: BP 121/77
--- NOTE | 2019-04-06 05:26 | NUR ---
FSBS 122, NO TREATMENT NEEDED AT THIS TIME.
[2019-04-06 06:26] LABS: BASOPHILS 0.3 % (0-2); EOSINOPHILS 2.6 % (0-7); HEMOGLOBIN 10.7 g/dL (12-16); IMMATURE GRANULOCYTES 0.6 % (0-5); MCH 25.4 pg (26.0-34.0); MCHC 32.4 g/dL (31.0-37.0); MCV 78.4 fL (80.0-100.0); MEAN PLATELET VOLUME 10.4 fL (7.4-10.4); MONOCYTES 19.8 % (2-11); NEUTROPHILS 61.7 % (40-80); PLATELET COUNT 175 10x3/uL (130-400); RBC 4.21 10x6/uL (4.00-5.40); RDW 17.3 % (11.5-14.5)
[2019-04-06 06:53] LABS: ALBUMIN 1.6 g/dL (3.4-5.0); ALKALINE PHOSPHATASE 117 U/L (46-116); ALT (SGPT) 62 U/L (10-68); BILIRUBIN - TOTAL 0.65 mg/dL (0.2-1.3); CALC OSMOLALITY 282 mosm/kg (275-300); CALCIUM 8.6 mg/dL (8.5-10.1); CARBON DIOXIDE 26.2 mmol/L (21.0-32.0); CHLORIDE - SERUM 110 mmol/L (98-107); CREATININE - SERUM 0.7 mg/dL (0.6-1.3); GLUCOSE 108 mg/dL (74-106); POTASSIUM - SERUM 4.1 mmol/L (3.5-5.1); PROTEIN - SERUM 5.5 g/dL (6.4-8.2); SODIUM 142 mmol/L (136-145); UREA NITROGEN 11 mg/dL (7-18); eGFR NON AFRICAN AMERICAN 85 mL/min (90-120)
--- NOTE | 2019-04-06 08:11 | NUR ---
PT RESTING IN BED. CHEST RISING AND FALLING. NO S/S OF ACUTE DISTRESS. CL IN PLACE.
[2019-04-06 09:20] VITALS: BP 144/89
[2019-04-06 12:57] LABS: CKMB 0.2 U/L (0.0-3.6); CREATINE KINASE 16 UL (21-215); TROPONIN-I 0.018 ng/mL (0.000-0.060)
--- NOTE | 2019-04-06 13:00 | NUR ---
NUTRITION F/U CHART REVIEWED, PT VISIT. FAMILY AT BEDSIDE. PT WITH 75% INTAKE BREAKFAST PLUS 50% CAN NEPRO. WILL CONTINUE TO PROVIDE DIET, MONITOR PO INTAKE. RD FOLLOWING
--- NOTE | 2019-04-06 13:32 | NUR ---
OT NOTE: PT MORE ALERT TODAY. REMAINS VERY WEAK. ABLE TO ROLL SIDE TO SIDE WITH MAX ASSIST; PERINEAL CARE WITH CONTINUED DIARRHEA. SUPINE TO SIT WITH MAX ASSIST; SIT TO STAND WITH MAX ASSIST AND MAX ASSIST TO MAINTAIN STANDING FOR 1 MIN. CONT TO REQUIRE MAX ASSIST WITH ALL ADLS DUE TO EDEMA IN HANDS AND UE WEAKNESS. MALLORIE VAUGHN, OTR/L
--- NOTE | 2019-04-06 13:41 | NUR ---
LATE ENTRY 1030. PT CO OF BEING SOB. 120/87.92% O2 @2 LITERS CA. TELE-102 UNCONTROL A FIB. 22. CALLED Farru[facility] KIRK FOR STAT CHEST XRAY. VASCULAR ACCESS CONSULT. CONSULT FOR CARDIOLOGY. DAUGHTER AT BEDSIDE. NO S/S OF ACUTE DISTRESS. CL IN PLACE.
--- NOTE | 2019-04-06 15:01 | NUR ---
CALLED SAVANNA DAUGHTER AND TOLD HER PT WOULD MOVE TO 2115.
--- NOTE | 2019-04-06 16:13 | NUR ---
Recieved a call from [employer] spoke to Betty. The emergency medical dispatcher has denied ARU for this patient and recommends a skilled unit. Passed this information on to the Miranda. Enedelia Santos RN CL
[2019-04-06 18:31] LABS: CKMB 0.1 U/L (0.0-3.6); CREATINE KINASE 26 UL (21-215)
[2019-04-06 18:36] LABS: TROPONIN-I < 0.017 ng/mL (0.000-0.060)
--- NOTE | 2019-04-06 19:25 | NUR ---
RECEIVED BEDSIDE REPORT. PATIENT IS ALERT AND ORIENTED, RESTING COMFORTABLY IN BED. RESPIRATIONS ARE EVEN AND UNLABORED. NO S/S OF DISTRESS. NO C/O PAIN. DENIES NEEDS. CALL LIGHT WITHIN REACH. WILL CPOC.
[2019-04-06 20:00] VITALS: BP 100/77
[2019-04-07] VITALS: BP 133/61
[2019-04-07 00:26] LABS: CKMB 0.5 U/L (0.0-3.6); CREATINE KINASE 105 UL (21-215); TROPONIN-I 0.029 ng/mL (0.000-0.060)
[2019-04-07 04:00] VITALS: BP 125/57
[2019-04-07 05:23] LABS: BASOPHILS 0.2 % (0-2); EOSINOPHILS 0.6 % (0-7); HEMATOCRIT 31.1 % (36.0-48.0); HEMOGLOBIN 10.1 g/dL (12-16); IMMATURE GRANULOCYTES 0.4 % (0-5); LYMPHOCYTES 9.9 % (15-50); MCH 25.3 pg (26.0-34.0); MCHC 32.5 g/dL (31.0-37.0); MCV 77.9 fL (80.0-100.0); MEAN PLATELET VOLUME 10.6 fL (7.4-10.4); MONOCYTES 9.8 % (2-11); NEUTROPHILS 79.1 % (40-80); PLATELET COUNT 183 10x3/uL (130-400); RBC 3.99 10x6/uL (4.00-5.40); RDW 17.2 % (11.5-14.5)
[2019-04-07 05:28] LABS: WBC 12.3 10x3/uL (4.8-10.8)
[2019-04-07 05:51] LABS: ALBUMIN 1.5 g/dL (3.4-5.0); ALKALINE PHOSPHATASE 108 U/L (46-116); BILIRUBIN - TOTAL 0.88 mg/dL (0.2-1.3); CALC OSMOLALITY 278 mosm/kg (275-300); CALCIUM 8.1 mg/dL (8.5-10.1); CARBON DIOXIDE 26.2 mmol/L (21.0-32.0); CHLORIDE - SERUM 107 mmol/L (98-107); CREATININE - SERUM 0.7 mg/dL (0.6-1.3); GLUCOSE 124 mg/dL (74-106); POTASSIUM - SERUM 3.5 mmol/L (3.5-5.1); PROTEIN - SERUM 5.2 g/dL (6.4-8.2); SODIUM 140 mmol/L (136-145); UREA NITROGEN 9 mg/dL (7-18); eGFR NON AFRICAN AMERICAN 85 mL/min (90-120)
[2019-04-07 06:04] LABS: ALT (SGPT) 43 U/L (10-68)
[2019-04-07 09:17] VITALS: BP 102/70
--- NOTE | 2019-04-07 11:00 | NUR ---
UP OOB WITH PT AND OT ASSIST. WILL CONT. PLAN OF CARE.
[2019-04-07 12:22] VITALS: BP 148/71
--- NOTE | 2019-04-07 13:14 | MORECARE ---
CASE MANAGEMENT DISCHARGE SUMMARY PATIENT: HALLE OBANDO UNIT: [id number] ADM DATE: 03/29/19 AGE: 78 : 38 SEX: F ROOM/BED: D.5626 AUTHOR: RIKA,DOC PHYSICIAN: REFERRING PHYSICIAN: CE NINO MD DATE OF SERVICE: 04/07/19 Discharge Plan Patient Name: HALLE OBANDO Facility: [facility]:[place] : 1940 Planned Disposition: Longterm Facility Anticipated Discharge Date: 04/08/19 Discharge Date: Expected LOS: 10 Initial Reviewer: [id number] Initial Review Date: 03/31/2019 Generated: 04/07/19 2:14 pm Comments DCP- Discharge Planning Updated by [email or web address]: Evelia Villagomez on 04/05/19 1:[address] spoke with CM with [facility] and Melissa at [facility] about patient and inpatient rehab, we are pending auth once evals are documented DCP- Discharge Planning Updated by [id number]: Maty Granados on 03/31/19 6:[address] Patient Name: HALLE OBANDO Admission Status: ER Accout number: [id number] Admission Date: 03-29-2019 : 1940 Admission Diagnosis:CHRONIC CHOLECYSTITIS Attending: CE NINO Current LOS: 2 Anticipated DC Date: Planned Disposition: Home or Self Care Primary Insurance: [employer] MEDICARE ADV Discharge Planning Comments: CM met with patient at bedside after explaining CM role and obtaining verbal consent. Patient lives at home with her daughter Jodie and plans to return there upon discharge. Patient feels this would be a safe discharge. CM discussed availability / needs of home health and medical equipment. Patient denies any discharge needs at this time. Patient states she will have her daughter drive her home upon discharge. CM will continue to follow and assist as needed with discharge planning / needs. Ophthalmic Technician Apprentice: Maty Granados DCP- Discharge Planning Updated by [id number]: Evelia Villagomez on 03/28/19 11:[address] OMALLEY DISCUSSED AND WENT OVER WITH PATIENT, COPY GIVEN TO HER. DCPIA - Discharge Planning Initial Assessment Updated by [email or web address]: Maty Granados on 03/31/19 7:43 pm * Is the patient Alert and Oriented? Yes * How many steps to enter\exit or inside your home? * PCP LEAH * Pharmacy [facility] * Preadmission Environment Home with Family * ADLs Independent * Equipment None * List name and contact numbers for known caregivers / representatives who currently or will assist patient after discharge: LONDON OBANDO - DAUGHTER- [phone] * Verbal permission to speak to the caregivers and representatives has been obtained from the patient. Yes * Community resources currently utilized None * Additional services required to return to the preadmission environment? No * Can the patient safely return to the preadmission environment? Yes * Has this patient been hospitalized within the prior 30 days at any hospital? Yes External Providers External Provider: [facility] Next Contact Date: 04/07/2019 Service Request Date: Service Type: Resolution: Reviewer: Comments: Coverage Notice Reviewer: [id number] Chastity Villagomez Notice Issued Date-Time: 03/28/2019 12:57 Notice Type: Medicare Outpatient Observation Notice Notice Delivered To: Patient Relationship to Patient: Visitor Use Assistant Name: Delivery Method: HAND - Hand Delivered Alina Days: Prior Verbal Notification: Recipient Understood Notice: Yes Recipient Signature: Yes Med Rec Note Co-signed by Attending: Coverage Notice Comment: HAND DELIVERD, PATIENT HAD GRANDDAUGHTER SIGN IT. SHE HAD TROUBLE RAISING HER ARM Last DP export: 04/05/19 1:24 pm Patient Name: HALLE OBANDO Page [phone] at 1314 All edits/amendments must be made on the electronic document DICTATION DATE: 04/07/19 1314 GUIDE PLANT: KATIE 04/07/19 1314 RPT#: [id number] DC DATE: STATUS: ADM IN [facility] [address] [place] [address] END OF REPORT
--- NOTE | 2019-04-07 13:49 | MORECARE ---
CASE MANAGEMENT DISCHARGE SUMMARY PATIENT: HALLE OBANDO UNIT: [id number] ADM DATE: 03/29/19 AGE: 78 : 38 SEX: F ROOM/BED: D.[facility] AUTHOR: RIKA,DOC PHYSICIAN: REFERRING PHYSICIAN: CE NINO MD DATE OF SERVICE: 04/07/19 Discharge Plan Patient Name: HALLE OBANDO Facility: [facility]:[place] : 1940 Planned Disposition: Fdc Facility Anticipated Discharge Date: 04/08/19 Discharge Date: Expected LOS: 10 Initial Reviewer: [id number] Initial Review Date: 03/31/2019 Generated: 04/07/19 2:49 pm Comments DCP- Discharge Planning Updated by [email or web address]: Jesus Cardona on 04/07/19 12:[address] Patient Name: HALLE OBANDO Encounter No: [id number] : 1940 Primary Insurance: [employer] MEDICARE ADV Anticipated DC Date: 04-08-2019 Planned Disposition: Fdc Facility External [facility]ED DCP follow-up note: CM RECEIVED DENIAL FOR INPATIENT REHAB FAX FROM [facility]. CM SPOKE TO PT IN ROOM WHO PROVIDED PERMISSION TO SPEAK TO HER DAUGHTER LONDON REGARDING PLANNING, CARE AND NEEDS. PT WAS BEING CLEANED UP BY AIDE IN ROOM. CM SPOKE TO LONDON IN HALLWAY, NOTIFIED OF DENIAL AND DISCUSSED AVAILABILITY OF SKILLED REHAB OPTIONS. LONDON DOES NOT THINK PT WILL CONSENT. CM SPOKE TO PT IN ROOM, PROVIDED COPY OF INSURANCE DENIAL, PT SIGNED FOR IT, DATED AND TIMED. CM DISCUSSED REHAB OPTIONS, LOCATIONS AND PROVIDERS, GAVE PT A COPY OF JAIL FACILITY PROVIDERS. PT ASKED FOR REFERRAL TO [facility] FOR REHAB. CHOICE SIGNED. CM CALLED AND SPOKE TO VIRY OF [facility], , AND WAS NOTIFIED THAT [facility] IS IN NETWORK WITH PT'S INSURANCE. PT IN AGREEMENT WITH REFERRAL TO [facility] FOR REHAB. CM FAXED REFERRAL TO [facility] AT [phone]. CM WAITING ADMISSION DETERMINATION FROM [facility] WELL INSURANCE AUTHORIZATION FOR REHAB SERVICES. Jesus Brendan, CASE MANAGEMENT DCP- Discharge Planning Updated by [email or web address]: Evelia Villagomez on 04/05/19 1:[address] spoke with CM with [facility] and Melissa at [facility] about patient and inpatient rehab, we are pending auth once evals are documented DCP- Discharge Planning Updated by [id number]: Maty Granados on 03/31/19 6:[address] Patient Name: HALLE OBANDO Admission Status: ER Accout number: [id number] Admission Date: 03-29-2019 : 1940 Admission Diagnosis:CHRONIC CHOLECYSTITIS Attending: CE NINO Current LOS: 2 Anticipated DC Date: Planned Disposition: Home or Self Care Primary Insurance: [employer] MEDICARE ADV Discharge Planning Comments: CM met with patient at bedside after explaining CM role and obtaining verbal consent. Patient lives at home with her daughter Jodie and plans to return there upon discharge. Patient feels this would be a safe discharge. CM discussed availability / needs of home health and medical equipment. Patient denies any discharge needs at this time. Patient states she will have her daughter drive her home upon discharge. CM will continue to follow and assist as needed with discharge planning / needs. Cement Mixer Driver: Maty Granados DCP- Discharge Planning Updated by [id number]: Evelia Villagomez on 03/28/19 11:[address] OMALLEY DISCUSSED AND WENT OVER WITH PATIENT, COPY GIVEN TO HER. DCPIA - Discharge Planning Initial Assessment Updated by [id number]: Maty Granados on 03/31/19 7:43 pm * Is the patient Alert and Oriented? Yes * How many steps to enter\exit or inside your home? * PCP LEAH * [facility] * Preadmission Environment Home with Family * ADLs Independent * Equipment None * List name and contact numbers for known caregivers / representatives who currently or will assist patient after discharge: LONDON OBANDO - DAUGHTER- [phone] * Verbal permission to speak to the caregivers and representatives has been obtained from the patient. Yes * Community resources currently utilized None * Additional services required to return to the preadmission environment? No * Can the patient safely return to the preadmission environment? Yes * Has this patient been hospitalized within the prior 30 days at any hospital? Yes Coverage Notice Reviewer: [id number] - Evelia Villagomez Notice Issued Date-Time: 03/28/2019 12:57 Notice Type: Medicare Outpatient Observation Notice Notice Delivered To: Patient Relationship to Patient: Marketing Lead Name: Delivery Method: HAND - Hand Delivered Alina Days: Prior Verbal Notification: Recipient Understood Notice: Yes Recipient Signature: Yes Med Rec Note Co-signed by Attending: Coverage Notice Comment: HAND DELIVERD, PATIENT HAD GRANDDAUGHTER SIGN IT. SHE HAD TROUBLE RAISING HER ARM Reviewer: [id number] - Jesus Cardona Notice Issued Date-Time: 04/07/2019 12:45 Notice Type: Patient Choice Letter Notice Delivered To: Patient Relationship to Patient: Marketing Lead Name: Delivery Method: HAND - Hand Delivered Alina Days: Prior Verbal Notification: Recipient Understood Notice: Yes Recipient Signature: Yes Med Rec Note Co-signed by Attending: Coverage Notice Comment: JENNA KHOURY export: 04/07/19 12:14 pm Patient Name: HALLE OBANDO Page [phone] at 1349 All edits/amendments must be made on the electronic document DICTATION DATE: 04/07/19 1349 LEATHER LEVELER: KATIE 04/07/19 1349 RPT#: [id number] DC DATE: STATUS: ADM IN [facility] [address] [place] [address] END OF REPORT
--- NOTE | 2019-04-07 14:01 | NUR ---
OT NOTE: PT REMAINES VERY LETHARGIC. BED MOB WITH MAX ASSIST FOR SUPINE TO SIT; MIN/MOD ASSIST FOR STATIC SITTING ON EOB; SIT TO STAND WITH MOD ASSIST X 2 AND ABLE TO MAINTAIN STANDING FOR APPROX 1 MIN ( LESS ASSIST REQUIRED THAN YESTERDAY). EDUCATED FAMILY ON AROM EXS TO BE PERFORMED FREQUENTLY POSSIBLE, ALONG WITH ROLLING TO SIDE TO PREVENT PRESSURE AREAS. DISCUSSED WITH PT AND DTR THAT PT NEEDS TO BE FEEDING HERSELF. SHE IS ABLE TO PERFORM BUT REQUIRES CUES TO CONTINUE AND STAY AWAKE. PT CURRENTLY REEQUIRING MAX ASSIST WITH REMAINDER OF ADLS. MALLORIE VAUGHN, OTR/L
--- NOTE | 2019-04-07 16:19 | NUR ---
OT NOTE: PT REQUIRED MOD/MAX A FOR SUPINE TO SIT. PT COMPLETED SITTING AT EOB WITHOUT SUPPORT FOR 30 SECONDS. PT COMPLETED SIT TO STAND WITH MOD/MAX A. PT COMPLETED HYGIENE WITH MAX A. PT COMPLETED FACE WASH WITH SET UP. PT WAS RELUCTANT TO PUT FORTH EFFORT AT BEGINNING OF SESSION. HOWEVER, DAUGHTER ACTIVELY ENCOURAGED PT TO PARTICIPATE. THANK YOU, OMAIRA RIDLEY
--- NOTE | 2019-04-07 19:09 | NUR ---
RESUMING PATIENT CARE. PATIENT IS RESTING COMFORTABLY IN BED. PATIENT APPEARS TO BE SLEEPING. RESPIRATIONS ARE EVEN AND UNLABORED. NO S/S OF DISTRESS. NO C/O PAIN. CALL LIGHT WITHIN REACH. WILL CPOC.
[2019-04-07 20:00] VITALS: BP 114/86
--- NOTE | 2019-04-07 22:32 | NUR ---
PATIENT COMFORTABLY IN BED. RESPIRATIONS ARE EVEN AND UNLABORED. NO S/S OF DISTRESS. NO C/O PAIN. CALL LIGHT WITHIN REACH. WILL CPOC.
[2019-04-08] VITALS: BP 130/100
[2019-04-08 04:00] VITALS: BP 122/77
[2019-04-08 07:34] LABS: ALBUMIN 1.5 g/dL (3.4-5.0); ALKALINE PHOSPHATASE 99 U/L (46-116); ALT (SGPT) 33 U/L (10-68); BILIRUBIN - TOTAL 0.74 mg/dL (0.2-1.3); CALC OSMOLALITY 275 mosm/kg (275-300); CALCIUM 8.3 mg/dL (8.5-10.1); CARBON DIOXIDE 28.8 mmol/L (21.0-32.0); CHLORIDE - SERUM 106 mmol/L (98-107); CREATININE - SERUM 0.7 mg/dL (0.6-1.3); GLUCOSE 78 mg/dL (74-106); POTASSIUM - SERUM 3.7 mmol/L (3.5-5.1); PROTEIN - SERUM 5.1 g/dL (6.4-8.2); SODIUM 140 mmol/L (136-145); UREA NITROGEN 7 mg/dL (7-18); eGFR NON AFRICAN AMERICAN 85 mL/min (90-120)
[2019-04-08 07:43] LABS: BASOPHILS 0.2 % (0-2); EOSINOPHILS 2.6 % (0-7); HEMATOCRIT 28.2 % (36.0-48.0); HEMOGLOBIN 9.3 g/dL (12-16); IMMATURE GRANULOCYTES 0.5 % (0-5); LYMPHOCYTES 11.2 % (15-50); MCH 25.6 pg (26.0-34.0); MCV 77.7 fL (80.0-100.0); MEAN PLATELET VOLUME 10.2 fL (7.4-10.4); NEUTROPHILS 70.5 % (40-80); PLATELET COUNT 195 10x3/uL (130-400); RBC 3.63 10x6/uL (4.00-5.40); RDW 17.4 % (11.5-14.5)
[2019-04-08 07:46] LABS: WBC 8.9 10x3/uL (4.8-10.8)
--- NOTE | 2019-04-08 09:04 | MORECARE ---
CASE MANAGEMENT DISCHARGE SUMMARY PATIENT: HALLE OBANDO UNIT: [id number] ADM DATE: 03/29/19 AGE: 78 : 38 SEX: F ROOM/BED: D.[facility] AUTHOR: RIKA,DOC PHYSICIAN: REFERRING PHYSICIAN: CE NINO MD DATE OF SERVICE: 04/08/19 Discharge Plan Patient Name: HALLE OBANDO Facility: [facility]:[place] : 1940 Planned Disposition: Halfway Facility Anticipated Discharge Date: 04/08/19 Discharge Date: Expected LOS: 10 Initial Reviewer: [id number] Initial Review Date: 03/31/2019 Generated: 04/08/19 10:03 am Comments DCP- Discharge Planning Updated by [email or web address]: Jesus Cardona on 04/08/19 7:[address] Patient Name: HALLE OBANDO Encounter No: [id number] : 1940 Primary Insurance: [employer] MEDICARE ADV Anticipated DC Date: 04-08-2019 Planned Disposition: Halfway Facility External Planned Provider: [facility], MEDICARE REHAB BED DCP follow-up note: CM FAXED REFERRAL UPDATE TO [facility] AT [phone]. CM WAITING ADMISSION DETERMINATION FROM [facility] WELL INSURANCE AUTHORIZATION FOR REHAB SERVICES. NISHA Gu DCP- Discharge Planning Updated by [id number]: Jesus Cardona on 04/07/19 12:[address] Patient Name: HALLE OBANDO Encounter No: [id number] : 1940 Primary Insurance: [employer] MEDICARE ADV Anticipated DC Date: 04-08-2019 Planned Disposition: Halfway Facility External Planned Provider: :[facility], MEDICARE REHAB BED DCP follow-up note: CM RECEIVED DENIAL FOR INPATIENT REHAB FAX FROM [facility]. CM SPOKE TO PT IN ROOM WHO PROVIDED PERMISSION TO SPEAK TO HER DAUGHTER LONDON REGARDING PLANNING, CARE AND NEEDS. PT WAS BEING CLEANED UP BY AIDE IN ROOM. CM SPOKE TO LONDON IN HALLWAY, NOTIFIED OF DENIAL AND DISCUSSED AVAILABILITY OF SKILLED REHAB OPTIONS. LONDON DOES NOT THINK PT WILL CONSENT. CM SPOKE TO PT IN ROOM, PROVIDED COPY OF INSURANCE DENIAL, PT SIGNED FOR IT, DATED AND TIMED. CM DISCUSSED REHAB OPTIONS, LOCATIONS AND PROVIDERS, GAVE PT A COPY OF [facility] FACILITY PROVIDERS. PT ASKED FOR REFERRAL TO [facility] FOR REHAB. CHOICE SIGNED. CM CALLED AND SPOKE TO [facility], , AND WAS NOTIFIED THAT [facility] IS IN NETWORK WITH PT'S INSURANCE. PT IN AGREEMENT WITH REFERRAL TO [facility] FOR REHAB. CM FAXED REFERRAL TO [facility] AT [phone]. CM WAITING ADMISSION DETERMINATION FROM [facility] WELL INSURANCE AUTHORIZATION FOR REHAB SERVICES. Jesus Cardona, CASE MANAGEMENT DCP- Discharge Planning Updated by [id number]: Evelia Villagomez on 04/05/19 1:[address] spoke with CM with [facility] and Melissa at [facility] about patient and inpatient rehab, we are pending auth once evals are documented DCP- Discharge Planning Updated by [id number]: Maty Granados on 03/31/19 6:[address] Patient Name: HALLE OBANDO Admission Status: ER Accout number: [id number] Admission Date: 03-29-2019 : 1940 Admission Diagnosis:CHRONIC CHOLECYSTITIS Attending: CE NINO Current LOS: 2 Anticipated DC Date: Planned Disposition: Home or Self Care Primary Insurance: [employer] MEDICARE ADV Discharge Planning Comments: CM met with patient at bedside after explaining CM role and obtaining verbal consent. Patient lives at home with her daughter Jodie and plans to return there upon discharge. Patient feels this would be a safe discharge. CM discussed availability / needs of home health and medical equipment. Patient denies any discharge needs at this time. Patient states she will have her daughter drive her home upon discharge. CM will continue to follow and assist as needed with discharge planning / needs. Reliner: Maty Granados DCP- Discharge Planning Updated by [id number]: Evelia Villagomez on 03/28/19 11:[address] OMALLEY DISCUSSED AND WENT OVER WITH PATIENT, COPY GIVEN TO HER. DCPIA - Discharge Planning Initial Assessment Updated by [id number]: Maty Granados on 03/31/19 7:43 pm * Is the patient Alert and Oriented? Yes * How many steps to enter\exit or inside your home? * PCP LEAH * Pharmacy [facility] * Preadmission Environment Home with Family * ADLs Independent * Equipment None * List name and contact numbers for known caregivers / representatives who currently or will assist patient after discharge: LONDON OBANDO - DAUGHTER- [phone] * Verbal permission to speak to the caregivers and representatives has been obtained from the patient. Yes * Community resources currently utilized None * Additional services required to return to the preadmission environment? No * Can the patient safely return to the preadmission environment? Yes * Has this patient been hospitalized within the prior 30 days at any hospital? Yes Coverage Notice Reviewer: [id number] Chastity Villagomez Notice Issued Date-Time: 03/28/2019 12:57 Notice Type: Medicare Outpatient Observation Notice Notice Delivered To: Patient Relationship to Patient: Binding Dyer Name: Delivery Method: HAND - Hand Delivered Alina Days: Prior Verbal Notification: Recipient Understood Notice: Yes Recipient Signature: Yes Med Rec Note Co-signed by Attending: Coverage Notice Comment: HAND DELIVERD, PATIENT HAD GRANDDAUGHTER SIGN IT. SHE HAD TROUBLE RAISING HER ARM Reviewer: [id number] Chastity Cardona Notice Issued Date-Time: 04/07/2019 12:45 Notice Type: Patient Choice Letter Notice Delivered To: Patient Relationship to Patient: Binding Dyer Name: Delivery Method: HAND - Hand Delivered Alina Days: Prior Verbal Notification: Recipient Understood Notice: Yes Recipient Signature: Yes Med Rec Note Co-signed by Attending: Coverage Notice Comment: JENNA Vanegas DP export: 04/07/19 12:49 pm Patient Name: HALLE OBANDO Page 69445 at 0904 All edits/amendments must be made on the electronic document DICTATION DATE: 04/08/19902 MENHADEN VESSEL PILOT: DM 04/08/19902 RPT#: [id number] DC DATE: STATUS: ADM IN [facility] [address] [place] [address] END OF REPORT
[2019-04-08 09:27] VITALS: BP 95/77
[2019-04-08 13:45] VITALS: BP 124/77
--- NOTE | 2019-04-08 14:00 | NUR ---
Nutrition Follow-up: Diet: Renal ADA PO intake: 25% (04/07-04/08) Last BM: 04/07 Wt: 150# Labs reviewed Meds reviewed Rec liberalize diet to cardiac carb consistent. Offer nutrition supplements. [place] food preferences within diet restrictions. RD following.
[2019-04-08 20:00] VITALS: BP 124/91
--- NOTE | 2019-04-08 20:00 | NUR ---
INITIAL ROUNDS AND ASSESSMENT COMPLETED. PT RESTING IN BED. DOBUTREX DRIP AT 5MCG/KG/MIN INFUSING AT 10.ML/HR TO WESLY MIDLINE. JOSEPH PATENT TO BEDSIDE DRAIN. UCAF/CAF PER TELEMETRY. O2 @ 2L/NC WITH NO RESP DISTRESS NOTED. STAGE II X 2 TO BUTTOCKS. CPOC.
--- NOTE | 2019-04-08 23:00 | NUR ---
BEDTIME MEDS HAVE BEEN GIVEN. PT WAS ALSO GIVEN TYLENOL AFTER DAUGHTER REPORTED PT HAVING PAIN, YET PT SAYING SHE DID NOT. DAUGHTER THEN SAYING SHE HAD PAIN IN HER PRIVATE AREA. PT SAYING SHE DID NOT, BUT THAT HER STOMACH DID HAVE SOME CRAMPING. DAUGHTER STATES PT HAD A BM TODAY AND HER STOMACH IS FINE. PROVIDED PT WITH CARBONATED DRINK TO HELP WITH POSSIBLE GAS CRAMPS. CPOC.
[2019-04-09] VITALS: BP 153/86
[2019-04-09 04:00] VITALS: BP 136/100
[2019-04-09 05:08] LABS: BASOPHILS 0.7 % (0-2); EOSINOPHILS 3.4 % (0-7); HEMATOCRIT 31.3 % (36.0-48.0); HEMOGLOBIN 10.2 g/dL (12-16); IMMATURE GRANULOCYTES 0.8 % (0-5); LYMPHOCYTES 15.1 % (15-50); MCH 25.7 pg (26.0-34.0); MCHC 32.6 g/dL (31.0-37.0); MCV 78.8 fL (80.0-100.0); MEAN PLATELET VOLUME 9.9 fL (7.4-10.4); MONOCYTES 16.6 % (2-11); NEUTROPHILS 63.4 % (40-80); PLATELET COUNT 202 10x3/uL (130-400); RBC 3.97 10x6/uL (4.00-5.40); RDW 17.7 % (11.5-14.5); WBC 7.3 10x3/uL (4.8-10.8)
[2019-04-09 05:38] LABS: ALBUMIN 1.6 g/dL (3.4-5.0); ALKALINE PHOSPHATASE 107 U/L (46-116); ALT (SGPT) 34 U/L (10-68); BILIRUBIN - TOTAL 0.85 mg/dL (0.2-1.3); CALC OSMOLALITY 276 mosm/kg (275-300); CALCIUM 8.4 mg/dL (8.5-10.1); CARBON DIOXIDE 29.1 mmol/L (21.0-32.0); CHLORIDE - SERUM 104 mmol/L (98-107); CREATININE - SERUM 0.7 mg/dL (0.6-1.3); GLUCOSE 98 mg/dL (74-106); POTASSIUM - SERUM 3.3 mmol/L (3.5-5.1); PROTEIN - SERUM 5.7 g/dL (6.4-8.2); SODIUM 140 mmol/L (136-145); UREA NITROGEN 8 mg/dL (7-18); eGFR NON AFRICAN AMERICAN 85 mL/min (90-120)
--- NOTE | 2019-04-09 07:15 | NUR ---
RECEIVED PT IN BED EYES CLOSED RESP UNLABORED SKIN W/D COLOR WNL NAD NOTED WILL CONTINUE TO MONITOR
[2019-04-09 08:50] VITALS: BP 119/86
--- NOTE | 2019-04-09 11:59 | NUR ---
FSBSW 150 NO COVERAGE NEEDED
[2019-04-09 12:30] VITALS: BP 115/83
[2019-04-09 16:36] VITALS: BP 116/53
[2019-04-09 20:00] VITALS: BP 123/89
--- NOTE | 2019-04-09 20:09 | NUR ---
INITIAL ROUNDS AND ASSESSMENT COMPLETED. PT RESTING IN BED. ALERT/ORIENTED. NO DISTRESS. CAF 90'S PER TELEMETRY. WESLY MIDLINE WITH DOBUTREX AT 5MCG/KG/MIN=10.1ML/HR. JOSEPH PATENT TO BEDSIDE DRAIN BAG. O2 @ 3L/NC WITH NONLABORED RESPIRATIONS. SCDS IN USE. CALL LIGHT IN REACH.
--- NOTE | 2019-04-09 23:30 | NUR ---
BEDTIME MEDS GIVEN. FAMILY X 2 IN ROOM. PT DENIES PAIN OR DISCOMFORT. JOSEPH PATENT. PT REFUSED HER NYSTATIN. HER TONGUE LOOKS OKAY. CPOC. CALL LIGHT IN REACH.
[2019-04-10] VITALS: BP 108/81
[2019-04-10 04:00] VITALS: BP 125/74
[2019-04-10 05:20] LABS: HEMATOCRIT 29.5 % (36.0-48.0); HEMOGLOBIN 9.7 g/dL (12-16); MCH 25.3 pg (26.0-34.0); MCHC 32.9 g/dL (31.0-37.0); PLATELET COUNT 194 10x3/uL (130-400); RBC 3.83 10x6/uL (4.00-5.40); RDW 17.3 % (11.5-14.5); WBC 6.4 10x3/uL (4.8-10.8)
[2019-04-10 05:34] LABS: EOSINOPHILS 2 % (0-7); LYMPHOCYTES 20 % (15-50); MONOCYTES 18 % (2-11); NEUTROPHILS 60 % (40-80); PLATELET ESTIMATE NORMAL
[2019-04-10 05:47] LABS: ALBUMIN 1.6 g/dL (3.4-5.0); ALKALINE PHOSPHATASE 99 U/L (46-116); ALT (SGPT) 29 U/L (10-68); BILIRUBIN - TOTAL 0.66 mg/dL (0.2-1.3); CALC OSMOLALITY 276 mosm/kg (275-300); CALCIUM 8.1 mg/dL (8.5-10.1); CARBON DIOXIDE 31.3 mmol/L (21.0-32.0); CHLORIDE - SERUM 105 mmol/L (98-107); CREATININE - SERUM 0.7 mg/dL (0.6-1.3); GLUCOSE 97 mg/dL (74-106); PROTEIN - SERUM 5.3 g/dL (6.4-8.2); SODIUM 140 mmol/L (136-145); UREA NITROGEN 6 mg/dL (7-18); eGFR NON AFRICAN AMERICAN 85 mL/min (90-120)
--- NOTE | 2019-04-10 07:15 | NUR ---
RECEIVED PT IN BED EYES CLOSED RESP UNLABORED SKIN W/D COLOR WNL NAD NOTED
[2019-04-10 08:55] VITALS: BP 120/89
[2019-04-10 13:01] VITALS: BP 123/82
[2019-04-10 17:59] VITALS: BP 122/97
[2019-04-10 20:00] VITALS: BP 119/75
--- NOTE | 2019-04-10 20:05 | NUR ---
INITIAL ROUNDS AND ASSESSMENT COMPLETED. PT RESTING IN BED WITH NO DISTRESS. O2 @ 2L/NC. JOSEPH PATENT TO BEDSIDE DRAIN BAG. WESLY MIDLINE WITH DOBUTREX DRIP AT 5MCG/KG/MIN = 10.1ML/HR TELEMETRY: CALL LIGHT IN REACH FAMILY MEMBER X 1 AT BEDSIDE.
[2019-04-11] VITALS: BP 110/89; BP 118/76; BP 129/79
[2019-04-11 04:00] VITALS: BP 119/82
[2019-04-11 05:40] LABS: BASOPHILS 0.5 % (0-2); HEMATOCRIT 29.6 % (36.0-48.0); HEMOGLOBIN 9.6 g/dL (12-16); IMMATURE GRANULOCYTES 0.7 % (0-5); LYMPHOCYTES 19.2 % (15-50); MCH 25.3 pg (26.0-34.0); MCHC 32.4 g/dL (31.0-37.0); MCV 77.9 fL (80.0-100.0); MEAN PLATELET VOLUME 9.8 fL (7.4-10.4); MONOCYTES 19.6 % (2-11); PLATELET COUNT 221 10x3/uL (130-400); RDW 17.3 % (11.5-14.5); WBC 5.6 10x3/uL (4.8-10.8)
[2019-04-11 05:46] LABS: ALBUMIN 1.7 g/dL (3.4-5.0); ALKALINE PHOSPHATASE 95 U/L (46-116); ALT (SGPT) 27 U/L (10-68); BILIRUBIN - TOTAL 0.68 mg/dL (0.2-1.3); CALC OSMOLALITY 279 mosm/kg (275-300); CHLORIDE - SERUM 104 mmol/L (98-107); CREATININE - SERUM 0.7 mg/dL (0.6-1.3); GLUCOSE 103 mg/dL (74-106); PROTEIN - SERUM 5.5 g/dL (6.4-8.2); SODIUM 142 mmol/L (136-145); UREA NITROGEN 5 mg/dL (7-18); eGFR NON AFRICAN AMERICAN 85 mL/min (90-120)
[2019-04-11 05:50] LABS: POTASSIUM - SERUM 2.8 mmol/L (3.5-5.1)
--- NOTE | 2019-04-11 07:30 | NUR ---
RESTING IN BED WITH EYES CLOSED. FAMILY AT BEDSIDE. CONTROLLED AFIB 79 ON TELEMETRY. JOSEPH DRAINING BY GRAVITY FREE FROM KINKS. CONTINUE PLAN OF CARE AND SAFETY PRECAUTIONS.
[2019-04-11 08:25] VITALS: BP 110/74
--- NOTE | 2019-04-11 11:38 | MORECARE ---
CASE MANAGEMENT DISCHARGE SUMMARY PATIENT: HALLE OBANDO UNIT: [id number] ADM DATE: 03/29/19 AGE: 78 : 38 SEX: F ROOM/BED: D.[facility]6 AUTHOR: RIKA,DOC PHYSICIAN: REFERRING PHYSICIAN: CE NINO MD DATE OF SERVICE: 04/11/19 Discharge Plan Patient Name: HALLE OBANDO Facility: [facility]:[place] : 1940 Planned Disposition: Jail Facility Anticipated Discharge Date: 04/08/19 Discharge Date: Expected LOS: 10 Initial Reviewer: [id number] Initial Review Date: 03/31/2019 Generated: 04/11/19 12:38 pm Comments DCP- Discharge Planning Updated by [id number]: Jesus Cardona on 04/11/19 10:[address] Patient Name: HALLE OBANDO Encounter No: [id number] : 1940 Primary Insurance: [employer] ADV Anticipated DC Date: 04-08-2019 Planned Disposition: Jail Facility External Planned Provider:[facility], MEDICARE REHAB BED DCP follow-up note: CM FAXED REFERRAL UPDATE TO [facility] AT [phone]. CM WAITING ADMISSION DETERMINATION FROM [facility] WELL INSURANCE AUTHORIZATION FOR REHAB SERVICES. NISHA Gu DCP- Discharge Planning Updated by [id number]: Jesus Cardona on 04/08/19 7:[address] Patient Name: HALLE OBANDO Encounter No: [id number] : 1940 Primary Insurance: [employer] MEDICARE ADV Anticipated DC Date: 04-08-2019 Planned Disposition: Jail Facility External Planned Provider: [facility], MEDICARE REHAB BED DCP follow-up note: CM FAXED REFERRAL UPDATE TO [facility] AT [phone]. CM WAITING ADMISSION DETERMINATION FROM [facility] WELL INSURANCE AUTHORIZATION FOR REHAB SERVICES. NISAH Gu DCP- Discharge Planning Updated by [email or web address]: Jesus Cardona on 04/07/19 12:[address] Patient Name: HALLE OBANDO Encounter No: [id number] : 1940 Primary Insurance: [employer] MEDICARE ADV Anticipated DC Date: 04-08-2019 Planned Disposition: Jail Facility External Planned Provider: :[facility], MEDICARE REHAB BED DCP follow-up note: CM RECEIVED DENIAL FOR INPATIENT REHAB FAX FROM [facility]. CM SPOKE TO PT IN ROOM WHO PROVIDED PERMISSION TO SPEAK TO HER DAUGHTER LONDON REGARDING PLANNING, CARE AND NEEDS. PT WAS BEING CLEANED UP BY AIDE IN ROOM. CM SPOKE TO LONDON IN HALLWAY, NOTIFIED OF DENIAL AND DISCUSSED AVAILABILITY OF SKILLED REHAB OPTIONS. LONDON DOES NOT THINK PT WILL CONSENT. CM SPOKE TO PT IN ROOM, PROVIDED COPY OF INSURANCE DENIAL, PT SIGNED FOR IT, DATED AND TIMED. CM DISCUSSED REHAB OPTIONS, LOCATIONS AND PROVIDERS, GAVE PT A COPY OF ALF FACILITY PROVIDERS. PT ASKED FOR REFERRAL TO [facility] FOR REHAB. CHOICE SIGNED. CM CALLED AND SPOKE TO VIRY OF [facility], , AND WAS NOTIFIED THAT [facility] IS IN NETWORK WITH PT'S INSURANCE. PT IN AGREEMENT WITH REFERRAL TO [facility] FOR REHAB. CM FAXED REFERRAL TO [facility] AT [phone]. CM WAITING ADMISSION DETERMINATION FROM [facility] WELL INSURANCE AUTHORIZATION FOR REHAB SERVICES. Jesus Cardona, CASE MANAGEMENT DCP- Discharge Planning Updated by [email or web address]: Evelia Villagomez on 04/05/19 1:[address] [facility] about patient and inpatient rehab, we are pending auth once evals are documented DCP- Discharge Planning Updated by [id number]: Maty Granados on 03/31/19 6:[address] Patient Name: HALLE OBANDO Admission Status: ER Accout number: [id number] Admission Date: 03-29-2019 : 1940 Admission Diagnosis:CHRONIC CHOLECYSTITIS Attending: CE NINO Current LOS: 2 Anticipated DC Date: Planned Disposition: Home or Self Care Primary Insurance: [employer] MEDICARE ADV Discharge Planning Comments: CM met with patient at bedside after explaining CM role and obtaining verbal consent. Patient lives at home with her daughter oJdie and plans to return there upon discharge. Patient feels this would be a safe discharge. CM discussed availability / needs of home health and medical equipment. Patient denies any discharge needs at this time. Patient states she will have her daughter drive her home upon discharge. CM will continue to follow and assist as needed with discharge planning / needs. Cupola Repairer: Maty Granados DCP- Discharge Planning Updated by [id number]: Evelia Villagomez on 03/28/19 11:[address] [facility] DISCUSSED AND WENT OVER WITH PATIENT, COPY GIVEN TO HER. DCPIA - Discharge Planning Initial Assessment Updated by [email or web address]: Maty Granados on 03/31/19 7:43 pm * Is the patient Alert and Oriented? Yes * How many steps to enter\exit or inside your home? * PCP LEAH * Pharmacy [facility] * Preadmission Environment Home with Family * ADLs Independent * Equipment None * List name and contact numbers for known caregivers / representatives who currently or will assist patient after discharge: LONDON OBANDO - NICCI- [phone] * Verbal permission to speak to the caregivers and representatives has been obtained from the patient. Yes * Community resources currently utilized None * Additional services required to return to the preadmission environment? No * Can the patient safely return to the preadmission environment? Yes * Has this patient been hospitalized within the prior 30 days at any hospital? Yes Coverage Notice Reviewer: [id number] - Evelia Villagomez Notice Issued Date-Time: 03/28/2019 12:57 Notice Type: Medicare Outpatient Observation Notice Notice Delivered To: Patient Relationship to Patient: Tower Supervisor Name: Delivery Method: HAND - Hand Delivered Alina Days: Prior Verbal Notification: Recipient Understood Notice: Yes Recipient Signature: Yes Med Rec Note Co-signed by Attending: Coverage Notice Comment: HAND DELIVERD, PATIENT HAD GRANDDAUGHTER SIGN IT. SHE HAD TROUBLE RAISING HER ARM Reviewer: [id number] - Jesus Cardona Notice Issued Date-Time: 04/07/2019 12:45 Notice Type: Patient Choice Letter Notice Delivered To: Patient Relationship to Patient: Tower Supervisor Name: Delivery Method: HAND - Hand Delivered Alina Days: Prior Verbal Notification: Recipient Understood Notice: Yes Recipient Signature: Yes Med Rec Note Co-signed by Attending: Coverage Notice Comment: JENNA Vanegas DP export: 04/08/19 8:04 am Patient Name: HALLE OBANDO Page [id number] at 1138 All edits/amendments must be made on the electronic document DICTATION DATE: 04/11/191137 RUBBER COMPOUNDER SUPERVISOR: KATIE 04/11/191137 RPT#: [id number] DC DATE: STATUS: ADM IN [facility] [address] [place] [address] END OF REPORT
[2019-04-11 11:43] VITALS: BP 122/98
--- NOTE | 2019-04-11 13:57 | NUR ---
OT NOTE: PT COMPLETED BED MOB WITH MIN A FOR SUPINE TO SIT. PT COMPLETED SIT TO STAND WITH CGA/MIN A. PT COMPLETED SIDE STEPPING WITH CGA. PT IS MUCH IMPROVED FROM PREVIOUS SESSION. THANK YOU, OMAIRA RIDLEY
--- NOTE | 2019-04-11 13:59 | NUR ---
OT NOTE: PT COMPLETED BED MOB WITH MIN A. PT COMPLETED ADL MOB WITH CGA. PT COMPLETED GROOMING TASKS AT EOB WITH SET UP. PT COMPLETED BUE AROM AXS AT EOB. PT IS DOING VERY WELL TODAY. THANK YOU, OMAIRA RIDLEY
--- NOTE | 2019-04-11 14:05 | NUR ---
Nutrition Follow-up: Diet: Renal ADA PO intake: 42% avg meal intake on 04/10 Last BM: 04/10 Wt: 139# Labs reviewed Meds reviewed Rec liberalize diet to cardiac carb consistent. Noted wt change (10# difference from yesterday); rec reweigh. Offer nutrition supplements. [place] food preferences within diet restrictions. RD following.
--- NOTE | 2019-04-11 16:39 | NUR ---
INITIATE ELECTROLYTE PROTOCOL FOR LOW POTASSIUM. FAMILY AT BEDSIDE. BEDBATH AND LINEN CHANGE COMPLETE. DECREASE DOBUTAMINE DRIP PER ORDER. CONTINUE PLAN OF CARE AND SAFETY PRECAUTIONS CONTROLLED AFIB ON TELEMETRY.
[2019-04-11 16:45] VITALS: BP 119/67
--- NOTE | 2019-04-11 20:37 | NUR ---
RECIEVED UP IN BED WITH EYES OPEN AND TV ON. FAMILY AT BEDSIDE. ALERT AND ORIENTED X4. UP WITH ASSIST. MIDLINE TO LEFT UPPER ARM WITH DOBUTAMINE INFUSING AT 5CC/HR. NO REDNESS OR SWELLING TO SITE. TELEMETRY IN PLACE. DENIES ANY NEEDS AT THIS TIME.
[2019-04-12 04:00] VITALS: BP 113/88
[2019-04-12 06:37] LABS: BASOPHILS 1.3 % (0-2); EOSINOPHILS 4.4 % (0-7); HEMATOCRIT 32.1 % (36.0-48.0); HEMOGLOBIN 10.4 g/dL (12-16); IMMATURE GRANULOCYTES 0.8 % (0-5); LYMPHOCYTES 22.1 % (15-50); MCH 25.5 pg (26.0-34.0); MCHC 32.4 g/dL (31.0-37.0); MCV 78.7 fL (80.0-100.0); MEAN PLATELET VOLUME 10.1 fL (7.4-10.4); MONOCYTES 18.5 % (2-11); NEUTROPHILS 52.9 % (40-80); PLATELET COUNT 257 10x3/uL (130-400); RBC 4.08 10x6/uL (4.00-5.40); RDW 17.4 % (11.5-14.5); WBC 6.4 10x3/uL (4.8-10.8)
[2019-04-12 06:54] LABS: ALBUMIN 1.9 g/dL (3.4-5.0); ANION GAP 5.8 mmol/L (8-16); BILIRUBIN - TOTAL 0.66 mg/dL (0.2-1.3); CALCIUM 8.7 mg/dL (8.5-10.1); CARBON DIOXIDE 32.4 mmol/L (21.0-32.0); CREATININE - SERUM 0.8 mg/dL (0.6-1.3); POTASSIUM - SERUM 4.2 mmol/L (3.5-5.1)
[2019-04-12 07:57] VITALS: BP 109/86
--- NOTE | 2019-04-12 08:00 | NUR ---
ALERT AND ORIENTED X4. SITTING UP IN BED. DAUGHTER AT BEDSIDE. LINENS SOILED. LINEN CHANGE AND BEDBATH COMPLETE. INITIATE JOSEPH CARE. CONTROLLED AFIB 67 ON TELEMETRY. DENIES ANY OTHER NEEDS AT THIS TIME. CONTINUE PLAN OF CARE AND SAFETY PRECAUTIONS.
--- NOTE | 2019-04-12 08:58 | MORECARE ---
CASE MANAGEMENT DISCHARGE SUMMARY PATIENT: HALLE OBANDO UNIT: [id number] ADM DATE: 03/29/19 AGE: 78 : 38 SEX: F ROOM/BED: D.3846 AUTHOR: RIKADOC PHYSICIAN: REFERRING PHYSICIAN: CE NINO MD DATE OF SERVICE: 04/12/19 Discharge Plan Patient Name: HALLE OBANDO Facility: [facility]:[place] : 1940 Planned Disposition: Assisted Facility Anticipated Discharge Date: 04/08/19 Discharge Date: Expected LOS: 10 Initial Reviewer: [id number] Initial Review Date: 03/31/2019 Generated: 04/12/19 9:58 am Comments DCP- Discharge Planning Updated by [id number]: Jesus Cardona on 04/12/19 7:[address] Patient Name: HALLE OBANDO Encounter No: [id number] : 1940 Primary Insurance: [employer] MEDICARE ADV Anticipated DC Date: 04-08-2019 Planned Disposition: Assisted Facility External Planned Provider:[facility], MEDICARE REHAB BED DCP follow-up note: CM CALLED AND SPOKE TO DIE[facility] AT [facility], , THEY HAVE RECEIVED REFERRAL AND UPDATES. THEY WILL NEED DAILY UPDATES TO SUBMIT TO INSURANCE AT APPROPRIATE TIME WHEN PT IS CLOSE TO BEING STABLE FOR DISCHARGE TO REHAB. FAXED REFERRAL UPDATE TO [facility] AT [phone]. CM WAITING ADMISSION DETERMINATION FROM [facility] WELL INSURANCE AUTHORIZATION FOR REHAB SERVICES. NISHA Gu DCP- Discharge Planning Updated by [id number]: Jesus Cardona on 04/11/19 10:[address] Patient Name: HALLE OBANDO Encounter No: [id number] : 1940 Primary Insurance: [employer] MEDIC[employer] ADV Anticipated DC Date: 04-08-2019 Planned Disposition: Assisted Facility External Planned Provider:[facility], MEDICARE REHAB BED DCP follow-up note: CM FAXED REFERRAL UPDATE TO [facility] AT [phone]. CM WAITING ADMISSION DETERMINATION FROM [facility] WELL INSURANCE AUTHORIZATION FOR REHAB SERVICES. Jesus Cardona CASE MANAGEMENT DCP- Discharge Planning Updated by [email or web address]: Jesus Cardona on 04/08/19 7:[address] Patient Name: HALLE OBANDO Encounter No: [id number] : 1940 Primary Insurance: [employer] MEDICARE ADV Anticipated DC Date: 04-08-2019 Planned Disposition: Assisted Facility External Planned [facility] DCP follow-up note: CM FAXED REFERRAL UPDATE TO [facility] AT [phone]. CM WAITING ADMISSION DETERMINATION FROM [facility] WELL INSURANCE AUTHORIZATION FOR REHAB SERVICES. Jesus Cardona CASE MANAGEMENT DCP- Discharge Planning Updated by [id number]: Jesus Cardona on 04/07/19 12:[address] Patient Name: HALLE OBANDO Encounter No: [id number] : 1940 Primary Insurance: [employer] MEDICARE ADV Anticipated DC Date: 04-08-2019 Planned Disposition: Assisted Facility External Planned Provider: [facility] DCP follow-up note: MOY RECEIVED DENIAL FOR INPATIENT REHAB FAX FROM [facility]. CM SPOKE TO PT IN ROOM WHO PROVIDED PERMISSION TO SPEAK TO HER DAUGHTER LONDON REGARDING PLANNING, CARE AND NEEDS. PT WAS BEING CLEANED UP BY AIDE IN ROOM. CM SPOKE TO LONDON IN [place]AY, NOTIFIED OF DENIAL AND DISCUSSED AVAILABILITY OF SKILLED REHAB OPTIONS. LONDON DOES NOT THINK PT WILL CONSENT. CM SPOKE TO PT IN ROOM, PROVIDED COPY OF INSURANCE DENIAL, PT SIGNED FOR IT, DATED AND TIMED. CM DISCUSSED REHAB OPTIONS, LOCATIONS AND PROVIDERS, GAVE PT A COPY OF [facility] FACILITY PROVIDERS. PT ASKED FOR REFERRAL TO [facility] FOR REHAB. CHOICE SIGNED. CM CALLED AND SPOKE TO VIRY OF [facility], , AND WAS NOTIFIED THAT [facility] IS IN NETWORK WITH PT'S INSURANCE. PT IN AGREEMENT WITH REFERRAL TO [facility] FOR REHAB. CM FAXED REFERRAL TO [facility] AT [phone]. CM WAITING ADMISSION DETERMINATION FROM [facility] WELL INSURANCE AUTHORIZATION FOR REHAB SERVICES. Jesus Cardona CASE MANAGEMENT DCP- Discharge Planning Updated by [email or web address]: Evelia Villagomez on 04/05/19 1:[address] spoke with CM with [facility] and Melissa at [facility] about patient and inpatient rehab, we are pending auth once evals are documented DCP- Discharge Planning Updated by [id number]: Maty Granados on 03/31/19 6:[address] Patient Name: HALLE OBANDO Admission Status: ER Accout number: [id number] Admission Date: 03-29-2019 : 1940 Admission Diagnosis:CHRONIC CHOLECYSTITIS Attending: CE NINO Current LOS: 2 Anticipated DC Date: Planned Disposition: Home or Self Care Primary Insurance: [employer] MEDICARE ADV Discharge Planning Comments: CM met with patient at bedside after explaining CM role and obtaining verbal consent. Patient lives at home with her daughter Jodie and plans to return there upon discharge. Patient feels this would be a safe discharge. CM discussed availability / needs of home health and medical equipment. Patient denies any discharge needs at this time. Patient states she will have her daughter drive her home upon discharge. CM will continue to follow and assist as needed with discharge planning / needs. Level Designer: Maty Granados DCP- Discharge Planning Updated by [id number]: Evelia Villagomez on 03/28/19 11:[address] [facility] DISCUSSED AND WENT OVER WITH PATIENT, COPY GIVEN TO HER. DCPIA - Discharge Planning Initial Assessment Updated by [id number]: Maty Granados on 03/31/19 7:43 pm * Is the patient Alert and Oriented? Yes * How many steps to enter\exit or inside your home? * PCP LEAH * Pharmacy [facility] * Preadmission Environment Home with Family * ADLs Independent * Equipment None * List name and contact numbers for known caregivers / representatives who currently or will assist patient after discharge: LONDON OBANDO - DAUGHTER- [phone] * Verbal permission to speak to the caregivers and representatives has been obtained from the patient. Yes * Community resources currently utilized None * Additional services required to return to the preadmission environment? No * Can the patient safely return to the preadmission environment? Yes * Has this patient been hospitalized within the prior 30 days at any hospital? Yes Coverage Notice Reviewer: [id number] - Evelia Villagomez Notice Issued Date-Time: 03/28/2019 12:57 Notice Type: Medicare Outpatient Observation Notice Notice Delivered To: Patient Relationship to Patient: Equipment Operator Wage Hand Name: Delivery Method: HAND - Hand Delivered Alina Days: Prior Verbal Notification: Recipient Understood Notice: Yes Recipient Signature: Yes Med Rec Note Co-signed by Attending: Coverage Notice Comment: HAND DELIVERD, PATIENT HAD GRANDDAUGHTER SIGN IT. SHE HAD TROUBLE RAISING HER ARM Reviewer: [id number] Chastity Cardona Notice Issued Date-Time: 04/07/2019 12:45 Notice Type: Patient Choice Letter Notice Delivered To: Patient Relationship to Patient: Equipment Operator Wage Hand Name: Delivery Method: HAND - Hand Delivered Alina Days: Prior Verbal Notification: Recipient Understood Notice: Yes Recipient Signature: Yes Med Rec Note Co-signed by Attending: Coverage Notice Comment: JENNA KHOURY export: 04/11/19 10:38 a Patient Name: HALLE OBANDO Page 57459 at 0858 All edits/amendments must be made on the electronic document DICTATION DATE: 04/12/19857 SUPPORTIVE EMPLOYMENT CASE MANAGER: KATIE 04/12/1960 RPT#: [id number] DC DATE: STATUS: ADM IN [facility] [address] [place] [address] END OF REPORT
--- NOTE | 2019-04-12 11:43 | MORECARE ---
CASE MANAGEMENT DISCHARGE SUMMARY PATIENT: HALLE OBANDO UNIT: [id number] ADM DATE: 03/29/19 AGE: 78 : 38 SEX: F ROOM/BED: D.0266 AUTHOR: RIKA,DOC PHYSICIAN: REFERRING PHYSICIAN: CE NINO MD DATE OF SERVICE: 04/12/19 Discharge Plan Patient Name: HALLE OBANDO Facility: [facility]:[place] : 1940 Planned Disposition: Intermediate Facility Anticipated Discharge Date: 04/08/19 Discharge Date: Expected LOS: 10 Initial Reviewer: [id number] Initial Review Date: 03/31/2019 Generated: 04/12/19 12:43 pm Comments DCP- Discharge Planning Updated by [id number]: Jesus Cardona on 04/12/19 10:[address] Patient Name: HALLE OBANDO Encounter No: [id number] : 1940 Primary Insurance: WELLCARE MEDICARE ADV Anticipated DC Date: 04-08-2019 Planned Disposition: Intermediate Facility External Planned Provider:[facility], MEDICARE REHAB BED DCP follow-up note: CM CALLED AND SPOKE TO DIEGO AT [facility], , THEY HAVE RECEIVED REFERRAL AND UPDATES. THEY WILL NEED DAILY UPDATES TO SUBMIT TO INSURANCE AT APPROPRIATE TIME WHEN PT IS CLOSE TO BEING STABLE FOR DISCHARGE TO REHAB. FAXED REFERRAL UPDATE TO DIEGO OF [facility] AT [phone]. CM WAITING ADMISSION DETERMINATION FROM [facility] WELL INSURANCE AUTHORIZATION FOR REHAB SERVICES. Jesus Cardona, CASE MANAGEMENT Appended by Jesus Cardona on 04/12/2019 11:38 CDT: CM ATTENDED MULTIDISCIPLINARY TEAM MEETING, JT LUX INDICATED PT MAY DISCHARGE TO REHAB TOMORROW. CM MET WITH PT IN ROOM WHO IS IN AGREEMENT [facility] DISCHARGE TO REHAB AT [facility]. IMPORTANT MESSAGE FROM MEDICARE PROVIDED AND EXPLAINED. CM CALLED AND LEFT MESSAGE FOR DIEGO AT [facility], , NOTIFYING OF DISCHARGE PLAN FOR TOMORROW. FACILITY PHP WEBSITE DEVELOPER INFORMED MOY LOZADA HAVE AUTHORIZATION FROM INSURANCE AND WILL DELIVER THE MESSAGE TO DIE[facility]. FOR DISCHARGE, FAX DISCHARGE INFORMATION TO [facility] AT [phone]. CALL NURSE REPORT TO [facility] AT [phone]. [facility] TO ARRANGE VAN TRANSPORTATION. Jesus Cardona CASE MANAGEMENT DCP- Discharge Planning Updated by [id number]: Jesus Cardona on 04/11/19 10:[address] Patient Name: HALLE OBANDO Encounter No: [id number] : 1940 Primary Insurance: WELLCARE MEDICARE ADV Anticipated DC Date: 04-08-2019 Planned Disposition: Intermediate Facility External Planned Provider:[facility], MEDICARE REHAB BED DCP follow-up note: CM FAXED REFERRAL UPDATE TO [facility] AT [phone]. CM WAITING ADMISSION DETERMINATION FROM [facility] WELL INSURANCE AUTHORIZATION FOR REHAB SERVICES. Jesus Cardona CASE MANAGEMENT DCP- Discharge Planning Updated by [email or web address]: Jesus Cardona on 04/08/19 7:[address] Patient Name: HALLE OBANDO Encounter No: [id number] : 1940 Primary Insurance: WELLCARE MEDICARE ADV Anticipated DC Date: 04-08-2019 Planned Disposition: Intermediate Facility External Planned Provider: [facility], MEDICARE REHAB BED DCP follow-up note: CM FAXED REFERRAL UPDATE TO [facility] AT [phone]. CM WAITING ADMISSION DETERMINATION FROM [facility] WELL INSURANCE AUTHORIZATION FOR REHAB SERVICES. Jesus Cardona CASE MANAGEMENT DCP- Discharge Planning Updated by [email or web address]: Jesus Cardona on 04/07/19 12:[address] Patient Name: HALLE OBANDO Encounter No: [id number] : 1940 Primary Insurance: WELLCARE MEDICARE ADV Anticipated DC Date: 04-08-2019 Planned Disposition: Intermediate Facility External Planned Provider: :[facility], MEDICARE REHAB BED DCP follow-up note: CM RECEIVED DENIAL FOR INPATIENT REHAB FAX FROM [facility]. CM SPOKE TO PT IN ROOM WHO PROVIDED PERMISSION TO SPEAK TO HER DAUGHTER LONDON REGARDING PLANNING, CARE AND NEEDS. PT WAS BEING CLEANED UP BY AIDE IN ROOM. CM SPOKE TO LONDON IN HALLWAY, NOTIFIED OF DENIAL AND DISCUSSED AVAILABILITY OF SKILLED REHAB OPTIONS. LONDON DOES NOT THINK PT WILL CONSENT. CM SPOKE TO PT IN ROOM, PROVIDED COPY OF INSURANCE DENIAL, PT SIGNED FOR IT, DATED AND TIMED. CM DISCUSSED REHAB OPTIONS, LOCATIONS AND PROVIDERS, GAVE PT A COPY OF [place] FACILITY PROVIDERS. PT ASKED FOR REFERRAL TO [facility] FOR REHAB. CHOICE SIGNED. CM CALLED AND SPOKE TO VIRY LORENZO [facility], , AND WAS NOTIFIED THAT [facility] IS IN NETWORK WITH PT'S INSURANCE. PT IN AGREEMENT WITH REFERRAL TO [facility] FOR REHAB. CM FAXED REFERRAL TO [facility] AT [phone]. CM WAITING ADMISSION DETERMINATION FROM [facility] WELL INSURANCE AUTHORIZATION FOR REHAB SERVICES. Jesus Cardona, CASE MANAGEMENT DCP- Discharge Planning Updated by [id number]: Evelia Villagomez on 04/05/19 1:[address] spoke with CM with [facility] and Melissa at [facility] about patient and inpatient rehab, we are pending auth once evals are documented DCP- Discharge Planning Updated by [email or web address]: Maty Granados on 03/31/19 6:[address] Patient Name: HALLE OBANDO Admission Status: ER Accout number: [id number] Admission Date: 03-29-2019 : 1940 Admission Diagnosis:CHRONIC CHOLECYSTITIS Attending: CE NINO Current LOS: 2 Anticipated DC Date: Planned Disposition: Home or Self Care Primary Insurance: WELLCARE MEDICARE ADV Discharge Planning Comments: CM met with patient at bedside after explaining CM role and obtaining verbal consent. Patient lives at home with her daughter Jodie and plans to return there upon discharge. Patient feels this would be a safe discharge. CM discussed availability / needs of home health and medical equipment. Patient denies any discharge needs at this time. Patient states she will have her daughter drive her home upon discharge. CM will continue to follow and assist as needed with discharge planning / needs. Offshore Wind Operations Manager: Maty Grnaados DCP- Discharge Planning Updated by [id number]: Evelia Villagomez on 03/28/19 11:[address] OMALLEY DISCUSSED AND WENT OVER WITH PATIENT, COPY GIVEN TO HER. DCPIA - Discharge Planning Initial Assessment Updated by [email or web address]: Maty Granados on 03/31/19 7:43 pm * Is the patient Alert and Oriented? Yes * How many steps to enter\exit or inside your home? * PCP LEAH * Pharmacy [facility] * Preadmission Environment Home with Family * ADLs Independent * Equipment None * List name and contact numbers for known caregivers / representatives who currently or will assist patient after discharge: LONDON OBANDO - DAUGHTER- [phone] * Verbal permission to speak to the caregivers and representatives has been obtained from the patient. Yes * Community resources currently utilized None * Additional services required to return to the preadmission environment? No * Can the patient safely return to the preadmission environment? Yes * Has this patient been hospitalized within the prior 30 days at any hospital? Yes Coverage Notice Reviewer: [id number] Chastity Villagomez Notice Issued Date-Time: 03/28/2019 12:57 Notice Type: Medicare Outpatient Observation Notice Notice Delivered To: Patient Relationship to Patient: Web Content & Social Media Manager Name: Delivery Method: HAND - Hand Delivered Alina Days: Prior Verbal Notification: Recipient Understood Notice: Yes Recipient Signature: Yes Med Rec Note Co-signed by Attending: Coverage Notice Comment: HAND DELIVERD, PATIENT HAD GRANDDAUGHTER SIGN IT. SHE HAD TROUBLE RAISING HER ARM Reviewer: [id number] Chastity Cardona Notice Issued Date-Time: 04/07/2019 12:45 Notice Type: Patient Choice Letter Notice Delivered To: Patient Relationship to Patient: Web Content & Social Media Manager Name: Delivery Method: HAND - Hand Delivered Alina Days: Prior Verbal Notification: Recipient Understood Notice: Yes Recipient Signature: Yes Med Rec Note Co-signed by Attending: Coverage Notice Comment: JENNA Reviewer: [id number] Chastity Cardona Notice Issued Date-Time: 04/12/2019 11:25 Notice Type: IM Discharge Notice Notice Delivered To: Patient Relationship to Patient: Web Content & Social Media Manager Name: Delivery Method: HAND - Hand Delivered Alina Days: Prior Verbal Notification: Recipient Understood Notice: Yes Recipient Signature: Yes Med Rec Note Co-signed by Attending: Coverage Notice Comment: Last DP export: 04/12/19 7:58 a Patient Name: HALLE OBANDO Page [id number] at 1143 All edits/amendments must be made on the electronic document DICTATION DATE: 04/12/19 1143 PLASTIC TILE SETTER: KATIE 04/12/19 1143 RPT#: [id number] DC DATE: STATUS: ADM IN [facility] [address] [place] [address] END OF REPORT
[2019-04-12 12:50] VITALS: BP 101/80
--- NOTE | 2019-04-12 15:57 | NUR ---
OT NOTE: PT COMPLETED BED MOB WITH MIN A. PT COMPLETED SIDE STEPPING WITH CGA. PT COMPLETED UE AROM AXS. PT COMPLETED FACE WASH WITH SET UP. THANK YOU, OMAIRA RIDLEY
[2019-04-12 16:52] VITALS: BP 107/79
--- NOTE | 2019-04-12 19:33 | NUR ---
PATIENT IS ALERT AND ORIENTED, RESTING COMFORTABLY IN BED. RESPIRATIONS ARE EVEN AND UNLABORED. NO S/S OF DISTRESS. NO C/O PAIN. DENIES NEEDS. CALL LIGHT WITHIN REACH. WILL CPOC.
[2019-04-12 20:00] VITALS: BP 113/88
--- NOTE | 2019-04-12 22:40 | NUR ---
MEDICATIONS GIVEN AND ASSESSMENT COMPLETE
[2019-04-13] VITALS: BP 90/50
[2019-04-13 04:00] VITALS: BP 100/56
[2019-04-13 06:58] LABS: HEMATOCRIT 32.6 % (36.0-48.0); HEMOGLOBIN 10.4 g/dL (12-16); MCH 25.2 pg (26.0-34.0); MCHC 31.9 g/dL (31.0-37.0); MCV 79.1 fL (80.0-100.0); MEAN PLATELET VOLUME 10.1 fL (7.4-10.4); PLATELET COUNT 267 10x3/uL (130-400); RBC 4.12 10x6/uL (4.00-5.40); RDW 17.8 % (11.5-14.5); WBC 6.2 10x3/uL (4.8-10.8)
[2019-04-13 07:13] LABS: ANION GAP 10.7 mmol/L (8-16); BILIRUBIN - TOTAL 0.59 mg/dL (0.2-1.3); CREATININE - SERUM 0.8 mg/dL (0.6-1.3); POTASSIUM - SERUM 3.7 mmol/L (3.5-5.1); PROTEIN - SERUM 6.2 g/dL (6.4-8.2)
--- NOTE | 2019-04-13 07:23 | MORECARE ---
CASE MANAGEMENT DISCHARGE SUMMARY PATIENT: HALLE OBANDO UNIT: [id number] ADM DATE: 03/29/19 AGE: 78 : 38 SEX: F ROOM/BED: D.5566 AUTHOR: RIKA,DOC PHYSICIAN: REFERRING PHYSICIAN: CE NINO MD DATE OF SERVICE: 04/13/19 Discharge Plan Patient Name: HALLE OBANDO Facility: [facility]:[place] : 1940 Planned Disposition: Care Home Facility Anticipated Discharge Date: 04/13/19 Discharge Date: Expected LOS: 15 Initial Reviewer: [id number] Initial Review Date: 03/31/2019 Generated: 04/13/19 8:03 am Comments DCP- Discharge Planning Updated by [id number]: Jesus Cardona on 04/13/19 6:[address] Patient Name: HALLE OBANDO Encounter No: [id number] : 1940 Primary Insurance: WELLCARE MEDICARE ADV Anticipated DC Date: 04-13-2019 Planned Disposition: Care Home Facility External Planned Provider: [facility], MEDICARE REHAB BED DCP follow-up note: CM FAXED REFERRAL UPDATE TO [facility] AT [phone]. FOR DISCHARGE, FAX DISCHARGE INFORMATION TO [facility] AT [phone]. CALL NURSE REPORT TO [facility] AT [phone]. [facility] TO ARRANGE VAN TRANSPORTATION. Jesus Cardona CASE MANAGEMENT DCP- Discharge Planning Updated by [id number]: Jesus Cardona on 04/12/19 10:[address] Patient Name: HALLE OBANDO Encounter No: [id number] : 1940 Primary Insurance: WELLCARE MEDICARE ADV Anticipated DC Date: 04-08-2019 Planned Disposition: Care Home Facility External Planned Provider:[facility], MEDICARE REHAB BED DCP follow-up note: CM CALLED AND SPOKE TO DIEGO AT [facility], , THEY HAVE RECEIVED REFERRAL AND UPDATES. THEY WILL NEED DAILY UPDATES TO SUBMIT TO INSURANCE AT APPROPRIATE TIME WHEN PT IS CLOSE TO BEING STABLE FOR DISCHARGE TO REHAB. FAXED REFERRAL UPDATE TO [facility] AT [phone]. CM WAITING ADMISSION DETERMINATION FROM [facility] WELL INSURANCE AUTHORIZATION FOR REHAB SERVICES. Jesus Cardona CASE MANAGEMENT Appended by Jesus Cardona on 04/12/2019 11:38 CDT: CM ATTENDED MULTIDISCIPLINARY TEAM MEETING, JT LUX INDICATED PT MAY DISCHARGE TO REHAB TOMORROW. CM MET WITH PT IN ROOM WHO IS IN AGREEMENT WTIH DISCHARGE TO REHAB AT [facility]. IMPORTANT MESSAGE FROM MEDICARE PROVIDED AND EXPLAINED. CM CALLED AND LEFT MESSAGE FOR DIEGO AT [facility], , NOTIFYING OF DISCHARGE PLAN FOR TOMORROW. FACILITY GLASS WORKER INFORMED MOY LOZADA HAVE AUTHORIZATION FROM INSURANCE AND WILL DELIVER THE MESSAGE TO [facility]. FOR DISCHARGE, FAX DISCHARGE INFORMATION TO [facility] AT [phone]. CALL NURSE REPORT TO [facility] AT [phone]. [facility] TO ARRANGE VAN TRANSPORTATION. NISHA Gu DCP- Discharge Planning Updated by [id number]: Jesus Cardona on 04/11/19 10:[address] Patient Name: HALLE OBANDO Encounter No: [id number] : 1940 Primary Insurance: WELLCARE MEDICARE ADV Anticipated DC Date: 04-08-2019 Planned Disposition: Care Home Facility External Planned Provider:[facility], MEDICARE REHAB BED DCP follow-up note: CM FAXED REFERRAL UPDATE TO [facility] OF [facility] AT [phone]. CM WAITING ADMISSION DETERMINATION FROM [facility] WELL INSURANCE AUTHORIZATION FOR REHAB SERVICES. NISHA Gu DCP- Discharge Planning Updated by [id number]: Jesus Cardona on 04/08/19 7:[address] Patient Name: HALLE OBANDO Encounter No: [id number] : 1940 Primary Insurance: WELLCARE MEDICARE ADV Anticipated DC Date: 04-08-2019 Planned Disposition: Care Home Facility External Planned Provider: [facility], MEDICARE REHAB BED DCP follow-up note: CM FAXED REFERRAL UPDATE TO [facility] AT [phone]. CM WAITING ADMISSION DETERMINATION FROM [facility] WELL INSURANCE AUTHORIZATION FOR REHAB SERVICES. NISHA Gu DCP- Discharge Planning Updated by [id number]: Jesus Cardona on 04/07/19 12:[address] Patient Name: HALLE OBANDO Encounter No: [id number] : 1940 Primary Insurance: WELLCARE MEDICARE ADV Anticipated DC Date: 04-08-2019 Planned Disposition: Care Home Facility External Planned Provider: :[facility], MEDICARE REHAB BED DCP follow-up note: CM RECEIVED DENIAL FOR INPATIENT REHAB FAX FROM [facility]. CM SPOKE TO PT IN ROOM WHO PROVIDED PERMISSION TO SPEAK TO HER DAUGHTER LONDON REGARDING PLANNING, CARE AND NEEDS. PT WAS BEING CLEANED UP BY AIDLandon IN ROOM. CM SPOKE TO LONDON IN HALLWAY, NOTIFIED OF DENIAL AND DISCUSSED AVAILABILITY OF SKILLED REHAB OPTIONS. LONDON DOES NOT THINK PT WILL CONSENT. CM SPOKE TO PT IN ROOM, PROVIDED COPY OF INSURANCE DENIAL, PT SIGNED FOR IT, DATED AND TIMED. CM DISCUSSED REHAB OPTIONS, LOCATIONS AND PROVIDERS, GAVE PT A COPY OF INTERMEDIATE FACILITY PROVIDERS. PT ASKED FOR REFERRAL TO [facility] FOR REHAB. CHOICE SIGNED. CM CALLED AND SPOKE TO VIRY OF [facility], , AND WAS NOTIFIED THAT [facility] IS IN NETWORK WITH PT'S INSURANCE. PT IN AGREEMENT WITH REFERRAL TO [facility] FOR REHAB. CM FAXED REFERRAL TO [facility] AT [phone]. CM WAITING ADMISSION DETERMINATION FROM [facility] WELL INSURANCE AUTHORIZATION FOR REHAB SERVICES. Jesus Cardona, CASE MANAGEMENT DCP- Discharge Planning Updated by [id number]: Evelia Villagomez on 04/05/19 1:[address] spoke with CM with Anette and Melissa at [facility] about patient and inpatient rehab, we are pending auth once evals are documented DCP- Discharge Planning Updated by [email or web address]: Maty Granados on 03/31/19 6:[address] Patient Name: HALLE OBANDO Admission Status: ER Accout number: [id number] Admission Date: 03-29-2019 : 1940 Admission Diagnosis:CHRONIC CHOLECYSTITIS Attending: CE NINO Current LOS: 2 Anticipated DC Date: Planned Disposition: Home or Self Care Primary Insurance: WELLCARE MEDICARE ADV Discharge Planning Comments: CM met with patient at bedside after explaining CM role and obtaining verbal consent. Patient lives at home with her daughter Jodie and plans to return there upon discharge. Patient feels this would be a safe discharge. CM discussed availability / needs of home health and medical equipment. Patient denies any discharge needs at this time. Patient states she will have her daughter drive her home upon discharge. CM will continue to follow and assist as needed with discharge planning / needs. Electrogalvanizing Machine Operator: Maty Granados DCP- Discharge Planning Updated by [id number]: Evelia Villagomez on 03/28/19 11:58 am OSKAR OMALLEY DISCUSSED AND WENT OVER WITH PATIENT, COPY GIVEN TO HER. DCPIA - Discharge Planning Initial Assessment Updated by [id number]: Maty Granados on 03/31/19 7:43 pm * Is the patient Alert and Oriented? Yes * How many steps to enter\exit or inside your home? * PCP LEAH * Pharmacy [facility] * Preadmission Environment Home with Family * ADLs Independent * Equipment None * List name and contact numbers for known caregivers / representatives who currently or will assist patient after discharge: LONDON OBANDO - [facility]- [phone] * Verbal permission to speak to the caregivers and representatives has been obtained from the patient. Yes * Community resources currently utilized None * Additional services required to return to the preadmission environment? No * Can the patient safely return to the preadmission environment? Yes * Has this patient been hospitalized within the prior 30 days at any hospital? Yes Coverage Notice Reviewer: [id number] Chastity Cardona Notice Issued Date-Time: 04/12/2019 11:25 Notice Type: IM Discharge Notice Notice Delivered To: Patient Relationship to Patient: Education Courses Sales Representative Name: Delivery Method: HAND - Hand Delivered Alina Days: Prior Verbal Notification: Recipient Understood Notice: Yes Recipient Signature: Yes Med Rec Note Co-signed by Attending: Coverage Notice Comment: Reviewer: [id number] - Evelia Villagomez Notice Issued Date-Time: 03/28/2019 12:57 Notice Type: Medicare Outpatient Observation Notice Notice Delivered To: Patient Relationship to Patient: Education Courses Sales Representative Name: Delivery Method: HAND - Hand Delivered Alina Days: Prior Verbal Notification: Recipient Understood Notice: Yes Recipient Signature: Yes Med Rec Note Co-signed by Attending: Coverage Notice Comment: HAND DELIVERD, PATIENT HAD GRANDDAUGHTER SIGN IT. SHE HAD TROUBLE RAISING HER ARM Reviewer: [id number] Chastity Cardona Notice Issued Date-Time: 04/07/2019 12:45 Notice Type: Patient Choice Letter Notice Delivered To: Patient Relationship to Patient: Education Courses Sales Representative Name: Delivery Method: HAND - Hand Delivered Alina Days: Prior Verbal Notification: Recipient Understood Notice: Yes Recipient Signature: Yes Med Rec Note Co-signed by Attending: Coverage Notice Comment: JENNA Last DP export: 04/13/19 5:57 a Patient Name: HALLE OBANDO Page 21230 at 0723 All edits/amendments must be made on the electronic document DICTATION DATE: 04/13/19702 STUDENT ACTIVITIES DIRECTOR: KATIE 04/13/19702 RPT#: [id number] DC DATE: STATUS: ADM IN [facility] [address] [place] [address] END OF REPORT
--- NOTE | 2019-04-13 07:23 | MORECARE ---
CASE MANAGEMENT DISCHARGE SUMMARY PATIENT: HALLE OBANDO UNIT: [id number] ADM DATE: 03/29/19 AGE: 78 : 38 SEX: F ROOM/BED: D.8506 AUTHOR: RIKA,DOC PHYSICIAN: REFERRING PHYSICIAN: CE NINO MD DATE OF SERVICE: 04/13/19 Discharge Plan Patient Name: HALLE OBANDO Facility: [facility]:[place] : 1940 Planned Disposition: Long-Term Facility Anticipated Discharge Date: 04/13/19 Discharge Date: Expected LOS: 15 Initial Reviewer: [id number] Initial Review Date: 03/31/2019 Generated: 04/13/19 7:57 am Comments DCP- Discharge Planning Updated by [id number]: Jesus Cardona on 04/12/19 10:[address] Patient Name: HALLE OBANDO Encounter No: [id number] : 1940 Primary Insurance: WELL[employer] MEDICARE ADV Anticipated DC Date: 04-08-2019 Planned Disposition: Long-Term Facility External Planned Provider:[facility], MEDICARE REHAB BED DCP follow-up note: CM CALLED AND SPOKE TO [facility] AT [facility], , THEY HAVE RECEIVED REFERRAL AND UPDATES. THEY WILL NEED DAILY UPDATES TO SUBMIT TO INSURANCE AT APPROPRIATE TIME WHEN PT IS CLOSE TO BEING STABLE FOR DISCHARGE TO REHAB. FAXED REFERRAL UPDATE TO [facility] AT [phone]. CM WAITING ADMISSION DETERMINATION FROM [facility] WELL INSURANCE AUTHORIZATION FOR REHAB SERVICES. Jesus Cardona, CASE MANAGEMENT Appended by Jesus Cardona on 04/12/2019 11:38 CDT: CM ATTENDED MULTIDISCIPLINARY TEAM MEETING, JT LUX INDICATED PT MAY DISCHARGE TO REHAB TOMORROW. CM MET WITH PT IN ROOM WHO IS IN AGREEMENT [facility] DISCHARGE TO REHAB AT [facility]. IMPORTANT MESSAGE FROM MEDICARE PROVIDED AND EXPLAINED. CM CALLED AND LEFT MESSAGE FOR [facility] AT [facility], , NOTIFYING OF DISCHARGE PLAN FOR TOMORROW. FACILITY SECURE SOFTWARE ASSESSOR INFORMED MOY LOZADA HAVE AUTHORIZATION FROM INSURANCE AND WILL DELIVER THE MESSAGE TO [facility]. FOR DISCHARGE, FAX DISCHARGE INFORMATION TO [facility] AT [phone]. CALL NURSE REPORT TO [facility] AT [phone]. [facility] TO ARRANGE VAN TRANSPORTATION. Jesus Cardona CASE MANAGEMENT DCP- Discharge Planning Updated by [id number]: Jesus Cardona on 04/11/19 10:[address] Patient Name: HALLE OBANDO Encounter No: [id number] : 1940 Primary Insurance: WELLCARE MEDICARE ADV Anticipated DC Date: 04-08-2019 Planned Disposition: Long-Term Facility External Planned Provider:[facility], MEDICARE REHAB BED DCP follow-up note: CM FAXED REFERRAL UPDATE TO [facility] AT [phone]. CM WAITING ADMISSION DETERMINATION FROM [facility] WELL INSURANCE AUTHORIZATION FOR REHAB SERVICES. Jesus Cardona CASE MANAGEMENT DCP- Discharge Planning Updated by [id number]: Jesus Cardona on 04/08/19 7:[address] Patient Name: HALLE OBANDO Encounter No: [id number] : 1940 Primary Insurance: WELLCARE MEDICARE ADV Anticipated DC Date: 04-08-2019 Planned Disposition: Long-Term Facility External Planned Provider: [facility], MEDICARE REHAB BED DCP follow-up note: CM FAXED REFERRAL UPDATE TO [facility] AT [phone]. CM WAITING ADMISSION DETERMINATION FROM [facility] WELL INSURANCE AUTHORIZATION FOR REHAB SERVICES. Jesus Cardona CASE MANAGEMENT DCP- Discharge Planning Updated by [id number]: Jesus Cardona on 04/07/19 12:[address] Patient Name: HALLE OBANDO Encounter No: [id number] : 1940 Primary Insurance: WELLCARE MEDICARE ADV Anticipated DC Date: 04-08-2019 Planned Disposition: Long-Term Facility External Planned Provider: :[facility], MEDICARE REHAB BED DCP follow-up note: CM RECEIVED DENIAL FOR INPATIENT REHAB FAX FROM [facility]. CM SPOKE TO PT IN ROOM WHO PROVIDED PERMISSION TO SPEAK TO HER DAUGHTER LONDON REGARDING PLANNING, CARE AND NEEDS. PT WAS BEING CLEANED UP BY AIDE IN ROOM. CM SPOKE TO LONDON IN HALLWAY, NOTIFIED OF DENIAL AND DISCUSSED AVAILABILITY OF SKILLED REHAB OPTIONS. LONDON DOES NOT THINK PT WILL CONSENT. CM SPOKE TO PT IN ROOM, PROVIDED COPY OF INSURANCE DENIAL, PT SIGNED FOR IT, DATED AND TIMED. CM DISCUSSED REHAB OPTIONS, LOCATIONS AND PROVIDERS, GAVE PT A COPY OF CARE HOME FACILITY PROVIDERS. PT ASKED FOR REFERRAL TO [facility] FOR REHAB. CHOICE SIGNED. CM CALLED AND SPOKE TO [facility], , AND WAS NOTIFIED THAT [facility] IS IN NETWORK WITH PT'S INSURANCE. PT IN AGREEMENT WITH REFERRAL TO [facility] FOR REHAB. CM FAXED REFERRAL TO [facility] AT [phone]. CM WAITING ADMISSION DETERMINATION FROM [facility] WELL INSURANCE AUTHORIZATION FOR REHAB SERVICES. Jesus Cardona, CASE MANAGEMENT DCP- Discharge Planning Updated by [id number]: Evelia Villagomez on 04/05/19 1:[address] spoke with CM with [facility] and Melissa at [facility] about patient and inpatient rehab, we are pending auth once evals are documented DCP- Discharge Planning Updated by [id number]: Maty Granados on 03/31/19 6:[address] Patient Name: HALLE OBANDO Admission Status: ER Accout number: [id number] Admission Date: 03-29-2019 : 1940 Admission Diagnosis:CHRONIC CHOLECYSTITIS Attending: CE NINO Current LOS: 2 Anticipated DC Date: Planned Disposition: Home or Self Care Primary Insurance: WELLCARE MEDICARE ADV Discharge Planning Comments: CM met with patient at bedside after explaining CM role and obtaining verbal consent. Patient lives at home with her daughter Jodie and plans to return there upon discharge. Patient feels this would be a safe discharge. CM discussed availability / needs of home health and medical equipment. Patient denies any discharge needs at this time. Patient states she will have her daughter drive her home upon discharge. CM will continue to follow and assist as needed with discharge planning / needs. Spooler Operator Automatic: Maty Granados DCP- Discharge Planning Updated by [email or web address]: Evelia Villagomez on 03/28/19 11:[address] OMALLEY DISCUSSED AND WENT OVER WITH PATIENT, COPY GIVEN TO HER. DCPIA - Discharge Planning Initial Assessment Updated by [id number]: Maty Granados on 03/31/19 7:43 pm * Is the patient Alert and Oriented? Yes * How many steps to enter\exit or inside your home? * PCP LEAH * [facility]acy [facility] * Preadmission Environment Home with Family * ADLs Independent * Equipment None * List name and contact numbers for known caregivers / representatives who currently or will assist patient after discharge: LONDON OBANDO - DAUGHTER- [phone] * Verbal permission to speak to the caregivers and representatives has been obtained from the patient. Yes * Community resources currently utilized None * Additional services required to return to the preadmission environment? No * Can the patient safely return to the preadmission environment? Yes * Has this patient been hospitalized within the prior 30 days at any hospital? Yes Coverage Notice Reviewer: [id number] Chastity Villagomez Notice Issued Date-Time: 03/28/2019 12:57 Notice Type: Medicare Outpatient Observation Notice Notice Delivered To: Patient Relationship to Patient: Dry Goods Inspector Name: Delivery Method: HAND - Hand Delivered Alina Days: Prior Verbal Notification: Recipient Understood Notice: Yes Recipient Signature: Yes Med Rec Note Co-signed by Attending: Coverage Notice Comment: HAND DELIVERD, PATIENT HAD GRANDDAUGHTER SIGN IT. SHE HAD TROUBLE RAISING HER ARM Reviewer: [id number] Chastity Cardona Notice Issued Date-Time: 04/07/2019 12:45 Notice Type: Patient Choice Letter Notice Delivered To: Patient Relationship to Patient: Dry Goods Inspector Name: Delivery Method: HAND - Hand Delivered Alina Days: Prior Verbal Notification: Recipient Understood Notice: Yes Recipient Signature: Yes Med Rec Note Co-signed by Attending: Coverage Notice Comment: JENNA Reviewer: [id number] Chastity Cardona Notice Issued Date-Time: 04/12/2019 11:25 Notice Type: IM Discharge Notice Notice Delivered To: Patient Relationship to Patient: Dry Goods Inspector Name: Delivery Method: HAND - Hand Delivered Alina Days: Prior Verbal Notification: Recipient Understood Notice: Yes Recipient Signature: Yes Med Rec Note Co-signed by Attending: Coverage Notice Comment: Last DP export: 04/12/19 10:44 a Patient Name: HALLE OBANDO Page [id number] at 0723 All edits/amendments must be made on the electronic document DICTATION DATE: 04/13/1956 CORE MAN: KATIE 04/13/1958 RPT#: [id number] DC DATE: STATUS: ADM IN [facility] [address] [place] [address] END OF REPORT
[2019-04-13 08:30] VITALS: BP 111/84
[2019-04-13 10:12] LABS: EOSINOPHILS 5 % (0-7); LYMPHOCYTES 31 % (15-50); MONOCYTES 11 % (2-11); NEUTROPHILS 53 % (40-80); PLATELET ESTIMATE NORMAL
[2019-04-13 11:00] LABS: ANISOCYTOSIS OCC
[2019-04-13 12:59] VITALS: BP 96/68
[2019-04-13] MEDS ORDERED: Nystatin Oral Susp [ PO (13:14)
[2019-04-13] MEDS ORDERED: LANOXIN125 MCG PO (13:15)
[2019-04-13] MEDS ORDERED: CARDIZEM30 MG PO (13:15)
[2019-04-13] MEDS ORDERED: ELIQUIS5 MG PO (13:15)
[2019-04-13] MEDS ORDERED: FUROSEMIDE20 MG PO (13:16)
--- NOTE | 2019-04-13 13:44 | MORECARE ---
CASE MANAGEMENT DISCHARGE SUMMARY PATIENT: HALLE OBANDO UNIT: [id number] ADM DATE: 03/29/19 AGE: 78 : 38 SEX: F ROOM/BED: D.6196 AUTHOR: RIKA,DOC PHYSICIAN: REFERRING PHYSICIAN: CE NINO MD DATE OF SERVICE: 04/13/19 Discharge Plan Patient Name: HALLE OBANDO Facility: [facility]:[place] : 1940 Planned Disposition: Senior Living Facility Anticipated Discharge Date: 04/13/19 Discharge Date: Expected LOS: 15 Initial Reviewer: [id number] Initial Review Date: 03/31/2019 Generated: 04/13/19 2:43 pm Comments DCP- Discharge Planning Updated by [id number]: Jesus Cardona on 04/13/19 6:[address] Patient Name: HALLE OBANDO Encounter No: [id number] : 1940 Primary Insurance: WELLCARE MEDICARE ADV Anticipated DC Date: 04-13-2019 Planned Disposition: Senior Living Facility External Planned Provider: [facility], MEDICARE REHAB BED DCP follow-up note: CM FAXED REFERRAL UPDATE TO [facility] AT [phone]. FOR DISCHARGE, FAX DISCHARGE INFORMATION TO [facility] AT [phone]. CALL NURSE REPORT TO [facility] AT [phone]. [facility] TO ARRANGE VAN TRANSPORTATION. Jesus Cardona CASE JAZLYN DCP- Discharge Planning Updated by [id number]: Jesus Cardona on 04/12/19 10:[address] Patient Name: HALLE OBANDO Encounter No: [id number] : 1940 Primary Insurance: WELLCARE MEDICARE ADV Anticipated DC Date: 04-08-2019 Planned Disposition: Senior Living Facility External Planned Provider:[facility], MEDICARE REHAB BED DCP follow-up note: CM CALLED AND SPOKE TO DIE[facility] AT [facility], , THEY HAVE RECEIVED REFERRAL AND UPDATES. THEY WILL NEED DAILY UPDATES TO SUBMIT TO INSURANCE AT APPROPRIATE TIME WHEN PT IS CLOSE TO BEING STABLE FOR DISCHARGE TO REHAB. FAXED REFERRAL UPDATE TO [facility] AT [phone]. CM WAITING ADMISSION DETERMINATION FROM [facility] WELL INSURANCE AUTHORIZATION FOR REHAB SERVICES. Jesus Cardona CASE MANAGEMENT Appended by Jesus Cardona on 04/12/2019 11:38 CDT: CM ATTENDED MULTIDISCIPLINARY TEAM MEETING, JT LUX INDICATED PT MAY DISCHARGE TO REHAB TOMORROW. CM MET WITH PT IN ROOM WHO IS IN AGREEMENT WTIH DISCHARGE TO REHAB AT [facility]. IMPORTANT MESSAGE FROM MEDICARE PROVIDED AND EXPLAINED. CM CALLED AND LEFT MESSAGE FOR [facility] AT [facility], , NOTIFYING OF DISCHARGE PLAN FOR TOMORROW. FACILITY STORE ASSOCIATE INFORMED MOY LOZADA HAVE AUTHORIZATION FROM INSURANCE AND WILL DELIVER THE MESSAGE TO [facility]. FOR DISCHARGE, FAX DISCHARGE INFORMATION TO [facility] AT [phone]. CALL NURSE REPORT TO [facility] AT [phone]. [facility] TO ARRANGE VAN TRANSPORTATION. NISHA Gu DCP- Discharge Planning Updated by [id number]: Jesus Cardona on 04/11/19 10:[address] Patient Name: HALLE OBANDO Encounter No: [id number] : 1940 Primary Insurance: WELLCARE MEDICARE ADV Anticipated DC Date: 04-08-2019 Planned Disposition: Senior Living Facility External Planned Provider:[facility], MEDICARE REHAB BED DCP follow-up note: CM FAXED REFERRAL UPDATE TO [facility] OF [facility] AT [phone]. CM WAITING ADMISSION DETERMINATION FROM [facility] WELL INSURANCE AUTHORIZATION FOR REHAB SERVICES. NISHA Gu DCP- Discharge Planning Updated by [id number]: Jesus Cardona on 04/08/19 7:[address] Patient Name: HALLE OBANDO Encounter No: [id number] : 1940 Primary Insurance: WELLCARE MEDICARE ADV Anticipated DC Date: 04-08-2019 Planned Disposition: Senior Living Facility External Planned Provider: [facility], MEDICARE REHAB BED DCP follow-up note: CM FAXED REFERRAL UPDATE TO [facility] AT [phone]. CM WAITING ADMISSION DETERMINATION FROM [facility] WELL INSURANCE AUTHORIZATION FOR REHAB SERVICES. NISHA Gu DCP- Discharge Planning Updated by [id number]: Jesus Cardona on 04/07/19 12:[address] Patient Name: HALLE OBANDO Encounter No: [id number] : 1940 Primary Insurance: WELLCARE MEDICARE ADV Anticipated DC Date: 04-08-2019 Planned Disposition: Senior Living Facility External Planned Provider: :[facility], MEDICARE REHAB BED DCP follow-up note: CM RECEIVED DENIAL FOR INPATIENT REHAB FAX FROM [facility]. CM SPOKE TO PT IN ROOM WHO PROVIDED PERMISSION TO SPEAK TO HER DAUGHTER LONDON REGARDING PLANNING, CARE AND NEEDS. PT WAS BEING CLEANED UP BY AIDLandon IN ROOM. CM SPOKE TO LONDON IN HALLWAY, NOTIFIED OF DENIAL AND DISCUSSED AVAILABILITY OF SKILLED REHAB OPTIONS. LONDON DOES NOT THINK PT WILL CONSENT. CM SPOKE TO PT IN ROOM, PROVIDED COPY OF INSURANCE DENIAL, PT SIGNED FOR IT, DATED AND TIMED. CM DISCUSSED REHAB OPTIONS, LOCATIONS AND PROVIDERS, GAVE PT A COPY OF [facility] FACILITY PROVIDERS. PT ASKED FOR REFERRAL TO [facility] FOR REHAB. CHOICE SIGNED. CM CALLED AND SPOKE TO [facility] OF [facility], , AND WAS NOTIFIED THAT [facility] IS IN NETWORK WITH PT'S INSURANCE. PT IN AGREEMENT WITH REFERRAL TO [facility] FOR REHAB. CM FAXED REFERRAL TO [facility] AT [phone]. CM WAITING ADMISSION DETERMINATION FROM [facility] WELL INSURANCE AUTHORIZATION FOR REHAB SERVICES. Jesus Cardona, CASE MANAGEMENT DCP- Discharge Planning Updated by [id number]: Evelia Villagomez on 04/05/19 1:[address] spoke with CM with Anette and Melissa at [facility] about patient and inpatient rehab, we are pending auth once evals are documented DCP- Discharge Planning Updated by [id number]: Maty Granados on 03/31/19 6:[address] Patient Name: HALLE OBANDO Admission Status: ER Accout number: [id number] Admission Date: 03-29-2019 : 1940 Admission Diagnosis:CHRONIC CHOLECYSTITIS Attending: CE NINO Current LOS: 2 Anticipated DC Date: Planned Disposition: Home or Self Care Primary Insurance: WELLCARE MEDICARE ADV Discharge Planning Comments: CM met with patient at bedside after explaining CM role and obtaining verbal consent. Patient lives at home with her daughter Jodie and plans to return there upon discharge. Patient feels this would be a safe discharge. CM discussed availability / needs of home health and medical equipment. Patient denies any discharge needs at this time. Patient states she will have her daughter drive her home upon discharge. CM will continue to follow and assist as needed with discharge planning / needs. Film Writer: Maty Granados DCP- Discharge Planning Updated by [id number]: Evelia Villagomez on 03/28/19 11:58 am OSKAR OMALLEY DISCUSSED AND WENT OVER WITH PATIENT, COPY GIVEN TO HER. DCPIA - Discharge Planning Initial Assessment Updated by [id number]: Maty Granados on 03/31/19 7:43 pm * Is the patient Alert and Oriented? Yes * How many steps to enter\exit or inside your home? * PCP LEAH * Pharmacy [facility] * Preadmission Environment Home with Family * ADLs Independent * Equipment None * List name and contact numbers for known caregivers / representatives who currently or will assist patient after discharge: LONDON OBANDO - [facility]- [phone] * Verbal permission to speak to the caregivers and representatives has been obtained from the patient. Yes * Community resources currently utilized None * Additional services required to return to the preadmission environment? No * Can the patient safely return to the preadmission environment? Yes * Has this patient been hospitalized within the prior 30 days at any hospital? Yes Coverage Notice Reviewer: [id number] - Evelia Villagomez Notice Issued Date-Time: 03/28/2019 12:57 Notice Type: Medicare Outpatient Observation Notice Notice Delivered To: Patient Relationship to Patient: Laboratory Equipment Cleaner Name: Delivery Method: HAND - Hand Delivered Alina Days: Prior Verbal Notification: Recipient Understood Notice: Yes Recipient Signature: Yes Med Rec Note Co-signed by Attending: Coverage Notice Comment: HAND DELIVERD, PATIENT HAD GRANDDAUGHTER SIGN IT. SHE HAD TROUBLE RAISING HER ARM Reviewer: [id number] Chastity Cardona Notice Issued Date-Time: 04/07/2019 12:45 Notice Type: Patient Choice Letter Notice Delivered To: Patient Relationship to Patient: Laboratory Equipment Cleaner Name: Delivery Method: HAND - Hand Delivered Alina Days: Prior Verbal Notification: Recipient Understood Notice: Yes Recipient Signature: Yes Med Rec Note Co-signed by Attending: Coverage Notice Comment: JENNA Reviewer: [id number] Cardona Notice Issued Date-Time: 04/12/2019 11:25 Notice Type: IM Discharge Notice Notice Delivered To: Patient Relationship to Patient: Laboratory Equipment Cleaner Name: Delivery Method: HAND - Hand Delivered Alina Days: Prior Verbal Notification: Recipient Understood Notice: Yes Recipient Signature: Yes Med Rec Note Co-signed by Attending: Coverage Notice Comment: Last DP export: 04/13/19 6:03 a Patient Name: HALLE OBANDO Page [phone] at 1344 All edits/amendments must be made on the electronic document DICTATION DATE: 04/13/19 1343 SHIPPING SERVICES SALES REPRESENTATIVE: KATIE 04/13/19 1343 RPT#: [id number] SC DATE: STATUS: ADM IN [facility] [address] [place] [address] END OF REPORT
--- NOTE | 2019-04-13 14:00 | MORECARE ---
CASE MANAGEMENT DISCHARGE SUMMARY PATIENT: HALLE OBANDO UNIT: [id number] ADM DATE: 03/29/19 AGE: 78 : 38 SEX: F ROOM/BED: D.6 AUTHOR: RIKADOC PHYSICIAN: REFERRING PHYSICIAN: CE NINO MD DATE OF SERVICE: 04/13/19 Discharge Plan Patient Name: HALLE OBANDO Facility: [facility]:[place] : 1940 Planned Disposition: [facility] Facility Anticipated Discharge Date: 04/13/19 Discharge Date: Expected LOS: 15 Initial Reviewer: [email or web address] Initial Review Date: 03/31/2019 Generated: 04/13/19 3:00 pm Comments DCP- Discharge Planning Updated by [id number]: Jesus Cardona on 04/13/19 12:[address] Patient Name: HALLE OBANDO Encounter No: [id number] : 1940 Primary Insurance: [employer] MEDICARE ADV Anticipated DC Date: 04-13-2019 Planned Disposition: [facility] Facility External Planned Provider: [facility], MEDICARE REHAB BED DCP follow-up note: CM RECEIVED DISCHARGE ORDER, NOTIFEID [facility] AT [phone], RELAY CHECKER SCHEDULED FOR AROUND 2:30PM TODAY. PT AND FAMILY NOTIFIED AND IN AGREEMENT WITH PLAN. BEDSIDE NURSE AND SENIOR JAVA SOFTWARE DEVELOPER NURSE NOTIFIED. CM FAXED DISCHARGE INFORMATION TO [facility] AT [phone]. CALL NURSE REPORT TO [facility] AT [phone]. [facility]. NISHA Gu DCP- Discharge Planning Updated by [id number]: Jesus Cardona on 04/13/19 6:[address] Patient Name: HALLE OBANDO Encounter No: [id number] : 1940 Primary Insurance: [employer] MEDICARE ADV Anticipated DC Date: 04-13-2019 Planned Disposition: [facility] Facility External Planned Provider: [facility], MEDICARE REHAB BED DCP follow-up note: CM FAXED REFERRAL UPDATE TO DIEGO LORENZO [facility] AT [phone]. FOR DISCHARGE, FAX DISCHARGE INFORMATION TO [facility] AT [phone]. CALL NURSE REPORT TO [facility] AT [phone]. [facility] TO ARRANGE VAN TRANSPORTATION. NISHA Gu DCP- Discharge Planning Updated by [email or web address]: Jesus Cardona on 04/12/19 10:[address] Patient Name: HALLE OBANDO Encounter No: [id number] : 1940 Primary Insurance: [employer] MEDICARE ADV Anticipated DC Date: 04-08-2019 Planned Disposition: [facility] Facility External Planned Provider:[facility], MEDICARE REHAB BED DCP follow-up note: CM CALLED AND SPOKE TO DIEGO AT [facility], , THEY HAVE RECEIVED REFERRAL AND UPDATES. THEY WILL NEED DAILY UPDATES TO SUBMIT TO INSURANCE AT APPROPRIATE TIME WHEN PT IS CLOSE TO BEING STABLE FOR DISCHARGE TO REHAB. FAXED REFERRAL UPDATE TO [facility] AT [phone]. CM WAITING ADMISSION DETERMINATION FROM [facility] WELL INSURANCE AUTHORIZATION FOR REHAB SERVICES. Jesus Cardona, CASE MANAGEMENT Appended by Jesus Cardona on 04/12/2019 11:38 CDT: CM ATTENDED MULTIDISCIPLINARY TEAM MEETING, JT LUX INDICATED PT MAY DISCHARGE TO REHAB TOMORROW. CM MET WITH PT IN ROOM WHO IS IN AGREEMENT [facility] DISCHARGE TO REHAB AT [facility]. IMPORTANT MESSAGE FROM MEDICARE PROVIDED AND EXPLAINED. CM CALLED AND LEFT MESSAGE FOR DIEGO AT [facility], , NOTIFYING OF DISCHARGE PLAN FOR TOMORROW. FACILITY SPOOL CLEANER INFORMED MOY LOZADA HAVE AUTHORIZATION FROM INSURANCE AND WILL DELIVER THE MESSAGE TO DIE[facility]. FOR DISCHARGE, FAX DISCHARGE INFORMATION TO [facility] AT [phone]. CALL NURSE REPORT TO [facility] AT [phone]. [facility] TO ARRANGE VAN TRANSPORTATION. NISHA Gu DCP- Discharge Planning Updated by [id number]: Jesus Cardona on 04/11/19 10:[address] Patient Name: HALLE OBANDO Encounter No: [id number] : 1940 Primary Insurance: [employer] MEDICARE ADV Anticipated DC Date: 04-08-2019 Planned Disposition: [facility] Facility External Planned Provider:[facility], MEDICARE REHAB BED DCP follow-up note: CM FAXED REFERRAL UPDATE TO [facility]IE[facility] AT [phone]. CM WAITING ADMISSION DETERMINATION FROM [facility] WELL INSURANCE AUTHORIZATION FOR REHAB SERVICES. Jesus Cardona CASE MANAGEMENT DCP- Discharge Planning Updated by [email or web address]: Jesus Cardona on 04/08/19 7:[address] Patient Name: HALLE OBANDO Encounter No: [id number] : 1940 Primary Insurance: [employer] MEDICARE ADV Anticipated DC Date: 04-08-2019 Planned Disposition: [facility] Facility External Planned Provider: [facility], MEDICARE REHAB BED DCP follow-up note: CM FAXED REFERRAL UPDATE TO [facility] AT [phone]. CM WAITING ADMISSION DETERMINATION FROM [facility] WELL INSURANCE AUTHORIZATION FOR REHAB SERVICES. Jesus Cardona CASE MANAGEMENT DCP- Discharge Planning Updated by [email or web address]: Jesus Cardona on 04/07/19 12:[address] Patient Name: HALLE OBANDO Encounter No: [id number] : 1940 Primary Insurance: [employer] MEDICARE ADV Anticipated DC Date: 04-08-2019 Planned Disposition: [facility] Facility External Planned Provider: :[facility], MEDICARE REHAB BED DCP follow-up note: CM RECEIVED DENIAL FOR INPATIENT REHAB FAX FROM [facility] INPATIENT REHAB. CM SPOKE TO PT IN ROOM WHO PROVIDED PERMISSION TO SPEAK TO HER DAUGHTER LONDON REGARDING PLANNING, CARE AND NEEDS. PT WAS BEING CLEANED UP BY AIDE IN ROOM. CM SPOKE TO LONDON IN HALLWAY, NOTIFIED OF DENIAL AND DISCUSSED AVAILABILITY OF SKILLED REHAB OPTIONS. LONDON DOES NOT THINK PT WILL CONSENT. CM SPOKE TO PT IN ROOM, PROVIDED COPY OF INSURANCE DENIAL, PT SIGNED FOR IT, DATED AND TIMED. CM DISCUSSED REHAB OPTIONS, LOCATIONS AND PROVIDERS, GAVE PT A COPY OF CUSTODIAL FACILITY PROVIDERS. PT ASKED FOR REFERRAL TO [facility] FOR REHAB. CHOICE SIGNED. CM CALLED AND SPOKE TO VIRY LORENZO [facility], , AND WAS NOTIFIED THAT [facility] IS IN NETWORK WITH PT'S INSURANCE. PT IN AGREEMENT WITH REFERRAL TO [facility] FOR REHAB. CM FAXED REFERRAL TO [facility] AT [phone]. CM WAITING ADMISSION DETERMINATION FROM [facility] WELL INSURANCE AUTHORIZATION FOR REHAB SERVICES. Jesus Cardona, CASE MANAGEMENT DCP- Discharge Planning Updated by [id number]: Evelia Villagomez on 04/05/19 1:[address] [facility] and Melissa at [facility] about patient and inpatient rehab, we are pending auth once evals are documented DCP- Discharge Planning Updated by [id number]: Maty Granados on 03/31/19 6:[address] Patient Name: HALLE OBANDO Admission Status: ER Accout number: [id number] Admission Date: 03-29-2019 : 1940 Admission Diagnosis:CHRONIC CHOLECYSTITIS Attending: CE NINO Current LOS: 2 Anticipated DC Date: Planned Disposition: Home or Self Care Primary Insurance: [employer] MEDICARE ADV Discharge Planning Comments: CM met with patient at bedside after explaining CM role and obtaining verbal consent. Patient lives at home with her daughter Jodie and plans to return there upon discharge. Patient feels this would be a safe discharge. CM discussed availability / needs of home health and medical equipment. Patient denies any discharge needs at this time. Patient states she will have her daughter drive her home upon discharge. CM will continue to follow and assist as needed with discharge planning / needs. Shoe Stitcher Odd: Maty Granados DCP- Discharge Planning Updated by [id number]: Evelia Villagomez on 03/28/19 11:[address] [facility] DISCUSSED AND WENT OVER WITH PATIENT, COPY GIVEN TO HER. DCPIA - Discharge Planning Initial Assessment Updated by [id number]: Maty Granados on 03/31/19 7:43 pm * Is the patient Alert and Oriented? Yes * How many steps to enter\exit or inside your home? * PCP LEAH * [facility] * Preadmission Environment Home with Family * ADLs Independent * Equipment None * List name and contact numbers for known caregivers / representatives who currently or will assist patient after discharge: LONDON OBANDO - DAUGHTER- [phone] * Verbal permission to speak to the caregivers and representatives has been obtained from the patient. Yes * Community resources currently utilized None * Additional services required to return to the preadmission environment? No * Can the patient safely return to the preadmission environment? Yes * Has this patient been hospitalized within the prior 30 days at any hospital? Yes Coverage Notice Reviewer: [id number] - Jesus Cardona Notice Issued Date-Time: 04/12/2019 11:25 Notice Type: IM Discharge Notice Notice Delivered To: Patient Relationship to Patient: Shop Director Name: Delivery Method: HAND - Hand Delivered Alina Days: Prior Verbal Notification: Recipient Understood Notice: Yes Recipient Signature: Yes Med Rec Note Co-signed by Attending: Coverage Notice Comment: Reviewer: [id number] Chastity Villagomez Notice Issued Date-Time: 03/28/2019 12:57 Notice Type: Medicare Outpatient Observation Notice Notice Delivered To: Patient Relationship to Patient: Shop Director Name: Delivery Method: HAND - Hand Delivered Alina Days: Prior Verbal Notification: Recipient Understood Notice: Yes Recipient Signature: Yes Med Rec Note Co-signed by Attending: Coverage Notice Comment: HAND DELIVERD, PATIENT HAD GRANDDAUGHTER SIGN IT. SHE HAD TROUBLE RAISING HER ARM Reviewer: [id number] Chastity Cardona Notice Issued Date-Time: 04/07/2019 12:45 Notice Type: Patient Choice Letter Notice Delivered To: Patient Relationship to Patient: Shop Director Name: Delivery Method: HAND - Hand Delivered Alina Days: Prior Verbal Notification: Recipient Understood Notice: Yes Recipient Signature: Yes Med Rec Note Co-signed by Attending: Coverage Notice Comment: JENNA Vanegas DP export: 04/13/19 12:44 p Patient Name: HALLE OBANDO Page 03162 at 1400 All edits/amendments must be made on the electronic document DICTATION DATE: 04/13/19 1400 CHIEF OPERATOR LOCK TENDER: KATIE 04/13/19 1400 RPT#: [id number] DC DATE: STATUS: ADM IN [facility] [place] [address] [place] [address] END OF REPORT
--- NOTE | 2019-04-13 14:12 | NUR ---
ALERT AND ORIENTED X4. SITTING UP IN BED. REPORT CALLED TO ROM MCFADDEN AT [facility] [phone]. JOSEPH LEFT IN PLACE PER JT VAUGHAN. DC LT UPPER ARM MIDLINE TIP INTACT. CONTINUE PLAN OF CARE AND SAFETY PRECAUTIONS.
--- NOTE | 2019-04-13 14:37 | NUR ---
OT NOTE: PT COMPLETED BED MOB WITH MIN/CGA. PT COMPLETED ADL MOB WITH CGA. PT COMPLETED TOILETING TASKS WITH MIN/MOD A FOR HYGIENE. PT COMPLETED FACE WASH WITH SET UP. PT IS STEADILY PROGRESSING EACH SESSION. THANK YOU,OMAIRA RIDLEY
--- NOTE | 2019-04-13 16:45 | NUR ---
ALERT AND ORIENTED X4. DISCHARGE PAPERS SIGNED ON CHART. [facility] ARRIVES. JOSEPH SECURED TO RT INNER THIGH. ASSIST TO WHEELCHAIR. REMAINS FREE FROM INJURY.
== END 2019-04-13 16:52 | DRG 417 ==
LOC: D.ER 08:47 → OBSVTIME 13:17 → D.MS 13:17 → D.ICU 03-29 13:31 → D.MS 04-03 18:25 → D.SDCHOLD 04-04 11:15 → D.MS 04-04 11:19 → D.M2 04-06 15:54
PROVIDERS: Emergency Medicine; Family Medicine; Surgery; ADMIT Internal Medicine Nephrology; ATTEND Internal Medicine Nephrology
PROC: BF121ZZ Fluoroscopy of Gallbladder using Low Osmolar Contrast (ICD-10-PCS; 2019-04-01)
PROC: 0FT44ZZ Resection of Gallbladder, Percutaneous Endoscopic Approach (ICD-10-PCS; principal; 2019-04-01 12:30)
PROC: 0FB04ZX Excision of Liver, Percutaneous Endoscopic Approach, Diagnostic (ICD-10-PCS; 2019-04-01 12:30)
PROC: 05HY33Z Insertion of Infusion Device into Upper Vein, Percutaneous Approach (ICD-10-PCS; 2019-04-06)
DX: K81.1 Chronic cholecystitis (principal); I50.23 Acute on chronic systolic (congestive) heart failure; I42.9 Cardiomyopathy, unspecified; N17.9 Acute kidney failure, unspecified; I82.611 Acute embolism and thrombosis of superficial veins of right upper extremity; R11.2 Nausea with vomiting, unspecified; I11.0 Hypertensive heart disease with heart failure; D50.9 Iron deficiency anemia, unspecified; E78.5 Hyperlipidemia, unspecified; E11.9 Type 2 diabetes mellitus without complications; I48.2 Chronic atrial fibrillation; K21.9 Gastro-esophageal reflux disease without esophagitis; E86.0 Dehydration; R79.89 Other specified abnormal findings of blood chemistry; I25.10 Atherosclerotic heart disease of native coronary artery without angina pectoris; E05.00 Thyrotoxicosis with diffuse goiter without thyrotoxic crisis or storm

== ENCOUNTER 2019-07-31 10:22 | Inpatient (IN) | payer MEDICARE, MEDICAID ==
[~2019-07-31] VITALS: Ht 162.6 cm; Wt 54.1 kg
--- NOTE | ~2019-07-31 | CN ---
PATIENT NAME:HALLE OBANDO MEDICAL RECORD: [id number] : [birth year] LOCATION:D. D.2114 ADMIT DATE: 07/31/19 ACCOUNT: [id number] CONSULTING PHYSICIAN: CHRISTOPHER SUAREZ MD REFERRING PHYSICIAN: CE NINO MD DATE OF CONSULTATION: 07/31/2019 DIAGNOSES: 1. Tachycardia. 2. Atrial fibrillation, chronic. 3. Coronary artery disease. 4. Previous multivessel PTCA stent. 5. Hyperlipidemia. 6. Abdominal pain. 7. Noninsulin-dependent diabetes. 8. Dilated cardiomyopathy. HISTORY OF PRESENT ILLNESS: Mrs. Obando is well known to us with a history of cardiomyopathy, coronary artery disease. Last cardiac stent being in February. She does not come in with any cardiac complaints. She comes in with abdominal pain, most likely gastritis found to have tachycardia 150s and her atrial fibrillation is chronic. She was previously on rate control as well as Eliquis last hospitalization, the rate control got dropped, daughter and the patient are unsure why the rate control got dropped. She has had palpitations, no chest pain. No chest discomfort, no real shortness of breath. PHYSICAL EXAMINATION: CONSTITUTIONAL/GENERAL APPEARANCE: Well nourished, well developed, appears stated age. EYES: Lids and conjunctivae noninjected. No discharge. No pallor. ENT: Lips within normal limit. No cyanosis. No pallor. NECK: Carotid arteries, bilateral normal upstroke. No bruits. No thrills. No jugular venous pressure or distention. CERVICAL LYMPH NODES: Nontender. Nonenlarged. THYROID: Not enlarged. No nodules. CARDIOVASCULAR: Irregularly irregular, tachycardic. RESPIRATORY: Respiratory effort, unlabored. Normal curvature. No thoracic deformity. No chest wall tenderness. Percussion, resonant. Auscultation, clear. No wheezes, no rales, no rhonchi. ABDOMEN: Soft, nondistended, nontender. No abdominal pain, no vomiting and normal appetite. MUSCULOSKELETAL: No joint tenderness, normal gait, normal tone. SKIN: Warm and dry. OVERALL IMPRESSION: Atrial fibrillation, chronic, on Eliquis, but will need rate control. Start Cardizem 60 mg q.6 hours, changing to once a day, Cardizem after we are able to determine the dose that her blood pressure will tolerate. TRANSINT:[id number] Voice Confirmation ID: [id number] DOCUMENT ID: [id number] CONSULT REPORT [id number] HALLE OBANDO JEFFREY MD CC: [id number] DICTATION DATE: 07/31/19 135 REFERRAL NURSE: 07/31/192123 ADM IN [place] [id number] [place] [id number]
[~2019-07-31 10:22] MED LIST changes: +CARDIZEM30 MG PO; +FUROSEMIDE20 MG PO; +LANOXIN125 MCG PO; +Nystatin Oral Susp [ PO; +TESSALON PERLE100 MG PO
[2019-07-31 10:50] LABS: BASOPHILS 1.5 % (0-2); EOSINOPHILS 2.2 % (0-7); HEMATOCRIT 34.7 % (36.0-48.0); HEMOGLOBIN 10.7 g/dL (12-16); IMMATURE GRANULOCYTES 0.2 % (0-5); LYMPHOCYTES 48.4 % (15-50); MCH 24.6 pg (26.0-34.0); MCHC 30.8 g/dL (31.0-37.0); MCV 79.8 fL (80.0-100.0); MEAN PLATELET VOLUME 9.8 fL (7.4-10.4); MONOCYTES 11.5 % (2-11); NEUTROPHILS 36.2 % (40-80); PLATELET COUNT 264 10x3/uL (130-400); RBC 4.35 10x6/uL (4.00-5.40); RDW 19.2 % (11.5-14.5); WBC 5.9 10x3/uL (4.8-10.8)
[2019-07-31 11:14] LABS: ALBUMIN 3.2 g/dL (3.4-5.0); BILIRUBIN - TOTAL 0.72 mg/dL (0.2-1.3); CALCIUM 10.2 mg/dL (8.5-10.1); POTASSIUM - SERUM 3.5 mmol/L (3.5-5.1); THYROID STIMULATING HORMONE 1.33 uIU/mL (0.36-3.74); TROPONIN-I 0.042 ng/mL (0.000-0.060)
[2019-07-31 11:25] LABS: ANION GAP 14.9 mmol/L (8-16); CARBON DIOXIDE 21.6 mmol/L (21.0-32.0); CREATININE - SERUM 0.9 mg/dL (0.6-1.3); PROTEIN - SERUM 7.9 g/dL (6.4-8.2)
[2019-07-31 12:13] LABS: APPEARANCE CLEAR (CLEAR); BILIRUBIN NEGATIVE (NEGATIVE); COLOR YELLOW (YELLOW); GLUCOSE NEGATIVE (NEGATIVE); KETONE NEGATIVE (NEGATIVE); NITRITE NEGATIVE (NEGATIVE); PROTEIN 1+ mg/dL (NEGATIVE); UROBILINOGEN NORMAL (NORMAL)
[2019-07-31 12:14] LABS: BACTERIA MODERATE /hpf (NEGATIVE); RED CELLS - URINE 0-5 /hpf (0-5); WHITE CELLS - URINE 0-5 /hpf (NEGATIVE)
[2019-07-31 12:15] LABS: CALCIUM OXALATE CRYSTALS 0-5 /hpf (NONE SEEN); MUCUS >1+ /lpf (NONE SEEN)
[2019-07-31 13:03] VITALS: BP 111/83
[2019-07-31 16:21] VITALS: BP 164/107; BMI 21.5
[2019-07-31 17:31] LABS: % SATURATION 8 % (15-55); IRON 28 ug/dl (35-150); TOTAL IRON BIND CAPACITY 346 ug/dl (260-445); UNSAT IRON BIND CAPACITY 318 ug/dl (150-375)
[2019-07-31 17:59] LABS: T4 THYROXIN - FREE 1.11 ng/dL (0.76-1.46)
[2019-07-31 20:00] VITALS: BP 120/76
--- NOTE | 2019-07-31 20:04 | NUR ---
RECIEVED UP IN BED WITH EYES CLOSED. OPENS EYES SPONTANEOUSLY. ORIENTED X4. REQUIRES ASSIST WITH TRANSFERS AND AMBULATION. IV TO RIGHT FA WITH NS AT 100CC/HR. TELEMETRY IN PLACE AND CAF AT THIS TIME. DENIES ANY NEEDS OR PAIN.
--- NOTE | 2019-07-31 22:51 | NUR ---
FAMILY MEMBER (STATED NIECE) CAME UP TO THIS NURSE AND ASK " WHAT DO YOU DO IF HER DAUGHTER SAID " I'VE POISIONED SOMEONE I LOVE". EXPLAINED I WOULD FIND OUT. REPORTED TO MICROFILM MACHINE OPERATOR THAT STATED TO OBSERVE CLOSELY.
[2019-08-01] VITALS: BP 137/98
--- NOTE | 2019-08-01 01:54 | NUR ---
C/O RIB AND CHEST PAIN WHEN HE COUGHS. RATES A 10 AND SHARP PRESSURE. REQUEST PAIN MED. MORPHINE GIVEN PER ORDERS.
[2019-08-01 04:00] VITALS: BP 137/95
[2019-08-01 04:59] LABS: EOSINOPHILS 0.5 % (0-7); HEMATOCRIT 33.7 % (36.0-48.0); HEMOGLOBIN 10.3 g/dL (12-16); IMMATURE GRANULOCYTES 0.2 % (0-5); LYMPHOCYTES 34.9 % (15-50); MCH 24.7 pg (26.0-34.0); MCHC 30.6 g/dL (31.0-37.0); MCV 80.8 fL (80.0-100.0); MEAN PLATELET VOLUME 9.7 fL (7.4-10.4); NEUTROPHILS 48.4 % (40-80); PLATELET COUNT 258 10x3/uL (130-400); RBC 4.17 10x6/uL (4.00-5.40); RDW 19.3 % (11.5-14.5); WBC 5.9 10x3/uL (4.8-10.8)
[2019-08-01 05:33] LABS: ALBUMIN 2.8 g/dL (3.4-5.0); ANION GAP 12.9 mmol/L (8-16); BILIRUBIN - TOTAL 0.53 mg/dL (0.2-1.3); CALCIUM 9.3 mg/dL (8.5-10.1); CARBON DIOXIDE 22.1 mmol/L (21.0-32.0); CREATININE - SERUM 0.8 mg/dL (0.6-1.3); PROTEIN - SERUM 7.2 g/dL (6.4-8.2); TROPONIN-I 0.057 ng/mL (0.000-0.060)
[2019-08-01 08:17] VITALS: BP 127/96
--- NOTE | 2019-08-01 08:19 | NUR ---
LEAVING FOR MRI BY W/C. TELEMETRY UCAF, HR 124. WILL CONT. TO MONITOR.
--- NOTE | 2019-08-01 08:36 | NUR ---
REFUSING MRE WITHOUT PRE-MED. CLEMENT WATERS NOTIFIED.
--- NOTE | 2019-08-01 08:45 | NUR ---
DR. SUAREZ NOTIFIED HR 144.
--- NOTE | 2019-08-01 09:13 | NUR ---
TELEMETRY CAF, HR 95.
[2019-08-01 11:43] VITALS: BP 152/84
--- NOTE | 2019-08-01 14:30 | NUR ---
PRE-MED GIVEN. TO MRI BY STRETCHER.
[2019-08-01 15:04] VITALS: BP 169/109
--- NOTE | 2019-08-01 15:14 | NUR ---
STILL UNABLE TO DO MRI EVEN THOUG SHE APEARS TO BE VERY SEDATED AT THIS TIME. 02 SATS 86% ON ROOM AIR AND NOW UP TOP 96% ON 02 2L NC. CLEMENT JT NOTIFIED TO SEE IF SHE NEEDED ATIVAN REBERSED, STATES TO CONT WITH MRI ORDER SHE AWAKENS EASY. MRI NOTIFIED.
--- NOTE | 2019-08-01 15:53 | NUR ---
OT NOTE: PT OUT FOR PROCEDURE IN PM; WILL ATTEMPT TOMORROW. MALLORIE VAUGHN, OTR/L
--- NOTE | 2019-08-01 17:28 | NUR ---
STIIL SEDATED. LEAVING FOR 3RD ATTEMPT MRI.
--- NOTE | 2019-08-01 19:26 | NUR ---
RECEIVED BEDSIDE REPORT. PATIENT RESTING COMFORTABLY IN BED. RESPIRATIONS ARE EVEN AND UNLABORED. WAS TOLD BY OFF GOING RN THAT PATIENT HAS BEEN SLEEPING SEENS SHE RETURNED FROM HER MRI. WAS TOLD THAT PATIENT WAS GIVEN ATIVAN. NO S/S OF DISTRESS. NO C/O PAIN. PATIENT DOES AROUSE BY VOICE. CALL LIGHT WITHIN REACH. WILL CPOC.
[2019-08-01 20:00] VITALS: BP 127/100
--- NOTE | 2019-08-01 22:57 | NUR ---
FAMILY CAME TO VISIT PATIENT. FAMILY CAME TO NURSES STATION ASKING IF WE COULD ORDER FOOD FOR THE PATIENT. EXPLAINED TO FAMILY THAT THE CAFETERIA WAS CLOSED, THAT THE PATIENT WAS NOT ALERT ENOUGH TO EAT, THIS NURSE WAS CONCERNED THAT THE PATIENT COULD ASPIRATE. FAMILY WENT BACK TO PATIENT ROOM CLOSED DOOR. FAMILY MEMBER CAME OUT HEATED UP FOOD, WENT BACK TO ROOM. FAMILY MEMBER TOLD AGAIN OF THE CONCERN FOR ASPIRATING AND THAT WHEN THE PATIENT IS MORE ALERT. I WILL LET HER EAT. ANOTHER FAMILY MEMBER CAME OUT ASKED FOR CRACKERS WHEN ASKED WHO THEY WERE FOR THE FAMILY MEMBER STATED THE PATIENTS DAUGHTER. FAMILY MEMBER WENT BACK TO ROOM AND CLOSED THE DOOR. THE FAMILY HAS REQUESTED THAT THE PATIENT NO LONGER GETS ATIVAN OR SLEEPING MEDICINE. I EXPLAINED TO THE FAMILY THAT THE PATIENT HAS NOT RECEIVED ATIVAN OR SLEEPING MEDICINE ON THIS SHIFT.
[2019-08-02] VITALS: BP 117/92
[2019-08-02 04:00] VITALS: BP 124/84
[2019-08-02 05:53] LABS: BASOPHILS 0.8 % (0-2); EOSINOPHILS 0.2 % (0-7); HEMATOCRIT 33.8 % (36.0-48.0); HEMOGLOBIN 10.2 g/dL (12-16); IMMATURE GRANULOCYTES 0.6 % (0-5); LYMPHOCYTES 23.7 % (15-50); MCH 24.4 pg (26.0-34.0); MCHC 30.2 g/dL (31.0-37.0); MCV 80.9 fL (80.0-100.0); MEAN PLATELET VOLUME 10.1 fL (7.4-10.4); MONOCYTES 19.5 % (2-11); NEUTROPHILS 55.2 % (40-80); PLATELET COUNT 254 10x3/uL (130-400); RBC 4.18 10x6/uL (4.00-5.40); RDW 19.2 % (11.5-14.5); WBC 5.1 10x3/uL (4.8-10.8)
[2019-08-02 05:59] LABS: ALBUMIN 2.7 g/dL (3.4-5.0); ANION GAP 16.7 mmol/L (8-16); BILIRUBIN - TOTAL 0.56 mg/dL (0.2-1.3); CALCIUM 8.8 mg/dL (8.5-10.1); CARBON DIOXIDE 20.2 mmol/L (21.0-32.0); POTASSIUM - SERUM 3.9 mmol/L (3.5-5.1); PROTEIN - SERUM 6.9 g/dL (6.4-8.2)
[2019-08-02 08:13] VITALS: BP 111/88
[2019-08-02 11:13] VITALS: BP 110/63
[2019-08-02 14:37] VITALS: Ht 162.6 cm; Wt 54.1 kg
[2019-08-02 15:06] VITALS: BP 125/77
--- NOTE | 2019-08-02 15:25 | NUR ---
OT NOTE: PT COMPLETED SUPINE TO SIT WITH MOD A. PT COMPLETED EOB SITTING WITH CGA. PT COMPLETED FACE WASH WITH MIN A. PT IS LETHARGIC. NURSING NOTIFIED. THANK YOU, OMAIRA RIDLEY
--- NOTE | 2019-08-02 17:23 | MORECARE ---
CASE MANAGEMENT DISCHARGE SUMMARY PATIENT: HALLE OBANDO UNIT: [id number] ADM DATE: 07/31/19 AGE: 78 : 38 SEX: F ROOM/BED: D.2114 AUTHOR: SAUL MELÉNDEZ PHYSICIAN: REFERRING PHYSICIAN: CE NINO MD DATE OF SERVICE: 08/02/19 Discharge Plan Patient Name: HALLE OBANDO Facility: [facility]:[place] : 1940 Planned Disposition: Group Home Facility Anticipated Discharge Date: 08/04/19 Discharge Date: Expected LOS: 4 Initial Reviewer: [email or web address] Initial Review Date: 08/02/2019 Generated: 08/02/19 6:23 pm DCPIA - Discharge Planning Initial Assessment Updated by [id number]: Jesus Cardona on 08/02/19 5:21 pm * Is the patient Alert and Oriented? Yes * How many steps to enter\exit or inside your home? NONE * PCP DR. GREGORIO MOREJON * [facility] * Preadmission Environment Home with Family * ADLs Partial Dependent * Partial ADLs (Assistance needed) Bathing Medication Management Toileting * Equipment Rolling Walker * Other Equipment NO MEDICAL EQUIPMENT PROVIDER PREFERNECE * List name and contact numbers for known caregivers / representatives who currently or will assist patient after discharge: LONDONMANDI OBANDO, DTR, * Verbal permission to speak to the caregivers and representatives has been obtained from the patient. Yes * Community resources currently utilized None * Please name any agencies selected above. NONE * Additional services required to return to the preadmission environment? Yes * Can the patient safely return to the preadmission environment? No * Has this patient been hospitalized within the prior 30 days at any hospital? Yes Patient Name: HALLE OBANDO Page 09507 at 1723 All edits/amendments must be made on the electronic document DICTATION DATE: 08/02/191722 CASEWORKER PROTECTIVE SERVICES: KATIE 08/02/191722 RPT#: [id number] DC DATE: STATUS: ADM IN [facility] [address] [place] [address] END OF REPORT
--- NOTE | 2019-08-02 17:31 | MORECARE ---
CASE MANAGEMENT DISCHARGE SUMMARY PATIENT: HALLE PERZE UNIT: [id number] ADM DATE: 07/31/19 AGE: 78 : 38 SEX: F ROOM/BED: D.5006 AUTHOR: RIKA,DOC PHYSICIAN: REFERRING PHYSICIAN: CE NINO MD DATE OF SERVICE: 08/02/19 Discharge Plan Patient Name: HALLE PEREZ Facility: [facility]:[place] : 1940 Planned Disposition: Group Home Facility Anticipated Discharge Date: 08/04/19 Discharge Date: Expected LOS: 4 Initial Reviewer: [email or web address] Initial Review Date: 08/02/2019 Generated: 08/02/19 6:31 pm Comments DCP- Discharge Planning Updated by [email or web address]: Jesus Cardona on 08/02/19 4:[address] Patient Name: HALLE PEREZ Admission Status: ER Accout number: [id number] Admission Date: 07-31-2019 : 1940 Admission Diagnosis: Attending: CE NINO Current LOS: 2 Anticipated DC Date: 08-04-2019 Planned Disposition: Group Home Facility Primary Insurance: [employer] MEDICARE ADV PLANNED EXTERNAL [facility]ICARE REHAB BED Discharge Planning Comments: CM MET WITH PT IN ROOM TO DISCUSS DISCHARGE PLANNING AND NEEDS. PT REPORTS LIVING AT HOME DEPENDENTLY WITH HER DAUGHTER LONDON WHO TAKES CARE OF HER. PT REPORTS ASSISTANCE WITH BATHING AND MEDICATIONS. PT HAS ROLLING WALKER WITH NO MEDICAL EQUIPMENT PROVIDER PREFERENCE. PT HAS NO OUTSIDE SERVICES ASSISTING IN THE HOME. CM DISCUSSED AVAILABILITY OF HOME HEALTH, REHAB SERVICES AND MEDICAL EQUIPMENT. PT WOULD LIKE REHAB BEFORE GOING HOME, ASKED CM TO CALL HER DAUGHTER LONDON TO DISCUSS THIS. CM CALLED LONDON PEREZ, . LONDON UPSET THAT HER MOTHER HAD BEEN GIVEN A MEDICATION THAT PUT HER COMPLETELY OUT AND SHE WAS NOT ABLE TO WAKE HER MOTHER UP OR TO EVEN FEED HER. LONDON DOES NOT WANT HER MOTHER GIVEN THAT MEDICATION EVER AGAIN. THEY DO WANT REHAB AND WANT REFERRAL SENT TO [facility], PT HAS BEEN THERE BEFORE WITH GOOD RESULT. THE PLAN WILL BE FOR REHAB TO RETURN HOME. PT'S DAUGHTER TAKES CARE OF PT DESK OFFICER AT HOME AND PLANS TO APPLY FOR MEDICAID FOR PT AND TO GET PAID CAREGIVER FOR PT AT HOME THROUGH MEDICAID. CHOICE COMPLETED. CM TO SEND REFERRAL TO [facility] SOON POSSIBLE; PT'S INSURANCE REQUIRES PRE AUTHORIZATION FOR REHAB SERVICES. Phonograph Mechanic: Jesus Cardona DCPIA - Discharge Planning Initial Assessment Updated by [id number]: Jesus Cardona on 08/02/19 5:21 pm * Is the patient Alert and Oriented? Yes * How many steps to enter\exit or inside your home? NONE * PCP DR. GREGORIO MOREJON * Pharmacy [facility] * Preadmission Environment Home with Family * ADLs Partial Dependent * Partial ADLs (Assistance needed) Bathing Medication Management Toileting * Equipment Rolling Walker * Other Equipment NO MEDICAL EQUIPMENT PROVIDER PREFERNECE * List name and contact numbers for known caregivers / representatives who currently or will assist patient after discharge: LONDONMANDI PEREZ DTR, * Verbal permission to speak to the caregivers and representatives has been obtained from the patient. Yes * Community resources currently utilized None * Please name any agencies selected above. NONE * Additional services required to return to the preadmission environment? Yes * Can the patient safely return to the preadmission environment? No * Has this patient been hospitalized within the prior 30 days at any hospital? Yes Coverage Notice Reviewer: [id number] - Jesus Cardona Notice Issued Date-Time: 08/02/2019 17:00 Notice Type: Patient Choice Letter Notice Delivered To: Family Member Relationship to Patient: Daughter Granite Polisher Machine Name: london perez Delivery Method: PHONE - Phone Alina Days: Prior Verbal Notification: Recipient Understood Notice: Yes Recipient Signature: Med Rec Note Co-signed by Attending: Coverage Notice Comment: jenna KHOURY export: 08/02/19 4:23 p Patient Name: HALLE PEREZ Page 41809 at 1731 All edits/amendments must be made on the electronic document DICTATION DATE: 08/02/191730 SILVICULTURE PROFESSOR: KATIE 08/02/191730 RPT#: [id number] DC DATE: STATUS: ADM IN [facility] [address] [place] [address] END OF REPORT
--- NOTE | 2019-08-02 19:01 | NUR ---
RECEIVED BEDSIDE REPORT. PATIENT IS RESTING COMFORTABLY IN BED. RESPIRATIONS ARE EVEN AND UNLABORED. NO S/S OF DISTRESS. NO C/O PAIN. CALL LIGHT WITHIN REACH. WILL CPOC.
[2019-08-02 20:00] VITALS: BP 108/68
--- NOTE | 2019-08-02 22:50 | NUR ---
PATIENT RESTING COMFORTABLY IN BED. RESPIRATIONS ARE EVEN AND UNLABORED. NO S/S OF DISTRESS. NO C/O PAIN. CALL LIGHT WITHIN REACH. WILL CPOC.
[2019-08-03] VITALS: BP 111/63
[2019-08-03 04:00] VITALS: BP 103/80
[2019-08-03 06:32] LABS: EOSINOPHILS 1.8 % (0-7); HEMATOCRIT 30.6 % (36.0-48.0); HEMOGLOBIN 9.5 g/dL (12-16); IMMATURE GRANULOCYTES 0.6 % (0-5); LYMPHOCYTES 46.5 % (15-50); MCH 24.4 pg (26.0-34.0); MEAN PLATELET VOLUME 10.2 fL (7.4-10.4); MONOCYTES 19.1 % (2-11); PLATELET COUNT 280 10x3/uL (130-400); RBC 3.89 10x6/uL (4.00-5.40); WBC 5.1 10x3/uL (4.8-10.8)
[2019-08-03 06:43] LABS: MCV 78.7 fL (80.0-100.0)
[2019-08-03 06:44] LABS: ALBUMIN 2.5 g/dL (3.4-5.0); ANION GAP 15.7 mmol/L (8-16); BILIRUBIN - TOTAL 0.41 mg/dL (0.2-1.3); CALCIUM 8.9 mg/dL (8.5-10.1); CARBON DIOXIDE 20.8 mmol/L (21.0-32.0); CREATININE - SERUM 1.1 mg/dL (0.6-1.3); POTASSIUM - SERUM 3.5 mmol/L (3.5-5.1); PROTEIN - SERUM 6.4 g/dL (6.4-8.2)
[2019-08-03 08:28] VITALS: BP 121/82
--- NOTE | 2019-08-03 10:15 | MORECARE ---
CASE MANAGEMENT DISCHARGE SUMMARY PATIENT: HALLE PEREZ UNIT: [id number] ADM DATE: 07/31/19 AGE: 78 : 38 SEX: F ROOM/BED: D.1333 AUTHOR: RIKA,DOC PHYSICIAN: REFERRING PHYSICIAN: CE NINO MD DATE OF SERVICE: 08/03/19 Discharge Plan Patient Name: HALLE PEREZ Facility: [facility]:[place] : 1940 Planned Disposition: Senior Living Facility Anticipated Discharge Date: 08/04/19 Discharge Date: Expected LOS: 4 Initial Reviewer: [id number] Initial Review Date: 08/02/2019 Generated: 08/03/19 11:14 am Comments DCP- Discharge Planning Updated by [id number]: Jesus Cardona on 08/02/19 4:[address] Patient Name: HALLE PEREZ Admission Status: ER Accout number: [id number] Admission Date: 07-31-2019 : 1940 Admission Diagnosis: Attending: CE NINO Current LOS: 2 Anticipated DC Date: 08-04-2019 Planned Disposition: Senior Living Facility Primary Insurance: [employer] MEDICARE ADV PLANNED [facility] BED Discharge Planning Comments: CM MET WITH PT IN ROOM TO DISCUSS DISCHARGE PLANNING AND NEEDS. PT REPORTS LIVING AT HOME DEPENDENTLY WITH HER DAUGHTER LONDON WHO TAKES CARE OF HER. PT REPORTS ASSISTANCE WITH BATHING AND MEDICATIONS. PT HAS ROLLING WALKER WITH NO MEDICAL EQUIPMENT PROVIDER PREFERENCE. PT HAS NO OUTSIDE SERVICES ASSISTING IN THE HOME. CM DISCUSSED AVAILABILITY OF HOME HEALTH, REHAB SERVICES AND MEDICAL EQUIPMENT. PT WOULD LIKE REHAB BEFORE GOING HOME, ASKED CM TO CALL HER DAUGHTER LONDON TO DISCUSS THIS. CM CALLED LONDON PEREZ, . LONDON UPSET THAT HER MOTHER HAD BEEN GIVEN A MEDICATION THAT PUT HER COMPLETELY OUT AND SHE WAS NOT ABLE TO WAKE HER MOTHER UP OR TO EVEN FEED HER. LONDON DOES NOT WANT HER MOTHER GIVEN THAT MEDICATION EVER AGAIN. THEY DO WANT REHAB AND WANT REFERRAL SENT TO [facility], PT HAS BEEN THERE BEFORE WITH GOOD RESULT. THE PLAN WILL BE FOR REHAB TO RETURN HOME. PT'S DAUGHTER TAKES CARE OF PT CONTINUOUS WAVE OPERATOR AT HOME AND PLANS TO APPLY FOR MEDICAID FOR PT AND TO GET PAID CAREGIVER FOR PT AT HOME THROUGH MEDICAID. CHOICE COMPLETED. CM TO SEND REFERRAL TO [facility] SOON POSSIBLE; PT'S INSURANCE REQUIRES PRE AUTHORIZATION FOR REHAB SERVICES. Core Java Engineer: Jesus Cardona DCPIA - Discharge Planning Initial Assessment Updated by [id number]: Jesus Cardona on 08/02/19 5:21 pm * Is the patient Alert and Oriented? Yes * How many steps to enter\exit or inside your home? NONE * PCP DR. GREGORIO MOREJON * Pharmacy [facility] * Preadmission Environment Home with Family * ADLs Partial Dependent * Partial ADLs (Assistance needed) Bathing Medication Management Toileting * Equipment Rolling Walker * Other Equipment NO MEDICAL EQUIPMENT PROVIDER PREFERNECE * List name and contact numbers for known caregivers / representatives who currently or will assist patient after discharge: LONDON PEREZ DTR, * Verbal permission to speak to the caregivers and representatives has been obtained from the patient. Yes * Community resources currently utilized None * Please name any agencies selected above. NONE * Additional services required to return to the preadmission environment? Yes * Can the patient safely return to the preadmission environment? No * Has this patient been hospitalized within the prior 30 days at any hospital? Yes External Providers [facility] Provider: [facility] Next Contact Date: 08/03/2019 Service Request Date: Service Type: Resolution: Reviewer: Comments: Coverage Notice Reviewer: [id number] - Jesus Cardona Notice Issued Date-Time: 08/02/2019 17:00 Notice Type: Patient Choice Letter Notice Delivered To: Family Member Relationship to Patient: Daughter Ec Teacher Name: london perez Delivery Method: PHONE - Phone Alina Days: Prior Verbal Notification: Recipient Understood Notice: Yes Recipient Signature: Med Rec Note Co-signed by Attending: Coverage Notice Comment: jenna Vanegas DP export: 08/02/19 4:31 p Patient Name: HALLE PEREZ Page [id number] at 1015 All edits/amendments must be made on the electronic document DICTATION DATE: 08/03/19 1014 HAND SAMPLE MAKER: KATIE 08/03/19 1014 RPT#: [id number] DC DATE: STATUS: ADM IN [facility] [address] [facility] [place] [address] END OF REPORT
--- NOTE | 2019-08-03 10:21 | MORECARE ---
CASE MANAGEMENT DISCHARGE SUMMARY PATIENT: HALLE PEREZ UNIT: [id number] ADM DATE: 07/31/19 AGE: 78 : 38 SEX: F ROOM/BED: D.8954 AUTHOR: RIKADOC PHYSICIAN: REFERRING PHYSICIAN: CE NINO MD DATE OF SERVICE: 08/03/19 Discharge Plan Patient Name: HALLE PEREZ Facility: [facility]:[employer] : 1940 Planned Disposition: Nursing Home Facility Anticipated Discharge Date: 08/04/19 Discharge Date: Expected LOS: 4 Initial Reviewer: [email or web address] Initial Review Date: 08/02/2019 Generated: 08/03/19 11:21 am Comments DCP- Discharge Planning Updated by [email or web address]: Jesus Luther on 08/03/19 9:[address] Patient Name: HALLE PEREZ Encounter No: [id number] : 1940 Primary Insurance: [employer] MEDICARE ADV Anticipated DC Date: 08-04-2019 Planned Disposition: Nursing Home Facility External Planned Provider: [facility] CM REVIEWED CHART. CM FAXED REFERRAL TO [facility] AT [phone]. CM NOTIFIED [facility]FERRAL AT [phone]. CM WAITING ADMISSION DETERMINATION FROM [facility] FOR REHAB SERVICES. CORIN LUTHER, CASE JAZLYN DCP- Discharge Planning Updated by [email or web address]: Jesus Luther on 08/02/19 4:[address] Patient Name: HALLE PEREZ Admission Status: ER Accout number: [id number] Admission Date: 07-31-2019 : 1940 Admission Diagnosis: Attending: CE NINO Current LOS: 2 Anticipated DC Date: 08-04-2019 Planned Disposition: Nursing Home Facility Primary Insurance: [employer] MEDICARE ADV PLANNED EXTERNAL PROVIDER: [facility], MEDICARE REHAB BED Discharge Planning Comments: CM MET WITH PT IN ROOM TO DISCUSS DISCHARGE PLANNING AND NEEDS. PT REPORTS LIVING AT HOME DEPENDENTLY WITH HER DAUGHTER LONDON WHO TAKES CARE OF HER. PT REPORTS ASSISTANCE WITH BATHING AND MEDICATIONS. PT HAS ROLLING WALKER WITH NO MEDICAL EQUIPMENT PROVIDER PREFERENCE. PT HAS NO OUTSIDE SERVICES ASSISTING IN THE HOME. CM DISCUSSED AVAILABILITY OF HOME HEALTH, REHAB SERVICES AND MEDICAL EQUIPMENT. PT WOULD LIKE REHAB BEFORE GOING HOME, ASKED CM TO CALL HER DAUGHTER LONDON TO DISCUSS THIS. CM CALLED LONDON PEREZ, . LONDON UPSET THAT HER MOTHER HAD BEEN GIVEN A MEDICATION THAT PUT HER COMPLETELY OUT AND SHE WAS NOT ABLE TO WAKE HER MOTHER UP OR TO EVEN FEED HER. LONDON DOES NOT WANT HER MOTHER GIVEN THAT MEDICATION EVER AGAIN. THEY DO WANT REHAB AND WANT REFERRAL SENT TO [facility], PT HAS BEEN THERE BEFORE WITH GOOD RESULT. THE PLAN WILL BE FOR REHAB TO RETURN HOME. PT'S DAUGHTER TAKES CARE OF PT ENGINE MECHANIC AT HOME AND PLANS TO APPLY FOR MEDICAID FOR PT AND TO GET PAID CAREGIVER FOR PT AT HOME THROUGH MEDICAID. CHOICE COMPLETED. CM TO SEND REFERRAL TO [facility] SOON POSSIBLE; PT'S INSURANCE REQUIRES PRE AUTHORIZATION FOR REHAB SERVICES. Cook Jelly: Jesus Luther DCPIA - Discharge Planning Initial Assessment Updated by [id number]: Jesus Luther on 08/02/19 5:21 pm * Is the patient Alert and Oriented? Yes * How many steps to enter\exit or inside your home? NONE * PCP DR. GREGORIO MOREJON * Pharmacy [facility] * Preadmission Environment Home with Family * ADLs Partial Dependent * Partial ADLs (Assistance needed) Bathing Medication Management Toileting * Equipment Rolling Walker * Other Equipment NO MEDICAL EQUIPMENT PROVIDER PREFERNECE * List name and contact numbers for known caregivers / representatives who currently or will assist patient after discharge: LONDON ELIA PEREZR, * Verbal permission to speak to the caregivers and representatives has been obtained from the patient. Yes * Community resources currently utilized None * Please name any agencies selected above. NONE * Additional services required to return to the preadmission environment? Yes * Can the patient safely return to the preadmission environment? No * Has this patient been hospitalized within the prior 30 days at any hospital? Yes Coverage Notice Reviewer: [id number] - Jesus Luther Notice Issued Date-Time: 08/02/2019 17:00 Notice Type: Patient Choice Letter Notice Delivered To: Family Member Relationship to Patient: Daughter Handle Finisher Name: london perez Delivery Method: PHONE - Phone Alina Days: Prior Verbal Notification: Recipient Understood Notice: Yes Recipient Signature: Med Rec Note Co-signed by Attending: Coverage Notice Comment: kb Vanegas DP export: 08/03/19 9:15 a Patient Name: HALLE PEREZ Page 95069 at 1021 All edits/amendments must be made on the electronic document DICTATION DATE: 08/03/19 1021 PRESS AND BLOW MACHINE TENDER: KATIE 08/03/19 1021 RPT#: [id number] DC DATE: STATUS: ADM IN [facility] [address] [place] [address] END OF REPORT
--- NOTE | 2019-08-03 12:52 | MORECARE ---
CASE MANAGEMENT DISCHARGE SUMMARY PATIENT: HALLE PEREZ UNIT: [id number] ADM DATE: 07/31/19 AGE: 78 : 38 SEX: F ROOM/BED: D.3504 AUTHOR: RIKA,DOC PHYSICIAN: REFERRING PHYSICIAN: CE NINO MD DATE OF SERVICE: 08/03/19 Discharge Plan Patient Name: HALLE PEREZ Facility: [facility]:[place] : 1940 Planned Disposition: [facility] Facility Anticipated Discharge Date: 08/04/19 Discharge Date: Expected LOS: 4 Initial Reviewer: [email or web address] Initial Review Date: 08/02/2019 Generated: 08/03/19 1:52 pm Comments DCP- Discharge Planning Updated by [id number]: Jesus Luther on 08/03/19 11:[address] Patient Name: HALLE PEREZ Encounter No: [id number] : 1940 Primary Insurance: [employer] MEDICARE [facility] Anticipated DC Date: 08-04-2019 Planned Disposition: [facility] Facility External Planned Provider: [facility] CM REVIEWED CHART. CM FAXED REFERRAL TO [facility] AT [phone]. CM NOTIFIED [facility] REFERRAL AT [phone]. CM WAITING ADMISSION DETERMINATION FROM [facility] FOR REHAB SERVICES. CORIN LUTHER CASE MANAGEMENT Appended by Jesus Luther on 08/03/2019 12:50 DIRECTOR PERSONAL: CM RECEIVED CALL FROM [facility] REGARDING A DIFFERENT PATIENT. CM INQUIRED ABOUT RECEIVING THIS PATIENTS REFERRAL FOR REHAB, [facility] HAS NOT RECEIVED FROM [facility]. CM FAXED REFERRAL TO [facility] AT [phone]. CM WAITING ADMISSION DETERMINATION FROM [facility] FOR REHAB SERVICES. PT'S INSURANCE REQUIRES PRIOR AUTHORIZATION FOR SERVICES. NISHA MORE DCP- Discharge Planning Updated by [id number]: Jesus Luther on 08/02/19 4:[address] Patient Name: HALLE PEREZ Admission Status: ER Accout number: [id number] Admission Date: 07-31-2019 : 1940 Admission Diagnosis: Attending: CE NINO Current LOS: 2 Anticipated DC Date: 08-04-2019 Planned Disposition: [facility] Facility Primary Insurance: [employer] MEDICARE ADV PLANNED [facility]TER[facility] BED Discharge Planning Comments: CM MET WITH PT IN ROOM TO DISCUSS DISCHARGE PLANNING AND NEEDS. PT REPORTS LIVING AT HOME DEPENDENTLY WITH HER DAUGHTER OMEGA WHO TAKES CARE OF HER. PT REPORTS ASSISTANCE WITH BATHING AND MEDICATIONS. PT HAS ROLLING WALKER WITH NO MEDICAL EQUIPMENT PROVIDER PREFERENCE. PT HAS NO OUTSIDE SERVICES ASSISTING IN THE HOME. CM DISCUSSED AVAILABILITY OF HOME HEALTH, REHAB SERVICES AND MEDICAL EQUIPMENT. PT WOULD LIKE REHAB BEFORE GOING HOME, ASKED CM TO CALL HER DAUGHTER OMEGA TO DISCUSS THIS. CM CALLED OMEGA PEREZ, . OMEGA UPSET THAT HER MOTHER HAD BEEN GIVEN A MEDICATION THAT PUT HER COMPLETELY OUT AND SHE WAS NOT ABLE TO WAKE HER MOTHER UP OR TO EVEN FEED HER. OMEGA DOES NOT WANT HER MOTHER GIVEN THAT MEDICATION EVER AGAIN. THEY DO WANT REHAB AND WANT REFERRAL SENT TO [facility], PT HAS BEEN THERE BEFORE WITH GOOD RESULT. THE PLAN WILL BE FOR REHAB TO RETURN HOME. PT'S DAUGHTER TAKES CARE OF PT ROTARY DRIER AT HOME AND PLANS TO APPLY FOR MEDICAID FOR PT AND TO GET PAID CAREGIVER FOR PT AT HOME THROUGH MEDICAID. CHOICE COMPLETED. [facility]; PT'S INSURANCE REQUIRES PRE AUTHORIZATION FOR REHAB SERVICES. Motor Vehicle Field Representative: Jesus Luther DCPIA - Discharge Planning Initial Assessment Updated by [id number]: Jesus Luther on 08/02/19 5:21 pm * Is the patient Alert and Oriented? Yes * How many steps to enter\exit or inside your home? NONE * PCP DR. GREGORIO MOREJON * Pharmacy [facility] * Preadmission Environment Home with Family * ADLs Partial Dependent * Partial ADLs (Assistance needed) Bathing Medication Management Toileting * Equipment Rolling Walker * Other Equipment NO MEDICAL EQUIPMENT PROVIDER PREFERNECE * List name and contact numbers for known caregivers / representatives who currently or will assist patient after discharge: OMEGA JEMIMA PEREZ, * Verbal permission to speak to the caregivers and representatives has been obtained from the patient. Yes * Community resources currently utilized None * Please name any agencies selected above. NONE * Additional services required to return to the preadmission environment? Yes * Can the patient safely return to the preadmission environment? No * Has this patient been hospitalized within the prior 30 days at any hospital? Yes Coverage Notice Reviewer: [id number] Chastity Luther Notice Issued Date-Time: 08/02/2019 17:00 Notice Type: Patient Choice Letter Notice Delivered To: Family Member Relationship to Patient: Daughter Stock Cutter Name: omega perez Delivery Method: PHONE - Phone Alina Days: Prior Verbal Notification: Recipient Understood Notice: Yes Recipient Signature: Med Rec Note Co-signed by Attending: Coverage Notice Comment: kb Reviewer: [id number] Chastity Luthre Notice Issued Date-Time: 08/03/2019 12:35 Notice Type: IM Discharge Notice Notice Delivered To: Family Member Relationship to Patient: Daughter Stock Cutter Name: OMEGA PEREZ Delivery Method: HAND - Hand Delivered Alina Days: Prior Verbal Notification: Recipient Understood Notice: Yes Recipient Signature: Yes Med Rec Note Co-signed by Attending: Coverage Notice Comment: Last DP export: 08/03/19 9:21 a Patient Name: HALLE PEREZ Page 89747 at 1252 All edits/amendments must be made on the electronic document DICTATION DATE: 08/03/19 1252 GLUE SIZE MACHINE OPERATOR: KATIE 08/03/19 1252 RPT#: [id number] DC DATE: STATUS: ADM IN [facility] [address] [place] [address] END OF REPORT
[2019-08-03 12:57] VITALS: BP 146/110
--- NOTE | 2019-08-03 14:18 | NUR ---
URINE SPECIMEN COLLECTED AND TAKEN TO LAB. WILL MONITOR.
[2019-08-03] MEDS ORDERED: CARDIZEM60 MG PO (15:12)
[2019-08-03] MEDS ORDERED: BETAPACE 80 MG80 MG PO (15:12)
[2019-08-03] MEDS ORDERED: FUROSEMIDE20 MG PO (15:14)
[2019-08-03] MEDS ORDERED: POTASSIUM CHLO10 ME1 PO (15:15)
[2019-08-03 16:17] VITALS: BP 100/65
--- NOTE | 2019-08-03 16:56 | NUR ---
OT NOTE: EOB WITH MIN ASSIST; ABLE TO SHWETA GOWN WITH MIN ASSIST; TOILETING WITH MIN ASSIST; AMB INTO HALLWAY, BUT BECAME LIGHT HEADED AND HAD TO RETURN TO BED. PT REMAINS VERY WEAK. MORE ALERT THAN YESTERDAY. RECOMMEND IP REHAB. MALLORIE VAUGHN, OTR/L
--- NOTE | 2019-08-03 18:42 | NUR ---
OT NOTE: PT COMPLETED SUPINE TO SIT WITH MIN A. PT COMPLETED SIT TO STAND WITH MIN A. PT COMPLETED FACE WASH WITH SET UP. PT COMPLETED HAND WASH WITH SET UP. PT EDUCATED TO USE CALL LIGHT. PT IS UNSTEADY WITH DYNAMIC BALANCE. THANK YOU, OMAIRA RIDLEY
[2019-08-03 19:00] VITALS: BP 128/67
[2019-08-04] VITALS: BP 110/71
--- NOTE | 2019-08-04 01:16 | NUR ---
PATIENT RESTING COMFORTABLY IN BED. RESPIRATIONS ARE EVEN AND UNLABORED. NO S/S OF DISTRESS. NO C/O PAIN. CALL LIGHT WITHIN REACH.
[2019-08-04 04:00] VITALS: BP 111/62
--- NOTE | 2019-08-04 04:24 | NUR ---
DAUGHTER CAME TO NURSES STATION AND COMPLAINED THAT HER MOTHER WAS IN PAIN. PT GIVEN 650 MG TYLENOL. APPROX. 30 MINUTES LATER DAUGHTER AGAIN COMPLAINED THAT HER MOTHER WAS IN PAIN. PATIENT WAS REPOSITIONED. DAUGHTER ASKED THAT THE MD WAS CALLED. DEE LATHAM APN. NO NEW ORDERS GIVEN. I INFORMED THE PATIENT THAT AT THIS TIME I HAD NOTHING ELSE I COULD GIVE HER. PATIENT DAUGHTER SAID, "MOMMA DO YOU WANT ME TO GO HOME AND GET YOUR SOMA, BACLOFEN" EXPLAINED TO DAUGHTER THAT SHE SHOULD NOT BE GIVING MEDICATIONS TO HER MOTHER. DAUGHTER WAS TOLD TO DISCUSS MEDICATIONS WITH THE MD.
--- NOTE | 2019-08-04 04:34 | NUR ---
PATIENT GIVEN WARM PACK FOR HER BACK PAIN. WARM PACK EFFECTIVE.
--- NOTE | 2019-08-04 05:50 | NUR ---
WAS INFORMED BY HAND TOOL FILER THAT PATIENT HR DECREASED TO 40'S POSSIBLE JUNCTIONAL RHYTHM. ASSESSED PATIENT DIAPHORETIC, MORE LETHARGIC THAN EARLIER THIS SHIFT. PATIENT STARTED THAT SHE FEELS THAT SHE HAS NO ENERGY. VITAL SIGNS, EKG OBTAINED. PAGED DR.TAUTH HENDRICKS AND RITA ON HOLD PER MD. HE IS GOING TO SEE HER THIS MORNING. PITER LATHAM APN AWARE OF PATIENT CONDITION.
[2019-08-04 05:57] LABS: HEMATOCRIT 33.9 % (36.0-48.0); HEMOGLOBIN 10.6 g/dL (12-16); LYMPHOCYTES 35.8 % (15-50); MCHC 31.3 g/dL (31.0-37.0); MEAN PLATELET VOLUME 10.8 fL (7.4-10.4); NEUTROPHILS 44.7 % (40-80); PLATELET COUNT 259 10x3/uL (130-400); RBC 4.24 10x6/uL (4.00-5.40); RDW 20.2 % (11.5-14.5)
[2019-08-04 06:20] LABS: ALBUMIN 2.6 g/dL (3.4-5.0); ANION GAP 19.7 mmol/L (8-16); BILIRUBIN - TOTAL 0.64 mg/dL (0.2-1.3); CARBON DIOXIDE 17.8 mmol/L (21.0-32.0); CREATININE - SERUM 1.3 mg/dL (0.6-1.3); POTASSIUM - SERUM 5.5 mmol/L (3.5-5.1); PROTEIN - SERUM 6.6 g/dL (6.4-8.2)
[2019-08-04 06:28] LABS: WBC 6.9 10x3/uL (4.8-10.8)
--- NOTE | 2019-08-04 08:11 | NUR ---
RECEIVED PT IN BED EYES CLOSED RESP UNLABORED SKIN W/D COLOR WNL HR 40 B/P 99/69 R 16
[2019-08-04 09:49] VITALS: BP 103/62
[2019-08-04 13:37] VITALS: BP 118/76
--- NOTE | 2019-08-04 14:08 | NUR ---
Nutrition Follow-up: Pt sleepy this AM but reports improved PO intake. Per record, ate ~50% of breakfast this AM. Reports drinking 1 Glucerna yesterday. Awaiting placement. Diet: ADA/AHA, Glucerna with meals PO intake: 50-100% (08/03-08/04) Wt: 125# Last BM: "a couple days ago" per pt Labs noted: K+ 5.5, Glu 180, Alb 2.6 Meds noted: Lasix, KDur, Humalog -Continue current diet/supplement as tolerated. -RD following.
--- NOTE | 2019-08-04 14:36 | NUR ---
OT NOTE: PT COMPLETED SUPINE TO SIT WITH MIN A. PT COMPLETED EOB SITTING WITH CGA. PT COMPLETED FACE/HAND HYGIENE WITH MIN A. NURSING STATED TO HOLD FURTHER THERAPIES FOR REMAINDER OF DAY SECONDARY TO HOLD ON CERTAIN MEDICATIONS. THANK YOU,OMAIRA RIDLEY
[2019-08-04 17:16] VITALS: BP 126/79
--- NOTE | 2019-08-04 17:36 | MORECARE ---
CASE MANAGEMENT DISCHARGE SUMMARY PATIENT: HALLE PEREZ UNIT: [id number] ADM DATE: 07/31/19 AGE: 78 : 38 SEX: F ROOM/BED: D.6387 AUTHOR: RIKA,DOC PHYSICIAN: REFERRING PHYSICIAN: CE NINO MD DATE OF SERVICE: 08/04/19 Discharge Plan Patient Name: HALLE PEREZ Facility: [facility]:[place] : 1940 Planned Disposition: [facility] Facility Anticipated Discharge Date: 08/04/19 Discharge Date: Expected LOS: 4 Initial Reviewer: [id number] Initial Review Date: 08/02/2019 Generated: 08/04/19 6:36 pm Comments DCP- Discharge Planning Updated by [id number]: Jesus Luther on 08/04/19 4:[address] Patient Name: HALLE PEREZ Encounter No: [id number] : 1940 Primary Insurance: [employer] MEDICARE ADV Anticipated DC Date: 08-04-2019 Planned Disposition: Fpc Facility External Planned Provider:[facility] DISCHARGE PLANNING NOTE: CM RECEIVED CALL FROM [facility] WHO REPORTS THEY ARE STILL WAITING ON INSURANCE AUTHORIZATION. CM FAXED REFERRAL UDPATE TO [facility] AT [phone]. CM WAITING ADMISSION DETERMINATION FROM [facility] FOR REHAB SERVICES. PT'S INSURANCE REQUIRES PRIOR AUTHORIZATION FOR SERVICES. NISHA MORE DCP- Discharge Planning Updated by [id number]: Jesus Luther on 08/03/19 11:[address] Patient Name: HALLE PEREZ Encounter No: [id number] : 1940 Primary Insurance: [employer] MEDICARE ADV Anticipated DC Date: 08-04-2019 Planned Disposition: Fpc Facility External Planned Provider: [facility] CM REVIEWED CHART. CM FAXED REFERRAL TO [facility] AT [phone]. CM NOTIFIED [facility] AT [phone]. CM WAITING ADMISSION DETERMINATION FROM [facility] FOR REHAB SERVICES. CORIN LUTHER CASE MANAGEMENT Appended by Jesus Luther on 08/03/2019 12:50 LOOM SETTER: CM RECEIVED CALL FROM [facility] REGARDING A DIFFERENT PATIENT. CM INQUIRED ABOUT RECEIVING THIS PATIENTS REFERRAL FOR REHAB, [facility] HAS NOT RECEIVED FROM [facility]. CM FAXED REFERRAL TO [facility] AT [phone]. CM WAITING ADMISSION DETERMINATION FROM [facility] FOR REHAB SERVICES. PT'S INSURANCE REQUIRES PRIOR AUTHORIZATION FOR SERVICES. CORIN LUTHER, CASE MANAGEMENT DCP- Discharge Planning Updated by [id number]: Jesus Luther on 08/02/19 4:[address] Patient Name: HALLE PEREZ Admission Status: ER Accout number: [id number] Admission Date: 07-31-2019 : 1940 Admission Diagnosis: Attending: CE NINO Current LOS: 2 Anticipated DC Date: 08-04-2019 Planned Disposition: [facility]pc Facility Primary Insurance: [employer] MEDICARE ADV PLANNED EXTERNAL PROVIDER: [facility], MEDICARE REHAB BED Discharge Planning Comments: CM MET WITH PT IN ROOM TO DISCUSS DISCHARGE PLANNING AND NEEDS. PT REPORTS LIVING AT HOME DEPENDENTLY WITH HER DAUGHTER LONDON WHO TAKES CARE OF HER. PT REPORTS ASSISTANCE WITH BATHING AND MEDICATIONS. PT HAS ROLLING WALKER WITH NO MEDICAL EQUIPMENT PROVIDER PREFERENCE. PT HAS NO OUTSIDE SERVICES ASSISTING IN THE HOME. CM DISCUSSED AVAILABILITY OF HOME HEALTH, REHAB SERVICES AND MEDICAL EQUIPMENT. PT WOULD LIKE REHAB BEFORE GOING HOME, ASKED CM TO CALL HER DAUGHTER LONDON TO DISCUSS THIS. CM CALLED LONDON PEREZ, . LONDON UPSET THAT HER MOTHER HAD BEEN GIVEN A MEDICATION THAT PUT HER COMPLETELY OUT AND SHE WAS NOT ABLE TO WAKE HER MOTHER UP OR TO EVEN FEED HER. LONDON DOES NOT WANT HER MOTHER GIVEN THAT MEDICATION EVER AGAIN. THEY DO WANT REHAB AND WANT REFERRAL SENT TO [facility], PT HAS BEEN THERE BEFORE WITH GOOD RESULT. THE PLAN WILL BE FOR REHAB TO RETURN HOME. PT'S DAUGHTER TAKES CARE OF PT EXTERNAL GRINDER AT HOME AND PLANS TO APPLY FOR MEDICAID FOR PT AND TO GET PAID CAREGIVER FOR PT AT HOME THROUGH MEDICAID. CHOICE COMPLETED. CM TO SEND REFERRAL TO [facility] SOON POSSIBLE; PT'S INSURANCE REQUIRES PRE AUTHORIZATION FOR REHAB SERVICES. Bonderizer Operator: Jesus Luther DCPIA - Discharge Planning Initial Assessment Updated by [id number]: Jesus Luther on 08/02/19 5:21 pm * Is the patient Alert and Oriented? Yes * How many steps to enter\exit or inside your home? NONE * PCP DR. GREGORIO MOREJON * Pharmacy [facility] * Preadmission Environment Home with Family * ADLs Partial Dependent * Partial ADLs (Assistance needed) Bathing Medication Management Toileting * Equipment Rolling Walker * Other Equipment NO MEDICAL EQUIPMENT PROVIDER PREFERNECE * List name and contact numbers for known caregivers / representatives who currently or will assist patient after discharge: LONDONMANDI PEREZ, DTR, * Verbal permission to speak to the caregivers and representatives has been obtained from the patient. Yes * Community resources currently utilized None * Please name any agencies selected above. NONE * Additional services required to return to the preadmission environment? Yes * Can the patient safely return to the preadmission environment? No * Has this patient been hospitalized within the prior 30 days at any hospital? Yes Coverage Notice Reviewer: [id number] Chastity Luther Notice Issued Date-Time: 08/02/2019 17:00 Notice Type: Patient Choice Letter Notice Delivered To: Family Member Relationship to Patient: Daughter Film Composer Name: london perez Delivery Method: PHONE - Phone Alina Days: Prior Verbal Notification: Recipient Understood Notice: Yes Recipient Signature: Med Rec Note Co-signed by Attending: Coverage Notice Comment: kb Reviewer: [id number] Chastity Luther Notice Issued Date-Time: 08/03/2019 12:35 Notice Type: IM Discharge Notice Notice Delivered To: Family Member Relationship to Patient: Daughter Film Composer Name: LONDON PEREZ Delivery Method: HAND - Hand Delivered Alina Days: Prior Verbal Notification: Recipient Understood Notice: Yes Recipient Signature: Yes Med Rec Note Co-signed by Attending: Coverage Notice Comment: Last DP export: 08/03/19 11:52 a Patient Name: HALLE PEREZ Page [phone] at 1736 All edits/amendments must be made on the electronic document DICTATION DATE: 08/04/191735 SOLAR SALES ASSESSOR: KATIE 08/04/191735 RPT#: [id number] DC DATE: STATUS: ADM IN [facility] [address] [place] [address] END OF REPORT
--- NOTE | 2019-08-04 19:38 | NUR ---
RECEIVED BEDSIDE REPORT. PATIENT IS ALERT AND ORIENTED, RESTING COMFORTABLY IN BED. RESPIRATIONS ARE EVEN AND UNLABORED. NO S/S OF DISTRESS. NO C/O PAIN. CALL LIGHT WITHIN REACH. WILL CPOC.
[2019-08-04 20:00] VITALS: BP 116/78
[2019-08-05] VITALS: BP 112/71
[2019-08-05 02:56] LABS: UDS - AMPHET NEGATIVE QUAL (NEGATIVE); UDS - BARB NEGATIVE QUAL (NEGATIVE); UDS - BENZO NEGATIVE QUAL (NEGATIVE); UDS - COCAINE NEGATIVE QUAL (NEGATIVE); UDS - OPIATE NEGATIVE QUAL (NEGATIVE); UDS - PCP NEGATIVE QUAL (NEGATIVE); UDS - THC NEGATIVE QUAL (NEGATIVE)
[2019-08-05 05:49] LABS: BASOPHILS 0.8 % (0-2); EOSINOPHILS 0.6 % (0-7); HEMATOCRIT 31.1 % (36.0-48.0); IMMATURE GRANULOCYTES 0.5 % (0-5); LYMPHOCYTES 40.3 % (15-50); MCH 24.8 pg (26.0-34.0); MCHC 32.2 g/dL (31.0-37.0); MEAN PLATELET VOLUME 9.7 fL (7.4-10.4); MONOCYTES 23.7 % (2-11); NEUTROPHILS 34.1 % (40-80); PLATELET COUNT 283 10x3/uL (130-400); RBC 4.03 10x6/uL (4.00-5.40); RDW 18.7 % (11.5-14.5); WBC 6.6 10x3/uL (4.8-10.8)
[2019-08-05 05:50] LABS: ALBUMIN 2.7 g/dL (3.4-5.0); ANION GAP 16.8 mmol/L (8-16); BILIRUBIN - TOTAL 0.59 mg/dL (0.2-1.3); CALCIUM 10.3 mg/dL (8.5-10.1); CARBON DIOXIDE 17.9 mmol/L (21.0-32.0); CREATININE - SERUM 1.4 mg/dL (0.6-1.3); POTASSIUM - SERUM 4.7 mmol/L (3.5-5.1); PROTEIN - SERUM 6.7 g/dL (6.4-8.2)
[2019-08-05 06:04] LABS: MCV 77.2 fL (80.0-100.0)
[2019-08-05 08:05] VITALS: BP 120/73
--- NOTE | 2019-08-05 12:10 | NUR ---
reviewed discharge instructions with pt states understanding copy giveN DCD SALINE LOCK TO RFA WITH IV CATHETER INTACT SITE FREE OF REDNESS OR EDEMA PT DISCHARGED TO [facility] LEFT UNIT VIA W/C IN STABLE CONDITION WITH [facility] REH[facility] STAFF
--- NOTE | 2019-08-05 12:28 | MORECARE ---
CASE MANAGEMENT DISCHARGE SUMMARY PATIENT: HALLE PEREZ UNIT: [id number] ADM DATE: 07/31/19 AGE: 78 : 38 SEX: F ROOM/BED: D.0064 AUTHOR: RIKA,DOC PHYSICIAN: REFERRING PHYSICIAN: CE NINO MD DATE OF SERVICE: 08/05/19 Discharge Plan Patient Name: HALLE PEREZ Facility: [facility]:[place] : 1940 Planned Disposition: [facility] Facility Anticipated Discharge Date: 08/05/19 Discharge Date: Expected LOS: 5 Initial Reviewer: [id number] Initial Review Date: 08/02/2019 Generated: 08/05/19 1:28 pm Comments DCP- Discharge Planning Updated by [id number]: Jesus Cardona on 08/05/19 11:[address] Patient Name: HALLE PEREZ Encounter No: [id number] : 1940 Primary Insurance: [employer] MEDICARE ADV Anticipated DC Date: 08-05-2019 Planned Disposition: [facility] Facility External Planned Provider: [facility], MEDICARE REHAB BED. DCP follow-up note: CM RECEIVED CALL FROM [facility], THEY RECEIVED AUTH AND WILL TAKE TODAY. CM NOTIFIED JT LXU. DISCHARGE ORDER RECEIVED, PT NOTIFIED AND IN AGREEMENT WITH DISCHARGE TO REHAB. CM FAXED DISCHARGE INFORMATION TO [facility] AT [phone]. CALL NURSE REPORT TO [facility] AT [phone]. [facility] TO ARRANGE VAN TRANSPORTATION. NISHA Gu DCP- Discharge Planning Updated by [id number]: Jesus Cardona on 08/04/19 4:[address] Patient Name: HALLE PEREZ Encounter No: [id number] : 1940 Primary Insurance: WE[employer] MEDICARE ADV Anticipated DC Date: 08-04-2019 Planned Disposition: [facility] Facility External Planned Provider:[facility] DISCHARGE PLANNING NOTE: CM RECEIVED CALL FROM [facility] WHO REPORTS THEY ARE STILL WAITING ON INSURANCE AUTHORIZATION. CM FAXED REFERRAL UDPATE TO [facility] AT [phone]. CM WAITING ADMISSION DETERMINATION FROM [facility] FOR REHAB SERVICES. PT'S INSURANCE REQUIRES PRIOR AUTHORIZATION FOR SERVICES. NISHA MORE DCP- Discharge Planning Updated by [id number]: Jesus Cardona on 08/03/19 11:[address] Patient Name: HALLE PEREZ Encounter No: [id number] : 1940 Primary Insurance: WELL[employer] MEDICARE ADV Anticipated DC Date: 08-04-2019 Planned Disposition: [facility] Facility External Planned Provider: [facility] CM REVIEWED CHART. CM FAXED REFERRAL TO [facility] AT [phone]. CM NOTIFIED [facility] REFERRAL AT [phone]. CM WAITING ADMISSION DETERMINATION FROM [facility] FOR REHAB SERVICES. NISHA MORE MANAGEMENT Appended by Jesus Cardona on 08/03/2019 12:50 LAUNDRY ROOM ATTENDANT: CM RECEIVED CALL FROM [facility] REGARDING A DIFFERENT PATIENT. CM INQUIRED ABOUT RECEIVING THIS PATIENTS REFERRAL FOR REHAB, [facility] HAS NOT RECEIVED FROM [facility]. CM FAXED REFERRAL TO [facility] AT [phone]. CM WAITING ADMISSION DETERMINATION FROM [facility] FOR REHAB SERVICES. PT'S INSURANCE REQUIRES PRIOR AUTHORIZATION FOR SERVICES. NISHA MORE DCP- Discharge Planning Updated by [id number]: Jesus Cardona on 08/02/19 4:[address] Patient Name: HALLE PEREZ Admission Status: ER Accout number: [id number] Admission Date: 07-31-2019 : 1940 Admission Diagnosis: Attending: CE NINO Current LOS: 2 Anticipated DC Date: 08-04-2019 Planned Disposition: [facility] Facility Primary Insurance: [place] MEDICARE ADV PLANNED EXTERNAL PROVIDER: [facility], MEDICARE REHAB BED Discharge Planning Comments: CM MET WITH PT IN ROOM TO DISCUSS DISCHARGE PLANNING AND NEEDS. PT REPORTS LIVING AT HOME DEPENDENTLY WITH HER DAUGHTER LONDON WHO TAKES CARE OF HER. PT REPORTS ASSISTANCE WITH BATHING AND MEDICATIONS. PT HAS ROLLING WALKER WITH NO MEDICAL EQUIPMENT PROVIDER PREFERENCE. PT HAS NO OUTSIDE SERVICES ASSISTING IN THE HOME. CM DISCUSSED AVAILABILITY OF HOME HEALTH, REHAB SERVICES AND MEDICAL EQUIPMENT. PT WOULD LIKE REHAB BEFORE GOING HOME, ASKED CM TO CALL HER DAUGHTER LONDON TO DISCUSS THIS. CM CALLED LONDON PEREZ, . LONDON UPSET THAT HER MOTHER HAD BEEN GIVEN A MEDICATION THAT PUT HER COMPLETELY OUT AND SHE WAS NOT ABLE TO WAKE HER MOTHER UP OR TO EVEN FEED HER. LONDON DOES NOT WANT HER MOTHER GIVEN THAT MEDICATION EVER AGAIN. THEY DO WANT REHAB AND WANT REFERRAL SENT TO [facility], PT HAS BEEN THERE BEFORE WITH GOOD RESULT. THE PLAN WILL BE FOR REHAB TO RETURN HOME. PT'S DAUGHTER TAKES CARE OF PT DISPATCHER CHIEF OIL AT HOME AND PLANS TO APPLY FOR MEDICAID FOR PT AND TO GET PAID CAREGIVER FOR PT AT HOME THROUGH MEDICAID. CHOICE COMPLETED. CM TO SEND REFERRAL TO [facility] SOON POSSIBLE; PT'S INSURANCE REQUIRES PRE AUTHORIZATION FOR REHAB SERVICES. Thermometer Production Worker: Jesus Cardona DCPIA - Discharge Planning Initial Assessment Updated by [id number]: Jesus Cardona on 08/02/19 5:21 pm * Is the patient Alert and Oriented? Yes * How many steps to enter\exit or inside your home? NONE * PCP DR. GREGORIO MOREJON * Pharmacy [facility] * Preadmission Environment Home with Family * ADLs Partial Dependent * Partial ADLs (Assistance needed) Bathing Medication Management Toileting * Equipment Rolling Walker * Other Equipment NO MEDICAL EQUIPMENT PROVIDER PREFERNECE * List name and contact numbers for known caregivers / representatives who currently or will assist patient after discharge: LONDON PEREZ DTR, * Verbal permission to speak to the caregivers and representatives has been obtained from the patient. Yes * Community resources currently utilized None * Please name any agencies selected above. NONE * Additional services required to return to the preadmission environment? Yes * Can the patient safely return to the preadmission environment? No * Has this patient been hospitalized within the prior 30 days at any hospital? Yes Coverage Notice Reviewer: [id number] Chastity Cardona Notice Issued Date-Time: 08/02/2019 17:00 Notice Type: Patient Choice Letter Notice Delivered To: Family Member Relationship to Patient: Daughter Platform Stapler Name: london perez Delivery Method: PHONE - Phone Alina Days: Prior Verbal Notification: Recipient Understood Notice: Yes Recipient Signature: Med Rec Note Co-signed by Attending: Coverage Notice Comment: kb Reviewer: [id number] Chastity Cardona Notice Issued Date-Time: 08/03/2019 12:35 Notice Type: IM Discharge Notice Notice Delivered To: Family Member Relationship to Patient: Daughter Platform Stapler Name: LONDON PEREZ Delivery Method: HAND - Hand Delivered Alina Days: Prior Verbal Notification: Recipient Understood Notice: Yes Recipient Signature: Yes Med Rec Note Co-signed by Attending: Coverage Notice Comment: Last DP export: 08/04/19 4:36 p Patient Name: HALLE PEREZ Page 52940 at 1228 All edits/amendments must be made on the electronic document DICTATION DATE: 08/05/198 SENIOR ASIC DESIGN ENGINEER: KATIE 08/05/19 1228 RPT#: [id number] DC DATE: STATUS: ADM IN [facility] [address] [place] [address] END OF REPORT
== END 2019-08-05 12:10 | DRG 308 ==
LOC: D.ER 10:22 → D.M2 13:51
PROVIDERS: Family Medicine; ADMIT Internal Medicine Nephrology; ATTEND Internal Medicine Nephrology
DX: I48.20 Chronic atrial fibrillation, unspecified (principal); E43 Unspecified severe protein-calorie malnutrition; I50.23 Acute on chronic systolic (congestive) heart failure; N39.0 Urinary tract infection, site not specified; N17.9 Acute kidney failure, unspecified; E86.0 Dehydration; D50.9 Iron deficiency anemia, unspecified; Z68.22 Body mass index [BMI] 22.0-22.9, adult; I11.0 Hypertensive heart disease with heart failure; K81.1 Chronic cholecystitis; E78.5 Hyperlipidemia, unspecified; I25.10 Atherosclerotic heart disease of native coronary artery without angina pectoris; I08.1 Rheumatic disorders of both mitral and tricuspid valves; I27.20 Pulmonary hypertension, unspecified; E87.6 Hypokalemia; E11.9 Type 2 diabetes mellitus without complications; E05.90 Thyrotoxicosis, unspecified without thyrotoxic crisis or storm; E83.52 Hypercalcemia; I42.0 Dilated cardiomyopathy